=== PATIENT | female | born 2000 | race Caucasian/White ===

== ENCOUNTER → 2020-08-16 11:16 | Outpatient (CLI) | payer OTHER, SELFPAY ==
[2019-03-13 14:09] VITALS: BMI 23.6
[2020-08-17 13:42] LABS: SARS-COV-2 TOTAL ABS Reactive (Nonreactive)
== END ==
PROVIDERS: PCP Family Medicine; Referring Provider Family Medicine; Visit Provider Family Medicine
DX: U07.1 COVID-19 (principal)
CPT/HCPCS: 36415; 86769

== ENCOUNTER → 2021-04-06 | Outpatient (CLI) | payer BC, SELFPAY ==
[2021-04-11 17:05] LABS: HPV Reflexed? NOT INDICATED
== END | disposition home or self-care (01) ==
LOC: LABSPEC 16:13
PROVIDERS: PCP Family Medicine; Referring Provider Nurse Practitioner Women's Health; Visit Provider Nurse Practitioner Women's Health
DX: Z12.4 Encounter for screening for malignant neoplasm of cervix (principal)
CPT/HCPCS: 88175; G0145

== ENCOUNTER → 2021-04-11 06:01 | Outpatient (CLI) | payer BC, SELFPAY ==
[2021-04-11 09:29] LABS: Anion Gap 9 (5-15); BUN 18 mg/dL (7-18); BUN/Creat Ratio 20.5 RATIO (10-20); Calcium,Total 8.8 mg/dL (8.5-10.1); Chloride 103 mmol/L (98-107); Cholesterol 194 mg/dL (200); Creatinine, Serum 0.88 mg/dL (0.55-1.02); EST Glomerular Filtration Rate 85 mL/min (>60); Est Glom Filt Rate - Afr Amer 103 mL/min (>60); Glucose 82 mg/dL (74-106); High Density Lipoprotein 48 mg/dL; Potassium 3.4 mmol/L (3.5-5.1); Sodium Level 139 mmol/L (136-145); Triglycerides 111 mg/dL; Very Low Density Lipoprotein 22 mg/dL (5-40)
== END ==
PROVIDERS: PCP Family Medicine; Referring Provider Nurse Practitioner Women's Health; Visit Provider Nurse Practitioner Women's Health
DX: Z00.00 Encounter for general adult medical examination without abnormal findings (principal); Z13.220 Encounter for screening for lipoid disorders; Z13.29 Encounter for screening for other suspected endocrine disorder; Z13.1 Encounter for screening for diabetes mellitus
CPT/HCPCS: 36415; 80048; 80061; 84443

== ENCOUNTER → 2021-05-29 07:06 | Outpatient (CLI) | payer BC, SELFPAY ==
[2021-05-29 10:28] LABS: Thyroid Stim Hormone (TSH) 1.31 uIU/mL (0.358-3.74)
== END ==
PROVIDERS: PCP Family Medicine; Referring Provider Registered Nurse; Visit Provider Registered Nurse
DX: E03.9 Hypothyroidism, unspecified (principal)
CPT/HCPCS: 36415; 84443

== ENCOUNTER 2021-09-26 07:54 | Outpatient (CLI) | payer BC, SELFPAY ==
--- NOTE | 2021-09-26 07:56 | CT_ITS ---
STUDY: CT ABDOMEN AND PELVIS WITH CONTRAST REASON FOR EXAM: Female, 21 years old. Persistent, worsening abdominal pain, pain with eating, central abdomen RADIATION DOSAGE (If Supplied By Facility): CTDIvol = ( 8.93 ) mGy, DLP = ( 574.78 ) mGycm TECHNIQUE: Transaxial images were obtained from the dome of the diaphragm to the symphysis pubis with oral contrast. Oral and amp; IV Redi-CAT and amp; 100mL Isovue-300 was administered. Sagittal and coronal images were reconstructed. Individualized dose optimization techniques were used for this CT. COMPARISON: None. FINDINGS: The visualized lung bases are unremarkable. The visualized portions of the heart are within normal limits. Normal liver. Normal gallbladder and extrahepatic biliary system. Normal spleen. Normal pancreas. Normal bilateral adrenal glands. Normal right kidney. Normal left kidney. Normal visualized stomach. Normal small intestine. Normal colon. The appendix is visualized and appears normal. Normal abdominal aorta. Normal inferior vena cava. Normal retroperitoneum. Normal urinary bladder. There is a 2.7 cm x 2.3 cm cyst in the right ovary. Small follicles are seen in the left ovary. There is a small umbilical hernia containing fat. Normal osseous structures. CT/Abdomen/Pelvis WITH Contrast IMPRESSION: 2.7 cm x 2.3 cm cyst in the right ovary. Small follicles are seen in the left ovary. Electronically Signed: Pritesh John MD at 12:26 EDT ,
== END 2021-09-26 23:59 | disposition home or self-care (01) ==
LOC: CT 07:55
PROVIDERS: PCP Family Medicine; Referring Provider Registered Nurse; Visit Provider Registered Nurse
DX: R10.9 Unspecified abdominal pain (principal)
CPT/HCPCS: 74177; Q9967

== ENCOUNTER → 2021-11-15 | Outpatient (CLI) | payer BC, SELFPAY ==
[2021-11-15 12:26] LABS: Absolute Lymphocyte Count 1.75 X10^3/uL (0.83-4.51); Absolute Neutrophil Count 2.4 X10^3/uL (2.0-7.7); Basophil# 0.04 X10^3/uL; Basophil% 0.8 % (0-1); Eosinophil# 0.27 X10^3/uL; Eosinophils% 5.6 % (0-5); Hematocrit 42.1 % (37-47); Lymphocyte # 1.75 X10^3/ul (0.83-4.51); Lymphocyte % 36.1 % (19-41); Mean Corp Hgb Conc 33.3 g/dL (32-36); Mean Corpuscular Hgb 29.6 pg (27.0-32.0); Mean Platelet Vol. 10.1 fl (6.2-12.0); Monocyte# 0.34 X10^3/uL; NRBC Flagged by Analyzer 0 % (0-5); Neutrophil # 2.44 X10^3/uL (2.7-7.7); Neutrophil % 50.3 % (47-70); Platelet Count 315 K/mm3 (150-450); RBC Distribution Width CV 11.7 % (11.6-14.6); RBC Distribution Width SD 37.7 fl (35.1-43.9); Red Blood Count 4.73 M/mm3 (4.2-5.4); White Blood Count 4.9 K/mm3 (4.4-11.0)
[2021-11-15 13:01] LABS: ALB/GLOB Ratio 1.1 RATIO (0.9-2.4); AST(SGOT) 18 U/L (15-37); Alanine Aminotransfer ALT/SGPT 23 U/L (13-56); Alkaline Phosphatase 41 U/L (45-117); Anion Gap 5 (5-15); BUN 17 mg/dL (7-18); Calcium,Total 9.1 mg/dL (8.5-10.1); Chloride 106 mmol/L (98-107); EST Glomerular Filtration Rate 73 mL/min (>60); Est Glom Filt Rate - Afr Amer 88 mL/min (>60); Globulin 3.5 g/dL (2.2-4.2); Glucose 95 mg/dL (74-106); Potassium 3.9 mmol/L (3.5-5.1); Protein, Total 7.5 g/dL (6.4-8.2); Sodium Level 137 mmol/L (136-145)
[2021-11-15 13:06] LABS: Thyroid Stim Hormone (TSH) 0.83 uIU/mL (0.358-3.74)
== END | disposition home or self-care (01) ==
PROVIDERS: Nurse Practitioner Adult Health; PCP Family Medicine; Referring Provider Family Medicine; Visit Provider Registered Nurse
DX: E03.9 Hypothyroidism, unspecified (principal)
CPT/HCPCS: 36415; 80053; 84443; 85025

== ENCOUNTER → 2021-11-17 | Outpatient (CLI) | payer BC, SELFPAY ==
[2021-11-21 10:38] LABS: H. PYLORI STOOL AG Negative (Negative)
== END | disposition home or self-care (01) ==
PROVIDERS: PCP Family Medicine; Visit Provider Nurse Practitioner Adult Health
DX: R10.9 Unspecified abdominal pain (principal)

== ENCOUNTER → 2021-12-01 | Outpatient (CLI) | payer BC, SELFPAY ==
--- NOTE | 2021-12-01 09:03 | NM_ITS ---
STUDY: HEPATOBILARY SCINTGRAPHY REASON FOR EXAM: Female, 21 years old. Abdominal pain COMPARISON STUDIES : NM - None. CR - Not available for review at this time. CT - Not available for review at this time. MR - Not available for review at this time. Technique: After the administration of 5.3 mCi of technetium 99m Choletec intravenously, multiple scintigraphic images of the abdomen were obtained. After the administration of energy drink orally, a gallbladder ejection fraction was calculated. Findings: Homogeneous uptake of radiopharmaceutical throughout the hepatic parenchyma. Prompt excretion into the biliary tree first seen on the 10 minute image. Prompt visualization of the gallbladder first seen on the 10 minute image. Passage of radiopharmaceutical from the biliary tree into the small bowel ensuring patency of the common bile duct. After the administration of energy drink orally, gallbladder ejection fraction is calculated. The gallbladder ejection fraction is 37% which is slightly decreased and can be seen in gallbladder dyskinesia chronic cholecystitis.. NM/Hepatobilliary Img w/Pharm Int IMPRESSION: Possible chronic cholecystitis with a gallbladder ejection fraction of 37%. Electronically Signed: Manuel Gomez MD at 10:57 EDT ,
== END | disposition home or self-care (01) ==
LOC: NM 09:01
PROVIDERS: PCP Family Medicine; Referring Provider Nurse Practitioner Adult Health; Visit Provider Nurse Practitioner Adult Health
DX: R10.11 Right upper quadrant pain (principal)
CPT/HCPCS: 78227; A9537

== ENCOUNTER → 2021-12-19 | Outpatient (CLI) | payer BC, SELFPAY ==
--- NOTE | 2021-12-19 08:59 | US_ITS ---
STUDY: ABDOMINAL ULTRASOUND - RIGHT UPPER QUADRANT REASON FOR VISIT: Female, 21 years old . Right upper quadrant pain. TECHNIQUE: Ultrasound evaluation of the right upper quadrant was performed with real-time and static spears-scale imaging. TECHNICAL QUALITY: Adequate. COMPARISON: None. FINDINGS: Liver: The liver measures 11.7 cm. There is normal echogenicity of the liver. The bile ducts are within normal limits. There is hepatic color flow. The direction of portal flow is hepatopetal. There is no demonstrated mass lesion. Gallbladder: Normal distended gallbladder. The gallbladder wall measures 2.5 mm. There is a negative sonographic Enwell''s sign. There is no pericholecystic fluid. There are no gallstones. Common Bile Duct (C.B.D.): The common bile duct measures 1.8 mm. Pancreas: Normal size of the head, body and tail of the pancreas. There is normal echogenicity of the pancreas. There is no demonstrated pancreatic mass or cyst. Right Kidney: Normal size of the right kidney. The right kidney measures 10.3 cm x 5.1 cm x 5.8 cm. Normal renal cortex. The right cortex measures 1.9 cm. There is no demonstrated renal mass or cyst. There is no right hydronephrosis. US/Gallbladder IMPRESSION: Normal right upper quadrant ultrasound examination. Electronically Signed: Pritesh John MD at 9:37 EDT ,
== END | disposition home or self-care (01) ==
LOC: US 08:58
PROVIDERS: PCP Family Medicine; Referring Provider Surgery; Visit Provider Surgery
DX: R10.11 Right upper quadrant pain (principal); R94.8 Abnormal results of function studies of other organs and systems
CPT/HCPCS: 76705

== ENCOUNTER → 2022-03-13 | Outpatient (CLI) | payer BC, SELFPAY ==
[2022-03-13 18:42] LABS: T4 Free Direct 0.94 ng/dL (0.76-1.46); Thyroid Stim Hormone (TSH) 1.67 uIU/mL (0.358-3.74)
== END | disposition home or self-care (01) ==
LOC: MFPLAB 09:58
PROVIDERS: PCP Family Medicine; Referring Provider Nurse Practitioner Family; Visit Provider Nurse Practitioner Family
DX: E03.9 Hypothyroidism, unspecified (principal)
CPT/HCPCS: 36415; 84439; 84443

== ENCOUNTER 2022-05-09 08:41 | Day surgery (SDC) | payer BC, SELFPAY ==
[2022-05-09] VITALS (7 sets, daily range): BP systolic 100–125; BP diastolic 59–68; PULSE 71–79; RESP 16; TEMP 36.7–36.9; O2SAT 96–100; BMI 31.1
--- NOTE | 2022-05-09 | COLBX_PTH ---
PATIENT: LILY FOUNTAIN LOC: EN U#:[id number] AGE/SX: 21/F ROOM: RE05/09/[address]: Dr. Jonas Simpson DO : 2000 BED: DIS: 05/09/2022 SPEC #: [id number] RECD: 05/09/22 13:17 STATUS: DAYANARA REHolli #: [id number] MARIS: 05/09/22 00:[address]: Jonas Simpson DEPT: SURGICAL PATHOLOGY RECD BY: Jaiden Vega ENTERED: 05/09/22 13:17 SP TYPE: COLON BX OTHR DR: Dr. Ramiro Ren MD Tissues: A - Duodenum, NOS B - Gastric mucous membrane C - Esophageal mucous membrane Procedures: Special Stain Group II Surgery Specimen Level IV Alcian Blue/PAS (control) HEADER OPERATION: EGD ([facility]) PRE-OP DIAGNOSIS: Postprandial RUQ pain TISSUE SUBMITTED: A. Duodenum biopsy, B. Gastric antrum biopsy, C. Distal esophagus biopsy MICROSCOPIC DIAGNOSIS A. Duodenum biopsy: Fragments of duodenal mucosa, no pathologic diagnosis. B. Gastric antrum biopsy: Mild gastritis. See microscopic description and comment. C. Distal esophagus biopsy: Fragments of gastroesophageal mucosa with chronic inflammation. Intestinal metaplasia (goblet cell metaplasia) not identified. Focal changes consistent with eosinophilic esophagitis. See microscopic description and comment. /SANDRA 05/10/22 COMMENT B. The results of immunohistochemistry for Helicobacter pylori will be reported separately ([id number]). C. Alcian blue/PAS stain with matched control supports the above diagnosis. Increased number of eosinophils (>20/per high power field) are also noted, consistent with eosinophilic esophagitis. Correlation with clinical, endoscopic findings and appropriate follow up are necessary. MICROSCOPIC DESCRIPTION Slides are reviewed. The specimen shows fragments of gastric mucosa with chronic inflammatory cell infiltrates in the lamina propria consisting of lymphocytes and plasma cells, consistent with mild chronic gastritis. GROSS DESCRIPTION A. Received is one container labeled with the patient name and designated duodenum. The specimen consists of two irregular fragments of light hatch soft tissue that in aggregate measure 0.6 x 0.3 x 0.1 cm. The specimen is totally submitted in one cassette. B. Received is one container labeled with the patient name and designated gastric antrum. The specimen consists of multiple irregular fragments of light hatch soft tissue that in aggregate measure 0.8 x 0.4 x 0.1 cm. The specimen is totally submitted in one cassette. C. Received is one container labeled with the patient name and designated disat esophagus. The specimen consists of multiple irregular fragments of light hatch soft tissue that in aggregate measure 0.6 x 0.4 x 0.1 cm. The specimen is totally submitted in one cassette. /SJ:cc 05/09/2022 TC:3 CPT:94093 x3,32237
--- NOTE | 2022-05-09 | IMM_PTH ---
PATIENT: LILY FOUNTAIN LOC: EN U#:[id number] AGE/SX: 21/F ROOM: RE05/09/[address]: Dr. Jonas Simpson DO : 2000 BED: DIS: 05/09/2022 SPEC #: [id number] RECD: 05/09/22 15:11 STATUS: DAYANARA SOLEDAD #: [id number] MARIS: 05/09/22 00:[address]: Jonas Simpson DEPT: IMMUNOHISTOCHEMISTRY RECD BY: Lucia Ingram ENTERED: 05/09/22 15:11 SP TYPE: IMMUNO OTHR DR: Dr. Ramiro Ren MD Tissues: Gastric mucous membrane Procedures: H Pylori (initial) PHYSICIAN & [place] [id number] SPECIMEN INFORMATION: Tissue Source: B. Gastric antrum Clinical Info: Postprandial RUQ pain Specimen Number: [id number] CPT code: 32646 METHODOLOGY: Deparaffinized sections of prefer/formalin-fixed tissue or PAP/DQ stained slides are incubated with monoclonal/polyclonal antibodies/oligonucleotide probes. Localization is made via biotin free immunoperoxidase method. Appropriate controls are performed and reacted as expected. Results on target cell population are indicated in the following table: RESULTS: ANTIBODY / CLONE RESULT H Pylori (polyclonal) negative These tests were developed and their performance characteristics determined by [facility]. They may not have been cleared or approved by the U.S. Food and Drug Administration. The FDA has determined that such clearance or approval is not necessary. The above immunohistochemical/dualISH markers are ordered and reviewed by the Pathologist. INTERPRETATION: Gastric antrum: Negative for Helicobacter pylori organisms. /SANDRA:selena 05/10/2022
[2022-05-09 09:12] LABS: Internal QC Validated? YES +Cl - CLEAR BKGD; Pregnancy, Urine Negative Negative
[2022-05-09] MEDS: Lactated Ringers 1,000 ML 15 ML IV (09:15)
--- NOTE | 2022-05-09 09:27 | HP.PCM_ITS ---
History and Physical Date of Admission: 05/09/22 LILY FOUNTAIN, is a 21 F who presents to the office today for postprandial stomach aches. They are now less severe and less frequent on pantoprazole 20 mg daily. Used to occur daily, now a few times a week. Only occasional nausea, not problematic.? BM 2x per day, no issue with constipation. Occasional diarrhea but not frequent and that is unchanged.? No melena or hematochezia. General surgeon Dr Conroy has evaluated her; HIDA technically normal, US normal. 10/2021 Labs: CBC slightly elevated eosinophils Negative stool H. pylori 90% is after eating ache and cramp Nausea isn't often The abdominal pain is epigastric and superior to the umbilicus.? It began in high school.? Initially occurred just after eating certain foods especially avocado or [place] food.? In the past year the pain became much more frequent, occurring almost anytime she ate. Pain typically occurs 20-30 minutes after eating.? Occasional nausea with the pain but that is not frequent.? The only time she has vomited was from avocado. No heartburn, acid reflux, dysphagia. Normal appetite. No major weight change. CT scan of the abdomen and pelvis with oral and IV contrast done on 09/26/2021: Right ovarian cyst, otherwise negative. Sister has EOE PMH: temporary hearing loss in 2020, ?Meniere's vs covid, on HCTZ. Hypothyroidism.? Vocal cord dysfunction.? Minimal seasonal allergies.? No asthma or eczema. 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 She is .? No tobacco alcohol or drugs. ROS Const Constitutional: Positive for fatigue ENT ENT: No difficulty swallowing Gastro GI: Positive for abdominal pain, bloating and excessive flatus; No belching, change in bowel habits, change in stool character, coffee ground emesis, constipation, cramping, diarrhea, heartburn, difficulty swallowing, feeling full early, incontinent of stools, Vomiting blood/hematemesis, Blood in stool, loose stools, Black,tarry stools, nausea/dyspepsia, pain with swallowing, vomiting or other Musc Musculoskeletal: No joint pain Skin Skin: Positive for itchy eyes and rash; No yellowing of the eye Psych Psychiatric: No anxiety and No depression Endo Endocrine: Positive for fatigue Aller/Imm Allergy/Immunologic: Positive for itchy eyes Codey/Lymp Hematologic/Lymphatic: No easy bleeding or easy bruising Exam Const General: cooperative, healthy appearing and comfortable Quality Reporting Tobacco Screening ([facility] 138) Smoking Status: Never smoker Assessment and Plan Assessment and Plan (1) Postprandial RUQ pain: ?Status:?Acute ?Plan: Improved on PPI therapy, less frequent and less severe. Samples of Zenpep pancreatic enzymes, try 1 with snacks and 2 with meals; send me a portal message with update if this relieves pain or not. If so, could consider treating small bowel with azithromycin (to treat inflammation in duodenum that can cause blockage from pancreas). Recommend she keep appt for EGD to evaluate for hiatal hernia, gastritis, bile acid reflux. I have examined the patient and the H&P has been reviewed. There are no clinical changes since date of exam.
--- NOTE | 2022-05-09 10:11 | OP.CCLET_ITS ---
05/09/2022 Ramiro Ren [address] [place] [address] Re : Upper GI endoscopy procedure for Valery Hurst Dear Dr. Ren This procedure was performed on Monday, May 09, 2022. My impressions and recommendations are as follows: Impressions : - Z-line irregular, 38 cm from the incisors. Biopsied. - Bilious gastric fluid. - Erythematous mucosa in the antrum. Biopsied. - Erythematous duodenopathy. Biopsied. Recommendations : - Discharge patient to home. - Resume previous diet. - Continue present medications. - Await pathology results. My findings are described in the full procedure note, which is enclosed. If I can be of further assistance, please feel free to contact me at . Sincerely, Jonas Simpson, 05/09/2022 10:10:52 AM This report has been signed electronically.
--- NOTE | 2022-05-09 10:11 | OP.EGD_ITS ---
Patient Name: Valery Hurst Procedure Date: 05/09/2022 9:48 AM Date of : 2000 Age: 21 Procedure: Upper GI endoscopy Indications: Epigastric abdominal pain, Functional Dyspepsia Providers: Jonas Simpson DO Medicines: Monitored Anesthesia Care Patient Profile: This is a 21 year old female. Refer to note in patient chart for documentation of history and physical. Patient has symptoms of chronic right upper quadrant abdominal pain, acute epigastric abdominal pain and chronic dyspepsia. Complications: No immediate complications. Procedure: Pre-Anesthesia Assessment: - Prior to the procedure, a History and Physical was performed, and patient medications and allergies were reviewed. The risks and benefits of the procedure and the sedation options and risks were discussed with the patient. All questions were answered and informed consent was obtained. Patient identification and proposed procedure were verified by the physician in the pre-procedure area. Mental Status Examination: alert and oriented. Airway Examination: normal oropharyngeal airway and neck mobility. Respiratory Examination: clear to auscultation. CV Examination: normal. Prophylactic Antibiotics: The patient does not require prophylactic antibiotics. Prior Anticoagulants: The patient has taken no previous anticoagulant or antiplatelet agents. ASA Grade Assessment: II - A patient with mild systemic disease. After reviewing the risks and benefits, the patient was deemed in satisfactory condition to undergo the procedure. The anesthesia plan was to use moderate sedation / analgesia (conscious sedation). Immediately prior to administration of medications, the patient was re-assessed for adequacy to receive sedatives. The heart rate, respiratory rate, oxygen saturations, blood pressure, adequacy of pulmonary ventilation, and response to care were monitored throughout the procedure. The physical status of the patient was re-assessed after the procedure. After obtaining informed consent, the endoscope was passed under direct vision. Throughout the procedure, the patient's blood pressure, pulse, and oxygen saturations were monitored continuously. The Endoscope was introduced through the mouth, and advanced to the second part of duodenum. The upper GI endoscopy was accomplished without difficulty. The patient tolerated the procedure well. Scope In: 9:59:15 AM Scope Out: 10:05:57 AM Total Procedure Duration Time 0 hours 6 minutes 42 seconds Findings: The Z-line was irregular and was found 38 cm from the incisors. Biopsies were taken with a cold forceps for histology. Verification of patient identification for the specimen was done. Estimated blood loss was minimal. Bilious fluid was found in the gastric body. Patchy mildly erythematous mucosa without bleeding was found in the gastric antrum. Biopsies were taken with a cold forceps for histology. Verification of patient identification for the specimen was done. Estimated blood loss was minimal. Patchy mildly erythematous mucosa without active bleeding and with no stigmata of bleeding was found in the duodenal bulb. Biopsies were taken with a cold forceps for histology. Verification of patient identification for the specimen was done. Estimated blood loss was minimal. Impression: - Z-line irregular, 38 cm from the incisors. Biopsied. - Bilious gastric fluid. - Erythematous mucosa in the antrum. Biopsied. - Erythematous duodenopathy. Biopsied. Recommendation: - Discharge patient to home. - Resume previous diet. - Continue present medications. - Await pathology results. Procedure Code(s): --- Professional --- 47717, Esophagogastroduodenoscopy, flexible, transoral; with biopsy, single or multiple CPT copyright 2017 [employer]. All rights reserved. The codes documented in this report are preliminary and upon kraft mill operator review may be revised to meet current compliance requirements. Jonas Simpson DO 05/09/2022 10:10:52 AM This report has been signed electronically. Number of Addenda: 0 Note Initiated On: 05/09/2022 9:48 AM
== END 2022-05-09 11:09 | disposition home or self-care (01) ==
LOC: EN 08:42 → AC 08:42
PROVIDERS: Anesthesiology; PCP Family Medicine; Referring Provider Family Medicine; Visit Provider Internal Medicine Gastroenterology
PROC: 0DJ08ZZ Inspection of Upper Intestinal Tract, Via Natural or Artificial Opening Endoscopic (ICD-10-PCS; CPT 43235; principal; 2022-05-09 09:40)
DX: K31.89 Other diseases of stomach and duodenum (principal); K20.0 Eosinophilic esophagitis; K29.50 Unspecified chronic gastritis without bleeding; E03.9 Hypothyroidism, unspecified; Z79.899 Other long term (current) drug therapy
CPT/HCPCS: 43239; 81025; 88305; 88313; 88342; J7120; A4216; J2405

== ENCOUNTER → 2022-06-26 | Outpatient (CLI) | payer BC, SELFPAY ==
[2022-06-26 09:48] LABS: hCG Titer Quant., Serum < 1 mIU/mL (1-3)
== END | disposition home or self-care (01) ==
LOC: PAVLAB 08:54
PROVIDERS: PCP Family Medicine; Referring Provider Obstetrics & Gynecology; Visit Provider Obstetrics & Gynecology
DX: N91.2 Amenorrhea, unspecified (principal)
CPT/HCPCS: 36415; 84702

== ENCOUNTER → 2022-07-24 | Outpatient (CLI) | payer BC, SELFPAY | END | disposition home or self-care (01) | PROVIDERS: PCP Family Medicine | DX: E03.9 Hypothyroidism, unspecified (principal); R10.9 Unspecified abdominal pain ==

== ENCOUNTER → 2022-09-07 | Outpatient (CLI) | payer BC, SELFPAY ==
[2022-09-07 16:08] LABS: T4 Free Direct 0.95 ng/dL (0.76-1.46); Thyroid Stim Hormone (TSH) 3.34 uIU/mL (0.358-3.74)
== END | disposition home or self-care (01) ==
PROVIDERS: PCP Family Medicine; Referring Provider Nurse Practitioner Family; Visit Provider Nurse Practitioner Family
DX: E03.9 Hypothyroidism, unspecified (principal)
CPT/HCPCS: 36415; 84439; 84443

== ENCOUNTER → 2022-09-26 | Outpatient (CLI) | payer BC, SELFPAY ==
[2022-09-26 14:32] LABS: hCG Titer Quant., Serum 81 mIU/mL (1-3)
== END | disposition home or self-care (01) ==
LOC: PAVLAB 13:44
PROVIDERS: PCP Family Medicine; Referring Provider Nurse Practitioner Women's Health; Visit Provider Nurse Practitioner Women's Health
DX: N91.2 Amenorrhea, unspecified (principal)
CPT/HCPCS: 36415; 84702

== ENCOUNTER → 2022-09-28 | Outpatient (CLI) | payer BC, SELFPAY ==
[2022-09-28 12:48] LABS: hCG Titer Quant., Serum 268 mIU/mL (1-3)
== END | disposition home or self-care (01) ==
LOC: PAVLAB 11:36
PROVIDERS: PCP Family Medicine; Visit Provider Nurse Practitioner Women's Health
DX: N91.2 Amenorrhea, unspecified (principal)
CPT/HCPCS: 36415; 84702

== ENCOUNTER → 2022-11-05 | Outpatient (CLI) | payer BC, SELFPAY ==
[2022-11-05 14:37] LABS: Absolute Lymphocyte Count 2.24 X10^3/uL (0.83-4.51); Absolute Neutrophil Count 6.6 X10^3/uL (2.0-7.7); Basophil# 0.05 X10^3/uL; Basophil% 0.5 % (0-1); Eosinophil# 0.35 X10^3/uL; Eosinophils% 3.5 % (0-5); Hematocrit 39.6 % (37-47); Hemoglobin 13.5 g/dL (12.0-15.0); Lymphocyte # 2.24 X10^3/ul (0.83-4.51); Lymphocyte % 22.7 % (19-41); Mean Corp Hgb Conc 34.1 g/dL (32-36); Mean Corpuscular Hgb 30.1 pg (27.0-32.0); Mean Corpuscular Volume 88.4 fL (81-99); Monocyte# 0.58 X10^3/uL; Monocyte% 5.9 % (0-10); NRBC Flagged by Analyzer 0 % (0-5); Neutrophil # 6.63 X10^3/uL (2.7-7.7); Neutrophil % 67.2 % (47-70); Platelet Count 317 K/mm3 (150-450); RBC Distribution Width CV 12.1 % (11.6-14.6); RBC Distribution Width SD 39.1 fl (35.1-43.9); Red Blood Count 4.48 M/mm3 (4.2-5.4); White Blood Count 9.9 K/mm3 (4.4-11.0)
[2022-11-05 15:11] LABS: T4 Free Direct 1.11 ng/dL (0.76-1.46); Thyroid Stim Hormone (TSH) 5.03 uIU/mL (0.358-3.74)
[2022-11-05 15:45] LABS: HIV - WCH Non-Reactive (Nonreactive); Hepatitis B Surface Antigen Non-Reactive (Nonreactive); Hepatitis C Antibody Non-Reactive (Nonreactive); Rubella IgG Reactive (Nonreactive); Syphilis Antibodies Non-reactive
[2022-11-08 00:07] LABS: Chlamydia By Nucleic Acid AMP Negative (Negative); Gonococcus By Nucleic Acid AMP Negative (Negative)
[2022-11-12 18:07] LABS: CF, Screen Comment: (.)
== END | disposition home or self-care (01) ==
LOC: PAVLAB 14:12
PROVIDERS: Nurse Practitioner Family; PCP Family Medicine; Referring Provider Obstetrics & Gynecology; Visit Provider Obstetrics & Gynecology
DX: O99.280 Endocrine, nutritional and metabolic diseases complicating pregnancy, unspecified trimester (principal); E03.9 Hypothyroidism, unspecified; Z3A.00 Weeks of gestation of pregnancy not specified
CPT/HCPCS: 36415; 81220; 84439; 84443; 85025; 86703; 86762; 86780; 86803; 86850; 86900; 86901; 87086; 87340; 87491; 87591

== ENCOUNTER 2022-11-15 21:09 | Emergency (ER) | payer BC, SELFPAY ==
[2022-11-15 21:10] VITALS: BP 141/91; PULSE 92; RESP 16; TEMP 36.6; O2SAT 98; BMI 29.0
--- NOTE | 2022-11-15 21:37 | EDS_ITS ---
HPI History of Present Illness Chief Complaint: Abd Pain Narrative Narrative: Patient presents with epigastric pain and cramping that started today she has nausea with this no vomiting. She has some loose stools but no diarrhea. She is 11 weeks she has minimal suprapubic pain. She has no vaginal bleeding. She has no back pain or tearing sensation. No urinary symptoms PFSH PFS Medical History Abdominal pain Abnormal biliary HIDA scan Alcohol use Amenorrhea Bile in stomach Epigastric pain Hypothyroidism Meniere disease Non-smoker Postprandial RUQ pain Wears contact lenses Home Medications levothyroxine 100 mcg capsule 100 mcg PO QHS 10/09/21 [History Last Taken Unknown] docosahexaenoic acid 200 mg capsule ( DHA) mg PO 11/01/22 [History Last Taken Unknown] doxylamine succinate 25 mg tablet (Unisom (doxylamine)) 25 mg PO QHS PRN 11/01/22 [History Last Taken Unknown] magnesium 200 mg tablet 200 mg PO DAILY 11/01/22 [History Last Taken Unknown] pyridoxine (vitamin B6) 25 mg tablet (Vitamin B-6) 25 mg PO DAILY 11/01/22 [History Last Taken Unknown] dicyclomine 20 mg tablet 20 mg PO TID #14 tabs 11/15/22 [Rx Last Taken Unknown] ondansetron 4 mg disintegrating tablet 4 mg PO Q8H PRN PRN Nausea #5 tabs 11/15/22 [Rx Last Taken Unknown] Allergy/AdvReac Type Severity Reaction Status Date / Time No Known Allergies Allergy Verified 11/15/22 21:13 Family History Mother Hypothyroid Father Hypertension Surgical History Hx of wisdom tooth extraction S/P left knee surgery S/P right knee surgery S/P tonsillectomy Social History adopted: No household members: spouse current occupational status: employed current occupation: [employer] current occupational exposures/hazards: No pets and animals: No history of recent travel: Yes ([place] in Jun ) out of country: Yes sexually active: Yes Smoking Status: Never smoker alcohol intake: current details: social- not while substance use type: does not use caffeine: Yes what type of physical activity do you participate in: running and aerobics frequency: 1-2 times per week seatbelt use: always do you feel safe at home: Yes additional social history: Spouse - Wayne Hurst 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 ROS ROS ED ROS Narrative Past medical history: Reviewed Medications: Reviewed Social history: Noncontributory Review of systems: All systems negative except as indicated General: No fever Cardiovascular: No chest pain Respiratory: No shortness of breath or cough Gastrointestinal: As in HPI Genitourinary: No dysuria Musculoskeletal: Denies myalgias no difficulty with ambulation Skin: No rash EXAM Physical Exam Narrative Exam Narrative: Physical exam General: Patient appears relatively comfortable Head: Normocephalic, Atraumatic Eyes: Conjunctiva not pale ENT: Slightly dry mucous membranes Neck: Supple, Nontender, No lymphadenopathy Cardiovascular: Regular rate, Regular rhythm Respiratory: No distress, CTA bilaterally Abdomen: Soft, mostly epigastric tenderness to palpation. No significant right upper quadrant pain. Negative Newell's. No pain at McBurney's. When I press in the suprapubic region she only has slight pain. Most of her pain is epigastric. Back: Nontender, Normal Inspection. Negative for: CVA tenderness Extremities: Nontender, No edema Skin: Normal color, No rash Const Vital Signs: 11/15/22 21:10 Temperature 97.9 F Temperature Source Temporal Pulse Rate 92 Respiratory Rate 16 Blood Pressure 141/91 H Blood Pressure Mean 107 Pulse Ox 98 Oxygen Delivery Method Room Air MDM MDM MDM Narrative Medical decision making narrative: Patient presents with epigastric pain and cramping, she received antiemetics and antispasmodics I reevaluated her her pain is now much improved she feels much better. There is no evidence of a UTI, there is no evidence of biliary obstruction on blood work, no evidence of infection with normal white count. At this time I thought about CT or ultrasound however the patient does not have specific right upper quadrant pain and she has negative Newell's. Most her pain is epigastric and not pelvic therefore I am not worried about a etiology for her symptoms. I talked her and they are okay with discharge. Lab Data Labs: Laboratory Results - last 24 hr 11/15/22 11/15/22 11/15/22 21:45 21:50 21:50 WBC 9.4 RBC 4.26 Hgb 12.7 Hct 37.6 MCV 88.3 MCH 29.8 MCHC 33.8 RDW Std Deviation 39.7 RDW Coeff of Antonia 12.4 Plt Count 285 MPV 9.7 Immature Gran % (Auto) 0.200 Neut % (Auto) 67.5 Lymph % (Auto) 23.3 [place] % (Auto) 6.0 Eos % (Auto) 2.4 Baso % (Auto) 0.6 Absolute Neuts (auto) 6.3 Absolute Lymphs (auto) 2.19 Nucleated RBC % 0 Sodium 138 Potassium 3.3 L Chloride 107 Carbon Dioxide 24.0 Anion Gap 7 BUN 10 Creatinine 0.63 Estim Creat Clear Calc 133.90 Est GFR (MDRD) Af Amer 150 Est GFR (MDRD) Non-Af 124 BUN/Creatinine Ratio 16.0 Glucose 96 Calcium 9.0 Total Bilirubin 0.30 AST 17 ALT 20 Alkaline Phosphatase 39 L Total Protein 6.6 Albumin 3.2 Globulin 3.4 Albumin/Globulin Ratio 0.9 Lipase 31 Urine Color Yellow Urine Clarity Clear Urine pH 7.0 Ur Specific [place] 1.010 Urine Protein Negative Urine Glucose (UA) Normal Urine Ketones Negative Urine Occult Blood Negative Urine Nitrite Negative Urine Bilirubin Negative Urine Urobilinogen Normal Ur Leukocyte Esterase Negative Urine RBC 0 SEEN Urine WBC 0-5 SEEN Ur Squamous Epith Cells 0-5 SEEN Urine Bacteria 1+ Urine Mucus 0 SEEN Discharge Plan Triage Chief Complaint: Abd Pain ED Provider: Savage Bonds Dx/Rx/DC Orders Clinical Impression: , Abdominal cramping Instructions: Abdominal Pain Prescriptions: New dicyclomine 20 mg tablet 20 mg PO TID Qty: 14 0RF ondansetron 4 mg tablet,disintegrating 4 mg PO Q8H PRN PRN (Reason: Nausea) Qty: 5 0RF No Action levothyroxine 100 mcg capsule 100 mcg PO QHS pyridoxine (vitamin B6) [Vitamin B-6] 25 mg tablet 25 mg PO DAILY Unisom (doxylamine) 25 mg tablet 25 mg PO QHS PRN magnesium 200 mg tablet 200 mg PO DAILY DHA 200 mg capsule PO Primary Care Provider: Katarina Christy Referrals: Westley,Katarina M, DO [Primary Care Provider] - 3-5 Days Disposition Disposition: Home, Self Care
[2022-11-15 21:55] LABS: Mucous, Urine 0 SEEN /hpf (<or=2+); Red Blood Cells-Urine 0 SEEN /hpf (0-5)
[2022-11-15 21:57] LABS: Color, Urine Yellow (Yellow); Glucose, Dipstick Normal (Normal); Ketone-Dipstick Negative (Negative); Leukocyte Esterase-Dipstick Negative /ul (Negative); Nitrite-Dipstick Negative (Negative); Occult Blood-Urine Negative /ul (Negative); Protein-Dipstick Negative (Negative); Urine Bilirubin Dipstick Negative (Negative); Urine Clarity Clear (Clear); Urine Urobilinogen Normal (Normal)
[2022-11-15] MEDS: Ondansetron 4 MG/2 ML Vial IV (22:03)
[2022-11-15] MEDS: 0.9% Normal Saline 1,000 ML 1000 ML IV (22:03)
[2022-11-15] MEDS: Dicyclomine 20 MG/2 ML Vial IM (22:03)
[2022-11-15 22:07] LABS: Bacteria 1+ /hpf (None Seen); Squamous Epithelial Cells - UA 0-5 SEEN /hpf (5-10); White Blood Cells 0-5 SEEN /hpf (0-5)
[2022-11-15 22:11] LABS: Absolute Lymphocyte Count 2.19 X10^3/uL (0.83-4.51); Absolute Neutrophil Count 6.3 X10^3/uL (2.0-7.7); Basophil# 0.06 X10^3/uL; Basophil% 0.6 % (0-1); Eosinophil# 0.23 X10^3/uL; Eosinophils% 2.4 % (0-5); Hematocrit 37.6 % (37-47); Hemoglobin 12.7 g/dL (12.0-15.0); Lymphocyte # 2.19 X10^3/ul (0.83-4.51); Lymphocyte % 23.3 % (19-41); Mean Corp Hgb Conc 33.8 g/dL (32-36); Mean Corpuscular Hgb 29.8 pg (27.0-32.0); Mean Corpuscular Volume 88.3 fL (81-99); Mean Platelet Vol. 9.7 fl (6.2-12.0); Monocyte# 0.56 X10^3/uL; NRBC Flagged by Analyzer 0 % (0-5); Neutrophil # 6.34 X10^3/uL (2.7-7.7); Neutrophil % 67.5 % (47-70); Platelet Count 285 K/mm3 (150-450); RBC Distribution Width CV 12.4 % (11.6-14.6); RBC Distribution Width SD 39.7 fl (35.1-43.9); Red Blood Count 4.26 M/mm3 (4.2-5.4); White Blood Count 9.4 K/mm3 (4.4-11.0)
[2022-11-15 22:27] LABS: ALB/GLOB Ratio 0.9 RATIO (0.9-2.4); AST(SGOT) 17 U/L (15-37); Alanine Aminotransfer ALT/SGPT 20 U/L (13-56); Albumin, Serum 3.2 g/dL (3.2-5.0); Alkaline Phosphatase 39 U/L (45-117); Anion Gap 7 (5-15); BUN 10 mg/dL (7-18); Chloride 107 mmol/L (98-107); Creatinine, Serum 0.63 mg/dL (0.55-1.02); EST Glomerular Filtration Rate 124 mL/min (>60); Est Glom Filt Rate - Afr Amer 150 mL/min (>60); Globulin 3.4 g/dL (2.2-4.2); Glucose 96 mg/dL (74-106); Lipase 31 U/L (13-75); Potassium 3.3 mmol/L (3.5-5.1); Protein, Total 6.6 g/dL (6.4-8.2); Sodium Level 138 mmol/L (136-145)
[2022-11-15 23:19] VITALS: TEMP -7.7; TEMP 18
== END 2022-11-15 23:20 | disposition home or self-care (01) ==
PROVIDERS: Emergency Provider Emergency Medicine; PCP Family Medicine; Visit Provider Emergency Medicine
DX: O26.891 Other specified pregnancy related conditions, first trimester (principal); R10.9 Unspecified abdominal pain; Z3A.11 11 weeks gestation of pregnancy
CPT/HCPCS: 80053; 81001; 83690; 85025; 96361; 96372; 96374; 99284; J7030; J2405

== ENCOUNTER → 2022-12-14 | Outpatient (CLI) | payer BC, SELFPAY ==
[2022-12-14 11:23] LABS: Thyroid Stim Hormone (TSH) 3.97 uIU/mL (0.358-3.74)
== END | disposition home or self-care (01) ==
LOC: PAVLAB 10:38
PROVIDERS: PCP Family Medicine; Visit Provider Obstetrics & Gynecology
DX: O99.280 Endocrine, nutritional and metabolic diseases complicating pregnancy, unspecified trimester (principal); E03.9 Hypothyroidism, unspecified; Z3A.00 Weeks of gestation of pregnancy not specified
CPT/HCPCS: 36415; 84443

== ENCOUNTER → 2023-01-11 | Outpatient (CLI) | payer BC, SELFPAY ==
[2023-01-11 11:00] LABS: Thyroid Stim Hormone (TSH) 1.85 uIU/mL (0.358-3.74)
== END | disposition home or self-care (01) ==
LOC: PAVLAB 10:18
PROVIDERS: PCP Family Medicine; Referring Provider Obstetrics & Gynecology; Visit Provider Obstetrics & Gynecology
DX: O99.280 Endocrine, nutritional and metabolic diseases complicating pregnancy, unspecified trimester (principal); E03.9 Hypothyroidism, unspecified; Z3A.00 Weeks of gestation of pregnancy not specified
CPT/HCPCS: 36415; 84439; 84443

== ENCOUNTER → 2023-03-08 | Outpatient (CLI) | payer BC, SELFPAY ==
[2023-03-08 09:27] LABS: Absolute Lymphocyte Count 1.42 X10^3/uL (0.83-4.51); Absolute Neutrophil Count 6.2 X10^3/uL (2.0-7.7); Basophil# 0.03 X10^3/uL; Basophil% 0.4 % (0-1); Eosinophils% 1.2 % (0-5); Hematocrit 38.4 % (37-47); Hemoglobin 13.1 g/dL (12.0-15.0); Lymphocyte # 1.42 X10^3/ul (0.83-4.51); Lymphocyte % 17.1 % (19-41); Mean Corp Hgb Conc 34.1 g/dL (32-36); Mean Corpuscular Hgb 30.7 pg (27.0-32.0); Mean Corpuscular Volume 89.9 fL (81-99); Mean Platelet Vol. 9.6 fl (6.2-12.0); Monocyte# 0.47 X10^3/uL; Monocyte% 5.7 % (0-10); NRBC Flagged by Analyzer 0 % (0-5); Neutrophil # 6.22 X10^3/uL (2.7-7.7); Neutrophil % 75.1 % (47-70); Platelet Count 224 K/mm3 (150-450); RBC Distribution Width CV 12.9 % (11.6-14.6); RBC Distribution Width SD 42.3 fl (35.1-43.9); Red Blood Count 4.27 M/mm3 (4.2-5.4); White Blood Count 8.3 K/mm3 (4.4-11.0)
[2023-03-08 09:53] LABS: Glucose Challenge Gest 1H 50g 129 mg/dL (70-140)
[2023-03-08 10:26] LABS: HIV - WCH Non-Reactive (Nonreactive); Syphilis Antibodies Non-reactive
== END | disposition home or self-care (01) ==
PROVIDERS: Obstetrics & Gynecology; PCP Family Medicine; Referring Provider Obstetrics & Gynecology; Visit Provider Obstetrics & Gynecology
DX: Z34.90 Encounter for supervision of normal pregnancy, unspecified, unspecified trimester (principal)
CPT/HCPCS: 36415; 82950; 85025; 86703; 86780

== ENCOUNTER → 2023-04-24 | Outpatient (CLI) | payer BC, SELFPAY ==
[2023-04-24 11:23] LABS: T4 Free Direct 0.78 ng/dL (0.76-1.46); Thyroid Stim Hormone (TSH) 1.56 uIU/mL (0.358-3.74)
[2023-04-24 11:34] LABS: Free T3 2.3 pg/mL (2.18-3.98)
== END | disposition home or self-care (01) ==
LOC: MTLAB 07:31
PROVIDERS: Registered Nurse; PCP Family Medicine; Referring Provider Obstetrics & Gynecology; Visit Provider Obstetrics & Gynecology
DX: O99.280 Endocrine, nutritional and metabolic diseases complicating pregnancy, unspecified trimester (principal); E03.9 Hypothyroidism, unspecified; Z3A.00 Weeks of gestation of pregnancy not specified
CPT/HCPCS: 36415; 84439; 84443; 84481

== ENCOUNTER → 2023-04-26 | Outpatient (CLI) | payer BC, SELFPAY | END | disposition home or self-care (01) | PROVIDERS: PCP Family Medicine; Referring Provider Obstetrics & Gynecology; Visit Provider Obstetrics & Gynecology | DX: O99.891 Other specified diseases and conditions complicating pregnancy (principal); N89.8 Other specified noninflammatory disorders of vagina; R10.2 Pelvic and perineal pain; Z3A.00 Weeks of gestation of pregnancy not specified | CPT/HCPCS: 87070; 87086; 87205 ==

== ENCOUNTER → 2023-05-07 | Outpatient (CLI) | payer BC, SELFPAY ==
[2023-05-07 15:09] LABS: ROM Internal Control Test YES-OK TO RESULT pt. (Internal QC); ROM Patient Test Negative (Negative); Record Kit Lot#, ROM+ K1409
== END | disposition home or self-care (01) ==
LOC: LABSPEC 14:41
PROVIDERS: PCP Family Medicine; Referring Provider Obstetrics & Gynecology; Visit Provider Obstetrics & Gynecology
DX: O09.90 Supervision of high risk pregnancy, unspecified, unspecified trimester (principal); Z3A.00 Weeks of gestation of pregnancy not specified
CPT/HCPCS: 84112; 87081

== ENCOUNTER 2023-05-24 13:29 | Inpatient (IN) | payer BC, SELFPAY ==
[2023-05-24] VITALS (32 sets, daily range): BP systolic 132–165; BP diastolic 64–96; PULSE 72–99; TEMP 36.6–37.2; BMI 40.1
[2023-05-24 11:20] LABS: Protein:Creat Ratio 200 mg/g CRE (0-200)
[2023-05-24 11:20] LABS: Protein, Urine (Random) 20.2 mg/dL (<11.9); Protein:Creat Ratio 189 mg/g CRE (0-200)
[2023-05-24 11:28] LABS: AST(SGOT) 26 U/L (15-37); Alanine Aminotransfer ALT/SGPT 29 U/L (13-56); Creatinine, Serum 0.57 mg/dL (0.55-1.02); EST Glomerular Filtration Rate 137 mL/min (>60); Est Glom Filt Rate - Afr Amer 166 mL/min (>60); Uric Acid 5.4 mg/dL (2.6-6.0)
[2023-05-24 11:30] LABS: Hematocrit 37.1 % (37-47); Hemoglobin 12.2 g/dL (12.0-15.0); Mean Corp Hgb Conc 32.9 g/dL (32-36); Mean Corpuscular Hgb 28.4 pg (27.0-32.0); Mean Corpuscular Volume 86.3 fL (81-99); Mean Platelet Vol. 10.7 fl (6.2-12.0); Platelet Count 232 K/mm3 (150-450); RBC Distribution Width CV 13.5 % (11.6-14.6); RBC Distribution Width SD 41.6 fl (35.1-43.9); White Blood Count 7.9 K/mm3 (4.4-11.0)
[2023-05-24] MEDS: Lactated Ringers 1,000 ML 200 ML IV (14:30)
[2023-05-24] MEDS: miSOPROStol 25 MCG TABLET VAGINAL ×2 (14:40→18:56)
[2023-05-24 16:06] LABS: Syphilis Antibodies Non-reactive
--- NOTE | 2023-05-24 17:03 | HP.PCM.OB_ITS ---
HPI - General General Date of Admission: 05/24/23 Chief Complaint: hypertension HPI Narrative LILY FOUNTAIN, is a 22 F who presents at 38+4 who presents with 8 pound weight gain in the past week with increased BP and LE pitting edema in office. denies headaches, RUQ pain or visual changes. BP 140-150s/90s. had severe range x 3 with spontaneous resolution without medications Maternal Data Information ARTURO Calculator Estimated Delivery Date Method Current WG Current Estimate 06/03/23 Ultrasound #1 38w 4d Other Estimates 04/25/23 LMP (Uncertain) 44w 1d PFSH [facility] Medical History Abdominal pain Abnormal biliary HIDA scan Alcohol use Amenorrhea Bile in stomach Epigastric pain Hypothyroidism Meniere disease Non-smoker Postprandial RUQ pain Wears contact lenses Home Medications docosahexaenoic acid 200 mg capsule ( DHA) mg PO 11/01/22 [History Last Taken Unknown] levothyroxine 100 mcg capsule 112 mcg PO QHS 01/11/23 [History Last Taken Unknown] Allergy/AdvReac Type Severity Reaction Status Date / Time No Known Allergies Allergy Verified 05/24/23 09:49 Family History Mother Hypothyroid Father Hypertension Surgical History Hx of wisdom tooth extraction S/P left knee surgery S/P right knee surgery S/P tonsillectomy Social History adopted: No household members: spouse current occupational status: employed current occupation: [employer] current occupational exposures/hazards: No pets and animals: No history of recent travel: Yes ([place] in Jun ) out of country: Yes sexually active: Yes Smoking Status: Never smoker alcohol intake: current details: social- not while substance use type: does not use caffeine: Yes what type of physical activity do you participate in: running and aerobics frequency: 1-2 times per week seatbelt use: always do you feel safe at home: Yes additional social history: Spouse - Wayne Fountain 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 labor support person: [] labor intervention preferences: [] pain management options preferred: [] cut cord/dad catch: [] : [] PP control planned: [] discussed possible routes of delivery and associated risks: [] special requests: [] Plans Covid status: discussed Flu vaccine:discussed Tdap vaccine:discussed Rhogam: na LARC form signed: declined movement and labor precautions reviewed. Problem list reviewed and updated with the most current plan of care details and appropriate orders placed. Relevant counseling for the gestational age provided. Continue routine care and follow up unless otherwise noted in visit notes/problem list details OB Flowsheet Initial Weight: 187 lb Date -?-?-?-?-?-?-?-?-?-?-?-?- EGA Weight BP Urine Prot -?-?-?-?-?-?-?-?-?-?-?-?- Glucose FHR FuHt Pres Dilation -?-?-?-?-?-?-?-?-?-?-?-?- Effaced St Visit Note 11/05/22 -?-?-?-?-?-?-?-?-?-?-?-?- 10w 0d 187 lb (+0 oz) 120/72 -?-?-?-?-?-?-?-?-?-?-?-?- 160 -?-?-?-?-?-?-?-?-?-?-?-?- SM- CRL not cons istent with lmp, changed ARTURO 12/14/22 -?-?-?-?-?-?-?-?-?-?-?-?- 15w 4d 195 lb 8 oz (+8 lb 8 oz) 133/74 Negative -?-?-?-?-?-?-?-?-?-?-?-?- Negative 155 -?-?-?-?-?-?-?-?-?-?-?-?- JV- heart tones on doppler. anatomy scan ordered. lots of questions about safety in discussed. 01/11/23 -?-?-?-?-?-?-?-?-?-?-?-?- 19w 4d 202 lb (+15 lb) 122/74 Negative -?-?-?-?-?-?-?-?-?-?-?-?- Negative 150 -?-?-?-?-?-?-?-?-?-?-?-?- SM- no vb crampi ng 02/08/23 -?-?-?-?-?-?-?-?-?-?-?-?- 23w 4d 213 lb 4 oz (+26 lb 4 oz) 124/79 Negative -?-?-?-?-?-?-?-?-?-?-?-?- Negative 150 -?-?-?-?-?-?-?-?-?-?-?-?- JV- no complaint s today. GCT ordered. has normal sounding vaginal discharge without odor or itching, not watery, no cramping 03/08/23 -?-?-?-?-?-?-?-?-?-?-?-?- 27w 4d 222 lb 8 oz (+35 lb 8 oz) 128/78 Negative -?--?-?-?-?-?-?-?-?-?-?-?- Negative 145 28 -?-?-?-?-?-?-?-?-?-?-?-?- SM- no vb lof go od fm no regular ctx 03/22/23 -?-?-?-?-?-?-?-?-?-?-?-?- 29w 4d 229 lb 2 oz (+42 lb 2 oz) 128/83 Negative -?-?-?-?-?-?-?-?-?-?-?-?- Negative 135 30 -?-?-?-?-?-?-?-?-?-?-?-?- KW-no vb/lof/ctx . good fm. no concerns today 04/05/23 -?-?-?-?-?-?-?-?-?-?-?-?- 31w 4d 234 lb 2 oz (+47 lb 2 oz) 124/68 -?-?-?-?-?-?-?-?-?-?-?-?- 138 33 -?-?-?-?-?-?-?-?-?-?-?-?- kw-no vb/lof/ctx . good fm. no concerns today 04/19/23 -?-?-?-?-?-?-?-?-?-?-?-?- 33w 4d 237 lb (+50 lb) 132/82 Negative -?-?-?-?-?-?-?-?-?-?-?-?- Negative 152 34 -?-?-?-?-?-?-?-?-?-?-?-?- LC- no vb/ctx/lo f. good fm. larc completed. discussed tdap- deciding. 04/26/23 -?-?-?-?-?-?-?-?-?-?-?-?- 34w 4d 237 lb 4 oz (+50 lb 4 oz) 237 lb 4 oz (+50 lb 4 oz) 131/83 Negative -?-?-?-?-?-?-?-?-?-?-?-?- Negative 150 Cephalic 0 -?-?-?-?-?-?-?-?-?-?-?-?- JV- pt here for cramping and saw blood wiped. She walked the track today then did squats and rode the spin bike. on exam there could be some yeast present. cx closed, no blood present. ua neg. will try terzole cream and call with results of vaginitis smear. PTL precautions discussed. 05/03/23 -?-?-?-?-?-?-?-?-?-?-?-?- 35w 4d 240 lb 8 oz (+53 lb 8 oz) 139/84 Negative -?-?-?-?-?-?-?-?-?-?-?-?- Negative 145 36 -?-?-?-?-?-?-?-?-?-?-?-?- JV- prefer ences discussed. 05/07/23 -?-?-?-?-?-?-?-?-?-?-?-?- 36w 1d 244 lb 6 oz (+57 lb 6 oz) 132/82 -?-?-?-?-?-?-?-?-?-?-?-?- 140 37 Cephalic -?-?-?-?-?-?-?-?-?-?-?-?- SM- co increased discharge questionable LOF, gbs collected and rom sent stat. no vb admits good fm no regular ctx 05/15/23 -?-?-?-?-?-?-?-?-?-?-?-?- 37w 2d 248 lb 8 oz (+61 lb 8 oz) 128/78 -?-?-?-?-?-?-?-?-?-?-?-?- 140 38 Cephalic 1 -?-?-?-?-?-?-?-?-?-?-?-?- 50 -2 SM- no vb lof good fm n oregualr ctx 05/24/23 -?-?-?-?-?-?-?-?-?-?-?-?- 38w 4d 256 lb (+69 lb) 147/86 Trace -?-?-?-?-?-?-?-?-?-?-?-?- Negative 150 40 Cephalic 1 -?-?-?-?-?-?-?-?-?-?-?-?- 50 -2 JV- rpt bp 152/95. no headaches or visual changes. no RUQ pain. sending to L&D for PIH work up. ordering prot: cr ratio now. NST FHR Rate Baby A Baseline: 140 Variability:: Moderate Accelerations:: 15 x 15 Decelerations:: None NST Reactive:: Yes FHR Category:: Category I ROS Cardiovascular Cardiovascular: Denies abdominal pain, chest pain, diaphoresis or dyspnea Respiratory/Chest Respiratory/Chest: Denies change in mental status, chest congestion, chest tightness, cough, shortness of breath at rest, shortness of breath with exertion, breast mass, breast pain, breast skin changes, breast swelling, change in breast shape or nipple discharge Genitourinary Genitourinary: Reports change in urinary stream Musculoskeletal Musculoskeletal: Reports none Integumentary Integumentary: Reports none Neurologic Neurologic: Reports none Psychiatric Psychiatric: Reports none Endocrine Endocrinology: Reports none Hematologic/Lymphatic Hematologic/Lymphatic: Reports none Allergic/Immunologic Allergic/Immunologic: Reports none Vital Signs Vital Signs Vital Signs: 05/24/23 10:52 05/24/23 10:52 05/24/23 10:39 Temperature Temperature Source Tympanic Pulse Rate 94 Blood Pressure 142/88 H BP Systolic 142 BP Diastolic 88 05/24/23 11:07 05/24/23 11:07 05/24/23 10:39 Temperature 98.9 F Temperature Source Pulse Rate 99 Blood Pressure 152/96 H BP Systolic 152 BP Diastolic 96 05/24/23 11:39 05/24/23 11:39 05/24/23 11:52 Temperature Temperature Source Pulse Rate 75 Blood Pressure 142/92 H 149/93 H BP Systolic 142 149 BP Diastolic 92 93 05/24/23 11:52 05/24/23 12:07 05/24/23 12:07 Temperature Temperature Source Pulse Rate 88 96 Blood Pressure 149/96 H BP Systolic 149 BP Diastolic 96 05/24/23 12:22 05/24/23 12:22 05/24/23 12:53 Temperature Temperature Source Pulse Rate 88 Blood Pressure 152/93 H 142/94 H BP Systolic 152 142 BP Diastolic 93 94 05/24/23 12:53 05/24/23 13:08 05/24/23 13:08 Temperature Temperature Source Pulse Rate 96 82 Blood Pressure 161/88 H BP Systolic 161 BP Diastolic 88 05/24/23 13:22 05/24/23 13:22 05/24/23 13:38 Temperature Temperature Source Pulse Rate 83 Blood Pressure 164/83 H 149/90 H BP Systolic 164 149 BP Diastolic 83 90 05/24/23 13:38 05/24/23 13:52 05/24/23 13:52 Temperature Temperature Source Pulse Rate 89 93 Blood Pressure 165/84 H BP Systolic 165 BP Diastolic 84 05/24/23 14:16 05/24/23 14:16 05/24/23 14:31 Temperature Temperature Source Pulse Rate 90 Blood Pressure 141/81 H 144/84 H BP Systolic 141 144 BP Diastolic 81 84 05/24/23 14:31 05/24/23 14:31 05/24/23 14:31 Temperature 98.2 F Temperature Source Temporal Pulse Rate 98 Blood Pressure BP Systolic BP Diastolic 05/24/23 15:11 05/24/23 15:11 05/24/23 15:27 Temperature Temperature Source Pulse Rate 89 Blood Pressure 138/80 H 141/81 H BP Systolic 138 141 BP Diastolic 80 81 05/24/23 15:27 05/24/23 15:41 05/24/23 15:41 Temperature Temperature Source Pulse Rate 88 88 Blood Pressure 152/95 H BP Systolic 152 BP Diastolic 95 05/24/23 16:11 05/24/23 16:11 05/24/23 16:26 Temperature Temperature Source Pulse Rate 82 Blood Pressure 157/80 H 149/82 H BP Systolic 157 149 BP Diastolic 80 82 05/24/23 16:26 05/24/23 16:27 05/24/23 16:27 Temperature Temperature Source Pulse Rate 85 86 Blood Pressure 146/82 H BP Systolic 146 BP Diastolic 82 05/24/23 16:42 05/24/23 16:42 05/24/23 16:56 Temperature Temperature Source Pulse Rate 86 Blood Pressure 146/92 H 140/84 H BP Systolic 146 140 BP Diastolic 92 84 05/24/23 16:56 Temperature Temperature Source Pulse Rate 86 Blood Pressure BP Systolic BP Diastolic Weight Weight: 256 lb Body Mass Index (BMI) 40.1 Physical Exam Const alert, oriented x3 and no apparent distress General Appearance: cooperative, comfortable and well kempt Orientation / Consciousness: awake and oriented to person Exam Limitations: no limitations HEENT normocephalic Neck full ROM Chest inspection of chest normal Resp normal respiratory effort, normal air movement and no retractions Effort and Inspection: able to speak in complete sentences and symmetric chest movement Cardio regular rate Peripheral Pulses: pulses 2+ throughout GI normal to inspection, nondistended, normoactive bowel sounds Inspection: gravid no CVA tenderness and appearance of the vagina normal External Female Exam: normal appearance of the urethra; Negative for external lesion OB / External & Speculum: external exam normal Manual OB Exam: estimated gestational size appropriate and presentation cephalic Uterus Palpation: Negative for uterus tender Extremity normal to inspection Skin no rashes or lesions noted Neuro deep tendon reflexes 2+ bilaterally and gait normal Motor Exam: strength 5/5 throughout and clonus absent Psych Activity / Motor Behavior: appropriate eye contact Speech: normal speech Labs Labs Labs: Blood Type A POSITIVE Antibody Screen NEGATIVE Hct 37.1 % (37-47) Hgb 12.2 g/dL (12.0-15.0) Syphilis Total Ab Non-reactive Rubella IgG Antibody Reactive (Nonreactive) Hep Bs Antigen Non-Reactive (Nonreactive) Hepatitis C Antibody Non-Reactive (Nonreactive) Chlamydia DNA ([facility]AS[facility]) Negative (Negative) N.gonorrhoeae DNA ([facility]AS[facility]) Negative (Negative) HIV 1&2 Antibody Non-Reactive (Nonreactive) Glucose 1 Hr 50 gm 129 mg/dL (70-140) Miscellaneous Test Assessment & Plan (1) Gestational hypertension: COMMENT: normal PEC labs. IOL with cytotec at 38.4 PLAN: BP 140-150s/90s. monitor per protocol. no severe range pressures. (2) Hypertension affecting : COMMENT: gained 8 pounds in 1 week, pressure elevated, has 2+ edema, sending to L&D (3) Meniere disease: COMMENT: ON HCTZ-encouraged to D/C while (4) Hypothyroid in , antepartum: COMMENT: labs q trimester (5) Supervision of high risk , antepartum: COMMENT: PRR ARTURO 06/03/23 Wayne (6) : QUALIFIERS: Weeks of gestation: 35 weeks Qualified Code(s): Z3A.35 - 35 weeks gestation of COMMENT: GBS Negative, declined ntd NIPT and carrier- 's cousin with CF, nl antaomy PLAN: Plan admit to WP IOL with cytotec for cervical ripening. discussed plan for yoder/pit in AM if more favorable cat 1 tracing reassuring maternal and status admission,exam and poc discussed with Dr. Page agrees with above, co- management for gestational htn.
[2023-05-24] MEDS: Mag Hydrox/Al Hydrox/Simeth 30 ML UDC PO (17:19)
[2023-05-24] MEDS: 0.9% Saline Lock 10 ML Syringe IV (18:47)
[2023-05-24] MEDS: CHLORHEXIDINE GLUC 2% CLOTH 1 EACH TOWELETTE TOPICAL (22:32)
[2023-05-24] MEDS: LACTATED RINGERS 500 ML 999 ML IV (23:15)
[2023-05-25] VITALS (53 sets, daily range): BP systolic 118–178; BP diastolic 59–105; PULSE 64–127; TEMP 36.6–37.4; O2SAT 96–99
[2023-05-25] MEDS: miSOPROStol 25 MCG TABLET VAGINAL (05:40)
[2023-05-25] MEDS: Levothyroxine 112 MCG Tablet PO (06:27)
[2023-05-25] MEDS: 0.9% Normal Saline Single 100 ML IV.SOLN. INTRA-UTER (10:15)
--- NOTE | 2023-05-25 10:17 | PCM.PN.OB ---
Subjective Subjective feeling cramping overnight, less now. denies headaches, visual changes, ruq pain. voiding spontaneously. tolerating po. Objective Data Objective Data Vital Signs: Vital Signs Temp Pulse BP Pulse Ox 98.6 F 97 142/80 H 97 05/25/23 09:56 05/25/23 09:56 05/25/23 09:56 05/25/23 09:56 Weight: 256 lb Body Mass Index (BMI) 40.1 Intake & Output: Intake and Output for Last 24 Hours 05/23/23 05/24/23 05/25/23 23:59 23:59 23:59 Intake Total 525.83 / 525.83 500 / 500 Output Total 700 / 700 900 / 900 Balance -174.17 / -174.17 -400 / -400 Lab / Micro Data 05/24/23 10:50 05/24/23 10:50 Labs: Laboratory Results - last 24 hr 05/24/23 10:50: WBC Cancelled 05/24/23 10:50: WBC 7.9, Corrected WBC Cancelled, RBC Cancelled 05/24/23 10:50: RBC 4.30, Hgb Cancelled 05/24/23 10:50: Hgb 12.2, Hct Cancelled 05/24/23 10:50: Hct 37.1, MCV Cancelled 05/24/23 10:50: MCV 86.3, MCH Cancelled 05/24/23 10:50: MCH 28.4, MCHC Cancelled 05/24/23 10:50: MCHC 32.9, RDW Std Deviation Cancelled 05/24/23 10:50: RDW Std Deviation 41.6, RDW Coeff of Antonia Cancelled 05/24/23 10:50: RDW Coeff of Antonia 13.5, Plt Count Cancelled 05/24/23 10:50: Plt Count 232, MPV Cancelled 05/24/23 10:50: MPV 10.7, Diff Path Review Cancelled, Creatinine 0.57, Estim Creat Clear Calc 148.00, Est GFR (MDRD) Af Amer 166, Est GFR (MDRD) Non-Af 137, Uric Acid 5.4, AST 26, ALT 29, U Random Total Protein 16.0 H, Urine Creatinine 80.00, Protein/Creatinin Ratio 200 05/24/23 11:00: U Random Total Protein 20.2 H, Urine Creatinine 107.00, Protein/Creatinin Ratio 189 05/24/23 14:00: Syphilis Total Ab Non-reactive, Blood Type A POSITIVE, Antibody Screen NEGATIVE Physical Exam Const alert and no apparent distress GI normal to inspection, nondistended, normoactive bowel sounds Palpation: soft Manual OB Exam: presentation cephalic, dilated 1.5, effaced 50 and station -3 Amniotic Fluid: no amniotic fluid noted NST FHR Rate Baby A Baseline: 140 Variability:: Moderate Accelerations:: 15 x 15 Decelerations:: None NST Reactive:: Yes FHR Category:: Category I Uterine Activity:: q2-5 minutes Assessment & Plan (1) Gestational hypertension: COMMENT: normal PEC labs. IOL with cytotec at 38.4 (2) Hypertension affecting : COMMENT: gained 8 pounds in 1 week, pressure elevated, has 2+ edema, sending to L&D (3) Hypothyroid in , antepartum: COMMENT: labs q trimester PLAN: Plan -yoder bulb inserted, add pitocin per protocol -apply pressure to catheter qhour. -BP stable, no medications required at this time - and maternal status reassuring. cat 1 tracing overnight and currently. updated in exam and poc. agrees with plan.
[2023-05-25] MEDS: LACTATED RINGERS 500 ML 999 ML IV ×2 (10:45→20:59)
[2023-05-25] MEDS: Oxytocin 15 Units/NS 250ml 15 UNITS/250 ML IV.SOLN 2 UNITS IV (12:37)
[2023-05-25] MEDS: CHLORHEXIDINE GLUC 2% CLOTH 1 EACH TOWELETTE TOPICAL ×2 (12:38→22:00)
[2023-05-25] MEDS: Lactated Ringers 1,000 ML 50 ML IV (19:38)
[2023-05-25] MEDS: Ondansetron 4 MG/2 ML Vial IV (21:30)
--- NOTE | 2023-05-25 21:35 | PCM.PN.OB ---
Subjective Subjective pt more uncomfortable with pitocin, sitting on birthing ball upon entry to room. Objective Data Objective Data Vital Signs: Vital Signs Temp Pulse BP Pulse Ox 98.9 F 97 145/85 H 97 05/25/23 20:21 05/25/23 21:34 05/25/23 20:33 05/25/23 21:34 Weight: 256 lb Body Mass Index (BMI) 40.1 Intake & Output: Intake and Output for Last 24 Hours 05/23/23 05/24/23 05/25/23 23:59 23:59 23:59 Intake Total 525.83 / 525.83 1891.29 / 1891.29 Output Total 700 / 700 1950 / 1950 Balance -174.17 / -174.17 -58.71 / -58.71 Lab / Micro Data 05/24/23 10:50 05/24/23 10:50 Physical Exam Const alert and no apparent distress Manual OB Exam: dilated 5, effaced 60 and station -3 Assessment & Plan (1) Rupture of membranes with meconium present: COMMENT: light meconium with AROM around (2) Gestational hypertension: COMMENT: normal PEC labs. IOL with cytotec at 38.4 (3) Encounter for induction of labor: COMMENT: 38.4 IOL for GHTN cytotec followed by yoder bulb with pitocin PLAN: Plan -AROM 'd for light mec fluid -pedi/respiratory at delivery -epidural for pain management -continue pitocin per protocol -reassuring maternal/ status.
[2023-05-25] MEDS: fentaNYL-bupivacaine (epidural) 100 ML BAG EPIDURAL (21:58)
[2023-05-26] VITALS (37 sets, daily range): BP systolic 127–172; BP diastolic 59–97; PULSE 71–126; RESP 16–18; TEMP 37–37.7; O2SAT 94–98
[2023-05-26] MEDS: LACTATED RINGERS 500 ML 999 ML IV (00:14)
[2023-05-26] MEDS: Lactated Ringers 1,000 ML 200 ML IV ×2 (01:02→06:35)
[2023-05-26] MEDS: fentaNYL-bupivacaine (epidural) 100 ML BAG EPIDURAL ×2 (01:56→06:39)
[2023-05-26] MEDS: Ondansetron 4 MG/2 ML Vial IV ×2 (04:56→08:44)
[2023-05-26] MEDS: Oxytocin 15 Units/NS 250ml 15 UNITS/250 ML IV.SOLN 16 UNITS IV (06:14)
[2023-05-26] MEDS: Levothyroxine 112 MCG Tablet PO (06:15)
[2023-05-26] MEDS: Lidocaine 1% (20 ml mdv) 20 ML Vial INFILT (10:42)
--- NOTE | 2023-05-26 10:45 | OP.PCM_ITS ---
Assessment & Plan (1) (spontaneous vaginal delivery): COMMENT: LC IOL-GHTN Boy: Wilfredo. 3rd degree lac Maternal Data Information ARTURO Calculator Estimated Delivery Date Method Current WG Current Estimate 06/03/23 Ultrasound #1 38w 6d Other Estimates 04/25/23 LMP (Uncertain) 44w 3d Final ARTURO: 06/03/23 Final ARTURO Source: LMP Gestational age: 38.6 Vaginal Delivery Maternal Presentation Maternal Presentation: at 38.4 for IOL for gestational hypertension, PEC labs normal. cytotec, yoder bulb with pitocin induction. progressed to fully dilated with second stage little over 2 hours. Type of Induction: Pitocin, Yoder Bulb and Cytotec Medical Reason for Induction: Gestational Hypertension Operative Information Date of Procedure: 05/26/23 Pre-Operative Diagnosis: see problem list Post-Operative Diagnosis: Surgery / Procedure Performed: Spontaneous Vaginal Delivery Type of Anesthesia: Epidural and Local with 1% Lidocaine Time of Delivery: 10:24 Findings Description of Procedure: Patient began pushing and delivered the head in the SONDRA presentation. The head was delivered atraumatically and a tight body nuchal cord ?1 was identified and supported through. The anterior and posterior shoulders delivered without complication followed by the rest of the and the was placed on the maternal abdomen. Delayed cord clamping was employed for approximately 120 seconds. Cord was clamped and cut and gentle traction was applied to the cord and the placenta delivered spontaneously immediately following it was noted to be intact with three-vessel cord. The perineum and vagina were inspected and noted to have 3rd degree laceration identified. consulted for repair, see repair note for details. EBL was 400cc. Patient and infant tolerated delivery well, entered recovery phase bonding skin to skin. . Presentation: Vertex Amniotic Membrane Rupture Type: Artificial Time of Membrane Rupture: 2100 Amniotic Fluid Description: Lightly stained meconium Placenta Disposition: [facility] Cord Vessel Description: 3 Vessels Cord Entanglement: - (tight shoulder/body cord) Nuchal Cord Compression: Without compression Infant A Gender: Male (1 minute): 8 (5 minute): 9 Delayed Cord Clamping: Yes Post Vaginal Delivery Medications Given After Delivery: IV Pitocin and IM Pitocin Episiotomy Description: None Laceration: 3rd degree Procedures Urinary/Genital [id number]: [id number] Vaginal Delivery [facility]
--- NOTE | 2023-05-26 11:03 | OP.PCM_ITS ---
Assessment & Plan (1) (spontaneous vaginal delivery): COMMENT: LC IOL-GHTN Boy: Wilfredo. 3rd degree lac (2) Third degree laceration of perineum, type 3a: Maternal Data Information ARTURO Calculator Estimated Delivery Date Method Current WG Current Estimate 06/03/23 Ultrasound #1 38w 6d Other Estimates 04/25/23 LMP (Uncertain) 44w 3d Details Findings Description of Procedure: called in for third degree repair- only through part of the capsule. sphincter intact. 2-0 vicryl and 3-0 rapide used, ancef given, betadine prepped. no diffi culties, reviewed with patient, recommend vaginal delivery still in future. discussed stool softener use. Procedures Urinary/Genital [id number]: [id number] Episiotomy or vaginal repair(non-delivery) (alert billing)
[2023-05-26] MEDS: Oxytocin 15 Units/NS 250ml 15 UNITS/250 ML IV.SOLN 83 UNITS IV (11:29)
[2023-05-26] MEDS: Cefazolin 2 GM in 0.9% Normal Saline (100mL Bag) 100 ML IV (11:54)
[2023-05-26] MEDS: Senna/Docusate Sodium 1 Tablet PO ×2 (14:02→21:19)
[2023-05-26] MEDS: Naproxen 500 MG Tablet PO (18:38)
[2023-05-26] MEDS: Acetaminophen 500 MG Tablet 1000 MG PO (21:19)
[2023-05-27 00:59] VITALS: BP 114/66; PULSE 75; RESP 16; TEMP 36.7; O2SAT 96
[2023-05-27] MEDS: Naproxen 500 MG Tablet PO ×2 (03:10→13:19)
[2023-05-27] MEDS: Acetaminophen 500 MG Tablet 1000 MG PO ×2 (03:10→11:22)
[2023-05-27 03:57] VITALS: BP 112/60; PULSE 78; RESP 16; TEMP 36.8
[2023-05-27] MEDS: Levothyroxine 112 MCG Tablet PO (06:09)
[2023-05-27 08:30] VITALS: BP 113/63; PULSE 81; RESP 16; TEMP 37.1; O2SAT 98
--- NOTE | 2023-05-27 09:08 | PCM.PN.OB ---
Subjective Subjective Patient doing well without complaints. Tolerating PO. Ambulating and voiding without difficulty. Feeding well. Denies chest pain, shortness of breath, calf pain/swelling, fevers, chills, lightheadedness. Objective Data Objective Data Vital Signs: Vital Signs Temp Pulse Resp BP Pulse Ox O2 Del Method 98.8 F 81 16 113/63 98 Room Air 05/27/23 08:30 05/27/23 08:30 05/27/23 08:30 05/27/23 08:30 05/27/23 08:30 05/27/23 08:30 Oxygen Delivery Method Room Air Weight: 256 lb Body Mass Index (BMI) 40.1 Intake & Output: Intake and Output for Last 24 Hours 05/25/23 05/26/23 05/27/23 23:59 23:59 23:59 Intake Total 2391.29 / 2391.29 4313.73 / 4313.73 Output Total 2049 / 2049 1400 / 1400 Balance 341.29 / 341.29 2913.73 / 2913.73 Lab / Micro Data 05/24/23 10:50 05/24/23 10:50 Physical Exam Const alert and no apparent distress Chest inspection of chest normal Resp normal respiratory effort and normal air movement Cardio regular rate and regular rhythm GI normal to inspection, nondistended, normoactive bowel sounds Uterus Palpation: uterus fundus firm (1-u) Extremity normal to inspection and no calf tenderness Psych mental status grossly normal Assessment & Plan (1) Third degree laceration of perineum, type 3a: COMMENT: stool softeners. pelvic floor pt (2) (spontaneous vaginal delivery): COMMENT: LC IOL-GHTN Boy: Villalobos. 3rd degree lac (3) Hypertension affecting : COMMENT: gained 8 pounds in 1 week, pressure elevated, has 2+ edema, sending to L&D PLAN: BP stable overnight. 120-130/50/-70s. denies headaches, ruq pain or visual changes. PLAN: Plan s/p PPD # 1. routine post delivery care 2. breast feeding- support given 3. rh positive 4. rubella immune 5. d/c home today.
--- NOTE | 2023-05-27 09:11 | PCM.DC.SUM ---
Providers Date of Admission: 05/24/23 Primary Care Physician: Katarina Christy DO Reason For Visit: LABOR AND DELIVERY Diagnosis Discharge Diagnosis (1) Third degree laceration of perineum, type 3a: Status: Acute Code(s): O70.21 - Third degree perineal laceration during delivery, IIIa (2) (spontaneous vaginal delivery): Status: Acute Code(s): O80 - Encounter for full-term uncomplicated delivery (3) Hypertension affecting : Status: Acute Code(s): O16.9 - Unspecified maternal hypertension, unspecified trimester Plan: BP stable overnight. 120-130/50/-70s. denies headaches, ruq pain or visual changes. Plan s/p PPD # 1. routine post delivery care 2. breast feeding- support given 3. rh positive 4. rubella immune 5. d/c home today. Medications at Discharge Home Medications docosahexaenoic acid 200 mg capsule ( DHA) mg PO 11/01/22 levothyroxine 100 mcg capsule 112 mcg PO QHS 01/11/23 Hospital Course Operations None Procedures None Summary of Care Provided Hospital Course: pt admitted for induction of labor for GHTN, resulting in with 3rd degree laceration. otherwise uncomplicated course. BP stable. Physical Exam Const alert and no apparent distress Chest inspection of chest normal Resp normal respiratory effort and normal air movement Cardio regular rate and regular rhythm GI normal to inspection, nondistended, normoactive bowel sounds Uterus Palpation: uterus fundus firm (1-u) Extremity normal to inspection and no calf tenderness Psych mental status grossly normal Weight / BMI Weight Weight: 256 lb Body Mass Index (BMI) 40.1 ABG / Lab / Microbiology Data 05/24/23 10:50 05/24/23 10:50 D/C Instructions Discharge Diet: No restrictions Discharge Activity: May Not Drive and May Shower May resume sexual activity in: 6 weeks Weight Bearing Status: Full weight bearing Call your doctor if your incision/area has: Sudden Increased Bleeding, Increased Pain/ Swelling and Foul Smelling Discharge Call your doctor if you observe: Fever of 101 or Higher, Numbness or Tingling, Change in Color, Inability to urinate, Inability to have a bowel movement, Using more than 1 pad per hour, Shortness of breath, Dizziness, Fainting spells, Chest pain, Calf discomfort and Uncontrolled pain Additional Instructions: continue on stool softeners for 4-6 weeks . will refer to pelvic floor PT Please Follow Up With: Candace Bernal CNM When: 6 weeks , please call office to make an appointment. Congratulations on the of your baby! Meaningful Use Info Meaningful Use Diagnoses (Choose all that apply): None applicable Discharge Plan Admission Admit Date/Time: 05/24/23 13:29 Attending Provider: Candace Bernal Primary Care Provider: Katarina Christy Consulting Providers: Linh Jean-Baptiste Discharge Orders/Prescriptions Prescriptions: No Action levothyroxine 100 mcg capsule 112 mcg PO QHS DHA 200 mg capsule PO Referrals / Follow Up: Katarina Christy, DO [Primary Care Provider] - Disposition Disposition (needs filled in before D/C Order can be placed): Home, Self Care
[2023-05-27] MEDS: Senna/Docusate Sodium 1 Tablet PO (11:23)
[2023-05-27 13:21] VITALS: BP 131/77; PULSE 92; RESP 14; TEMP 37; O2SAT 97
== END 2023-05-27 14:40 | disposition home or self-care (01) | DRG 768 ==
LOC: WPOUT 13:31 → WP 13:31
PROVIDERS: Obstetrics & Gynecology; Admitting Provider Registered Nurse; PCP Family Medicine; Referring Provider Registered Nurse; Visit Provider Registered Nurse
DX: O13.4 Gestational [pregnancy-induced] hypertension without significant proteinuria, complicating childbirth (principal); Z37.0 Single live birth; O70.21 Third degree perineal laceration during delivery, IIIa; E03.9 Hypothyroidism, unspecified; O69.2XX0 Labor and delivery complicated by other cord entanglement, with compression, not applicable or unspecified; O99.284 Endocrine, nutritional and metabolic diseases complicating childbirth; O77.0 Labor and delivery complicated by meconium in amniotic fluid; Z3A.38 38 weeks gestation of pregnancy; Z79.890 Hormone replacement therapy
CPT/HCPCS: 59025; 59050; 82565; 82570; 84156; 84450; 84460; 84550; 85027; 86780; 86850; 86900; 86901; 99221; J7120; A4216; G0378; J2405

== ENCOUNTER → 2023-07-08 | Outpatient (CLI) | payer BC, SELFPAY ==
--- OUTSIDE RECORDS SUMMARY | 2023-07-08 12:56 | XMS RPT_ITS | CCD ---
Author Name Unknown Address [address] [place] [address] Organization [facility] Care Team Providers Care Night Clerk Name Role Phone Aundrea Mendez N Unavailable Aundrea Mendez N Unavailable Aundrea Mendez N Unavailable FREDIRCK MISHRA Attending Unavailable CARLOS MELVIN Referring Unavailab ELENA Tran Primary Care Unavailable Problems Active Problems Problem Classification Problem Date Documented Da te Episodic/Chronic Unclassified (3 sources) Aftercare ; Translations: [Encounter for other orthopedic aftercare] Onset: 05-02-2016 05-20-2016 Past or Other Problems Problem Classification Problem Date Documented Da te Episodic/Chronic Joint disorders and dislocations; trauma-related (7 sources) Other tear of medial meniscus, current injury, left knee, initial encounter; Translations: [Other tear of lateral meniscus, current injury, left knee, initial encounter] Onset: 03-19-2016 03-28-2016 Episodic Other aftercare (6 sources) Sprain of lateral collateral ligament of left knee, subsequent encounter; Translations: [Other tear of lateral meniscus, current injury, left knee, subsequent encounter] Onset: 03-23-2016 03-28-2016 Episodic Other non-traumatic joint disorders (5 sources) Knee joint effusion; Translations: [Knee pain] Onset: 03-19-2016 03-19-2016 Episodic Other non-traumatic joint disorders (1 source) Knee pain; Translations: [Pain in left knee] Onset: 03-19-2016 03-19-2016 Episodic Sprains and strains (5 sources) Sprain of anterior cruciate ligament of left knee, initial encounter; Translations: [Sprain of lateral collateral ligament of left knee, subsequent encounter] Onset: 03-19-2016 03-19-2016 Episodic Results Test Name Value Interpretation Reference Range Facil ity Vital Signs Date Time Vital Sign Value Performing Clinician Jovanny ballard 03-19-2016 08:06-0400 BMI (Body Mass Index) 23.49 kg/m2 Aundrea Mendez [facility] Work Phone: 03-19-2016 08:06-0400 Height 170.18 cm Aundrea [facility] Work Phone: 03-19-2016 08:06-0400 Weight 68.04 kg Aundrea [facility] Work Phone: Encounters Encounter Date Encounter Type Care Provider Facility Start: 01-03-2023 End: 01-03-2023 ambulatory FREDRICK MISHRA [facility] Plan of Treatment Date Care Activity Detail Author Start: 02-20-2017 End: 02-20-2017 Appointment Appointment [facility] Work Phone: Start: 05-02-2016 End: 05-02-2016 Physical Therapy General Physical Therapy General Re[facility], [address] [place] [address], [id number] [facility] Work Phone: Start: 03-28-2016 End: 03-28-2016 Physical Therapy General Physical Therapy General Re[facility], [address] [place] [address], [id number] [facility] Work Phone: Start: 03-19-2016 End: 03-19-2016 Mri jnt of lwr extre w/o dye MRI Joint Lower Extremity [facility] Work Phone: Start: 03-19-2016 End: 03-19-2016 X-ray exam, knee, 4 or more X-Ray, Knee [facility] Work Phone: Patient Education KNEE%20EXERCISES [facility] Work Phone: Payers Date Payer Category Payer Unknown [id number] 2.16. [id number] Unknown [id number] Summary Purpose Family History No Family History Records Found Advance Directives No Advanced Directives Records Found Additional Source Comments INFORMATION SOURCE (unrecogn ized section and content) FOR RECORDS PERTAINING TO PATIENTS WHO ARE OR HAVE BEEN ENROLLED IN A CHEMICAL DEPENDENCY/SUBSTANCEABUSE PROGRAM, SOME INFORMATION MAY BE OMITTED. This clinical summary was aggregated from multiple sources. Caution should be exercised in using it in the provision of clinical care. This summary normalizes information from multiple sources, and as a consequence, information in this document may materially change the coding, format and clinical context of patient data. In addition, data may be omitted in some cases. CLINICAL DECISIONS SHOULD BE BASED ON THE PRIMARY CLINICAL RECORDS. [facility]. provides no warranty or guarantee of the accuracy or completeness of information in this document.
[2023-07-08 13:54] LABS: Free T3 2.9 pg/mL (2.18-3.98); T4 Free Direct 1.16 ng/dL (0.76-1.46); Thyroid Stim Hormone (TSH) 0.08 uIU/mL (0.358-3.74)
== END | disposition home or self-care (01) ==
LOC: LAB 12:23
PROVIDERS: PCP Family Medicine; Referring Provider Registered Nurse; Visit Provider Registered Nurse
DX: E03.9 Hypothyroidism, unspecified (principal)
CPT/HCPCS: 36415; 84439; 84443; 84481

== ENCOUNTER → 2023-09-06 | Outpatient (CLI) | payer BC, SELFPAY ==
--- OUTSIDE RECORDS SUMMARY | 2023-08-28 12:20 | XMS RPT_ITS | CCD ---
Author Name Unknown Address [address] [place] [address] Organization [facility] Care Team Providers Care Manager Medical Affairs Name Role Phone Aundrea Mendez N Unavailable Mallory Mendezica N Unavailable Aundrea Mednez N Unavailable FREDRICK MISHRA Attending Unavailable CARLOS MELVIN Referring Unavailab [...] (Body Mass Index) 23.49 kg/m2 Aundrea Mendez [facility] Work Phone: 03-19-2016 08:06-0400 Height 170.18 cm Aundrea [facility] Work Phone: 03-19-2016 08:06-0400 Weight 68.04 kg Aundrea [facility] Work Phone: Encounters Encounter Date Encounter Type Care Provider Facility Start: 01-03-2023 End: 01-03-2023 ambulatory FREDRICK MISHRA [facility] Plan of Treatment Date Care Activity Detail Author Start: 02-20-2017 End: 02-20-2017 Appointment Appointment [facility] Work Phone: Start: 05-02-2016 End: 05-02-2016 Physical Therapy General Physical Therapy General Rehab Services, [address] [place] [address], [id number] [facility] Work Phone: Start: 03-28-2016 End: 03-28-2016 Physical Therapy General Physical Therapy General Re[facility], [address] [place] [address], [id number] [facility] Work Phone: Start: 03-19-2016 End: 03-19-2016 Mri jnt of lwr extre w/o dye MRI Joint Lower Extremity [facility] Work Phone: Start: 03-19-2016 End: 03-19-2016 X-ray exam, knee, 4 or more X-Ray, Knee [facility] Work Phone: Patient Education KNEE%20EXERCISES [facility] Work Phone: Payers Date Payer Category Payer Unknown [id number] [id number] Unknown [id number] Summary Purpose Family History No Family History [...] BE BASED ON THE PRIMARY CLINICAL RECORDS. [employer] [facility]. provides no warranty or guarantee of the accuracy or completeness of information in this document.
[2023-09-06 17:08] LABS: Thyroid Stim Hormone (TSH) 0.11 uIU/mL (0.358-3.74)
--- OUTSIDE RECORDS SUMMARY | 2023-09-06 17:39 | XMS RPT_ITS | CCD ---
Author Name Unknown Address [address] [place] [address] Organization [facility] Care Team Providers Care Water Resource Engineer Name Role Phone Aundrea Mendez N Unavailable Aundrea Mendez N Unavailable Aundrea Mendez N Unavailable FREDRICK MISHRA Attending Unavailable CARLOS [...] (Body Mass Index) 23.49 kg/m2 Aundrea Mendez [facility] Work Phone: 03-19-2016 08:06-0400 Height 170.[address] [facility] Work Phone: 03-19-2016 08:06-0400 Weight 68.04 kg Aundrea [facility] Work Phone: Encounters Encounter Date Encounter Type Care Provider Facility Start: 01-03-2023 End: 01-03-2023 ambulatory FREDRICK MISHRA [facility] Plan of Treatment Date Care Activity Detail Author Start: 02-20-2017 End: 02-20-2017 Appointment Appointment [facility] Work Phone: Start: 05-02-2016 End: 05-02-2016 Physical Therapy General Physical Therapy General Rehab Services, [address] [place] [address], [id number] [facility] Work Phone: Start: 03-28-2016 End: 03-28-2016 Physical Therapy General Physical Therapy General Rehab Services, [address] [place] [address], [id number] [facility] Work Phone: Start: 03-19-2016 End: 03-19-2016 Mri jnt of lwr extre w/o dye MRI Joint Lower Extremity [facility] Work Phone: Start: 03-19-2016 End: 03-19-2016 X-ray exam, knee, 4 or more X-Ray, Knee [facility] Work Phone: Patient Education KNEE%20EXERCISES [facility] Work Phone: Payers Date Payer Category Payer Unknown [id number] [id number] Unknown [id number] Summary Purpose Family History No Family History [...] BE BASED ON THE PRIMARY CLINICAL RECORDS. [employer] [facility]. provides no warranty or guarantee of the accuracy or completeness of information in this document.
== END | disposition home or self-care (01) ==
LOC: LAB 08-28 11:58 → MTLAB 12:42
PROVIDERS: PCP Family Medicine; Referring Provider Family Medicine; Visit Provider Family Medicine
DX: E03.9 Hypothyroidism, unspecified (principal)
CPT/HCPCS: 36415; 84443

== ENCOUNTER 2023-09-09 10:30 | Outpatient (RCR) | payer BC, SELFPAY ==
--- NOTE | 2023-08-05 10:22 | HP.PTEVAL_ITS ---
Patient's Visit Information Visit Information Visit Information: LILY FOUNTAIN is a 23 year old F referred to Physical Therapy by Candace Bernal CNM with a diagnosis of THIRD DEGREE LACERATION OF PERINEUM, TYPE 3A DURING DELIVERY. Date of Evaluation: 07/15/23 Physical Therapist: Susy Thompson PT, Cert MDT Visit Plan Frequency: 1x/Week Plan: MANUAL PF THERAPY FOR STM, TRIGGER POINT RELEASE AND STRETCHING. RELAXAT ION TRAINING. HEALTHY BLADDER HABIT EDUCATION. TRAINING IN COORDINATION OF PELVIC FLOOR MUSCULATURE WITH HIP AND CORE (TRANSVERSE ABDOMINUS) MUSCULATURE. CORE STRENGTHENING. MARIBEL LE STRETCHING. Subjective Subjective: Work/Leisure: [employer] about 8 hrs a wk. CURRENTLY STILL ON MATERNITY LEAVE WITH 7 WK OLD BOY 05/26/23 Present symptoms: FEELING OF PRESSURE IN URETHRAL AREA WHEN SITTING ON TOLIET AFTER URINATING. DX'D WITH THIRD DEGREE LACERATION OF PERINEUM, TYPE 3A DURING DELIVERY Present since: SINCE DELIVERY Pain Scale: WORST 1-2/10, LEAST 0/10 Currently: 0/10 Is it getting better, worse or staying the same: BETTER Commenced as a result of: DELIVERY Worse: SITTING ON TOLIET AFTER URINATING. Better: SAME MOTION TRYING TRYING TO STOP URINATION STREAM AND GETTING UP FROM TOLIET. GETTING UP MAKES IT COMPLETELY GO AWAY AND MOTION OF TRYING TO STOP THE STREAM HELPS. Disturbed sleep: USUALLY JUST FROM BABY NOT NEED TO URINATE Previous history/Previous treatment: UNREMARKABLE Treatment this episode: STITCHES AFTER DELIVERY Coughing/sneezing/straining: MINIMAL INSIGNIFICANT LEAKING OF UIRINE PER PATIENT REPORT. Gait: NORMAL How long can you delay the need to urinate: LONG NEEDED. Prolapse (Falling out feeling): NO Frequency of Urination: ABOUT EVERY 3 HOURS Ability to stop urine flow: I THINK SO. Ability to initiate urine stream: EVERY ONCE IN AWHILE HAS DIFFICULTY Dyspareunia: HAS NOT HAD INTERCOURSE SINCE DELIVERY. Bowel Incontinence: NO Accidents: NO Unexplained weight loss: NO Imaging: NONE RECENT. PMH/Recent major surgery: HISTORY OF LOW BACK PAIN AND HIP PROBLEMS - CHIROPRACTIC TREATMENTS. Objective Objective: Sitting/Standing Posture: FAIR. NORMAL LUMBAR LORDOSIS AND NO RELEVANT LATERAL SHIFT. R ILIAC CREST HIGHER THAN LEFT. Other Observations: INDEP GAIT AND TRANSFERS WITH NO GROSS DEVIATIONS NOTED. Sensory deficit: MARIBEL LE LIGHT TOUCH SENSATION GROSSLY INTACT AND SYMMETRICAL ROM deficit: L HIP ER AND IR TIGHTER THAN R. MOD MARIBEL CALF TIGHTNESS MARIBEL. MILD MARIBEL HS TIGHTNESS. Motor deficit: MARIBEL LE'S GROSSLY 5/5 WITH MM'TING Dural Signs: NEGATIVE MARIBEL LE'S. Lumbar mvmt loss: flex - MIN ext - MIN R SG - MIN L SG - NIL PATIENT DENIES LOW BACK PAIN WITH LUMBAR ROM TESTING ALL PLANES Core strength: FAIR Palpation: INTERNAL MANUAL VAGINAL TESTING REVEALS 4/5 PF STRENGTH WITH 8 SEC ENDURANCE X 3 REPS. SHE HAS HIGH TONE PELVIC FLOOR WITH MULTIPLE TRIGGER POINTS L > RIGHT BUT DENIES TENDERNESS. DECREASED SCAR MOBILIZATION AT INCISION. UPON OBSERVATIOIN SHE HAS A WELL HEALED PERINEAL INCISION. FUNCTIONAL SCREEN: Incontinence Impact Questionnaire Score: 0 Urogenital Distress Inventory Score: 7 Goals Goal 1:: ABOLISH PAIN IN GENITAL ARE AFTER VOIDING. Goal Time Frame: 6-8 Weeks Goal 2:: INCREASE FLEXIBILITY OF MARIBEL LE TIGHT MUSCLE GROUPS Goal Time Frame: 6-8 Weeks Goal 3:: PATIENT WILL DEMONSTRATE/COMMUNICATE 10 CONSISTENT AND CONSECUTIVE 10 SECOND PELVIC FLOOR MUSCLE CONTRACTIONS TO DEMONSTRATE IMPROVED PELVIC FLOOR ENDURANCE. Goal Time Frame: 8-12 Weeks Goal 4:: PATIENT WILL BE INDEP WITH A HEP/HOME INSTRUCTIONS FOR CONTINUED IMPROVEMENT ONCE FORMAL PHYSICAL THERAPY CONCLUDES. Goal Time Frame: 8-12 Weeks Rehabilitation Potential Physical Therapy Diagnosis: HIGH TONE PELVIC FLOOR WITH DECREASED SCAR MOBILITY. SHE ALSO HAS SOME PELVIC FLOOR AND CORE WEAKNESS WITH DECREASED ENDURANCE ALONG WITH DECREASED KNOWLEDGE OF PROPER RELAXATION, STRETCHING AND STRENGTHEING EX'S MAKING HER A GOOD CANDIDATE FOR PHYSICAL THERPAY. Rehabilitation Potential: Good Anticipated Interventions Patient/Client Instruction: Educate patient on: Condition, Plan of Care and Risk Factors For the Purpose of:: To improve self management Therapeutic Exercise to Include: Strength training, Flexibilty training and Neuromotor development For the Purpose of:: To decrease pain, To improve muscle performance and motor function, To increase tolerance to activity/condition/position, To decrease soft tissue restriction and To increase flexibility/ROM Manual Therapy Techniques to Include: Trigger point massage, Scar massage and Soft tissue mobilization For the Purpose of:: To decrease pain, To decrease soft tissue restriction and To increase flexibility/ROM Text: Thank you for the opportunity to evaluate your patient. For Medicare and Medicare HMO plans, please review the plan of care and approve it. It will need to be FAXED BACK to us at [phone] for Medicare purposes. For Medicare only, by signing this I certify the plan of care. Please let me know if there are questions or concerns regarding this plan of care. Physician Signature: Date:
--- NOTE | 2023-09-09 13:01 | HP.PTDCSUM ---
Discharge Summary D/C summary: It has been my pleasure to treat LILY FOUNTAIN referred by Candace Bernal CNM, with the diagnosis of THIRD DEGREE LACERATION OF PERINEUM, TYPE 3A DURING DELIVERY for a total of 7 visit(s). Discharge Date: 09/09/23 Please see the following information for a summary of their discharge status. Subjective Subjective: PATIENT REPORTS SHE IS DOING GOOD. SHE REPORTS HER SX'S ARE VERY SPORADIC NOW. SHE REPORTS SHE IS THANKFUL TO KNOW WHAT TO DO TO HELP HERSELF NOW AND HAS FOUND THIS HELPFUL. SHE REPORTS STARTING THE PELVIC FLOOR STRENGTHENING EX'S LAST VISIT WITH GOOD TOLERANCE. HAS A PELVIC WAND NOW AND FEEL COMFORTABLE USING IT. Overall Improvement % Improvement: 95 Objective Objective/Function: THIS PATIENT HAS DONE REALLY WELL WITH PT. SHE IS INDEP WITH A HEP AND APPROPRIATE FOR AND AGREEABLE TO DISCARGE. FUNCTIONAL SCREEN: Incontinence Impact Questionnaire Score: 0 Urogenital Distress Inventory Score: 1 Goals Goal 1:: ABOLISH PAIN IN GENITAL ARE AFTER VOIDING. Goal Progress: Progressing Goal 2:: INCREASE FLEXIBILITY OF MARIBEL LE TIGHT MUSCLE GROUPS Goal Progress: Goal Met Goal 3:: PATIENT WILL DEMONSTRATE/COMMUNICATE 10 CONSISTENT AND CONSECUTIVE 10 SECOND PELVIC FLOOR MUSCLE CONTRACTIONS TO DEMONSTRATE IMPROVED PELVIC FLOOR ENDURANCE. Goal Progress: Progressing Goal 4:: PATIENT WILL BE INDEP WITH A HEP/HOME INSTRUCTIONS FOR CONTINUED IMPROVEMENT ONCE FORMAL PHYSICAL THERAPY CONCLUDES. Goal Progress: Goal Met Plan Plan: D/C D/C Information d/c sentence: If there are questions or concerns regarding this patient's physical therapy, please feel free to call me at [phone]. Thank you for the referral of this patient. Sincerely, Susy Thompson, PT, Cert MDT Balance/Gait/Functional tests Improvement % Improvement: 95
== END 2023-09-09 13:34 | disposition home or self-care (01) ==
LOC: PT 10:30
PROVIDERS: PCP Family Medicine; Referring Provider Registered Nurse; Visit Provider Registered Nurse
DX: O70.21 Third degree perineal laceration during delivery, IIIa (principal); Z3A.00 Weeks of gestation of pregnancy not specified
CPT/HCPCS: 97140; 97162; 97530

== ENCOUNTER → 2023-10-23 | Outpatient (CLI) | payer BC, SELFPAY ==
[2023-10-23 15:16] LABS: Absolute Neutrophil Count 3.2 X10^3/uL (2.0-7.7); Basophil# 0.11 X10^3/uL; Basophil% 1.3 % (0-1); Eosinophil# 1.51 X10^3/uL; Eosinophils% 18.2 % (0-5); Hematocrit 44.8 % (37-47); Hemoglobin 14.7 g/dL (12.0-15.0); Lymphocyte % 37.3 % (19-41); Mean Corp Hgb Conc 32.8 g/dL (32-36); Mean Corpuscular Hgb 28.1 pg (27.0-32.0); Mean Corpuscular Volume 85.7 fL (81-99); Mean Platelet Vol. 9.7 fl (6.2-12.0); Monocyte# 0.37 X10^3/uL; Monocyte% 4.5 % (0-10); NRBC Flagged by Analyzer 0 % (0-5); Neutrophil # 3.19 X10^3/uL (2.7-7.7); Neutrophil % 38.5 % (47-70); Platelet Count 349 K/mm3 (150-450); RBC Distribution Width CV 12.6 % (11.6-14.6); RBC Distribution Width SD 39.5 fl (35.1-43.9); Red Blood Count 5.23 M/mm3 (4.2-5.4); White Blood Count 8.3 K/mm3 (4.4-11.0)
[2023-10-23 15:39] LABS: AST(SGOT) 21 U/L (15-37); Alanine Aminotransfer ALT/SGPT 23 U/L (13-56); Albumin, Serum 3.7 g/dL (3.2-5.0); Alkaline Phosphatase 100 U/L (45-117); Anion Gap 3 (5-15); BUN 20 mg/dL (7-18); BUN/Creat Ratio 22.3 RATIO (10-20); Calcium,Total 9.1 mg/dL (8.5-10.1); Chloride 107 mmol/L (98-107); EST Glomerular Filtration Rate 81 mL/min (>60); Est Glom Filt Rate - Afr Amer 98 mL/min (>60); Globulin 3.7 g/dL (2.2-4.2); Glucose 100 mg/dL (74-106); Potassium 3.9 mmol/L (3.5-5.1); Protein, Total 7.4 g/dL (6.4-8.2); Sodium Level 138 mmol/L (136-145)
== END | disposition home or self-care (01) ==
LOC: BIMLAB 13:44
PROVIDERS: PCP Internal Medicine; Visit Provider Internal Medicine
DX: K20.0 Eosinophilic esophagitis (principal); E03.9 Hypothyroidism, unspecified
CPT/HCPCS: 36415; 80053; 84443; 85025

== ENCOUNTER → 2023-12-23 | Outpatient (CLI) | payer BC, SELFPAY ==
[2023-12-23 16:22] LABS: Thyroid Stim Hormone (TSH) 4.87 uIU/mL (0.358-3.74)
[2023-12-23 17:02] LABS: Vitamin D,25 Hydroxy 30.5 ng/mL
== END | disposition home or self-care (01) ==
LOC: BIMLAB 13:28
PROVIDERS: PCP Internal Medicine; Referring Provider Internal Medicine; Visit Provider Internal Medicine
DX: E03.9 Hypothyroidism, unspecified (principal)
CPT/HCPCS: 36415; 82306; 84443

== ENCOUNTER → 2024-05-06 | Outpatient (CLI) | payer BC, SELFPAY ==
[2024-05-08 15:09] LABS: Thyroglobulin Antibody < 1.0 IU/mL (0.0-0.9); Thyroid Peroxidase AB 306 IU/mL (0-34)
== END | disposition home or self-care (01) ==
LOC: BIMLAB 14:26
PROVIDERS: PCP Internal Medicine; Referring Provider Internal Medicine; Visit Provider Internal Medicine
DX: E03.9 Hypothyroidism, unspecified (principal)
CPT/HCPCS: 36415; 84443; 86376; 86800

== ENCOUNTER → 2024-07-02 | Outpatient (CLI) | payer BC, SELFPAY ==
[2024-07-03 21:23] LABS: T4 Free Direct 0.93 ng/dL (0.76-1.46)
== END | disposition home or self-care (01) ==
LOC: PAVLAB 12:35
PROVIDERS: PCP Internal Medicine; Referring Provider Internal Medicine; Visit Provider Internal Medicine
DX: E03.9 Hypothyroidism, unspecified (principal)
CPT/HCPCS: 36415; 84439; 84443

== ENCOUNTER → 2024-07-06 | Outpatient (CLI) | payer BC, SELFPAY ==
[2024-07-06 16:18] LABS: T3 Total - Triiodothyronine 0.85 ng/mL (0.6-1.81)
== END | disposition home or self-care (01) ==
LOC: LAB.FUTURE 14:04 → BIMLAB 14:10
PROVIDERS: PCP Internal Medicine; Referring Provider Internal Medicine; Visit Provider Internal Medicine
DX: E03.9 Hypothyroidism, unspecified (principal)
CPT/HCPCS: 36415; 84480

== ENCOUNTER → 2024-08-24 | Outpatient (CLI) | payer BC, SELFPAY | END | disposition home or self-care (01) | LOC: BIMLAB 15:15 | PROVIDERS: PCP Internal Medicine; Visit Provider Physician Assistant | DX: E03.9 Hypothyroidism, unspecified (principal) | CPT/HCPCS: 36415; 84439; 84443 ==

== ENCOUNTER → 2024-09-04 | Outpatient (CLI) | payer BC, SELFPAY ==
[2024-09-04 10:36] LABS: D-Dimer Quantitative (DVT/PE) < 0.27 FEU/ug/m (0.27-0.49)
[2024-09-04 12:46] LABS: Absolute Lymphocyte Count 1.96 X10^3/uL (0.83-4.51); Absolute Neutrophil Count 3.6 X10^3/uL (2.0-7.7); Basophil# 0.05 X10^3/uL; Basophil% 0.8 % (0-1); Eosinophil# 0.33 X10^3/uL; Eosinophils% 5.2 % (0-5); Hematocrit 43.5 % (37-47); Hemoglobin 14.4 g/dL (12.0-15.0); Lymphocyte # 1.96 X10^3/ul (0.83-4.51); Lymphocyte % 30.9 % (19-41); Mean Corp Hgb Conc 33.1 g/dL (32-36); Mean Corpuscular Hgb 29.3 pg (27.0-32.0); Mean Corpuscular Volume 88.4 fL (81-99); Mean Platelet Vol. 9.6 fl (6.2-12.0); Monocyte# 0.43 X10^3/uL; Monocyte% 6.8 % (0-10); NRBC Flagged by Analyzer 0 % (0-5); Neutrophil # 3.56 X10^3/uL (2.7-7.7); Neutrophil % 56.1 % (47-70); Platelet Count 277 K/mm3 (150-450); RBC Distribution Width CV 12.2 % (11.6-14.6); RBC Distribution Width SD 39.2 fl (35.1-43.9); Red Blood Count 4.92 M/mm3 (4.2-5.4); White Blood Count 6.3 K/mm3 (4.4-11.0)
[2024-09-04 14:04] LABS: ALB/GLOB Ratio 1.6 RATIO (0.9-2.4); AST(SGOT) 23 U/L (<=31); Alanine Aminotransfer ALT/SGPT 16 U/L (<=34); Albumin, Serum 4.4 g/dL (3.5-5.0); Alkaline Phosphatase 60 U/L (35-104); Anion Gap 11 (5-15); BUN 15 mg/dL (4-19); BUN/Creat Ratio 20.5 RATIO (10-20); Calcium,Total 9.7 mg/dL (7.6-11.0); Carbon Dioxide 23.1 mmol/L (21.0-32.0); Chloride 105 mmol/L (98-108); Creatinine, Serum 0.71 mg/dL (0.70-1.20); EST Glomerular Filtration Rate 121 (>60); Globulin 2.7 g/dL (2.2-4.2); Glucose 87 mg/dL (70-99); Magnesium 2.1 mg/dL (1.5-2.2); Potassium 3.9 mmol/L (3.3-5.1); Sodium Level 140 mmol/L (133-145)
[2024-09-04 14:18] LABS: Vitamin D,25 Hydroxy 34.1 ng/mL (30-100)
== END | disposition home or self-care (01) ==
LOC: BIMLAB 08:16
PROVIDERS: PCP Internal Medicine; Referring Provider Physician Assistant; Visit Provider Physician Assistant
DX: R00.2 Palpitations (principal)
CPT/HCPCS: 36415; 80053; 82306; 83735; 85025; 85379

== ENCOUNTER → 2024-09-15 | Outpatient (CLI) | payer BC, SELFPAY | END | disposition home or self-care (01) | PROVIDERS: PCP Internal Medicine; Referring Provider Physician Assistant; Visit Provider Physician Assistant | DX: R06.00 Dyspnea, unspecified (principal) | CPT/HCPCS: 93225; 93226 ==

== ENCOUNTER → 2024-11-20 | Outpatient (CLI) | payer BC, SELFPAY ==
[2024-11-20 16:29] LABS: Absolute Lymphocyte Count 2.38 X10^3/uL (0.83-4.51); Absolute Neutrophil Count 5.4 X10^3/uL (2.0-7.7); Basophil# 0.05 X10^3/uL; Basophil% 0.6 % (0-1); Eosinophil# 0.21 X10^3/uL; Eosinophils% 2.5 % (0-5); Hematocrit 40.5 % (37-47); Lymphocyte # 2.38 X10^3/ul (0.83-4.51); Lymphocyte % 28.1 % (19-41); Mean Corp Hgb Conc 34.6 g/dL (32-36); Mean Corpuscular Hgb 30.1 pg (27.0-32.0); Mean Corpuscular Volume 87.1 fL (81-99); Monocyte# 0.43 X10^3/uL; Monocyte% 5.1 % (0-10); NRBC Flagged by Analyzer 0 % (0-5); Neutrophil # 5.38 X10^3/uL (2.7-7.7); Neutrophil % 63.5 % (47-70); Platelet Count 296 K/mm3 (150-450); RBC Distribution Width CV 12.6 % (11.6-14.6); RBC Distribution Width SD 39.7 fl (35.1-43.9); Red Blood Count 4.65 M/mm3 (4.2-5.4); White Blood Count 8.5 K/mm3 (4.4-11.0)
[2024-11-20 16:50] LABS: Protein, Urine (Random) < 6.0 mg/dL (0.0-12.0); Protein:Creat Ratio 78 mg/g CRE (0-200)
[2024-11-20 17:18] LABS: ALB/GLOB Ratio 1.7 RATIO (0.9-2.4); AST(SGOT) 22 U/L (<=31); Alanine Aminotransfer ALT/SGPT 16 U/L (<=34); Albumin, Serum 4.1 g/dL (3.5-5.0); Alkaline Phosphatase 43 U/L (35-104); Anion Gap 18 (5-15); BUN 12 mg/dL (4-19); BUN/Creat Ratio 16.2 RATIO (10-20); Carbon Dioxide 14.1 mmol/L (21.0-32.0); Chloride 103 mmol/L (98-108); Creatinine, Serum 0.74 mg/dL (0.70-1.20); EST Glomerular Filtration Rate 114 (>60); Globulin 2.5 g/dL (2.2-4.2); Glucose 93 mg/dL (70-99); HIV Nonreactive (Nonreactive); Hepatitis B Surface Antigen Nonreactive (Nonreactive); Hepatitis C Antibody Nonreactive (Nonreactive); Potassium 3.7 mmol/L (3.3-5.1); Protein, Total 6.6 g/dL (5.9-8.4); Rubella IgG REAC (Nonreactive); Sodium Level 135 mmol/L (133-145); Syphilis Antibodies Nonreactive (Nonreactive); Total Bilirubin 0.23 mg/dL (0.00-1.30); Vitamin D,25 Hydroxy 46.6 ng/mL (30-100)
[2024-11-20 17:24] LABS: Hemoglobin A1c 5.1 % (<=5.6)
[2024-11-23 23:07] LABS: Chlamydia By Nucleic Acid AMP Negative (Negative); Gonococcus By Nucleic Acid AMP Negative (Negative)
== END | disposition home or self-care (01) ==
PROVIDERS: PCP Internal Medicine; Referring Provider Registered Nurse; Visit Provider Registered Nurse
DX: O09.90 Supervision of high risk pregnancy, unspecified, unspecified trimester (principal); O99.210 Obesity complicating pregnancy, unspecified trimester; Z3A.00 Weeks of gestation of pregnancy not specified; Z12.4 Encounter for screening for malignant neoplasm of cervix
CPT/HCPCS: 36415; 80053; 82306; 82570; 83036; 84156; 84439; 84443; 85025; 86703; 86762; 86780; 86803; 86850; 86900; 86901; 87086; 87088; 87340; 87491; 87591; 88175; G0145

== ENCOUNTER → 2024-12-23 | Outpatient (CLI) | payer BC, SELFPAY | END | disposition home or self-care (01) | LOC: BWCLAB 10:56 | PROVIDERS: PCP Internal Medicine; Visit Provider Obstetrics & Gynecology | DX: O99.280 Endocrine, nutritional and metabolic diseases complicating pregnancy, unspecified trimester (principal); E03.9 Hypothyroidism, unspecified; Z3A.00 Weeks of gestation of pregnancy not specified | CPT/HCPCS: 36415; 84439; 84443 ==

== ENCOUNTER → 2025-03-16 | Outpatient (CLI) | payer BC, SELFPAY ==
--- NOTE | 2025-03-16 10:51 | EKG12_ITS ---
Test Reason : PALPITATIONS Blood Pressure : */* mmHG Vent. Rate : 87 BPM Atrial Rate : 87 BPM P-R Int : 150 ms QRS Dur : 82 ms QT Int : 372 ms P-R-T Axes : 58 58 39 degrees QTcB Int : 447 ms Normal sinus rhythm Normal ECG No previous ECGs available Confirmed by KI BASSETT, MAIRA ([id number]), make up editor SHIKHA LOVE ([id number]) on 03/17/2025 8:13:44 AM Referred By: Katie Page Confirmed By: MAIRA EMERSON MD
--- NOTE | 2025-03-16 10:51 | EKG12_ITS ---
Test Reason : PALPITATIONS Blood Pressure : */* mmHG Vent. Rate : 87 BPM Atrial Rate : 87 BPM P-R Int : 150 ms QRS Dur : 82 ms QT Int : 372 ms P-R-T Axes : 58 58 39 degrees QTcB Int : 447 ms Normal sinus rhythm Normal ECG No previous ECGs available Confirmed by KI BASSETT, MAIRA ([id number]), editor city SHIKHA LOVE ([id number]) on 03/17/2025 8:13:44 AM Referred By: Katie Page Confirmed By: MAIRA EMERSON MD
--- OUTSIDE RECORDS SUMMARY | 2025-03-16 12:17 | XMS RPT_ITS | CCD ---
Author Organization [facility]iniSyn[facility] Care Team Providers Care Paper Reel Operator Name Role Phone Aundrea Mendez N Unavailable Aundrea Mendez N Unavailable Aundrea Mendez N Unavailable Dr. Ramiro Ren Primary Care Provider [phone] Dr. Ramiro Ren Referring Provider Chance OQUENDO NP-Zainab Teixeira Attending Provider [phone] Dr. Ramiro Ren Primary Care Provider Dr. Ramiro Ren Referring Provider Dr. Altagracia Conroy Attending Provider Chance OQUENDO NP-Zainab Teixeira Attending Provider [phone] Dr. Ramiro Ren Primary Care Provider [phone] Dr. Ramiro Ren Referring Provider Dr. Altagracia Conroy Attending Provider Dr. Ramiro Ren Primary Care Provider Dr. Ramiro Ren Referring Provider Dr. Altagracia Conroy Attending Provider Chance OQUENDO NP-Zainab Teixeira Attending Provider [phone] Dr. Linh Jean-Baptiste Attending Provider [phone] FriendDr. Mcdaniel Attending Provider [phone] FriendDr. Mcdaniel Other Provider [phone] Dr. Ramiro Ren Primary Care Provider Dr. Ramiro Ren Referring Provider Chance CONVEYOR OPERATOR, CONVEYOR OPERATOR-C Maryjo Teixeira Attending Provider [phone] Dr. Ramiro Ren Primary Care Provider Dr. Ramiro Ren Referring Provider Chance CONVEYOR OPERATOR, CONVEYOR OPERATOR-C Maryjo Teixeira Attending Provider [phone] Dr. Ramiro Ren Primary Care Provider Dr. Ramiro Ren Referring Provider Dr. Katie Page Attending Provider [phone] Dr. Linh Jean-Baptiste Attending Provider [phone] Westley, DO Katarina M Primary Care Provider Dr. Ramiro Ren Referring Provider Westley, DO Katarina M Referring Provider Dr. Katie Page Attending Provider [phone] Westley, DO Katarina M Primary Care Provider Westley, DO Katarina M Referring Provider Dr. Katie Page Attending Provider [phone] Dr. Linh Jean-Baptiste Attending Provider [phone] ELADIA Montano Attending Provider [phone] ELADIA Bernal Attending Provider [phone] Westley, DO Katarina M Primary Care Provider Westley, DO Katarina M Referring Provider Dr. Linh Jean-Baptiste Attending Provider [phone] Dr. Katie Page Attending Provider [phone] ELADIA Bernal Admit Provider [phone] ELAIDA Bernal Referring Provider [phone] ELADIA Bernal Other Provider [phone] Dr. Linh Jean-Baptiste Other Provider Erlin CONVEYOR OPERATOR, CONVEYOR OPERATOR-Zainab Arriaga Attending Provider Dr. Katie Page Attending Provider Westley, DO Katarina M Primary Care Provider Westley, DO Katarina M Referring Provider Dr. Linh Jean-Baptiste Attending Provider Bernal, BENITOM Candace Admit Provider Bernal, CNM Candace Attending Provider Bernal, CNM Candace Referring Provider Bernal, CNM Candace Other Provider Dr. Linh Jean-Baptiste Other Provider [place] CONVEYOR OPERATOR, JERE-Zainab Arriaga Attending Provider [phone] Westley, DO Katarina M Primary Care Provider DO Westley Katarina M Referring Provider Bernal, ELADIA Olmsteadsay Attending Provider Dr. Angela Allen Attending Provider [phone] Dr. Angela Allen MD Primary Care Provider [phone] Dr. Angela Allen MD Attending Provider Dr. Angela Allen MD Referring Provider Bhavesh Gomez Attending Provider Bhavesh Gomez Referring Provider [phone] Angela Allen MD Primary Care Provider [phone] Bhavesh Gomez Attending Provider [phone] Angela Allen MD Referring Provider Сергей BASSETT, Dr. Benavides Attending Provider Bernal Candace MONTILLA Attending Provider Bernal BENITOM, Candace Referring Provider [phone] Tiffany BASSETT, Dr. Miller Primary Care Provider [phone] Bhavesh Gomez Attending Provider [phone] Juve Willis DO, Dr. Melton Attending Provider Tiffany BASSETT, Dr. Miller Primary Care Provider [phone] Tiffany BASSETT, Dr. Miller Referring Provider Dusty MONTILLA, Bea Attending Provider [phone] LEANN SHIN Attending Unavailable LINH MELVIN Referring Unavailab balbina Rahman NP-C, Ana Attending Provider [phone] Katie Page Referring Unavailable Katie Page Attending Unavailable Denton, Angela Primary Care Unavailable Denton, Angela Primary Care Unavailable Bhavesh Gomez Attending Unavailable Bhavesh Gomez Referring Unavailable Denton, Angela Primary Care Unavailable Kennedy Rushing Attending Unavailable Bhavesh Gomez Referring Unavailable Denton, Angela Referring Unavailable Linh Jean-Baptiste Attending Unavailabl e Denton, Angela Primary Care Unavailable Denton, Angela Referring Unavailable Bea Montano Attending Unavailable Denton, Angela Primary Care Unavailable Tiffany, Angela Referring Unavailable Ana Rahman NP Attending Unavailable Tiffany, Angela Primary Care Unavailable Tiffany, Angela Primary Care Unavailable Tiffany, Angela Referring Unavailable Bhavesh Gomez Attending Unavailable Tiffany, Angela Primary Care Unavailable Denton, Angela Referring Unavailable Bhavesh Gomez Attending Unavailable Tiffany, Angela Primary Care Unavailable Denton, Angela Referring Unavailable Candace Bernal Attending Unavailable Denton, Angela Referring Unavailable Denton, Angela Primary Care Unavailable Linh Jean-Baptiste Attending Unavailabl e Tiffany, Angela Attending Unavailable Denton, Angela Primary Care Unavailable Denton, Angela Referring Unavailable Denton, Angela Primary Care Unavailable Bhavesh Gomez Attending Unavailable Bhavesh Gomez Referring Unavailable Tiffany, Angela Primary Care Unavailable Candace Bernal Referring Unavailable Candace Bernal Attending Unavailable Linh Jean-Baptiste Attending Unavailabl e Tiffany, Angela Primary Care Unavailable Denton Angela Attending Unavailable Tiffany, Angela Primary Care Unavailable Tiffany, Angela Referring Unavailable Tiffany, Angela Attending Unavailable Tiffany, Angela Primary Care Unavailable Tiffany, Angela Referring Unavailable Denton, Angela Primary Care Unavailable Bhavesh Gomez Attending Unavailable Medications Current Medications Medication Drug Class(es) Dates Sig (Normalized) Sig (Original) Albuterol-Budesonide (Airsupra) 90-80 mcg/actuation HFA aerosol inhaler (9 sources) Start: 09-04-2024 Albuterol-Budesonid e (Airsupra) 90-80 mcg/actuation HFA aerosol inhaler Active 2 NMA INHALATION ONCE 10.7 0 September 04, 2024 12:00am as a single dose; may repeat up to 6 doses per day (12 inhalations) Start: 09-04-2024 Albuterol-[place] sonide (Airsupra) 90-80 mcg/actuation HFA aerosol inhaler Active 2 NMA INHALATION ONCE 10.7 September 04, 2024 12:00am as a single dose; may repeat up to 6 doses per day (12 inhalations) Levonorgestrel-Ethinyl Estrad (20 sources) Progestin, Estrogen, Progestin-containing Intrauterine Device Start: 10-09-2021 take 1 tablet by mouth once daily Levonorgestrel-Ethinyl Estrad (Lessina) 0.1-20 mg-mcg tablet Active 1 TABLET PO DAILY October 09, 2021 2:33pm Start: 10-09-2021 End: 04-13-2022 take 1 tablet by mouth once daily Levonorgestrel-Ethinyl Estrad (Lessina) 0.1-20 mg-mcg tablet Discontinued 1 {tbl} PO DAILY October 09, 2021 12:00am April 13, 2022 11:07am Start: 10-09-2021 End: 04-13-2022 take 1 tablet by mouth once daily Levonorgestrel-Ethinyl Estrad (Lessina) 0.1-20 mg-mcg tablet Discontinued 1 TABLET PO DAILY October 09, 2021 12:00am April 13, 2022 11:07am Start: 10-09-2021 End: 04-13-2022 take 1 tablet by mouth once daily Levonorgestrel-Ethinyl Estrad (Lessina) 0.1-20 mg-mcg tablet Discontinued 1 TABLET PO DAILY October 08, 2021 11:00pm April 13, 2022 10:07am Start: 10-09-2021 take 1 tablet by antoni th once daily Levonorgestrel-Ethinyl Estrad (Lessina) 0.1-20 mg-mcg tablet Active 1 TABLET PO DAILY October 09, 2021 12:00am Start: 06-12-2021 End: 11-15-2021 take 1 tablet by mouth once daily Levonorgestrel-Ethinyl Estrad (Aviane) 0.1-20 mg-mcg tablet Discontinued 1 {tbl} PO daily June 12, 2021 3:09pm November 15, 2021 9:11am Start: 06-12-2021 End: 11-15-2021 take 1 tablet by mouth once daily Levonorgestrel-Ethinyl Estrad (Aviane) 0.1-20 mg-mcg tablet Discontinued 1 {tbl} PO daily June 12, 2021 3:09pm November 15, 2021 9:11am Start: 06-12-2021 End: 11-15-2021 take 1 tablet by mouth once daily Levonorgestrel-Ethinyl Estrad (Aviane) 0.1-20 mg-mcg tablet Discontinued 1 TABLET PO daily June 12, 2021 2:09pm November 15, 2021 8:11am Start: 06-12-2021 End: 11-15-2021 take 1 tablet by mouth once daily Levonorgestrel-Ethinyl Estrad (Aviane) 0.1-20 mg-mcg tablet Discontinued 1 TABLET PO daily June 12, 2021 3:09pm November 15, 2021 9:11am Start: 06-12-2021 take 1 tablet by antoni th once daily Levonorgestrel-Ethinyl Estrad (Aviane) 0.1-20 mg-mcg tablet Active 1 TABLET PO daily June 12, 2021 3:09pm Start: 04-06-2021 End: 06-12-2021 take 1 tablet by mouth once daily Levonorgestrel-Ethinyl Estrad (Aviane) 0.1-20 mg-mcg tablet Discontinued 1 {tbl} PO daily 84 April 06, 2021 3:10pm June 12, 2021 3:10pm Start: 04-06-2021 End: 06-12-2021 take 1 tablet by mouth once daily Levonorgestrel-Ethinyl Estrad (Aviane) 0.1-20 mg-mcg tablet Discontinued 1 {tbl} PO daily April 06, 2021 3:10pm June 12, 2021 3:10pm Start: 04-06-2021 End: 06-12-2021 take 1 tablet by mouth once daily Levonorgestrel-Ethinyl Estrad (Aviane) 0.1-20 mg-mcg tablet Discontinued 1 TABLET PO daily April 06, 2021 2:10pm June 12, 2021 2:10pm Start: 04-06-2021 End: 06-12-2021 take 1 tablet by mouth once daily Levonorgestrel-Ethinyl Estrad (Aviane) 0.1-20 mg-mcg tablet Discontinued 1 TABLET PO daily April 06, 2021 3:10pm June 12, 2021 3:10pm Start: 01-03-2021 End: 04-06-2021 take 1 tablet by mouth once daily Levonorgestrel-Ethinyl Estrad (Aviane) 0.1-20 mg-mcg tablet Discontinued 1 TABLET PO daily January 03, 2021 3:00pm April 06, 2021 3:10pm Start: 01-03-2021 End: 04-06-2021 take 1 tablet by mouth once daily Levonorgestrel-Ethinyl Estrad (Aviane) 0.1-20 mg-mcg tablet Discontinued 1 {tbl} PO daily 19 10January 03, 2021 12:00am April 06, 2021 3:10pm Start: 01-03-2021 End: 04-06-2021 take 1 tablet by mouth once daily Levonorgestrel-Ethinyl Estrad (Aviane) 0.1-20 mg-mcg tablet Discontinued 1 {tbl} PO daily January 03, 2021 12:00am April 06, 2021 3:10pm Start: 01-03-2021 End: 04-06-2021 take 1 tablet by mouth once daily Levonorgestrel-Ethinyl Estrad (Aviane) 0.1-20 mg-mcg tablet Discontinued 1 TABLET PO daily January 02, 2021 11:00pm April 06, 2021 2:10pm Start: 01-03-2021 End: 04-06-2021 take 1 tablet by mouth once daily Levonorgestrel-Ethinyl Estrad (Aviane) 0.1-20 mg-mcg tablet Discontinued 1 TABLET PO daily January 03, 2021 12:00am April 06, 2021 3:10pm magnesium glycinate 100 mg o ral tablet (15 sources) Start: 11-06-2024 Magnesium Glyc inate (Mag Glycinate) 100 mg tablet Active 200 mg PO daily November 06, 2024 9:24am Start: 07-15-2024 End: 11-06-2024 take 1 tablet by mouth once daily Magnesium Glycinate (Mag Glycinate) 100 mg tablet Discontinued 100 mg PO daily July 15, 2024 1:00am November 06, 2024 9:27am Mv-Mins 78-Udfl-Kuszm No.1-D egan ([employer]) 28-1-300 mg capsule (6 sources) Start: 11-06-2024 Mv-Mins 71-Iro n-Folic No.1-Dha ([employer]) 28-1-300 mg capsule Active NMA PO November 06, 2024 12:00am Vitamin D2-Vitamin K1 20-120 mcg/4 drops drops (9 sources) Start: 07-15-2024 Vitamin D2-Vit mast K1 20-120 mcg/4 drops drops Active 5 NMA PO daily July 15, 2024 1:00am Completed/Discontinued Medications Medication Drug Class(es) Dates Sig (Normalized) Sig (Original) acetaminophen 325 mg / oxyCODONE hydrochloride 5 mg oral tablet (20 sources) Opioid Agonist Start: 04-10-2016 End: 02-10-2019 Oxycodone-Acetamino phen 1 TABLET tablet Discontinued 1 - 2 {tbl} PO EVERY 4 HOURS NEEDED as needed for Pain 60 April 10, 2016 12:00am February 10, 2019 2:13pm Start: 04-10-2016 End: 02-10-2019 take 1 tablet by mouth every four hours as needed Oxycodone-Acetaminophen Discontinued 1 - 2 TABLET PO EVERY 4 HOURS NEEDED 60 April 10, 2016 12:00am February 10, 2019 2:13pm cephalexin 500 mg oral capsule (20 sources) Cephalosporin Antibacterial Start: 04-10-2016 End: 02-10-2019 take 1 capsule by mouth every twelve hours Cephalexin 500 MG capsule Discontinued 500 mg PO EVERY 12 HOURS 10 April 10, 2016 12:00am February 10, 2019 2:12pm clobetasol propionate 0.5 mg/ml topical cream (20 sources) Corticosteroid Start: 02-10-2019 End: 04-06-2021 Clobetasol 0.05 % cream Discontinued 1 NMA TOPICAL .COMPLEX 15 2 February 10, 2019 12:00am April 06, 2021 2:55pm 1 applic TOPICAL apply thin layer as directed bid X 2 weeks then daily X 2 weeks; apply thin layer; massage in to cover area dicyclomine hydrochloride 20 mg oral tablet (17 sources) Anticholinergic Start: 11-15-2022 End: 12-14-2022 take 1 tablet by mouth three times daily Dicyclomine 20 mg tablet Discontinued 20 mg PO THREE TIMES A DAY 14 November 15, 2022 12:00am December 14, 2022 10:00am docosahexaenoic acid 200 mg oral capsule (17 sources) Start: 11-01-2022 End: 10-23-2023 Docosahexaenoic Acid ( Dha) 200 mg capsule Discontinued mg PO November 01, 2022 12:00am October 23, 2023 12:50pm docusate sodium 100 mg oral capsule (20 sources) Start: 04-10-2016 End: 02-10-2019 take 1 capsule by mouth twice daily as needed for constipation Docusate Sodium 100 MG capsule Discontinued 100 mg PO TWICE DAILY NEEDED as needed for Constipation 10 April 10, 2016 12:00am February 10, 2019 2:12pm doxylamine succinate 25 mg oral tablet (17 sources) Start: 11-01-2022 End: 12-14-2022 take 1 tablet by mouth at bedtime as needed Doxylamine Succinate (Unisom (Doxylamine)) 25 mg tablet Discontinued 25 mg PO AT BEDTIME as needed November 01, 2022 12:00am December 14, 2022 10:00am hydroCHLOROthiazide 12.5 mg oral capsule (20 sources) Thiazide Diuretic Start: 01-03-2021 End: 11-05-2022 take 1 capsule by mouth once daily Hydrochlorothiazide 12.5 mg capsule Discontinued 12.5 mg PO DAILY January 03, 2021 12:00am November 05, 2022 1:53pm levothyroxine sodium 0.112 mg oral capsule (20 sources) l-Thyroxine Start: 07-15-2024 End: 11-12-2024 take 1 capsule by mouth once daily Levothyroxine 112 mcg capsule Discontinued 112 ug PO daily 30 September 15, 2024 12:33pm November 12, 2024 11:56am Start: 05-07-2024 End: 09-04-2024 take 1 tablet by mouth once daily Levothyroxine 125 mcg tablet Discontinued 125 ug PO daily 90 July 08, 2024 10:17am September 04, 2024 7:37am Start: 10-23-2023 End: 05-07-2024 take 1 tablet by mouth once daily Levothyroxine 100 mcg tablet Discontinued 100 ug PO daily 90 April 16, 2024 10:04am May 07, 2024 2:15pm Start: 10-23-2023 End: 10-23-2023 take 1 tablet by mouth once daily Levothyroxine 88 mcg tablet Discontinued 88 ug PO daily October 23, 2023 12:00am October 23, 2023 3:41pm Start: 01-11-2023 End: 10-23-2023 Levothyroxine 100 mcg capsul e Discontinued 112 ug PO AT BEDTIME January 11, 2023 9:51am October 23, 2023 12:50pm Start: 01-11-2023 End: 10-23-2023 take 112 ug by mouth at bedtime Levothyroxine Disconti nued 112 MCG PO AT BEDTIME January 11, 2023 9:51am October 23, 2023 12:50pm Start: 10-09-2021 End: 01-11-2023 take 1 capsule by mouth at bedtime Levothyroxine 100 mcg capsule Discontinued 100 ug PO AT BEDTIME October 09, 2021 12:00am January 11, 2023 9:52am Magnesium (17 sources) Start: 11-01-2022 End: 12-14-2022 take 1 tablet by mouth once daily Magnesium 200 mg tablet Discontinued 200 mg PO DAILY November 01, 2022 12:00am December 14, 2022 10:00am Start: 11-01-2022 End: 12-14-2022 take 200 mg by mouth once daily Magnesium Discontinued 200 MG PO DAILY October 31, 2022 11:00pm December 14, 2022 9:00am Start: 11-01-2022 End: 12-14-2022 take 200 mg by mouth once daily Magnesium Discontinued 200 MG PO DAILY November 01, 2022 12:00am December 14, 2022 10:00am Multivitamin preparation (20 sources) Start: 02-10-2019 End: 01-03-2021 take 1 tablet by mouth once daily Multivitamin Discontinued 1 TABLET PO DAILY February 10, 2019 2:13pm January 03, 2021 2:51pm Start: 02-10-2019 End: 01-03-2021 take 1 tablet by mouth once daily Multivitamin Discontinued 1 TABLET PO DAILY February 09, 2019 11:00pm January 03, 2021 1:51pm Start: 02-10-2019 End: 01-03-2021 take 1 tablet by mouth once daily Multivitamin Discontinued 1 TABLET PO DAILY February 10, 2019 12:00am January 03, 2021 2:51pm Multivitamin tablet (9 sources) Start: 02-10-2019 End: 01-03-2021 Multivitamin tablet Discontinued 1 {tbl} PO DAILY February 10, 2019 12:00am January 03, 2021 2:51pm omeprazole 20 mg delayed release oral tablet (20 sources) Proton Pump Inhibitor Start: 10-09-2021 End: 11-15-2021 take 1 tablet by mouth once daily Omeprazole Magnesium (Prilosec Otc) 20 mg tablet,delayed release (DR/EC) Discontinued 20 mg PO DAILY October 09, 2021 12:00am November 15, 2021 9:12am ondansetron 4 mg disintegrating oral tablet (17 sources) Serotonin-3 Receptor Antagonist Start: 11-15-2022 End: 12-14-2022 take 1 tablet by mouth every eight hours as needed for nausea Ondansetron 4 mg tablet,disintegrat ing Discontinued 4 mg PO EVERY 8 HOURS NEEDED as needed for Nausea 5 0 November 15, 2022 12:00am December 14, 2022 10:00am pantoprazole 20 mg delayed release oral tablet (20 sources) Proton Pump Inhibitor Start: 05-08-2022 End: 11-05-2022 take 1 tablet by mouth at bedtime Pantoprazole 20 mg tablet,delayed release (DR/EC) Discontinued 20 mg PO AT BEDTIME May 08, 2022 10:11am November 05, 2022 1:53pm Start: 03-12-2022 End: 05-08-2022 take 2 tablets by mouth twice daily Pantoprazole 20 mg tablet,delayed release (DR/EC) Discontinued 40 mg PO TWICE A DAY 120 1 March 12, 2022 1:35pm May 08, 2022 10:11am Start: 03-12-2022 End: 05-08-2022 take 40 mg by mouth twice daily Pantoprazole Discontinued 40 MG PO TWICE A DAY 120 March 12, 2022 1:35pm May 08, 2022 10:11am Start: 02-20-2022 End: 03-12-2022 take 2 tablets by mouth once daily Pantoprazole 20 mg tablet,delayed release (DR/EC) Discontinued 40 mg PO DAILY 60 2 February 20, 2022 2:00pm March 12, 2022 1:35pm Start: 02-20-2022 End: 03-12-2022 take 40 mg by mouth once daily Pantoprazole Discontinu ed 40 MG PO DAILY 60 February 20, 2022 2:00pm March 12, 2022 1:35pm Start: 01-12-2022 End: 02-20-2022 take 1 tablet by mouth once daily Pantoprazole 20 mg tablet,delayed release (DR/EC) Discontinued 20 mg PO DAILY 30 2 January 26, 2022 12:17pm February 20, 2022 2:00pm promethazine hydrochloride 25 mg oral tablet (20 sources) Phenothiazine Start: 04-10-2016 End: 02-10-2019 take 1 tablet by mouth every four hours as needed for nausea Promethazine 25 MG tablet Discontinued 25 mg PO EVERY 4 HOURS NEEDED as needed for Nausea 10 0 April 10, 2016 12:00am February 10, 2019 2:13pm pyridoxine hydrochloride 25 mg oral tablet (17 sources) Start: 11-01-2022 End: 12-14-2022 take 1 tablet by mouth once daily Pyridoxine (Vitamin B6) (Vitamin B-6) 25 mg tablet Discontinued 25 mg PO DAILY November 01, 2022 12:00am December 14, 2022 10:00am sucralfate 100 mg/ml oral suspension (20 sources) Aluminum Complex Start: 10-23-2023 End: 07-15-2024 take 1 mL by mouth at bedtime as needed Sucralfate (Carafate) 100 mg/mL suspension Discontinued 10 mL PO before meals and at bedtime as needed for abdominal discomfort 1000 0 October 23, 2023 12:00am July 15, 2024 3:07pm Start: 10-23-2023 take 1 mL by mouth at bedtime Sucralfate (Carafate) 100 mg/mL suspension Active 10 ML PO before meals and at bedtime 1000 October 23, 2023 12:00am Start: 03-12-2022 End: 04-13-2022 take 1 tablet by mouth at bedtime Sucralfate 1 gram tablet Discontinued 1 g PO before meals and at bedtime 120 0 March 12, 2022 12:00am April 13, 2022 11:07am terconazole 8 mg/ml vaginal cream (15 sources) Azole Antifungal Start: 04-26-2023 End: 04-29-2023 Terconazole 0.8 % cream Discontinued 1 NMA VAGINAL AT BEDTIME 20 3 0 April 26, 2023 12:00am April 28, 2023 12:00am April 29, 2023 1:04am Start: 04-26-2023 End: 04-29-2023 Terconazole Discontinued 1 A PPFUL VAGINAL AT BEDTIME 20 3 April 26, 2023 12:00am April 29, 2023 1:04am Problems Active Problems Problem Classification Problem Date Documented Date Episodic/Chronic Abdominal pain (20 sources) Right upper quadrant pain; Translations: [Right upper quadrant pain] Episodic Administrative/social admission (1 source) Persons encountering health services in other specified circumstances; Translations: [Other reasons for seeking consultation] 10-23-2023 Episodic Anxiety disorders (20 sources) Anxiety; Translations: [Anxiety disorder, unspecified] Onset: 01-22-2025 11-06-2024 Chronic Cardiac dysrhythmias (20 sources) Palpitations; Translations: [Palpitations] Onset: 01-22-2025 07-16-2024 Episodic Comment on above: EKG Conditions associated with dizziness or vertigo (20 sources) Meniere's disease; Translations: [Meniere's disease, unspecified ear] 11-01-2022 Chronic Comment on above: ON HCTZ-encouraged t o D/C while Esophageal disorders (20 sources) Eosinophilic esophagitis; Translations: [Eosinophilic esophagitis] Onset: 01-22-2025 05-23-2022 Chronic Hypertension complicating ; childbirth and the puerperium (19 sources) Hypertension complicating ; Translations: [Unspecified maternal hypertension, unspecified trimester] 2023 Chronic Comment on above: gained 8 pounds in 1 week, pressure elevated, has 2+ edema, sending to L&D Hypertension complicating ; childbirth and the puerperium (19 sources) -induced hypertension; Translations: [Gestational [-induced] hypertension without significant proteinuria, unspecified trimester] 2023 Episodic Comment on above: normal PEC labs. IOL with cytotec at 38.4 Inflammatory diseases of female pelvic organs (4 sources) Vaginitis; Translations: [Acute vaginitis] 04-26-2023 Episodic Menstrual disorders (20 sources) Amenorrhea; Translations: [Amenorrhea, unspecified] 06-26-2022 Chronic Comment on above: HCG X2 OB-related trauma to perineum and vulva (20 sources) Type 3a third degree laceration of perineum; Translations: [Third degree perineal laceration during delivery, IIIa] Onset: 01-22-2025 07-08-2023 Episodic Comment on above: pelvic floor pt post , referral made. PA approval of 7 visits 08/05-10/03/23 Other complications of ; puerperium affecting management of mother (13 sources) Amniotic membrane finding; Translations: [Labor and delivery complicated by meconium in amniotic fluid] 2023 Episodic Comment on above: light meconium with AROM around 2100 Other complications of ; puerperium affecting management of mother (3 sources) Labor and delivery complicated by meconium in amniotic fluid; Translations: [Premature rupture of membranes, unspecified as to episode of care or not applicable] 05-27-2023 Episodic Other complications of (19 sources) Maternal obesity complicating , childbirth and the puerperium, antepartum; Translations: [Obesity complicating , unspecified trimester] 11-06-2024 Chronic Comment on above: HgbA1c Other complications of (1 source) Obesity complicating , unspecified trimester; Translations: [Obesity complicating , unspecified trimester] Onset: 01-22-2025 Chronic Other complications of (20 sources) High risk ; Translations: [Supervision of high risk , unspecified, unspecified trimester] 11-05-2022 Episodic Comment on above: PRR ARTURO 3 Wayne , ARTURO 06/22/25, PC Wilfredo, Wayne [id number], ARTURO 5, PC Wilfredo, Wayne Other complications of (20 sources) Hypothyroidism in ; Translations: [Endocrine, nutritional and metabolic diseases complicating , unspecified trimester] 11-01-2022 Episodic Comment on above: labs q trimester levothyroxine levothyroxine; follo ws with Dr Persaud. Check labs Q trim Other complications of (20 sources) Endocrine, nutritional and metabolic diseases complicating , unspecified trimester; Translations: [Thyroid dysfunction of mother, antepartum condition or complication] Onset: 01-22-2025 11-05-2022 Episodic Other complications of (20 sources) Supervision of high risk , unspecified, unspecified trimester; Translations: [Supervision of unspecified high-risk ] Onset: 02-18-2025 11-05-2022 Episodic Other complications of (17 sources) History of third degree perineal laceration; Translations: [Supervision of with other poor reproductive or obstetric history, unspecified trimester] 11-20-2024 Episodic Comment on above: PFPT. may consider 3 9 week iol Other complications of (1 source) Supervision of high risk , unspecified, second trimester; Translations: [Supervision of high risk , unspecified, second trimester] Onset: 03-10-2025 Episodic Other complications of (1 source) Supervision of with other poor reproductive or obstetric history, unspecified trimester; Translations: [Supervision of with other poor reproductive or obstetric history, unspecified trimester] Onset: 01-22-2025 Episodic Other nutritional; endocrine; and metabolic disorders (19 sources) H/O: thyroid disorder; Translations: [Personal history of other endocrine, nutritional and metabolic disease] 11-06-2024 Episodic Comment on above: levothyroxine Other nutritional; endocrine; and metabolic disorders (1 source) Personal history of other endocrine, nutritional and metabolic disease; Translations: [Personal history of other endocrine, nutritional and metabolic disease] Onset: 01-22-2025 Episodic Other and delivery including normal (20 sources) ; Translations: [Encounter for supervision of normal , unspecified, unspecified trimester] 12-14-2022 Episodic Comment on above: 38.4 IOL for GH TNcytotec followed by yoder bulb with pitocin LC IOL-GHTN Boy: Wilfredo. 3rd degree lac GBS Negative, declin ed ntd NIPT and carrier- 's cousin with CF, nl antaomy declined NIPT & Jacobo ier testing declined NIPT & Jacobo ier testing, nl anatomy Residual codes; unclassified (13 sources) Tetanus diphtheria and acellular pertussis vaccination declined; Translations: [Immunization not carried out because of patient refusal] 05-07-2023 Episodic Residual codes; unclassified (19 sources) History of gestational hypertension; Translations: [Personal history of other complications of , childbirth and the puerperium] 11-06-2024 Episodic Comment on above: @ 38 wks first pregn estrellita Residual codes; unclassified (1 source) Personal history of other complications of , childbirth and the puerperium; Translations: [Personal history of other complications of , childbirth and the puerperium] Onset: 01-22-2025 Episodic Residual codes; unclassified (1 source) 17 weeks gestation of ; Translations: [17 weeks gestation of ] Onset: 01-22-2025 Episodic Residual codes; unclassified (1 source) 14 weeks gestation of ; Translations: [14 weeks gestation of ] Onset: 12-23-2024 Episodic Thyroid disorders (20 sources) Hypothyroidism; Translations: [Hypothyroidism, unspecified] Onset: 01-22-2025 07-08-2023 Chronic Unclassified (3 sources) Aftercare ; Translations: [Encounter for other orthopedic aftercare] Onset: 05-02-2016 05-20-2016 Past or Other Problems Problem Classification Problem Date Documented Date Episodic/Chronic Joint disorders and dislocations; trauma-related (7 [...] subsequent encounter] Onset: 03-23-2016 03-28-2016 Episodic Other lower respiratory disease (1 source) Dyspnea, unspecified; Translations: [Dyspnea, unspecified] Onset: 09-23-2024 Episodic Other non-traumatic joint disorders (5 sources) Knee joint effusion; Translations: [Knee pain] Onset: 03-19-2016 03-19-2016 Episodic Other non-traumatic joint disorders (1 source) Knee pain; Translations: [Pain in left knee] Onset: 03-19-2016 03-19-2016 Episodic Other screening for suspected conditions (not mental disorders or infectious disease) (1 source) Encounter for screening for malignant neoplasm of cervix; Translations: [Encounter for screening for malignant neoplasm of cervix] Onset: 11-20-2024 Episodic Sprains and strains (5 sources) Sprain of anterior cruciate ligament of left knee, initial encounter; Translations: [Sprain of lateral collateral ligament of left knee, subsequent encounter] Onset: 03-19-2016 03-19-2016 Episodic Unclassified (15 sources) Duodenogastric reflux; Translations: [Bile in stomach] 05-23-2022 Results Test Name Value Interpretation Reference Range Facility Fermentation Engineer Office Visit Reporton 02-18-2025 Fermentation Engineer Office Visit Report [facility]'s [address], [address] [place] [address] OFFICE VISIT Date of Service: 02/18/25 MR#: [id number] Acct: [id number] Name: LILY FOUNTAIN Rep #: [id number] : 2000 Provider: RUSTY engle Age/Sex: 24/F Location: [facility] Status: Signed Intake Vital Signs 12/23/24 10:39 01/22/25 11:20 02/18/25 11:09 02/18/25 11:09 Height 5 ft 7 in 5 ft 7 in 5 ft 7 in 5 ft 7 in Weight: 223 lb 8 oz 223 lb 8 oz BMI 34.9 34.9 BP 132/76 H Intake Visit Reasons: 21 WK OB 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 Required: No Is patient in pain?: No Allergies No Known Allergies Allergy (Verified 02/18/25 11:09) Medications ???Medication ???Instructions ???Recorded ???Confirmed ???Type vitamin D2 20 mcg-vitamin K1 120 5 drp PO QDAY 07/15/24 02/18/25 Hi story mcg/4 drops oral albuterol 90 mcg-budesonide 80 2 inh inhalation ONCE #10.7 grams 09/04/24 02/18/25 Rx mcg/actuation HFA aerosol inhaler (Airsupra) magnesium glycinate 100 mg (as 200 mg PO QDAY 11/06/24 02/18/25 H istory glycinate) tablet (Mag Glycinate) multivit-min no.71-iron fum 28 cap PO 11/06/24 02/18/25 History mg-folate no.1 1 mg-dha 300 mg capsule (PNV-[employer]) levothyroxine 112 mcg capsule 112 mcg PO QDAY #90 caps 11/12/24 02/18/25 Rx Last Menstrual Period: 09/15/24 Zika: Zika virus screening: Negative : No PFSH PFSH Medical History Third degree laceration of perineum, type 3a Vocal cord dysfunction Heart murmur (spontaneous vaginal delivery) Gestational hypertension Amenorrhea Bile in stomach Wears contact lenses Alcohol use Non-smoker Abnormal biliary HIDA scan Postprandial RUQ pain Abdominal pain Hypothyroidism Meniere disease Epigastric pain Surgical History Hx of wisdom tooth extraction S/P left knee surgery S/P right knee surgery S/P tonsillectomy Family History Mother Hypothyroid Father Hypertension Diabetes Social History adopted: No household members: spouse and children housing: house number of children: 1 current occupational status: unemployed current occupation: [employer] current occupational exposures/hazards: No pets and animals: No history of recent travel: No ( ) sexually active: Yes Smoking Status: Never smoker Electronic Cigarette Use: not used alcohol intake: current alcohol intake frequency: a few times a week details: But not while substance use type: does not use well-balanced diet: daily or most days caffeine: Yes Type: coffee Number of servings: 1 eating out: rarely or never during the past year weight has: remained stable what type of physical activity do you participate in: weight training frequency: 3-4 times per week duration: 30-45 minutes/day joseph/yarsanism: Sikhism seatbelt use: always do you feel safe at home: Yes additional social history: Spouse - Wayne Fountain History 2 Elective abortions Hx Para 1 Spontaneous abortions Hx # Term Pregnancies 1 Ectopic pregnancies Hx # Pregnancies Multiple births # of living children 1 Past Pregnancies Del. Date Name GA/Weeks Outcome Route Bth Weight Infant Gen Labor Lgth Anesthesia Del Locatn Provider FOB 05/26/23 Villalobos 38 live - full term 7#14oz Male epidural [facility] Candace Gabe IOL GHTN 3rd degree laceration Wayne Delivery Date: 05/26/23 Last Updated by: Pao Garcia IOL GHTN @ 38wks 3rd degree laceration HPI 21 WK OB Details: LILY FOUNTAIN is a 24 year old who presents for routine OB visit. OB Visit ARTURO Calculator Estimated Delivery Date Method Current WG Current Estimate 06/22/25 LMP (Certain) 22w 2d Expected Delivery Route/Plan Labor Preferences- CB/BF classes: [] labor support person: [] labor intervention preferences: [] pain management options preferred: [] cut cord/dad catch: [] : [] PP control planned: [] discussed possible routes of delivery and associated risks: [] special requests: [] Specific Issue/Plans Covid status: [] Flu vaccine: [] Tdap vaccine: [] Rhogam: [] LARC form signed: [] Problem list reviewed and updated with the most current plan of care details and appropriate orders placed. Relevant counseling for the gestational age provided. Continue routine care and follow up unless otherwise noted in visit notes/problem list details Initial Weight: 210 lb Date -???-???-???-???-???-?? ?-???-???-???-???-???-? ??- EGA Weight BP Urine Prot -???-???-???-???-???-?? ?-???-???-???-???-???-? ?? (more content not included)... Normal [facility] - Chemistry and C hemistry - challengeOrdered By: Bea Montano on 01-22-2025 Glucose Ql (U) Negative [facility] - UrinalysisOrder ed By: Bea Montano on 01-22-2025 Protein Ql (U) Negative [facility] Fermentation Engineer Office Visit Reporton 01-22-2025 Fermentation Engineer Office Visit Report [facility] [address], [address] [place] [address] OFFICE VISIT Date of Service: 01/22/25 MR#: [id number] Acct: [id number] Name: LILY FOUNTAIN Rep #: [id number] : 2000 Provider: ELADIA Knowles ams Age/Sex: 24/F Location: 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 Required: No Is patient in pain?: No Allergies No Known Allergies Allergy (Verified 01/22/25 11:18) Medications ???Medication ???Instructions ???Recorded ???Confirmed ???Type vitamin D2 20 mcg-vitamin K1 120 5 drp PO QDAY 07/15/24 01/22/25 Hi story mcg/4 drops oral albuterol 90 mcg-budesonide 80 2 inh inhalation ONCE #10.7 grams 09/04/24 01/22/25 Rx mcg/actuation HFA aerosol inhaler (Airsupra) magnesium glycinate 100 mg (as 200 mg PO QDAY 11/06/24 01/22/25 H istory glycinate) tablet (Mag Glycinate) multivit-min no.71-iron fum 28 cap PO 11/06/24 01/22/25 History mg-folate no.1 1 mg-dha 300 mg capsule (PNV[employer]) levothyroxine 112 mcg capsule 112 mcg PO QDAY #90 caps 11/12/24 01/22/25 Rx Last Menstrual Period: 09/15/24 : No PFSH PFSH Medical History Third degree laceration of perineum, type 3a Vocal cord dysfunction Heart murmur (spontaneous vaginal delivery) Gestational hypertension Amenorrhea Bile in stomach Wears contact lenses Alcohol use Non-smoker Abnormal biliary HIDA scan Postprandial RUQ pain Abdominal pain Hypothyroidism Meniere disease Epigastric pain Surgical History Hx of wisdom tooth extraction S/P left knee surgery S/P right knee surgery S/P tonsillectomy Family History Mother Hypothyroid Father Hypertension Diabetes Social History adopted: No household members: spouse and children housing: house number of children: 1 current occupational status: unemployed current occupation: [employer] current occupational exposures/hazards: No pets and animals: No history of recent travel: No ( ) sexually active: Yes Smoking Status: Never smoker Electronic Cigarette Use: not used alcohol intake: current alcohol intake frequency: a few times a week details: But not while substance use type: does not use well-balanced diet: daily or most days caffeine: Yes Type: coffee Number of servings: 1 eating out: rarely or never during the past year weight has: remained stable what type of physical activity do you participate in: weight training frequency: 3-4 times per week duration: 30-45 minutes/day joseph/yarsanism: Sikhism seatbelt use: always do you feel safe at home: Yes additional social history: Spouse - Wayne Fountain History 2 Elective abortions Hx Para 1 Spontaneous abortions Hx # Term Pregnancies 1 Ectopic pregnancies Hx # Pregnancies Multiple births # of living children 1 Past Pregnancies Del. Date Name GA/Weeks Outcome Route Bth Weight Gen Labor Lgth Anesthesia Del Mgatn Provider FOB 05/26/23 Villalobos 38 live - full term 7#14oz Male epidural [facility] Candace Bernal IOL GHTN 3rd degree laceration Wayne Delivery Date: 05/26/23 Last Updated by: Pao Puneet Garcia IOL GHTN @ 38wks 3rd degree laceration HPI 17 wk ob Details: LILY FOUNTAIN is a 24 year old who presents for routine OB visit. OB Visit ARTURO Calculator Estimated Delivery Date Method Current WG Current Estimate 06/22/25 LMP (Certain) 18w 3d Expected Delivery Route/Plan Labor Preferences- CB/BF classes: [] labor support person: [] labor intervention preferences: [] pain management options preferred: [] cut cord/dad catch: [] : [] PP control planned: [] discussed possible routes of delivery and associated risks: [] special requests: [] Specific Issue/Plans Covid status: [] Flu vaccine: [] Tdap vaccine: [] Rhogam: [] LARC form signed: [] Problem list reviewed and updated with the most current plan of care details and appropriate orders placed. Relevant counseling for the gestational age provided. Continue routine care and follow up unless otherwise noted in visit notes/problem list details Initial Weight: 210 lb Date -???-???-???-???-???-?? ?-???-???-???-???-???-? ??- EGA Weight BP Urine Prot -???-???-???-???-???-?? ?-???-???-???-???-???-? ??- Glucose FHR FuHt Pres Dilation -???-???-???-???-???-?? ?-???-??? (more content not included)... Normal [facility] - Chemistry and C hemistry - challengeOrdered By: Linh Willis on 12-23-2024 Glucose Ql (U) Negative [facility] - UrinalysisOrder ed By: Linh Willis on 12-23-2024 Protein Ql (U) Negative [facility] Fermentation Engineer Office Visit Reporton 12-23-2024 Fermentation Engineer Office Visit Report [facility]'s [address], [address] [place] [address] OFFICE VISIT Date of Service: 12/23/24 MR#: [id number] Acct: [id number] Name: LILY FOUNTAIN Rep #: [id number] : 2000 Provider: Dr. Linh Martinez DO Age/Sex: 24/F Location: 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 Is patient in pain?: No Allergies No Known Allergies Allergy (Verified 12/23/24 10:38) Medications ???Medication ???Instructions ???Recorded ???Confirmed ???Type vitamin D2 20 mcg-vitamin K1 120 5 drp PO QDAY 07/15/24 12/23/24 Hi story mcg/4 drops oral albuterol 90 mcg-budesonide 80 2 inh inhalation ONCE #10.7 grams 09/04/24 12/23/24 Rx mcg/actuation HFA aerosol inhaler (Airsupra) magnesium glycinate 100 mg (as 200 mg PO QDAY 11/06/24 12/23/24 H istory glycinate) tablet (Mag Glycinate) multivit-min no.71-iron fum 28 cap PO 11/06/24 12/23/24 History mg-folate no.1 1 mg-dha 300 mg capsule (PN[employer]) levothyroxine 112 mcg capsule 112 mcg PO QDAY #90 caps 11/12/24 12/23/24 Rx Last Menstrual Period: 09/15/24 Zika: Zika virus screening: Negative : No PFSH PFSH Medical History Third degree laceration of perineum, type 3a Vocal cord dysfunction Heart murmur (spontaneous vaginal delivery) Gestational hypertension Amenorrhea Bile in stomach Wears contact lenses Alcohol use Non-smoker Abnormal biliary HIDA scan Postprandial RUQ pain Abdominal pain Hypothyroidism Meniere disease Epigastric pain Surgical History Hx of wisdom tooth extraction S/P left knee surgery S/P right knee surgery S/P tonsillectomy Family History Mother Hypothyroid Father Hypertension Diabetes Social History adopted: No household members: spouse and children housing: house number of children: 1 current occupational status: unemployed current occupation: [employer] current occupational exposures/hazards: No pets and animals: No history of recent travel: No ( ) sexually active: Yes Smoking Status: Never smoker Electronic Cigarette Use: not used alcohol intake: current alcohol intake frequency: a few times a week details: But not while substance use type: does not use well-balanced diet: daily or most days caffeine: Yes Type: coffee Number of servings: 1 eating out: rarely or never during the past year weight has: remained stable what type of physical activity do you participate in: weight training frequency: 3-4 times per week duration: 30-45 minutes/day joseph/yarsanism: Sikhism seatbelt use: always do you feel safe at home: Yes additional social history: Spouse - Wayne Fountain History 2 Elective abortions Hx Para 1 Spontaneous abortions Hx # Term Pregnancies 1 Ectopic pregnancies Hx # Pregnancies Multiple births # of living children 1 Past Pregnancies Del. Date Name GA/Weeks Outcome Route Bth Weight Infant Gen Labor Lgth Anesthesia Del Locatn Provider FOB 05/26/23 Villalobos 38 live - full term 7#14oz Male epidural [facility] Candace Bernal IOL GHTN 3rd degree laceration Wayne Delivery Date: 05/26/23 Last Updated by: Pao Garcia IOL GHTN @ 38wks 3rd degree laceration HPI 13wk OB Details: LILY FOUNTAIN is a 24 year old who presents for routine OB visit. OB Visit ARTURO Calculator Estimated Delivery Date Method Current WG Current Estimate 06/22/25 LMP (Certain) 14w 1d Expected Delivery Route/Plan Labor Preferences- CB/BF classes: [] labor support person: [] labor intervention preferences: [] pain management options preferred: [] cut cord/dad catch: [] : [] PP control planned: [] discussed possible routes of delivery and associated risks: [] special requests: [] Specific Issue/Plans Covid status: [] Flu vaccine: [] Tdap vaccine: [] Rhogam: [] LARC form signed: [] Problem list reviewed and updated with the most current plan of care details and appropriate orders placed. Relevant counseling for the gestational age provided. Continue routine care and follow up unless otherwise noted in visit notes/problem list details Initial Weight: 210 lb Date -???-???-???-???-???-?? ?-???-???-???-???-???-? ??- EGA Weight BP Urine Prot -???-???-???-???-???-?? ?-???-???-???-???-???-? ??- (more content not included)... Normal [facility] T4 Free Directon 12-23-2024 T4 FREE DIRECT 1.20 ng/dL Normal 0.76-1.46 [facility] Comment on above: Performed By: #### L 506.0400, L501.9520 #### [facility] [address] [place], [place], [id number] T4 freeOrdered By: Linh Willis on 12-23-2024 Free T4 [Mass/Vol] 1.20 ng/dL 0.76-1.46 [facility] TSH DL <= 0.005 mIU/L QnOrde red By: Linh Willis on 12-23-2024 TSH Qn 3.350 uIU/mL 0.300-4.200 [facility] Thyroid Stim Hormone (TSH)on 12-23-2024 TSH 3.350 uIU/mL Normal 0.300-4.200 [facility] Comment on above: Performed By: #### L 506.0400, L501.9520 #### [facility] [address] [place], [place], [address] L3410.9992on 12-03-2024 [facility] COM[place] Normal . [facility] Comment on above: Order Comment: [id number] 8TSH R AB Result Comment: Test Ordered: [id number] TSH Receptor Antibody (TBII) TSH Receptor Antibody (TBII) <0.3 U/L Reference Range: . Reference Range: Antibody Titer: <1.0 U/L = Negative 1.1 - 1.5 U/L = Equivocal >1.5 U/L = Positive Performed at: [facility] [address] [place] [id number] District Agent: Francois Hastings MD, Phone: [phone] Performed at: [facility] [address] [id number] District Agent: Nicanor Barillas PhD, Phone: [phone] Performed By: #### L 501.9520 #### [facility] [address] [place], [address] PAP I-G w/rfx hrHPV-Aptimaon 11-24-2024 ADEQ Comment Normal . [facility] Comment on above: Order Comment: Speci men Comment: [id number] Comment: Source.............CervixSpecimen Comment: LMP / Prev Treat...[id number] Comment: No. of containers..01 ThinPrep Vial Result Comment: Sati sfactory for evaluation. Endocervical and/or squamous metaplastic cells (endocervical component) are present. Performed By: #### L 3300.7027, L3300.6900 #### [facility] [address] [place], [place], [address] COMM . Normal . [facility] Comment on above: Order Comment: Speci men Comment: [id number] Comment: Source.............CervixSpecimen Comment: LMP / Prev Treat...[id number] Comment: No. of containers..01 ThinPrep Vial Performed By: #### L [id number], L3300.6900 #### [facility] [address] [place], [place], [id number] COMMENT Comment Normal . [facility] Comment on above: Order Comment: Speci men Comment: [id number] Comment: Source.............CervixSpecimen Comment: LMP / Prev Treat...[id number] Comment: No. of containers..01 ThinPrep Vial Result Comment: This liquid based ThinPrep(R) pap test was screened with the use of an image guided system. Performed By: #### L 3300.7027, L3300.6900 #### [facility] [address] [place], [place], [id number] DIAG Comment Normal . [facility] Comment on above: Order Comment: Speci men Comment: [id number] Comment: Source.............CervixSpecimen Comment: LMP / Prev Treat...[id number] Comment: No. of containers..01 ThinPrep Vial Result Comment: NEGA TIVE FOR INTRAEPITHELIAL LESION OR MALIGNANCY. Performed By: #### L [id number], L3300.6900 #### [facility] [address] [place], [place], [address] HPV RFLX Comment Normal . [facility] Comment on above: Order Comment: Speci men Comment: [id number] Comment: Source.............CervixSpecimen Comment: LMP / Prev Treat...[id number] Comment: No. of containers..01 ThinPrep Vial Result Comment: The HPV DNA reflex criteria were not met with this specimen result therefore, no HPV testing was performed. Performed at: [address] [place] [id number] District Agent: Abigail De La Torre MD, Phone: [phone] Performed By: #### L [id number], L3300.6900 #### [facility] [address] [place], [address] PAPSMR Comment Normal . [facility] Comment on above: Order Comment: Speci men Comment: [id number] Comment: Source.............CervixSpecimen Comment: LMP / Prev Treat...[id number] Comment: No. of containers..01 ThinPrep Vial Result Comment: The Pap smear is a screening test designed to aid in the detection of premalignant and malignant conditions of the uterine cervix. It is not a diagnostic procedure and should not be used as the sole means of detecting cervical cancer. Both false-positive and false-negative reports do occur. Performed By: #### L 3300.70, L3300.6900 #### [facility] [address] [place], [address] PERFORM Comment Normal . [facility] Comment on above: Order Comment: Speci men Comment: [id number] Comment: Source.............CervixSpecimen Comment: LMP / Prev Treat...[id number] Comment: No. of containers..01 ThinPrep Vial Result Comment: Reed Wang, Digital Sales Assistant (ASCP) Performed By: #### L [id number], L3300.6900 #### [facility] [address] [place], [place], [address] Chlamydia/GC KASIA aptimaon CHLAMY,NUC ACID Negative Normal Negative [facility] Comment on above: Performed By: #### L [id number], L3300.6900 #### [facility] [address] [place], [place], [address] GC BY NUC ACID Negative Normal Negative [facility] Comment on above: Result Comment: Perf ormed at: =G - [facility] [address] [place] [id number] District Agent: Abigail De La Torre MD, Phone: [phone] Performed By: #### L [id number], L3300.6900 #### [facility] [address] [place], [place], [address] Urine Cultureon 11-23-2024 [facility] Pending Mixed Gram Positive Organisms [place] Count 50,000-80,000 MIXC Mixed contaminants. Submit a new specimen if indicated. Normal [facility] Comment on above: Performed By: #### L 3300.7068, L3300.6900 #### [facility] [address] [place], [place], [address] Absolute lymphocyte countOrd ered By: Candace Bernal on 11-20-2024 Lymphocytes Auto (Unsp spec) [#/Vol] 2.38 10*3/uL 0.83-4.51 [facility] Absolute neutrophil countOrd ered By: Candace Bernal on 11-20-2024 Neutrophils (Bld) [#/Vol] 5.4 10*3/uL 2.0-7.7 [facility] Anion gap in Serum or Plasma Ordered By: Candace Bernal on 11-20-2024 Anion gap [Moles/Vol] 18 mmol/L High 5-15 [facility] Automated lymphocyte count a s percentage of total leukocytesOrdered By: Candace Bernal on 11-20-2024 Lymphocytes/100 WBC Auto (Unsp spec) 28.1 % -41 [facility] BUN/creatinine ratioOrdered By: Candace Bernal on 11-20-2024 Urea nitrogen/Creatinine [Mass ratio] 16.2 mg/mg 10-20 [facility] Basophil percentageOrdered B y: Candace Bernal on 11-20-2024 Basophils/100 WBC (Bld) 0.6 % 0-1 [facility] Bilirubin, totalOrdered By: Candace Bernal on 11-20-2024 Bilirubin [Mass/Vol] 0.23 mg/dL 0.00-1.30 [facility] CBC W/Diff, Automatedon 10-24 Absolute Lymph 2.38 X10 3/uL Normal 0.83-4.51 [facility] Comment on above: Performed By: #### L 506.1001, L501.9985, L500.4050, L501.9520, L509.8002, L3410.9992, L3890.6301, L3890.6006, L100.0100, L3890.6102, BTS, L509.4006, L506.0400 #### [facility] [address] [place], [address] Absolute Neut 5.4 X10 3/uL Normal 2.0-7.7 [facility] Comment on above: Performed By: #### L 506.1001, L501.9985, L500.4050, L501.9520, L509.8002, L3410.9992, L3890.6301, L3890.6006, L100.0100, L3890.6102, BTS, L509.4006, L506.0400 #### [facility] [address] [place], [address] Basophils/100 WBC (Bld) 0.6 % Normal 0-1 [facility] Comment on above: Performed By: #### L 506.1001, L501.9985, L500.4050, L501.9520, L509.8002, L3410.9992, L3890.6301, L3890.6006, L100.0100, L3890.6102, BTS, L509.4006, L506.0400 #### [facility] [address] [place], [address] Eosinophils/100 WBC (Bld) 2.5 % Normal 0-5 [facility] Comment on above: Performed By: #### L 506.1001, L501.9985, L500.4050, L501.9520, L509.8002, L3410.9992, L3890.6301, L3890.6006, L100.0100, L3890.6102, BTS, L509.4006, L506.0400 #### [facility] [address] [place], [address] Erythrocyte distribution width (RBC) [Ratio] 12.6 % Normal 11.6-14.6 [facility] Comment on above: Performed By: #### L 506.1001, L501.9985, L500.4050, L501.9520, L509.8002, L3410.9992, L3890.6301, L3890.6006, L100.0100, L3890.6102, BTS, L509.4006, L506.0400 #### [facility] [address] [place], [address] Hematocrit (Bld) [Volume fraction] 40.5 % Normal 37-47 [facility] Comment on above: Performed By: #### L 506.1001, L501.9985, L500.4050, L501.9520, L509.8002, L3410.9992, L3890.6301, L3890.6006, L100.0100, L3890.6102, BTS, L509.4006, L506.0400 #### [facility] [address] [place], [address] Hemoglobin (Bld) [Mass/Vol] 14.0 g/dL Normal 12.0-15.0 [facility] Comment on above: Performed By: #### L 506.1001, L501.9985, L500.4050, L501.9520, L509.8002, L3410.9992, L3890.6301, L3890.6006, L100.0100, L3890.6102, BTS, L509.4006, L506.0400 #### [facility] [address] [place], [address] IG% 0.200 Normal 0.0-0.9 [facility] Comment on above: Result Comment: IG% - Immature Granulocytes (promyelocytes, myelocytes and metamyelocytes) > 1% indicates that a LEFT SHIFT is Present. Performed By: #### L 506.1001, L501.9985, L500.4050, L501.9520, L509.8002, L3410.9992, L3890.6301, L3890.6006, L100.0100, L3890.6102, BTS, L509.4006, L506.0400 #### [facility] [address] [place], [address] Lymphocytes/100 WBC (Bld) 28.1 % Normal 19-41 [facility] Comment on above: Performed By: #### L 506.1001, L501.9985, L500.4050, L501.9520, L509.8002, L3410.9992, L3890.6301, L3890.6006, L100.0100, L3890.6102, BTS, L509.4006, L506.0400 #### [facility] [address] [place], [address] MCH (RBC) [Entitic mass] 30.1 pg Normal 27.0-32.0 [facility] Comment on above: Performed By: #### L 506.1001, L501.9985, L500.4050, L501.9520, L509.8002, L3410.9992, L3890.6301, L3890.6006, L100.0100, L3890.6102, BTS, L509.4006, L506.0400 #### [facility] [address] [place], [address] MCHC (RBC) [Mass/Vol] 34.6 g/dL Normal 32-36 [facility] Comment on above: Performed By: #### L 506.1001, L501.9985, L500.4050, L501.9520, L509.8002, L3410.9992, L3890.6301, L3890.6006, L100.0100, L3890.6102, BTS, L509.4006, L506.0400 #### [facility] [address] [place], [address] MCV (RBC) [Entitic vol] 87.1 fL Normal 81-99 [facility] Comment on above: Performed By: #### L 506.1001, L501.9985, L500.4050, L501.9520, L509.8002, L3410.9992, L3890.6301, L3890.6006, L100.0100, L3890.6102, BTS, L509.4006, L506.0400 #### [facility] [address] [place], [address] Monocytes/100 WBC (Bld) 5.1 % Normal 0-10 [facility] Comment on above: Performed By: #### L 506.1001, L501.9985, L500.4050, L501.9520, L509.8002, L3410.9992, L3890.6301, L3890.6006, L100.0100, L3890.6102, BTS, L509.4006, L506.0400 #### [facility] [address] [place], [address] Neutrophils/100 WBC (Bld) 63.5 % Normal 47-70 [facility] Comment on above: Performed By: #### L 506.1001, L501.9985, L500.4050, L501.9520, L509.8002, L3410.9992, L3890.6301, L3890.6006, L100.0100, L3890.6102, BTS, L509.4006, L506.0400 #### [facility] [address] [place], [address] Nucleated RBC (Bld) [#/Vol] 0 10*3/uL Normal 0-5 [facility] Comment on above: Performed By: #### L 506.1001, L501.9985, L500.4050, L501.9520, L509.8002, L3410.9992, L3890.6301, L3890.6006, L100.0100, L3890.6102, BTS, L509.4006, L506.0400 #### [facility] [address] [place], [place], [phone] (983) Platelet mean volume (Bld) [Entitic vol] 10.0 fL Normal 6.2-12.0 [facility] Comment on above: Performed By: #### L 506.1001, L501.9985, L500.4050, L501.9520, L509.8002, L3410.9992, L3890.6301, L3890.6006, L100.0100, L3890.6102, BTS, L509.4006, L506.0400 #### [facility] [address] [place], [place], [phone] (094) Platelets (Bld) [#/Vol] 296 10*3/uL Normal 150-450 [facility] Comment on above: Performed By: #### L 506.1001, L501.9985, L500.4050, L501.9520, L509.8002, L3410.9992, L3890.6301, L3890.6006, L100.0100, L3890.6102, BTS, L509.4006, L506.0400 #### [facility] [address] [place], [address] RBC (Bld) [#/Vol] 4.65 10*6/uL Normal 4.2-5.4 [facility] Comment on above: Performed By: #### L 506.1001, L501.9985, L500.4050, L501.9520, L509.8002, L3410.9992, L3890.6301, L3890.6006, L100.0100, L3890.6102, BTS, L509.4006, L506.0400 #### [facility] [address] [place], [address] RDW SD 39.7 fl Normal 35.1-43.9 [facility] Comment on above: Performed By: #### L 506.1001, L501.9985, L500.4050, L501.9520, L509.8002, L3410.9992, L3890.6301, L3890.6006, L100.0100, L3890.6102, BTS, L509.4006, L506.0400 #### [facility] [address] [place], [place], [phone] (069) WBC (Bld) [#/Vol] 8.5 10*3/uL Normal 4.4-11.0 [facility] Comment on above: Performed By: #### L 506.1001, L501.9985, L500.4050, L501.9520, L509.8002, L3410.9992, L3890.6301, L3890.6006, L100.0100, L3890.6102, BTS, L509.4006, L506.0400 #### [facility] [address] [place], [address] Carbon dioxide, total [Moles /volume] in Central venous bloodOrdered By: Candace Bernal on 11-20-2024 CO2 [Moles/Vol] 14.1 mmol/L Low 21.0-32.0 [facility] Cervical or vagninal specime n microscopic examination by cytology stain (reported asOrdered By: Candace Bernal on 11-20-2024 Cytology report Cyto stain Doc (Cvx/Vag) Comment . [facility] Comment on above: The Pap smear is a s creening test designed to aid in thedetection of premalignant and malignant conditions of theuterine cervix. It is not a diagnostic procedure andshould not be used as the sole means of detecting cervicalcancer. Both false-positive and false-negative reports dooccur. Chlamydia trachomatis rRNA d etection by probe and target amplification methodOrdered By: Candace Bernal on 11-20-2024 C. trachomatis rRNA KASIA+probe Ql (Unsp spec) Negative Negative [facility] Chloride assayOrdered By: Molly Bernal on 11-20-2024 Chloride [Moles/Vol] 103 mmol/L 98-108 [facility] Comprehensive Metabolic Prof ilon 11-20-2024 Albumin [Mass/Vol] 4.1 g/dL Normal 3.5-5.0 [facility] Comment on above: Performed By: #### L 506.1001, L501.9985, L500.4050, L501.9520, L509.8002, L3410.9992, L3890.6301, L3890.6006, L100.0100, L3890.6102, BTS, L509.4006, L506.0400 #### [facility] [address] [place], [place], [address] Albumin/Globulin [Mass ratio] 1.7 {ratio} Normal 0.9-2.4 [facility] Comment on above: Performed By: #### L 506.1001, L501.9985, L500.4050, L501.9520, L509.8002, L3410.9992, L3890.6301, L3890.6006, L100.0100, L3890.6102, BTS, L509.4006, L506.0400 #### [facility] [address] [place], [address] ALK PHOS 43 U/L Normal 35-104 [facility] Comment on above: Performed By: #### L 506.1001, L501.9985, L500.4050, L501.9520, L509.8002, L3410.9992, L3890.6301, L3890.6006, L100.0100, L3890.6102, BTS, L509.4006, L506.0400 #### [facility] [address] [place], [place], [id number] ALT [Catalytic activity/Vol] 16 U/L Normal <=34 [facility] Comment on above: Performed By: #### L 506.1001, L501.9985, L500.4050, L501.9520, L509.8002, L3410.9992, L3890.6301, L3890.6006, L100.0100, L3890.6102, BTS, L509.4006, L506.0400 #### [facility] [address] [place], [address] AST [Catalytic activity/Vol] 22 U/L Normal <=31 [facility] Comment on above: Performed By: #### L 506.1001, L501.9985, L500.4050, L501.9520, L509.8002, L3410.9992, L3890.6301, L3890.6006, L100.0100, L3890.6102, BTS, L509.4006, L506.0400 #### [facility] [address] [place], [address] Bilirubin [Mass/Vol] 0.23 mg/dL Normal 0.00-1.30 [facility] Comment on above: Performed By: #### L 506.1001, L501.9985, L500.4050, L501.9520, L509.8002, L3410.9992, L3890.6301, L3890.6006, L100.0100, L3890.6102, BTS, L509.4006, L506.0400 #### [facility] [address] [place], [address] BUN/CRE 16.2 RATIO Normal 10-20 [facility] Comment on above: Performed By: #### L 506.1001, L501.9985, L500.4050, L501.9520, L509.8002, L3410.9992, L3890.6301, L3890.6006, L100.0100, L3890.6102, BTS, L509.4006, L506.0400 #### [facility] [address] [place], [address] Calcium [Mass/Vol] 9.0 mg/dL Normal 7.6-11.0 [facility] Comment on above: Performed By: #### L 506.1001, L501.9985, L500.4050, L501.9520, L509.8002, L3410.9992, L3890.6301, L3890.6006, L100.0100, L3890.6102, BTS, L509.4006, L506.0400 #### [facility] [address] [place], [address] Chloride [Moles/Vol] 103 mmol/L Normal 98-108 [facility] Comment on above: Performed By: #### L 506.1001, L501.9985, L500.4050, L501.9520, L509.8002, L3410.9992, L3890.6301, L3890.6006, L100.0100, L3890.6102, BTS, L509.4006, L506.0400 #### [facility] [address] [place], [address] CO2 [Moles/Vol] 14.1 mmol/L Low 21.0-32.0 [facility] Comment on above: Performed By: #### L 506.1001, L501.9985, L500.4050, L501.9520, L509.8002, L3410.9992, L3890.6301, L3890.6006, L100.0100, L3890.6102, BTS, L509.4006, L506.0400 #### [facility] [address] [place], [place], [id number] (208) Creatinine [Mass/Vol] 0.74 mg/dL Normal 0.70-1.20 [facility] Comment on above: Performed By: #### L 506.1001, L501.9985, L500.4050, L501.9520, L509.8002, L3410.9992, L3890.6301, L3890.6006, L100.0100, L3890.6102, BTS, L509.4006, L506.0400 #### [facility] [address] [place], [place], [address] GAP 18 High 5-15 [facility] Comment on above: Performed By: #### L 506.1001, L501.9985, L500.4050, L501.9520, L509.8002, L3410.9992, L3890.6301, L3890.6006, L100.0100, L3890.6102, BTS, L509.4006, L506.0400 #### [facility] [address] [place], [place], [address] GFR/1.73 sq M.predicted among non-blacks MDRD (S/P/Bld) [Vol rate/Area] 114 mL/min/{1.73_m2} Normal >60 [facility] Comment on above: Result Comment: mL/m in/1.73m2 CKD-EPI Creatinine Equation (2020) Performed By: #### L 506.1001, L501.9985, L500.4050, L501.9520, L509.8002, L3410.9992, L3890.6301, L3890.6006, L100.0100, L3890.6102, BTS, L509.4006, L506.0400 #### [facility] [address] [place], [address] Globulin (S) [Mass/Vol] 2.5 g/dL Normal 2.2-4.2 [facility] Comment on above: Performed By: #### L 506.1001, L501.9985, L500.4050, L501.9520, L509.8002, L3410.9992, L3890.6301, L3890.6006, L100.0100, L3890.6102, BTS, L509.4006, L506.0400 #### [facility] [address] [place], [address] Glucose [Mass/Vol] 93 mg/dL Normal 70-99 [facility] Comment on above: Performed By: #### L 506.1001, L501.9985, L500.4050, L501.9520, L509.8002, L3410.9992, L3890.6301, L3890.6006, L100.0100, L3890.6102, BTS, L509.4006, L506.0400 #### [facility] [address] [place], [address] Potassium [Moles/Vol] 3.7 mmol/L Normal 3.3-5.1 [facility] Comment on above: Performed By: #### L 506.1001, L501.9985, L500.4050, L501.9520, L509.8002, L3410.9992, L3890.6301, L3890.6006, L100.0100, L3890.6102, BTS, L509.4006, L506.0400 #### [facility] [address] [place], [address] Sodium [Moles/Vol] 135 mmol/L Normal 133-145 [facility] Comment on above: Performed By: #### L 506.1001, L501.9985, L500.4050, L501.9520, L509.8002, L3410.9992, L3890.6301, L3890.6006, L100.0100, L3890.6102, BTS, L509.4006, L506.0400 #### [facility] [address] [place], [address] T PROT 6.6 g/dL Normal 5.9-8.4 [facility] Comment on above: Performed By: #### L 506.1001, L501.9985, L500.4050, L501.9520, L509.8002, L3410.9992, L3890.6301, L3890.6006, L100.0100, L3890.6102, BTS, L509.4006, L506.0400 #### [facility] [address] [place], [address] Urea nitrogen [Mass/Vol] 12 mg/dL Normal 4-19 [facility] Comment on above: Performed By: #### L 506.1001, L501.9985, L500.4050, L501.9520, L509.8002, L3410.9992, L3890.6301, L3890.6006, L100.0100, L3890.6102, BTS, L509.4006, L506.0400 #### [facility] [address] [place], [place], [address] Eosinophil percentageOrdered By: Candace Bernal on 11-20-2024 Eosinophils/100 WBC (Bld) 2.5 % 0-5 [facility] Erythrocyte distribution wid th ratioOrdered By: Candace Bernal on 11-20-2024 Erythrocyte distribution width (RBC) [Ratio] 12.6 % 11.6-14.6 [facility] Erythrocyte distribution wid th standard deviationOrdered By: Candace Bernal on 11-20-2024 Erythrocyte distribution width (RBC) [Ratio] 39.7 fl 35.1-43.9 [facility] Glomerular filtration rate ( GFR) estimation/1.73 sq m using serum, plasma, or whole bOrdered By: Candace Bernal on 11-20-2024 GFR/1.73 sq M.predicted among non-blacks MDRD (S/P/Bld) [Vol rate/Area] 114 mL/min/{1.73_m2} >60 [facility] Comment on above: mL/min/1.73m2 CKD-EP I Creatinine Equation (2020) HIVon 11-20-2024 HIV Non-Reactive Normal Nonreactive [facility] Comment on above: Result Comment: Non- Reactive Reactive Repeatedly reactive samples must be confirmed according to CDC recommended confirmatory algorithms. The subresults for either HIVAG or AHIV can be used as an aid in the selection of the confirmation algorithm for reactive samples. Send out specimens with Reactive results to [facility] for confirmation. Order the HIV antibody detection and differentiation: #[id number] Performed By: #### L 506.0400, L552.7790 #### [facility] [address] [facility] [place], [place], [address] Hematocrit Auto (Bld) [Volum e fraction]Ordered By: Candace Bernal on 11-20-2024 Hematocrit (Bld) [Volume fraction] 40.5 % 37-47 [facility] Hemoglobin A1con 11-20-2024 HbA1c (Bld) [Mass fraction] 5.1 % Normal <=5.6 [facility] Comment on above: Result Comment: Norm al < 5.7 % Prediabetic 5.7 - 6.4 % Diabetic >or= 6.5 % Please note range changes. Performed By: #### L 506.0400, L530.1620 #### [facility] [address] [facility] [place], [place], [address] Hemoglobin A1c percentageOrd ered By: Candace Bernal on 11-20-2024 HbA1c (Bld) [Mass fraction] 5.1 % <5.7 [facility] Comment on above: Normal < 5.7 % Predi abetic 5.7 - 6.4 % Diabetic >or= 6.5 % Please note range changes. Hemoglobin measurementOrdere d By: Candace Bernal on 11-20-2024 Hemoglobin (Bld) [Mass/Vol] 14.0 g/dL 12.0-15.0 [facility] Hepatitis C Antibodyon 11-20 Hepatitis C Ab Non-Reactive Normal Nonreactive [facility] Comment on above: Result Comment: Reac tive: Presumptive evidence of antibodies to HCV. Follow CDC recommendations for supplemental testing. Non-Reactive: Antibodies to HCV were not detected; does not exclude the possibility of exposure to HCV Reactive Results are presumptive evidence of antibodies to HCV. Follow CDC recommendations for supplemental testing. Order confirmation testing: HCV Quant by PCR testing - HCVPCR #[id number] Non Reactive: < 0.8 Equivocal: >/= 0.8 to < 1.0 Reactive: >/= 1.[address] [facility] requires that a reactive/equivocal HCV antibody result be sent out for confirmation. HCV Quant by PCR testing. Performed By: #### L 506.0400, L501.9520 #### [facility] [address] [facility] [place], [address] Immature granulocytes/100 WB C Auto (Bld)Ordered By: Candace Bernal on 11-20-2024 Immature granulocytes/100 WBC (Bld) 0.200 % 0.0-0.9 [facility] Comment on above: IG% - Immature Granu locytes (promyelocytes, myelocytes and metamyelocytes) > 1% indicates that a LEFT SHIFT is Present. L3890.6102on 11-20-2024 HEP B Surf Ag Non-Reactive Normal Nonreactive [facility] Comment on above: Result Comment: Reac tive: Presumptive evidence of HBV. Repeatedly reactive samples must be confirmed using a neutralization test ([employer] HBsAg Confirmatory Test) Non-Reactive: HBsAg not detected; does not exclude the possibility of exposure to HBV Performed By: #### L 506.0400, L501.9520 #### [facility] [address] [place], [address] L509.4006on 11-20-2024 Rubella IgG REAC Normal Nonreactive [facility] Comment on above: Result Comment: Anti body Result: Interpretation Non-Reactive: Non-Immune Reactive: Immune The following results were obtained with the [employer] Rubella IgG assay. Results from assays of other manufacturers cannot be used interchangeably. Performed By: #### L 506.0400, L501.9520 #### [facility] [address] [place], [address] Laboratory - Chemistry and C hemistry - challengeOrdered By: Candace Bernal on 11-20-2024 AST [Catalytic activity/Vol] 22 U/L <32 [facility] Laboratory - CytologyOrdered By: Candace Bernal on 11-20-2024 Digital Sales Assistant Cyto stain Nom (Cvx/Vag) [ID] Comment . [facility] Comment on above: [facility] ([facility]) Laboratory - Microbiology an d Antimicrobial susceptibilityOrdered By: Candace Bernal on 11-20-2024 HBV surface Ag Ql (S) Non-Reactive Nonreactive [facility] Comment on above: Reactive: Presumptiv e evidence of HBV. Repeatedly reactive samples must be confirmed using a neutralization test ([employer] HBsAg Confirmatory Test)Non-Reactive: HBsAg not detected; does not exclude the possibility of exposure to HBV Laboratory - Miscellaneous t estsOrdered By: Candace Bernal on 11-20-2024 Service comment (Unsp spec) [Interp] . . [facility] MCV (mean corpuscular volume ) determinationOrdered By: Candace Bernal on 11-20-2024 MCV (RBC) [Entitic vol] 87.1 fL 81-99 [facility] Mean corpuscular hemoglobin (MCH) determinationOrdered By: Candace Bernal on 11-20-2024 MCH (RBC) [Entitic mass] 30.1 pg 27.0-32.0 [facility] Mean corpuscular hemoglobin concentration (MCHC) determinationOrdered By: Candace Bernal on 11-20-2024 MCHC (RBC) [Mass/Vol] 34.6 g/dL 32-36 [facility] Mean platelet volume determi nationOrdered By: Candace Bernal on 11-20-2024 Platelet mean volume (Bld) [Entitic vol] 10.0 fL 6.2-12.0 [facility] Monocyte percentageOrdered B y: Candace Bernal on 11-20-2024 Monocytes/100 WBC (Bld) 5.1 % 0-10 [facility] Neisseria gonorrhoeae nuclei c acid detection by amplified probe techniqueOrdered By: Candace Bernal on 11-20-2024 N. gonorrhoeae DNA KASIA+probe Ql (Unsp spec) Negative Negative [facility] Comment on above: Performed at: =[address] [id number] Director: Abigail De La Torre MD, Phone: [phone] Neutrophil percentageOrdered By: Candace Bernal on 11-20-2024 Neutrophils/100 WBC (Bld) 63.5 % 47-70 [facility] No Panel InformationOrdered By: Candace Bernal on 11-20-2024 Pap Smear Specimen Adequacy Comment . [facility] Comment on above: Satisfactory for suzy luation. Endocervical and/or squamous metaplasticcells (endocervical component) are present. HIV (1&2) Antibody Non-Reactive Nonreactive [facility] Comment on above: Non-ReactiveReactive Repeatedly reactive samples must be confirmed according to CDC recommended confirmatory algorithms. The subresults for either HIVAG or AHIV can be used as an aid in the selection of the confirmation algorithm for reactive samples.Send out specimens with Reactive results to [facility] for confirmation.Order the HIV antibody detection and differentiation: #[id number] Nucleated red blood cell per centageOrdered By: Candace Bernal on 11-20-2024 Nucleated RBC/100 WBC (Bld) [Ratio] 0 % 0-5 [facility] Fermentation Engineer Office Visit Reporton 11-20-2024 Fermentation Engineer Office Visit Report [facility] [address], [address] [place] [address] OFFICE VISIT Date of Service: 11/20/24 MR#: [id number] Acct: [id number] Name: LILY FOUNTAIN Rep #: [id number] : 2000 Provider: ELADIA rodriguez Age/Sex: 24/F Location: [facility] Status: Signed Intake Vital Signs 09/04/24 07:33 11/20/24 14:34 11/20/24 15:10 Height 5 ft 7 in 5 ft 7 in Weight: 210 lb 4 oz BMI 32.9 BP 150/81 H 127/82 H Intake Visit Reasons: New OB, LMP 09/15, ARTURO 06/22 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 Required: No Is patient in pain?: No Allergies No Known Allergies Allergy (Verified 11/20/24 14:38) Medications ???Medication ???Instructions ???Recorded ???Confirmed ???Type vitamin D2 20 mcg-vitamin K1 120 5 drp PO QDAY 07/15/24 11/06/24 Hi story mcg/4 drops oral albuterol 90 mcg-budesonide 80 2 inh inhalation ONCE #10.7 grams 09/04/24 11/06/24 Rx mcg/actuation HFA aerosol inhaler (Airsupra) magnesium glycinate 100 mg (as 200 mg PO QDAY 11/06/24 11/06/24 H istory glycinate) tablet (Mag Glycinate) multivit-min no.71-iron fum 28 cap PO 11/06/24 11/06/24 History mg-folate no.1 1 mg-dha 300 mg capsule (PNV[employer]) levothyroxine 112 mcg capsule 112 mcg PO QDAY #90 caps 11/12/24 11/20/24 Rx Last Menstrual Period: 09/15/24 Zika: Zika virus screening: Negative : No Have you fallen in the past year?: No PFSH PFSH Medical History (Updated 11/20/24 @ 15:31 by Candace Bernal CNM) Third degree laceration of perineum, type 3a Vocal cord dysfunction Heart murmur (spontaneous vaginal delivery) Gestational hypertension Amenorrhea Bile in stomach Wears contact lenses Alcohol use Non-smoker Abnormal biliary HIDA scan Postprandial RUQ pain Abdominal pain Hypothyroidism Meniere disease Epigastric pain Surgical History Hx of wisdom tooth extraction S/P left knee surgery S/P right knee surgery S/P tonsillectomy Family History Mother Hypothyroid Father Hypertension Diabetes Social History adopted: No household members: spouse and children housing: house number of children: 1 current occupational status: unemployed current occupation: [employer] current occupational exposures/hazards: No pets and animals: No history of recent travel: No ( ) sexually active: Yes Smoking Status: Never smoker Electronic Cigarette Use: not used alcohol intake: current alcohol intake frequency: a few times a week details: But not while substance use type: does not use well-balanced diet: daily or most days caffeine: Yes Type: coffee Number of servings: 1 eating out: rarely or never during the past year weight has: remained stable what type of physical activity do you participate in: weight training frequency: 3-4 times per week duration: 30-45 minutes/day joseph/yarsanism: Sikhism seatbelt use: always do you feel safe at home: Yes additional social history: Spouse - Wayne Fountain History 2 Elective abortions Hx Para 1 Spontaneous abortions Hx # Term Pregnancies 1 Ectopic pregnancies Hx # Pregnancies Multiple births # of living children 1 Past Pregnancies Del. Date Name GA/Weeks Outcome Route Bth Weight Gen Labor Lgth Anesthesia Del Locatn Provider FOB 05/26/23 [facility] 38 live - full term 7#14oz Male epidural [facility] Candace Bernal IOL GHTN 3rd degree laceration Wayne Delivery Date: 05/26/23 Last Updated by: Pao Garcia IOL GHTN @ 38wks 3rd degree laceration HPI New OB, LMP 09/15, ARTURO 06/22 Details: LILY FOUNTAIN is a 24 year old who presents for New OB visit. OB Visit ARTURO Calculator Estimated Delivery Date Method Current WG Current Estimate 06/22/25 LMP (Certain) 9w 3d Comments: HIV: Urine Culture: Sequential Screen: NIPT Screen: Estimated Due Date: 06/22/25 Expected Delivery Route/Plan Labor Preferences- CB/BF classes: [] labor support person: [] labor intervention preferences: [] pain management options preferred: [] cut cord/dad catch: [] : [] PP control planned: [] discussed possible routes of delivery and associated risks: [] special requests: [] Specific Issue/Plans Covid status: [] Flu vaccine: [] Tdap vaccine: [] Rhogam: [] LARC form signed: [] Problem list reviewed and updated with the most current plan of care details and appropriate orders placed. Relevant counseling for the gestational age provided. Continue routine care and follow up unless otherwise noted in visit notes/problem list details Initial Weight: 210 lb Da (more content not included)... Normal [facility] Platelet countOrdered By: Molly Bernal on 11-20-2024 Platelets (Bld) [#/Vol] 296 10*3/uL 150-450 [facility] Potassium measurement (mass/ volume)Ordered By: Candace Bernal on 11-20-2024 Potassium (Unsp spec) [Mass/Vol] 3.7 mmol/L 3.3-5.1 [facility] Protein+Creatinine Ratio,Uri neon 11-20-2024 PROT:CRE RATIO 78 mg/g CRE Normal 0-200 [facility] Comment on above: Performed By: #### L 3300.7027, L3300.6900 #### [facility] [address] [place], [address] PROTEIN,UR.RAN. < 6.0 Normal 0.0-12.0 [facility] Comment on above: Performed By: #### L 3300.7027, L3300.6900 #### [facility] [address] [place], [address] UR CREAT 57.10 mg/dL Normal 28.00-217.00 [facility] Comment on above: Performed By: #### L 3300.7027, L3300.6900 #### [facility] [address] [place], [address] RBC Auto (Bld) [#/Vol]Ordere d By: Candace Bernal on 11-20-2024 RBC (Bld) [#/Vol] 4.65 10*6/uL 4.2-5.4 [facility] Random urine creatinine cande urement (mass/volume)Ordered By: Candace Bernal on 11-20-2024 Creatinine Unsp time (U) [Mass/Vol] 57.10 mg/dL 28.00-217.00 [facility] Serum creatinine measurement (mass/volume)Ordered By: Candace Bernal on 11-20-2024 Creatinine [Mass/Vol] 0.74 mg/dL 0.70-1.20 [facility] Serum globulin measurementOr dered By: Candace Bernal on 11-20-2024 Globulin (S) [Mass/Vol] 2.5 g/dL 2.2-4.2 [facility] Serum glucose measurement (m ass/volume)Ordered By: Candace Bernal on 11-20-2024 Glucose [Mass/Vol] 93 mg/dL 70-99 [facility] Serum or plasma alanine mast otransferase (ALT) measurementOrdered By: Candace Bernal on 11-20-2024 ALT [Catalytic activity/Vol] 16 U/L <35 [facility] Serum or plasma albumin cande urement (mass/volume)Ordered By: Candace Bernal on 11-20-2024 Albumin [Mass/Vol] 4.1 g/dL 3.5-5.0 [facility] Serum or plasma albumin/glob ulin mass ratioOrdered By: Candace Bernal on 11-20-2024 Albumin/Globulin [Mass ratio] 1.7 {ratio} 0.9-2.4 [facility] Serum or plasma alkaline parvin sphatase measurementOrdered By: Candace Bernal on 11-20-2024 ALP [Catalytic activity/Vol] 43 U/L 35-104 [facility] Serum or plasma calcium cande urement (mass/volume)Ordered By: Candace Bernal on 11-20-2024 Calcium [Mass/Vol] 9.0 mg/dL 7.6-11.0 [facility] Serum or plasma urea nitroge n measurement (mass/volume)Ordered By: Candace Bernal on 11-20-2024 Urea nitrogen [Mass/Vol] 12 mg/dL 4-19 [facility] Sodium levelOrdered By: Ishan Bernal on 11-20-2024 Sodium [Moles/Vol] 135 mmol/L 133-145 [facility] Syphilis Antibodieson 05-30- 2025 Syphilis Abs Non-Reactive Normal Nonreactive [facility] Comment on above: Performed By: #### L 506.0400, [id number] #### [facility] [address] [place], [address] T4 Free Directon 11-20-2024 T4 FREE DIRECT 0.90 ng/dL Normal 0.76-1.46 [facility] Comment on above: Performed By: #### L 506.0400, [id number] #### [facility] [address] [place], [address] T4 freeOrdered By: Candace dumont on 11-20-2024 Free T4 [Mass/Vol] 0.90 ng/dL 0.76-1.46 [facility] TSH DL <= 0.005 mIU/L QnOrde red By: Candace Bernal on 11-20-2024 TSH Qn 5.820 uIU/mL High 0.300-4.200 [facility] Thyroid Stim Hormone (TSH)on 11-20-2024 TSH 5.820 uIU/mL High 0.300-4.200 [facility] Comment on above: Performed By: #### L 506.0400, [id number] #### [facility] [address] [facility] [place], [address] Total proteinOrdered By: Jessa Bernal on 11-20-2024 Protein [Mass/Vol] 6.6 g/dL 5.9-8.4 [facility] Type AND Screenon 11-20-2024 Ab SCREEN GEL Negative Normal [facility] Comment on above: Order Comment: PN Performed By: #### L 506.0400, [id number] #### [facility] [address] [facility] [place], [address] Urine cultureOrdered By: Jessa Bernal on 11-20-2024 Bacteria identified Cx Nom (U) Positive Abnormal [facility] Urine protein measurement (m ass/volume)Ordered By: Candace Bernal on 11-20-2024 Protein (U) [Mass/Vol] mg/dL 0.0-12.0 [facility] Urine protein/creatinine mas s ratioOrdered By: Candace Bernal on 11-20-2024 Protein/Creatinine (U) [Mass ratio] 78 mg/g CRE 0-200 [facility] Vitamin D,25 Hydroxyon 11-20 Vitamin D 25-OH 46.6 ng/mL Normal 30-100 [facility] Comment on above: Result Comment: Idalia min D Status Deficiency: <20 ng/mL (50nmol/L) Insufficiency: 20-30 ng/mL (50-75 nmol/L) Sufficiency: 30-100 ng/mL (75-250 nmol/L) Toxicity: >100 ng/mL (>250 nmol/L) Performed By: #### L 506.0400, [id number] #### [facility] [address] [place], [place] [address], [address] White blood cell (WBC) count Ordered By: Candace Bernal on 11-20-2024 WBC (Bld) [#/Vol] 8.5 10*3/uL 4.4-11.0 [facility] Absolute lymphocyte countOrd ered By: Bhavesh Saxena on 09-04-2024 Lymphocytes Auto (Unsp spec) [#/Vol] 1.96 10*3/uL 0.83-4.51 [facility] Absolute neutrophil countOrd ered By: Bhavesh Saxena on 09-04-2024 Neutrophils (Bld) [#/Vol] 3.6 10*3/uL 2.0-7.7 [facility] Anion gap in Serum or Plasma Ordered By: Bhavesh Saxena on 09-04-2024 Anion gap [Moles/Vol] 11 mmol/L 5-15 [facility] Automated lymphocyte count a s percentage of total leukocytesOrdered By: Bhavesh Saxena on 09-04-2024 Lymphocytes/100 WBC Auto (Unsp spec) 30.9 % 19-41 [facility] BUN/creatinine ratioOrdered By: Bhavesh Saxena on 09-04-2024 Urea nitrogen/Creatinine [Mass ratio] 20.5 mg/mg High 10-20 [facility] Basophil percentageOrdered B y: Bhavesh Saxena on 09-04-2024 Basophils/100 WBC (Bld) 0.8 % 0-1 [facility] Bilirubin, totalOrdered By: Bhavesh Saxena on 09-04-2024 Bilirubin [Mass/Vol] 0.30 mg/dL 0.00-1.30 [facility] CBC W/Diff, Automatedon 08-22 Absolute Lymph 1.96 X10 3/uL Normal 0.83-4.51 [facility] Comment on above: Performed By: #### L 3300.7027, L3300.6900 #### [facility] [address] [place], [address] Absolute Neut 3.6 X10 3/uL Normal 2.0-7.7 [facility] Comment on above: Performed By: #### L 3300.7027, [id number] #### [facility] [address] [place], [address] Basophils/100 WBC (Bld) 0.8 % Normal 0-1 [facility] Comment on above: Performed By: #### L 3300.7027, [id number] #### [facility] [address] [place], [address] Eosinophils/100 WBC (Bld) 5.2 % High 0-5 [facility] Comment on above: Performed By: #### L 3300.7027, [id number] #### [facility] [address] [place], [address] Erythrocyte distribution width (RBC) [Ratio] 12.2 % Normal 11.6-14.6 [facility] Comment on above: Performed By: #### L 3300.7027, [id number] #### [facility] [address] [place], [address] Hematocrit (Bld) [Volume fraction] 43.5 % Normal 37-47 [facility] Comment on above: Performed By: #### L 3300.7027, [id number] #### [facility] [address] [place], [address] Hemoglobin (Bld) [Mass/Vol] 14.4 g/dL Normal 12.0-15.0 [facility] Comment on above: Performed By: #### L 3300.7027, [id number] #### [facility] [address] [place], [address] IG% 0.200 Normal 0.0-0.9 [facility] Comment on above: Result Comment: IG% - Immature Granulocytes (promyelocytes, myelocytes and metamyelocytes) > 1% indicates that a LEFT SHIFT is Present. Performed By: #### L 3300.7027, [id number] #### [facility] [address] [place], [address] Lymphocytes/100 WBC (Bld) 30.9 % Normal 19-41 [facility] Comment on above: Performed By: #### L 3300.7027, [id number] #### [facility] [address] [place], [address] MCH (RBC) [Entitic mass] 29.3 pg Normal 27.0-32.0 [facility] Comment on above: Performed By: #### L 3300.7027, [id number] #### [facility] [address] [place], [address] MCHC (RBC) [Mass/Vol] 33.1 g/dL Normal 32-36 [facility] Comment on above: Performed By: #### L 3300.7027, [id number] #### [facility] [address] [place], [address] MCV (RBC) [Entitic vol] 88.4 fL Normal 81-99 [facility] Comment on above: Performed By: #### L 3300.7027, [id number] #### [facility] [address] [place], [address] Monocytes/100 WBC (Bld) 6.8 % Normal 0-10 [facility] Comment on above: Performed By: #### L 3300.7027, [id number] #### [facility] [address] [place], [address] Neutrophils/100 WBC (Bld) 56.1 % Normal 47-70 [facility] Comment on above: Performed By: #### L 3300.7027, [id number] #### [facility] [address] [place], [address] Nucleated RBC (Bld) [#/Vol] 0 10*3/uL Normal 0-5 [facility] Comment on above: Performed By: #### L 3300.70, L3300.6900 #### [facility] [address] [place], [address] Platelet mean volume (Bld) [Entitic vol] 9.6 fL Normal 6.2-12.0 [facility] Comment on above: Performed By: #### L 3300.7027, [id number] #### [facility] [address] [place], [address] Platelets (Bld) [#/Vol] 277 10*3/uL Normal 150-450 [facility] Comment on above: Performed By: #### L 3300.7027, [id number] #### [facility] [address] [place], [address] RBC (Bld) [#/Vol] 4.92 10*6/uL Normal 4.2-5.4 [facility] Comment on above: Performed By: #### L 3300.7027, [id number] #### [facility] [address] [place], [address] RDW SD 39.2 fl Normal 35.1-43.9 [facility] Comment on above: Performed By: #### L 3300.7013, L3300.6900 #### [facility] [address] [place], [address] WBC (Bld) [#/Vol] 6.3 10*3/uL Normal 4.4-11.0 [facility] Comment on above: Performed By: #### L 3300.7027, [id number] #### [facility] [address] [place], [address] Carbon dioxide, total [Moles /volume] in Central venous bloodOrdered By: Bhavesh Saxena on 09-04-2024 CO2 [Moles/Vol] 23.1 mmol/L 21.0-32.0 [facility] Chloride assayOrdered By: Camelia Saxena on 09-04-2024 Chloride [Moles/Vol] 105 mmol/L 98-108 [facility] Comprehensive Metabolic Prof ilon 09-04-2024 Albumin [Mass/Vol] 4.4 g/dL Normal 3.5-5.0 [facility] Comment on above: Performed By: #### L 3300.7089, L3300.6900 #### [facility] [address] [place], [address] Albumin/Globulin [Mass ratio] 1.6 {ratio} Normal 0.9-2.4 [facility] Comment on above: Performed By: #### L 3300.7068, L3300.6900 #### [facility] [address] [place], [address] ALK PHOS 60 U/L Normal 35-104 [facility] Comment on above: Performed By: #### L 3300.7027, [id number] #### [facility] [address] [place], [address] ALT [Catalytic activity/Vol] 16 U/L Normal <=34 [facility] Comment on above: Performed By: #### L 3300.7027, [id number] #### [facility] [address] [place], [address] AST [Catalytic activity/Vol] 23 U/L Normal <=31 [facility] Comment on above: Performed By: #### L 3300.7027, [id number] #### [facility] [address] [place], [address] Bilirubin [Mass/Vol] 0.30 mg/dL Normal 0.00-1.30 [facility] Comment on above: Performed By: #### L 3300.7027, [id number] #### [facility] [address] [place], [address] BUN/CRE 20.5 RATIO High 10-20 [facility] Comment on above: Performed By: #### L 3300.7027, [id number] #### [facility] [address] [place], [address] Calcium [Mass/Vol] 9.7 mg/dL Normal 7.6-11.0 [facility] Comment on above: Performed By: #### L 3300.7027, [id number] #### [facility] [address] [place], [address] Chloride [Moles/Vol] 105 mmol/L Normal 98-108 [facility] Comment on above: Performed By: #### L 3300.7027, [id number] #### [facility] [address] [place], [address] CO2 [Moles/Vol] 23.1 mmol/L Normal 21.0-32.0 [facility] Comment on above: Performed By: #### L 3300.7027, [id number] #### [facility] [address] [place], [address] Creatinine [Mass/Vol] 0.71 mg/dL Normal 0.70-1.20 [facility] Comment on above: Performed By: #### L 3300.7027, [id number] #### [facility] [address] [place], [address] GAP 11 Normal 5-15 [facility] Comment on above: Performed By: #### L 3300.7027, [id number] #### [facility] [address] [place], [address] GFR/1.73 sq M.predicted among non-blacks MDRD (S/P/Bld) [Vol rate/Area] 121 mL/min/{1.73_m2} Normal >60 [facility] Comment on above: Result Comment: mL/m in/1.73m2 CKD-EPI Creatinine Equation (2020) Performed By: #### L 3300.7027, [id number] #### [facility] [address] [place], [address] Globulin (S) [Mass/Vol] 2.7 g/dL Normal 2.2-4.2 [facility] Comment on above: Performed By: #### L 3300.7027, [id number] #### [facility] [address] [place], [address] Glucose [Mass/Vol] 87 mg/dL Normal 70-99 [facility] Comment on above: Performed By: #### L 3300.7027, [id number] #### [facility] [address] [place], [address] Potassium [Moles/Vol] 3.9 mmol/L Normal 3.3-5.1 [facility] Comment on above: Performed By: #### L 3300.7027, [id number] #### [facility] [address] [place], [address] Sodium [Moles/Vol] 140 mmol/L Normal 133-145 [facility] Comment on above: Performed By: #### L 3300.7027, [id number] #### [facility] [address] [place], [address] T PROT 7.0 g/dL Normal 5.9-8.4 [facility] Comment on above: Performed By: #### L 3300.7027, [id number] #### [facility] [address] [place], [address] Urea nitrogen [Mass/Vol] 15 mg/dL Normal 4-19 [facility] Comment on above: Performed By: #### L 3300.7027, [id number] #### [facility] [address] [place], [address] D-Dimer Quantitative (DVT/PE )on 09-04-2024 D-DIMER QUANT < 0.27 Low 0.27-0.49 [facility] Comment on above: Result Comment: NORM AL D-Dimer level (<0.50) indicates no DVT or PE. Performed By: #### L 3300.7027, [id number] #### [facility] [address] [place], [address] D-dimer measurement for deep venous thrombosisOrdered By: Bhavesh Saxena on 09-04-2024 D-Dimer Quantitative (PE/DVT) < 0.27 FEU/ug/m Low 0.27-0.49 [facility] Comment on above: NORMAL D-Dimer level (<0.50) indicates no DVT or PE. Eosinophil percentageOrdered By: Bhavesh Saxena on 09-04-2024 Eosinophils/100 WBC (Bld) 5.2 % High 0-5 [facility] Erythrocyte distribution wid th ratioOrdered By: Bhavesh Saxena on 09-04-2024 Erythrocyte distribution width (RBC) [Ratio] 12.2 % 11.6-14.6 [facility] Erythrocyte distribution wid th standard deviationOrdered By: Bhavesh Saxena on 09-04-2024 Erythrocyte distribution width (RBC) [Entitic vol] 39.2 fL 35.1-43.9 [facility] Erythrocyte distribution width (RBC) [Ratio] 39.2 fl 35.1-43.9 [facility] GFR/1.73 sq M.predicted yola g non-blacks MDRD (S/P/Bld) [Vol rate/Area]Ordered By: Bhavesh Saxena on 09-04-2024 Estimated GFR (MDRD) Non-Af Amer 121 >60 [facility] Comment on above: mL/min/1.73m2 CKD-EP I Creatinine Equation (2020) Glomerular filtration rate ( GFR) estimation/1.73 sq m using serum, plasma, or whole bOrdered By: Bhavesh Saxena on 09-04-2024 GFR/1.73 sq M.predicted among non-blacks MDRD (S/P/Bld) [Vol rate/Area] 121 mL/min/{1.73_m2} >60 [facility] Comment on above: mL/min/1.73m2 CKD-EP I Creatinine Equation (2020) Hematocrit Auto (Bld) [Volum e fraction]Ordered By: Bhavesh Saxena on 09-04-2024 Hematocrit (Bld) [Volume fraction] 43.5 % 37-47 [facility] Hemoglobin measurementOrdere d By: Bhavesh Saxena on 09-04-2024 Hemoglobin (Bld) [Mass/Vol] 14.4 g/dL 12.0-15.0 [facility] Immature granulocytes/100 WB C Auto (Bld)Ordered By: Bhavesh Saxena on 09-04-2024 Immature granulocytes/100 WBC (Bld) 0.200 % 0.0-0.9 [facility] Comment on above: IG% - Immature Granu locytes (promyelocytes, myelocytes and metamyelocytes) > 1% indicates that a LEFT SHIFT is Present. Internal Medicine Office Vis denys 09-04-2024 Internal Medicine Office Visit [facility] [place], [place] [address] OFFICE VISIT Date of Service: 09/04/24 MR#: [id number] Acct: [id number] Name: LILY FOUNTAIN Rep #: [id number] : 2000 Provider: MAGDA Granger Age/Sex: 24/F Location: [facility] Status: Signed Intake Vital Signs 07/15/24 14:13 09/04/24 07:33 Height 5 ft 7 in 5 ft 7 in Weight: 212 lb 211 lb 6 oz BMI 33.2 33.0 BP 124/64 H 122/78 H Blood Pressure Location Lt brachial Lt brachial Position Sitting Sitting Respiration 14 20 H Pulse 88 83 Pulse Source Monitor Monitor Temp 97.8 F 98.2 F Temp Source Temporal Temporal Pulse Oximetry (%) 98 96 Oxygen Delivery Method room air room air Intake Visit Reasons: acute - high heart rate persists Chief Complaint: 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 Accompanied by: Self Is patient in pain?: No Allergies No Known Allergies Allergy (Verified 09/04/24 07:30) Medications ???Medication ???Instructions ???Recorded ???Confirmed ???Type levothyroxine 112 mcg capsule 112 mcg PO QDAY #30 caps 07/15/24 09/04/24 Rx magnesium glycinate 100 mg (as 100 mg PO QDAY 07/15/24 09/04/24 H istory glycinate) tablet (Mag Glycinate) vitamin D2 20 mcg-vitamin K1 120 5 drp PO QDAY 07/15/24 09/04/24 Hi story mcg/4 drops oral albuterol 90 mcg-budesonide 80 2 inh inhalation ONCE #10.7 grams 09/04/24 09/04/24 Rx mcg/actuation HFA aerosol inhaler (Airsupra) Have you fallen in the past year?: No PFSH Medical History Heart murmur Third degree laceration of perineum, type 3a (spontaneous vaginal delivery) Gestational hypertension Amenorrhea Bile in stomach Wears contact lenses Alcohol use Non-smoker Abnormal biliary HIDA scan Postprandial RUQ pain Abdominal pain Hypothyroidism Meniere disease Epigastric pain Surgical History Hx of wisdom tooth extraction S/P left knee surgery S/P right knee surgery S/P tonsillectomy Family History Mother Hypothyroid Prediabetes Father Hypertension Prediabetes Social History adopted: No household members: spouse number of children: 1 current occupational status: unemployed current occupational exposures/hazards: No pets and animals: No history of recent travel: Yes ([place] in Jun ) out of country: Yes sexually active: Yes Smoking Status: Never smoker Electronic Cigarette Use: not used alcohol intake: current alcohol intake frequency: a few times a week substance use type: does not use caffeine: Yes (1) Type: coffee what type of physical activity do you participate in: running and aerobics frequency: 5-6 times per week seatbelt use: always do you feel safe at home: Yes additional social history: Spouse - Wayne Fountain HPI HPI Chief Complaint: heart rate Details: LILY FOUNTAIN, is a 24 F who presents to the office today for recheck of her palpitations. She states that she feels like it went away for 6 weeks and then she noticed this again last week. She states that she really paid attention to what she was feeling and she states that it actually more felt like she just couldn't get her breath normally like she had just finished working out. She states that she wouldn't say it is a completely new feeling but that it just seemed to linger. She states she thinks of it like when you get done working out hard and your chests feels like you had just been breathing heavily for a bit. She states her chest feels like she had just finished such an activity. She states that its not shortness of breath but again like she had been working out recently. So she states that she isn't sure it was that her heart was racing this time. She states that it isn't really chest pains. She does not have any sweating, dizziness, nausea, fatigue, or other symptoms ROS Const Constitutional: No body ache, excessive sweating, fatigue, fever(s), frequent falls, headache(s), snoring, weakness, weight change, sleep problems or change in appetite Eyes Eyes: No blurry vision, change in vision, eye pain or Light sensitivity ENT ENT: No abnormal hearing, ear or mastoid pain, tinnitus, nasal congestion, headache(s), neck pain or sore throat Resp Respiratory: No cough, shortness of breath, snoring or wheezing Cardio Cardiology: No chest pain at rest, chest pain with exertion, excessive sweating, shortness of breath, dyspnea on exertion, lightheadedness, orthopnea or palpitations Gastro GI: No abdominal pain, change in bowel habits, constipation, cramping, diarrhea, nausea/dyspepsia or vomiting Genitourinary-Female: No burning urination, pa (more content not included)... Normal [facility] L506.1001on 09-04-2024 Vitamin D 25-OH 34.1 ng/mL Normal 30-100 [facility] Comment on above: Result Comment: Idalia min D Status Deficiency: <20 ng/mL (50nmol/L) Insufficiency: 20-30 ng/mL (50-75 nmol/L) Sufficiency: 30-100 ng/mL (75-250 nmol/L) Toxicity: >100 ng/mL (>250 nmol/L) Performed By: #### L 3300.7027, L3300.6900 #### [facility] [address] [place], [place], [address] Laboratory - Chemistry and C hemistry - challengeOrdered By: Bhavesh Saxena on 09-04-2024 AST [Catalytic activity/Vol] 23 U/L <32 [facility] Lymphocytes Auto (Unsp spec) [#/Vol]Ordered By: Bhavesh Saxena on 09-04-2024 Lymphocytes (Bld) [#/Vol] 1.96 10*3/uL 0.83-4.51 [facility] Lymphocytes/100 WBC Auto (Un sp spec)Ordered By: Bhavesh Saxena on 09-04-2024 Lymphocytes/100 WBC (Bld) 30.9 % 19-41 [facility] MCV (mean corpuscular volume ) determinationOrdered By: Bhavesh Saxena on 09-04-2024 MCV (RBC) [Entitic vol] 88.4 fL 81-99 [facility] Magnesiumon 09-04-2024 Magnesium [Mass/Vol] 2.1 mg/dL Normal 1.5-2.2 [facility] Comment on above: Performed By: #### L 3300.7027, L3300.6900 #### [facility] [place], [address] Magnesium (Unsp spec) [Mass/ Vol]Ordered By: Bhavesh Saxena on 09-04-2024 Magnesium [Mass/Vol] 2.1 mg/dL 1.5-2.2 [facility] Magnesium measurement (mass/ volume)Ordered By: Bhavesh Saxena on 09-04-2024 Magnesium (Unsp spec) [Mass/Vol] 2.1 mg/dL 1.5-2.2 [facility] Mean corpuscular hemoglobin (MCH) determinationOrdered By: Bhavesh Saxena on 09-04-2024 MCH (RBC) [Entitic mass] 29.3 pg 27.0-32.0 [facility] Mean corpuscular hemoglobin concentration (MCHC) determinationOrdered By: Bhavesh Saxena on 09-04-2024 MCHC (RBC) [Mass/Vol] 33.1 g/dL 32-36 [facility] Mean platelet volume determi nationOrdered By: Bhavesh Saexna on 09-04-2024 Platelet mean volume (Bld) [Entitic vol] 9.6 fL 6.2-12.0 [facility] Monocyte percentageOrdered B y: Bhavesh Saxena on 09-04-2024 Monocytes/100 WBC (Bld) 6.8 % 0-10 [facility] Neutrophil percentageOrdered By: Bhavesh Saxena on 09-04-2024 Neutrophils/100 WBC (Bld) 56.1 % 47-70 [facility] Nucleated red blood cell per centageOrdered By: Bhavesh Saxena on 09-04-2024 Nucleated RBC/100 WBC (Bld) [Ratio] 0 % 0-5 [facility] Platelet countOrdered By: Camelia Saxena on 09-04-2024 Platelets (Bld) [#/Vol] 277 10*3/uL 150-450 [facility] Potassium (Unsp spec) [Mass/ Vol]Ordered By: Bhavesh Saxena on 09-04-2024 Potassium [Moles/Vol] 3.9 mmol/L 3.3-5.1 [facility] Potassium measurement (mass/ volume)Ordered By: Bhavesh Saxena on 09-04-2024 Potassium (Unsp spec) [Mass/Vol] 3.9 mmol/L 3.3-5.1 [facility] RBC Auto (Bld) [#/Vol]Ordere d By: Bhavesh Saxena on 09-04-2024 RBC (Bld) [#/Vol] 4.92 10*6/uL 4.2-5.4 [facility] Serum creatinine measurement (mass/volume)Ordered By: Bhavesh Saxena on 09-04-2024 Creatinine [Mass/Vol] 0.71 mg/dL 0.70-1.20 [facility] Serum globulin measurementOr dered By: Bhavesh Saxena on 09-04-2024 Globulin (S) [Mass/Vol] 2.7 g/dL 2.2-4.2 [facility] Serum glucose measurement (m ass/volume)Ordered By: Bhavesh Saxena on 09-04-2024 Glucose [Mass/Vol] 87 mg/dL 70-99 [facility] Serum or plasma alanine mast otransferase (ALT) measurementOrdered By: Bhavesh Saxena on 09-04-2024 ALT [Catalytic activity/Vol] 16 U/L <35 [facility] Serum or plasma albumin cande urement (mass/volume)Ordered By: Bhavesh Saxena on 09-04-2024 Albumin [Mass/Vol] 4.4 g/dL 3.5-5.0 [facility] Serum or plasma albumin/glob ulin mass ratioOrdered By: Bhavesh Saxena on 09-04-2024 Albumin/Globulin [Mass ratio] 1.6 {ratio} 0.9-2.4 [facility] Serum or plasma alkaline parvin sphatase measurementOrdered By: Bhavesh Saxena on 09-04-2024 ALP [Catalytic activity/Vol] 60 U/L 35-104 [facility] Serum or plasma calcium cande urement (mass/volume)Ordered By: Bhavesh Saxena on 09-04-2024 Calcium [Mass/Vol] 9.7 mg/dL 7.6-11.0 [facility] Serum or plasma urea nitroge n measurement (mass/volume)Ordered By: Bhavesh Saxena on 09-04-2024 Urea nitrogen [Mass/Vol] 15 mg/dL 4-19 [facility] Sodium levelOrdered By: Jeffrey Saxena on 09-04-2024 Sodium [Moles/Vol] 140 mmol/L 133-145 [facility] Total proteinOrdered By: René Saxena on 09-04-2024 Protein [Mass/Vol] 7.0 g/dL 5.9-8.4 [facility] Vitamin D, 25-hydroxyOrdered By: Bhavesh Saxena on 09-04-2024 Vitamin D 25-Hydroxy 34.1 ng/mL 30-100 [facility] Comment on above: Vitamin D StatusDefi ciency: <20 ng/mL (50nmol/L)Insufficiency: 20-30 ng/mL (50-75 nmol/L)Sufficiency: 30-100 ng/mL (75-250 nmol/L)Toxicity: >100 ng/mL (>250 nmol/L) White blood cell (WBC) count Ordered By: Bhavehs Saxena on 09-04-2024 WBC (Bld) [#/Vol] 6.3 10*3/uL 4.4-11.0 [facility] T4 Free Directon 08-24-2024 T4 FREE DIRECT 1.40 ng/dL Normal 0.76-1.46 [facility] Comment on above: Performed By: #### L 501.9520 #### [facility] [place], [address] T4 freeOrdered By: Bhavesh viveros on 08-24-2024 Free T4 [Mass/Vol] 1.40 ng/dL 0.76-1.46 [facility] TSH DL <= 0.005 mIU/L QnOrde red By: Bhavesh Saxena on 08-24-2024 Thyroid Stimulating Hormone (TSH) 1.670 uIU/mL 0.300-4.200 [facility] TSH Qn 1.670 uIU/mL 0.300-4.200 [facility] Thyroid Stim Hormone (TSH)on 08-24-2024 TSH 1.670 uIU/mL Normal 0.300-4.200 [facility] Comment on above: Performed By: #### L 501.9520 #### [facility] [address] [place], [address] 12 Lead EKG performed by [facility] on 07-15-2024 12 Lead EKG performed by [facility] [address] [place] [address] 12 Lead EKG performed by [facility] 07/15/24 1417 MR#: [id number] Acct: [id number] Name: LILY FOUNTAIN Rep #: [id number] : 2000 24 From: Bhavesh MAN Attending Dr: MAGDA Granger Status: DEP AMB Ordering Dr: Bhavesh Saxena Date: 07/15/24 Location: [facility] Sex: F C Admitted: BMS/12 Lead EKG performed by [facility] ECG Report Interpretation ---Sinus Rhythm WITHIN NORMAL LIMITSElectronically signed on 07/21/2024 at 09:59 by Kennedy Rushing Software Version [id number] 07/21/24 1000 Date Bhavesh MAN CC: Dr. Angela Allen MD Date Dictated: 07/15/241416 Date Transcribed: 07/15/241416 Water Systems Designer: AUGUSTO Signed Normal [facility] Internal Medicine Office Vis iton 07-15-2024 Internal Medicine Office Visit [facility] [address] [place] [address] OFFICE VISIT Date of Service: 07/15/24 MR#: [id number] Acct: [id number] Name: LILY FOUNTAIN Rep #: [id number] : 2000 Provider: MAGDA Granger Age/Sex: 24/F Location: [facility] Status: Signed Intake Vital Signs 10/23/23 12:54 07/15/24 14:13 Height 5 ft 7 in 5 ft 7 in Weight: 212 lb BMI 33.2 BP 124/64 H Blood Pressure Location Lt brachial Position Sitting Respiration 14 Pulse 88 Pulse Source Monitor Temp 97.8 F Temp Source Temporal Pulse Oximetry (%) 98 Oxygen Delivery Method room air Intake Visit Reasons: acute - raised heartrate 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 Required: No Accompanied by: Self Is patient in pain?: No Allergies No Known Allergies Allergy (Verified 07/15/24 14:07) Medications ???Medication ???Instructions ???Recorded ???Confirmed ???Type levothyroxine 125 mcg tablet 125 mcg PO QDAY #90 tabs 07/08/24 07/15/24 Rx levothyroxine 112 mcg capsule 112 mcg PO QDAY #30 caps 07/15/24 07/15/24 Rx magnesium glycinate 100 mg (as 100 mg PO QDAY 07/15/24 07/15/24 History glycinate) tablet (Mag Glycinate) vitamin D2 20 mcg-vitamin K1 120 5 drp PO QDAY 07/15/24 07/15/24 History mcg/4 drops oral PFSH Medical History Heart murmur Third degree laceration of perineum, type 3a (spontaneous vaginal delivery) Gestational hypertension Amenorrhea Bile in stomach Wears contact lenses Alcohol use Non-smoker Abnormal biliary HIDA scan Postprandial RUQ pain Abdominal pain Hypothyroidism Meniere disease Epigastric pain Surgical History Hx of wisdom tooth extraction S/P left knee surgery S/P right knee surgery S/P tonsillectomy Family History Mother Hypothyroid Prediabetes Father Hypertension Prediabetes Social History adopted: No household members: spouse number of children: 1 current occupational status: unemployed current occupational exposures/hazards: No pets and animals: No history of recent travel: Yes ([place] in Jun ) out of country: Yes sexually active: Yes Smoking Status: Never smoker Electronic Cigarette Use: not used alcohol intake: current alcohol intake frequency: a few times a week substance use type: does not use caffeine: Yes (1) Type: coffee what type of physical activity do you participate in: running and aerobics frequency: 5-6 times per week seatbelt use: always do you feel safe at home: Yes additional social history: Spouse - Wayne Fountain HPI HPI Details: LILY FOUNTAIN, is a 24 F who presents to the office today for some palpitations. Patient states that in May (at her sons birthday actually), she noticed that she just felt like her heart was beating faster than normal. She states that she sort of noticed it several times and then she looked at her watch and noticed that her Patient does take Synthroid for hypothyroidism. She was diagnosed back in 2018 and has been on medication since then. She states that in the end of April her Thyroid medication was increased (approximately 2 weeks prior to feeling the palpitation). She Patient does consumer coffee (only one cup a morning) No nicotine use at all She does drink at least 80 ounces of water a day (if not more she states). Very rarely uses ETOH No history of anxiety and no recent change in stressors She states that she did just start weening down breast feeding Back in April she was taking vitamin D and magnesium and then stopped it for some reason. She just recently started back on these. She does try and get regular exercise 3-5 days per week (goes to gym) She states that she sleeps great waking up refreshed. ROS Const Constitutional: No body ache, chills, excessive sweating, fatigue, fever(s), frequent falls, headache(s) (resolved), snoring, weakness, weight change, sleep problems or change in appetite Eyes Eyes: No blurry vision, change in vision, eye pain or Light sensitivity ENT ENT: No abnormal hearing, ear or mastoid pain, tinnitus, dizziness/vertigo, balance problems, nasal congestion, headache(s) (resolved), neck pain or sore throat Resp Respiratory: No cough, shortness of breath, snoring or wheezing Cardio Cardiology: Positive for palpitations (Occ. Rapid.); No chest pain at rest, chest pain with exertion, excessive sweating, shortness of breath, dyspnea on exertion, lightheadedness, orthopnea or other (no leg swelling) Gastro GI: No abdominal pain, change in bowel habits, constipation, cramping, diarrhea, Blood in stool, Black,tarry stools, nausea/dyspepsia or vomiting Ge (more content not included)... Normal [facility] T3 IA [Mass/Vol]Ordered By: Angela Allen on 07-06-2024 Total Triiodothyronine 0.85 ng/mL 0.6-1.81 [facility] T3 Total - Triiodothyronineo n 07-06-2024 T3 Total 0.85 ng/mL Normal 0.6-1.81 [facility] Comment on above: Performed By: #### L 501.9186 #### [facility] [address] [place], [place], [address] T4 Free Directon 07-03-2024 T4 FREE DIRECT 0.93 ng/dL Normal 0.76-1.46 [facility] Comment on above: Order Comment: ADD O N COLLECTED 07/02 Performed By: #### L 506.0400 #### [facility] [address] [place], [place], [address] Direct serum free thyroxine (FT4) measurementOrdered By: Angela Allen on 07-02-2024 Free T4 [Mass/Vol] 0.93 ng/dL 0.76-1.46 [facility] TSH QnOrdered By: Angela win on 07-02-2024 Thyroid Stimulating Hormone (TSH) 1.340 uIU/mL 0.358-3.740 [facility] Thyroid Stim Hormone (TSH)on 07-02-2024 TSH 1.340 uIU/mL Normal 0.358-3.740 [facility] Comment on above: Performed By: #### L 501.9520 #### [facility] [address] [place], [place], [address] Thyroglobulin Antibodyon TG AB < 1.0 Normal 0.0-0.9 [facility] Comment on above: Result Comment: Thyr oglobulin Antibody measured by Luly Hamilton Methodology It should be noted that the presence of thyroglobulin antibodies may not be pathogenic nor diagnostic, especially at very low levels. The assay pet stylist has found that four percent of individuals without evidence of thyroid disease or autoimmunity will have positive TgAb levels up to 4 IU/mL. Performed By: #### L 3300.7027, L3300.6900 #### [facility] [address] [place], [place], [id number] Thyroid Peroxidase ABon 04-24 THYR PEROX AB 306 IU/mL High 0-34 [facility] Comment on above: Result Comment: Perf ormed at: [facility] [id number] District Agent: Nicanor Barillas PhD, Phone: [phone] Performed By: #### L 3300.7027, L3300.3246 #### [facility] [address] [place], [place], [id number] Thyroid Stim Hormone (TSH)on 05-06-2024 TSH 6.430 uIU/mL High 0.358-3.740 [facility] Comment on above: Performed By: #### L 501.9520 #### [facility] [address] [place], [place], [address] Absolute lymphocyte countOrd ered By: Angela Allen on 10-23-2023 Lymphocytes Auto (Unsp spec) [#/Vol] 3.10 10*3/uL 0.83-4.51 [facility] Automated lymphocyte count a s percentage of total leukocytesOrdered By: Angela Allen on 10-23-2023 Lymphocytes/100 WBC Auto (Unsp spec) 37.3 % 19-41 [facility] Basophil percentageOrdered B y: Angela Allen on 10-23-2023 Basophils/100 WBC (Bld) 1.3 % 0-1 [facility] Bilirubin [Mass/Vol] 0.30 mg/dL 0.20-1.00 [facility] Comment on above: For patients on eltr ombopag therapy, use of Dimension [place] TBIL is not recommended. Chloride [Moles/Vol] 107 mmol/L 98-107 [facility] Eosinophils/100 WBC (Bld) 18.2 % 0-5 [facility] Glucose [Mass/Vol] 100 mg/dL 74-106 [facility] Comment on above: Fasting Glucose resu lt from 100 to 125 mg/dL suggests IMPAIRED HOMEOSTASIS per A.D.A. criteria. Hemoglobin (Bld) [Mass/Vol] 14.7 g/dL 12.0-15.0 [facility] Monocytes/100 WBC (Bld) 4.5 % 0-10 [facility] Neutrophils (Bld) [#/Vol] 3.2 10*3/uL 2.0-7.7 [facility] Neutrophils/100 WBC (Bld) 38.5 % 47-70 [facility] Potassium [Moles/Vol] 3.9 mmol/L 3.5-5.1 [facility] Protein [Mass/Vol] 7.4 g/dL 6.4-8.2 [facility] Sodium [Moles/Vol] 138 mmol/L 136-145 [facility] WBC (Bld) [#/Vol] 8.3 10*3/uL 4.4-11.0 [facility] Determination of erythrocyte mean corpuscular volume (MCV)Ordered By: Angela Allen on 10-23-2023 MCV (RBC) [Entitic vol] 85.7 fL 81-99 [facility] Erythrocyte distribution wid th ratioOrdered By: Angela Allen on 10-23-2023 Erythrocyte distribution width (RBC) [Ratio] 12.6 % 11.6-14.6 [facility] Erythrocyte distribution wid th standard deviationOrdered By: Angela Allen on 10-23-2023 Erythrocyte distribution width (RBC) [Entitic vol] 39.5 fL 35.1-43.9 [facility] Hematocrit Auto (Bld) [Volum e fraction]Ordered By: Angela Allen on 10-23-2023 Hematocrit (Bld) [Volume fraction] 44.8 % 37-47 [facility] Immature granulocytes/100 WB C Auto (Bld)Ordered By: Angela Allen on 10-23-2023 Immature granulocytes/100 WBC (Bld) 0.200 % 0.0-0.9 [facility] Comment on above: IG% - Immature Granu locytes (promyelocytes, myelocytes and metamyelocytes) > 1% indicates that a LEFT SHIFT is Present. Laboratory - Chemistry and C hemistry - challengeOrdered By: Angela Allen on 10-23-2023 Albumin/Globulin [Mass ratio] 1.0 {ratio} 0.9-2.4 [facility] ALP [Catalytic activity/Vol] 100 U/L 45-117 [facility] ALT [Catalytic activity/Vol] 23 U/L 13-56 [facility] CO2 [Moles/Vol] 28.0 mmol/L 21.0-32.0 [facility] Globulin (S) [Mass/Vol] 3.7 g/dL 2.2-4.2 [facility] Urea nitrogen/Creatinine [Mass ratio] 22.3 mg/mg 10-20 [facility] Laboratory - Hematology and Cell countsOrdered By: Angela Allen on 10-23-2023 MCH (RBC) [Entitic mass] 28.1 pg 27.0-32.0 [facility] MCHC (RBC) [Mass/Vol] 32.8 g/dL 32-36 [facility] Nucleated RBC/100 WBC (Bld) [Ratio] 0 % 0-5 [facility] Platelet mean volume (Bld) [Entitic vol] 9.7 fL 6.2-12.0 [facility] Platelets (Bld) [#/Vol] 349 10*3/uL 150-450 [facility] No Panel InformationOrdered By: Angela Allen on 10-23-2023 Estimated GFR (MDRD) Amer 98 mL/min >60 [facility] Comment on above: GFR Calc Estimated GFR (MDRD) Non-Af Amer 81 mL/min >60 [facility] Comment on above: Non- GFR Calc RBC Auto (Bld) [#/Vol]Ordere d By: Angela Allen on 10-23-2023 RBC (Bld) [#/Vol] 5.23 10*6/uL 4.2-5.4 [facility] Serum or plasma calcium cande urement (mass/volume)Ordered By: Angela Allen on 10-23-2023 Calcium [Mass/Vol] 9.1 mg/dL 8.5-10.1 [facility] Serum or plasma creatinine m easurement (mass/volume)Ordered By: Angela Allen on 10-23-2023 Creatinine [Mass/Vol] 0.90 mg/dL 0.55-1.02 [facility] Comment on above: The validity of the calculated GFR & GFRAA in patients over 70 years has not been determined. Clinical correlation is essential. Serum or plasma thyroid stim ulating hormone (TSH) measurement (units/volume)Ordered By: Angela Allen on 10-23-2023 TSH Qn 10.70 uIU/mL 0.358-3.74 [facility] Serum or plasma urea nitroge n measurement (mass/volume)Ordered By: Angela Allen on 10-23-2023 Urea nitrogen [Mass/Vol] 20 mg/dL 7-18 [facility] Thin prep Papanicolaou smear with manual screeningOrdered By: Angela Allen on 10-23-2023 Thin prep Papanicolaou smear with manual screening 3.7 g/dL 3.2-5.0 [facility] Thin prep Papanicolaou smear with manual screening 21 U/L 15-37 [facility] Thin prep Papanicolaou smear with manual screening 3 5-15 [facility] Serum or plasma thyroid stim ulating hormone (TSH) measurement (units/volume)Ordered By: Katarina Christy on 09-06-2023 TSH Qn 0.11 uIU/mL 0.358-3.74 [facility] Laboratory - Chemistry and C hemistry - challengeOrdered By: Candace Bernal on 07-08-2023 Free T4 [Mass/Vol] 1.16 ng/dL 0.76-1.46 [facility] No Panel InformationOrdered By: Candace Bernal on 07-08-2023 Free Triiodothyronine (T3) pg/dL 2.9 pg/mL 2.18-3.98 [facility] Thyroid Stimulating Hormone (TSH) 0.08 uIU/mL 0.358-3.74 [facility] Basophil percentageOrdered B y: Candace Bernal on 05-24-2023 WBC (Bld) [#/Vol] 7.9 10*3/uL 4.4-11.0 [facility] Blood erythrocytes count (nu mber/volume)Ordered By: Candace Bernal on 05-24-2023 RBC (Bld) [#/Vol] 4.30 10*6/uL 4.2-5.4 [facility] Blood hemoglobin measurement (mass/volume)Ordered By: Candace Bernal on 05-24-2023 Hemoglobin (Bld) [Mass/Vol] 12.2 g/dL 12.0-15.0 [facility] Blood platelet mean volumeOr dered By: Candace Bernal on 05-24-2023 Platelet mean volume (Bld) [Entitic vol] 10.7 fL 6.2-12.0 [facility] Determination of erythrocyte mean corpuscular volume (MCV)Ordered By: Candace Bernal on 05-24-2023 MCV (RBC) [Entitic vol] 86.3 fL 81-99 [facility] Hematocrit Auto (Bld) [Volum e fraction]Ordered By: Candace Bernal on 05-24-2023 Hematocrit (Bld) [Volume fraction] 37.1 % 37-47 [facility] Laboratory - Chemistry and C hemistry - challengeOrdered By: Candace Bernal on 05-24-2023 ALT [Catalytic activity/Vol] 29 U/L 13-56 [facility] - Chemistry and C hemistry - challengeon 05-24-2023 Glucose Ql (U) Negative [facility] - Hematology and Cell countsOrdered By: Candace Bernal on 05-24-2023 Erythrocyte distribution width (RBC) [Entitic vol] 41.6 fL 35.1-43.9 [facility] Erythrocyte distribution width (RBC) [Ratio] 13.5 % 11.6-14.6 [facility] MCH (RBC) [Entitic mass] 28.4 pg 27.0-32.0 [facility] Laboratory - Urinalysison Protein Ql (U) Trace [facility] MCHC Auto (RBC) [Mass/Vol]Or dered By: Candace Bernal on 05-24-2023 MCHC (RBC) [Mass/Vol] 32.9 g/dL 32-36 [facility] No Panel InformationOrdered By: Candace Bernal on 05-24-2023 Estimated Creatinine Clearance Calc 148.00 ml/min [facility] Estimated GFR (MDRD) Amer 166 mL/min >60 [facility] Comment on above: GFR Calc Estimated GFR (MDRD) Non-Af Amer 137 mL/min >60 [facility] Comment on above: Non- GFR Calc Platelets bldOrdered By: Jessa Bernal on 05-24-2023 Platelets (Bld) [#/Vol] 232 10*3/uL 150-450 [facility] Serum Treponema species anti body detectionOrdered By: Candace Bernal on 05-24-2023 Treponema sp Ab Ql (S) Non-Reactive [facility] Serum or plasma creatinine m easurement (mass/volume)Ordered By: Candace Bernal on 05-24-2023 Creatinine [Mass/Vol] 0.57 mg/dL 0.55-1.02 [facility] Comment on above: The validity of the calculated GFR & GFRAA in patients over 70 years has not been determined. Clinical correlation is essential. Serum or plasma uric acid me asurement (mass/volume)Ordered By: Candace Bernal on 05-24-2023 Urate [Mass/Vol] 5.4 mg/dL 2.6-6.0 [facility] Comment on above: The drugs N-Acetylcy steine and Metamizole may falsely depress this assay. Thin prep Papanicolaou smear with manual screeningOrdered By: Candace Bernal on 05-24-2023 Thin prep Papanicolaou smear with manual screening 26 U/L 15-37 [facility] Urine creatinine measurement (mass/volume)Ordered By: Linh Willis on 05-24-2023 Creatinine (U) [Mass/Vol] 107.00 mg/dL NO RANGE EST. [facility] Urine protein measurement (m ass/volume)Ordered By: Linh Willis on 05-24-2023 Protein (U) [Mass/Vol] 20.2 mg/dL 0.0-11.8 [facility] Urine protein/creatinine mas s ratioOrdered By: Linh Willis on 05-24-2023 Protein/Creatinine (U) [Mass ratio] 189 mg/g CRE 0-200 [facility] No Panel InformationOrdered By: Katie Page on 05-07-2023 Group B Streptococcus Culture Group B Beta Streptococcus is not isolated. [facility] Vaginal Amniotic Fluid Detection Negative Negative [facility] Comment on above: Amniotic fluid not p resent indicates No Rupture of FetalMembranes at time of specimen collection. Laboratory - Chemistry and C hemistry - challengeon 05-03-2023 Glucose Ql (U) Negative [facility] Laboratory - Urinalysison Protein Ql (U) Negative [facility] Culture, urineOrdered By: Royal Willis on 04-26-2023 Bacteria identified Cx Nom (U) Culture exhibits no growth. [facility] Gram stain for investigation of transfusion reactionOrdered By: Linh Willis on 04-26-2023 Microscopic observation Gram stain Nom (Unsp spec) [facility] Laboratory - Chemistry and C hemistry - challengeon 04-26-2023 Bilirubin Ql (U) Negative [facility] Glucose Ql (U) Negative [facility] Ketones Ql (U) Negative [facility] pH (U) 7.5 [pH] [facility] Specific gravity (U) [Rel density] 1.005 [facility] Urobilinogen (U) [Mass/Vol] Negative [facility] Laboratory - Hematology and Cell countson 04-26-2023 Hemoglobin Ql (U) Negative [facility] Laboratory - Specimen inform ationon 04-26-2023 Clarity (U) Clear [facility] Color (U) YELLOW [facility] Laboratory - Urinalysison Nitrite Ql (U) Negative [facility] Protein Ql (U) Negative [facility] No Panel Informationon 04-26 Urine Leukocytes Negatve [facility] Urine Non-Hemolyzed Blood Negative [facility] Thin prep Papanicolaou smear with manual screeningOrdered By: Linh Willis on 04-26-2023 Thin prep Papanicolaou smear with manual screening Neisseria or beta-hemolytic Streptococcus isolated. [facility] Laboratory - Chemistry and C hemistry - challengeOrdered By: Katie Page on 04-24-2023 Free T4 [Mass/Vol] 0.78 ng/dL 0.76-1.46 [facility] No Panel InformationOrdered By: Candace Bernal on 04-24-2023 Free Triiodothyronine (T3) pg/dL 2.3 pg/mL 2.18-3.98 [facility] No Panel InformationOrdered By: Katiebrent Page on 04-24-2023 Thyroid Stimulating Hormone (TSH) 1.56 uIU/mL 0.358-3.74 [facility] Laboratory - Chemistry and C hemistry - challengeon 04-19-2023 Glucose Ql (U) Negative [facility] Laboratory - Urinalysison Protein Ql (U) Negative [facility] Laboratory - Chemistry and C hemistry - challengeon 03-22-2023 Glucose Ql (U) Negative [facility] Laboratory - Urinalysison Protein Ql (U) Negative [facility] Absolute lymphocyte countOrd ered By: Linh Willis on 03-08-2023 Lymphocytes Auto (Unsp spec) [#/Vol] 1.42 10*3/uL 0.83-4.51 [facility] Basophil percentageOrdered B y: Linh Willis on 03-08-2023 Basophils/100 WBC (Bld) 0.4 % 0-1 [facility] Eosinophils/100 WBC (Bld) 1.2 % 0-5 [facility] Neutrophils (Bld) [#/Vol] 6.2 10*3/uL 2.0-7.7 [facility] Neutrophils/100 WBC (Bld) 75.1 % 47-70 [facility] WBC (Bld) [#/Vol] 8.3 10*3/uL 4.4-11.0 [facility] Blood erythrocytes count (nu mber/volume)Ordered By: Linh Willis on 03-08-2023 RBC (Bld) [#/Vol] 4.27 10*6/uL 4.2-5.4 [facility] Blood hemoglobin measurement (mass/volume)Ordered By: Linh Willis on 03-08-2023 Hemoglobin (Bld) [Mass/Vol] 13.1 g/dL 12.0-15.0 [facility] Blood lymphocytes/100 leukoc ytesOrdered By: Linh Willis on 03-08-2023 Lymphocytes/100 WBC (Bld) 17.1 % 19-41 [facility] Blood monocytes/100 leukocyt esOrdered By: Linh Willis on 03-08-2023 Monocytes/100 WBC (Bld) 5.7 % 0-10 [facility] Blood platelet mean volumeOr dered By: iLnh Willis on 03-08-2023 Platelet mean volume (Bld) [Entitic vol] 9.6 fL 6.2-12.0 [facility] Determination of erythrocyte mean corpuscular volume (MCV)Ordered By: Linh Willis on 03-08-2023 MCV (RBC) [Entitic vol] 89.9 fL 81-99 [facility] Gestational diabetes screen 1-hour screen with 50g oral glucose loadOrdered By: Linh Willis on 03-08-2023 Glucose 1 Hr post 50 g glucose PO [Mass/Vol] 129 mg/dL 70-140 [facility] HIV 1 and HIV-2 antibody ass ay with HIV-1 p24 antigen detectionOrdered By: Linh Willis on 03-08-2023 HIV 1+2 Ab+HIV1 p24 Ag IA Ql Non-Reactive Nonreactive [facility] Hematocrit Auto (Bld) [Volum e fraction]Ordered By: Linh Willis on 03-08-2023 Hematocrit (Bld) [Volume fraction] 38.4 % 37-47 [facility] Laboratory - Chemistry and C hemistry - challengeon 03-08-2023 Glucose Ql (U) Negative [facility] Laboratory - Hematology and Cell countsOrdered By: Linh Willis on 03-08-2023 Erythrocyte distribution width (RBC) [Entitic vol] 42.3 fL 35.1-43.9 [facility] Erythrocyte distribution width (RBC) [Ratio] 12.9 % 11.6-14.6 [facility] Immature granulocytes/100 WBC (Bld) 0.500 % 0.0-0.9 [facility] Comment on above: IG% - Immature Granu locytes (promyelocytes, myelocytes and metamyelocytes) > 1% indicates that a LEFT SHIFT is Present. MCH (RBC) [Entitic mass] 30.7 pg 27.0-32.0 [facility] Nucleated RBC/100 WBC (Bld) [Ratio] 0 % 0-5 [facility] Laboratory - Urinalysison Protein Ql (U) Negative [facility] MCHC Auto (RBC) [Mass/Vol]Or dered By: Linh Willis on 03-08-2023 MCHC (RBC) [Mass/Vol] 34.1 g/dL 32-36 [facility] Platelets bldOrdered By: Any Willis on 03-08-2023 Platelets (Bld) [#/Vol] 224 10*3/uL 150-450 [facility] Serum Treponema species anti body detectionOrdered By: Linh Willis on 03-08-2023 Treponema sp Ab Ql (S) Non-Reactive [facility] Laboratory - Chemistry and C hemistry - challengeon 02-08-2023 Glucose Ql (U) Negative [facility] Laboratory - Urinalysison Protein Ql (U) Negative [facility] Laboratory - Chemistry and C hemistry - challengeOrdered By: Katie Page on 01-11-2023 Free T4 [Mass/Vol] 0.90 ng/dL 0.76-1.46 [facility] Laboratory - Chemistry and C hemistry - challengeon 01-11-2023 Glucose Ql (U) Negative [facility] Laboratory - Urinalysison Protein Ql (U) Negative [facility] No Panel InformationOrdered By: Katie Page on 01-11-2023 Thyroid Stimulating Hormone (TSH) 1.85 uIU/mL 0.358-3.74 [facility] Laboratory - Chemistry and C hemistry - challengeon 12-14-2022 Glucose Ql (U) Negative [facility] Laboratory - Urinalysison Protein Ql (U) Negative [facility] No Panel InformationOrdered By: Linh Willis on 12-14-2022 Thyroid Stimulating Hormone (TSH) 3.97 uIU/mL 0.358-3.74 [facility] Absolute lymphocyte countOrd ered By: Savage Bonds on 11-15-2022 Lymphocytes Auto (Unsp spec) [#/Vol] 2.19 10*3/uL 0.83-4.51 [facility] Basophil percentageOrdered B y: Savage Bonds on 11-15-2022 Basophils/100 WBC (Bld) 0.6 % 0-1 [facility] Bilirubin [Mass/Vol] 0.30 mg/dL 0.20-1.00 [facility] Comment on above: For patients on eltr ombopag therapy, use of Dimension [place] TBIL is not recommended. Chloride [Moles/Vol] 107 mmol/L 98-107 [facility] Eosinophils/100 WBC (Bld) 2.4 % 0-5 [facility] Glucose [Mass/Vol] 96 mg/dL 74-106 [facility] Neutrophils (Bld) [#/Vol] 6.3 10*3/uL 2.0-7.7 [facility] Neutrophils/100 WBC (Bld) 67.5 % 47-70 [facility] Potassium [Moles/Vol] 3.3 mmol/L 3.5-5.1 [facility] Protein [Mass/Vol] 6.6 g/dL 6.4-8.2 [facility] Sodium [Moles/Vol] 138 mmol/L 136-145 [facility] WBC (Bld) [#/Vol] 9.4 10*3/uL 4.4-11.0 [facility] Basophil percentage 0-5 SEEN /hpf 0-5 [facility] Bilirubin Test strip Ql (U)O rdered By: Savage Bonds on 11-15-2022 Bilirubin Ql (U) Negative Negative [facility] Blood erythrocytes count (nu mber/volume)Ordered By: Savage Bonds on 11-15-2022 RBC (Bld) [#/Vol] 4.26 10*6/uL 4.2-5.4 [facility] Blood hemoglobin measurement (mass/volume)Ordered By: Savage Bonds on 11-15-2022 Hemoglobin (Bld) [Mass/Vol] 12.7 g/dL 12.0-15.0 [facility] Blood lymphocytes/100 leukoc ytesOrdered By: Savage Bonds on 11-15-2022 Lymphocytes/100 WBC (Bld) 23.3 % 19-41 [facility] Blood monocytes/100 leukocyt esOrdered By: Savage Bonds on 11-15-2022 Monocytes/100 WBC (Bld) 6.0 % 0-10 [facility] Blood platelet mean volumeOr dered By: Savage Bonds on 11-15-2022 Platelet mean volume (Bld) [Entitic vol] 9.7 fL 6.2-12.0 [facility] Determination of erythrocyte mean corpuscular volume (MCV)Ordered By: Savage Bonds on 11-15-2022 MCV (RBC) [Entitic vol] 88.3 fL 81-99 [facility] Hematocrit Auto (Bld) [Volum e fraction]Ordered By: Savage Bonds on 11-15-2022 Hematocrit (Bld) [Volume fraction] 37.6 % 37-47 [facility] Ketones Test strip Ql (U)Ord ered By: Savage Bonds on 11-15-2022 Ketones Ql (U) Negative Negative [facility] Laboratory - Chemistry and C hemistry - challengeOrdered By: Savage Bonds on 11-15-2022 ALP [Catalytic activity/Vol] 39 U/L 45-117 [facility] ALT [Catalytic activity/Vol] 20 U/L 13-56 [facility] CO2 [Moles/Vol] 24.0 mmol/L 21.0-32.0 [facility] Globulin (S) [Mass/Vol] 3.4 g/dL 2.2-4.2 [facility] Lipase [Catalytic activity/Vol] 31 U/L - [facility] Comment on above: Please note:LIPASE r evised reference range effective 22. New Lipase methodology. Expected to produce lower values than the previous assay method. NEW Reference Range: 13 - 75 U/L Urea nitrogen/Creatinine [Mass ratio] 16.0 mg/mg 10-20 [facility] Laboratory - Hematology and Cell countsOrdered By: Savage Bonds on 11-15-2022 Erythrocyte distribution width (RBC) [Entitic vol] 39.7 fL 35.1-43.9 [facility] Erythrocyte distribution width (RBC) [Ratio] 12.4 % 11.6-14.6 [facility] Immature granulocytes/100 WBC (Bld) 0.200 % 0.0-0.9 [facility] Comment on above: IG% - Immature Granu locytes (promyelocytes, myelocytes and metamyelocytes) > 1% indicates that a LEFT SHIFT is Present. MCH (RBC) [Entitic mass] 29.8 pg 27.0-32.0 [facility] Nucleated RBC/100 WBC (Bld) [Ratio] 0 % 0-5 [facility] MCHC Auto (RBC) [Mass/Vol]Or dered By: Savage Bonds on 11-15-2022 MCHC (RBC) [Mass/Vol] 33.8 g/dL 32-36 [facility] Mucus LM Ql (Urine sed)Order ed By: Savage Bonds on 11-15-2022 Mucus Ql (Urine sed) 0 SEEN /hpf [facility] Nitrite Test strip Ql (U)Ord ered By: Savage Bonds on 11-15-2022 Nitrite Ql (U) Negative Negative [facility] No Panel InformationOrdered By: Savage Bonds on 11-15-2022 Estimated Creatinine Clearance Calc 133.90 ml/min [facility] Estimated GFR (MDRD) Amer 150 mL/min >60 [facility] Comment on above: GFR Calc Estimated GFR (MDRD) Non-Af Amer 124 mL/min >60 [facility] Comment on above: Non- GFR Calc Platelets bldOrdered By: Lilliam Bonds on 11-15-2022 Platelets (Bld) [#/Vol] 285 10*3/uL 150-450 [facility] Protein Test strip Ql (U)Ord ered By: Savage Bonds on 11-15-2022 Protein Ql (U) Negative Negative [facility] Serum or plasma albumin cande urement (mass/volume)Ordered By: Savage Bonds on 11-15-2022 Albumin [Mass/Vol] 3.2 g/dL 3.2-5.0 [facility] Serum or plasma albumin/glob ulin mass ratioOrdered By: Savage Bodns on 11-15-2022 Albumin/Globulin [Mass ratio] 0.9 {ratio} 0.9-2.4 [facility] Serum or plasma calcium cande urement (mass/volume)Ordered By: Savage Bonds on 11-15-2022 Calcium [Mass/Vol] 9.0 mg/dL 8.5-10.1 [facility] Serum or plasma creatinine m easurement (mass/volume)Ordered By: Savage Bonds on 11-15-2022 Creatinine [Mass/Vol] 0.63 mg/dL 0.55-1.02 [facility] Comment on above: The validity of the calculated GFR & GFRAA in patients over 70 years has not been determined. Clinical correlation is essential. Serum or plasma urea nitroge n measurement (mass/volume)Ordered By: Savage Bonds on 11-15-2022 Urea nitrogen [Mass/Vol] 10 mg/dL 7-18 [facility] Squamous epithelial cells de tection in urine sediment by light microscopyOrdered By: Savage Bonds on 11-15-2022 Epithelial cells.squamous LM Ql (Urine sed) 0-5 SEEN /hpf 5-10 [facility] Thin prep Papanicolaou smear with manual screeningOrdered By: Savage Bonds on 11-15-2022 Thin prep Papanicolaou smear with manual screening 17 U/L 15-37 [facility] Thin prep Papanicolaou smear with manual screening 7 5-15 [facility] Urine blood detectionOrdered By: Savage Bonds on 11-15-2022 RBC Ql (U) Negative Negative [facility] RBC Ql (U) 0 SEEN /hpf 0-5 [facility] Urine clarityOrdered By: Lilliam Bonds on 11-15-2022 Clarity (U) Clear Clear [facility] Urine color determinationOrd ered By: Savage Bonds on 11-15-2022 Color (U) Yellow Yellow [facility] Urine glucose detectionOrder ed By: Savage Bonds on 11-15-2022 Glucose Ql (U) Normal mg/dl Normal [facility] Urine leukocyte esterase det ection by dipstickOrdered By: Savage Bonds on 11-15-2022 Leukocyte esterase Test strip Ql (U) Negative Negative [facility] Urine pHOrdered By: Savage acharya on 11-15-2022 pH (U) 7.0 [pH] 5.0 - 8.0 [facility] Urine sediment bacteria coun t by microscopy (number/high power field)Ordered By: Savage Bonds on 11-15-2022 Bacteria LM.HPF (Urine sed) [#/Area] 1 /[HPF] None Seen [facility] Urine specific gravity measu rementOrdered By: Savage Bonds on 11-15-2022 Specific gravity (U) [Rel density] 1.010 1.002-1.030 [facility] Urobilinogen Auto test strip Ql (U)Ordered By: Savage Bonds on 11-15-2022 Urobilinogen Ql (U) Normal mg/dl Normal [facility] Absolute lymphocyte countOrd ered By: Katie Page on 11-05-2022 Lymphocytes Auto (Unsp spec) [#/Vol] 2.24 10*3/uL 0.83-4.51 [facility] Basophil percentageOrdered B y: Katie Page on 11-05-2022 Basophils/100 WBC (Bld) 0.5 % 0-1 [facility] Eosinophils/100 WBC (Bld) 3.5 % 0-5 [facility] Neutrophils (Bld) [#/Vol] 6.6 10*3/uL 2.0-7.7 [facility] Neutrophils/100 WBC (Bld) 67.2 % 47-70 [facility] WBC (Bld) [#/Vol] 9.9 10*3/uL 4.4-11.0 [facility] Blood erythrocytes count (nu mber/volume)Ordered By: Katie Page on 11-05-2022 RBC (Bld) [#/Vol] 4.48 10*6/uL 4.2-5.4 [facility] Blood hemoglobin measurement (mass/volume)Ordered By: Katie Page on 11-05-2022 Hemoglobin (Bld) [Mass/Vol] 13.5 g/dL 12.0-15.0 [facility] Blood lymphocytes/100 leukoc ytesOrdered By: Katie Page on 11-05-2022 Lymphocytes/100 WBC (Bld) 22.7 % 19-41 [facility] Blood monocytes/100 leukocyt esOrdered By: Katie Page on 11-05-2022 Monocytes/100 WBC (Bld) 5.9 % 0-10 [facility] Blood platelet mean volumeOr dered By: Katie Page on 11-05-2022 Platelet mean volume (Bld) [Entitic vol] 10.0 fL 6.2-12.0 [facility] Chlamydia trachomatis rRNA d etection by probe and target amplification methodOrdered By: Katie Page on 11-05-2022 C. trachomatis rRNA KASIA+probe Ql (Unsp spec) Negative Negative [facility] Culture, urineOrdered By: Janna kirsten Page on 11-05-2022 Bacteria identified Cx Nom (U) Culture exhibits no growth. [facility] Cystic fibrosis screenOrdere d By: Katie Page on 11-05-2022 Cystic fibrosis NBS panel Comment: . [facility] Comment on above: RESULTS: Negative fo r 32 mutations analyzedINTERPRETATION:This individual is negative for the mutations analyzed.This negative result may need further interpretationdepending on the clinical indication. This result reducesbut does not eliminate the risk to be a CF carrier.COMMENTS:The detection rate varies with ethnicity and is listedbelow. The presence of an undetected mutation in theCF gene cannot be ruled out. In the absence offamily history, the remaining risk that a person witha negative result could have at least one CF mutationis listed in the table. If there is a family historyof CF, these risk figures do not apply. As detailedinformation regarding this individual's familyhistory would permit a more accurate assessment ofthis individual's risk to be a carrier of cysticfibrosis, please contact [employer] [phone] for a revised report.Mutation Detection Detection rates are based on mutationRates among Ethnic frequencies in patients affected withGroups cystic fibrosis. Among individuals with an atypical or mild presentation (e.g. congenital absence of the vas deferens, pancreatitis) detection rates may vary from those provided here: Carrier risk reduction when no family history DetectionEthnicity RateAshkenazi 07/19 to 97%JewishCaucasian 07/18 to 90%(non-)-Russian 65 to 69% 46 to 73% to 55%This interpretation is based on the clinical and familyrelationship information provided and the currentunderstanding of the molecular genetics of this condition.MUTATIONS ANALYZED:G85E V520F K3309X 2183AA to EZ168A G542X F0901H [id number] S549N 394delTT 2789+5G to EL197W S549R 621+1G to T 3120+1G to VS770E G551D 711+1G to T 6431oxmYW132J R553X 1078delT 3849+10kbC to KBnhamL374 R560T 1717-1G to A 0877plwHQphalR707 P2550N 1898+1G to A 3905insTMETHODS/LIMITATIONS:DNA is isolated from the sample and tested for the 32 CFmutations on the [employer] ([employer]).Regions of the CFTR gene are amplified enzymatically andsubjected to a solution-phase multiplex allele-specificprimer extension with subsequent hybridization to a beadarray and fluorescence detection. Polymorphisms F508C,I506V and I507V are included in this panel to rule outfalse positive [id number] homozygotes. Reflex testing of5T is included in the panel for R117H interpretation.False positive or negative results may occur for reasonsthat include genetic variants, blood transfusions, bonemarrow transplantation, erroneous representation offamily relationships or contamination of a samplewith maternal cells.REFERENCES:1. Updates on Carrier Screening for Cystic Fibrosis. (2011) Am J Ob Gynecol 117(4):1028-02073. Dandre et al. (2004) Alyssa Med 6:387-913. Kehinde, et al. (2002) Alyssa Med 4:379-3914. Preconception and carrier screening for cystic fibrosis: (2001)ACOG.ACMG publicationResults Released By: Slava Madden, Ph.D., Director [address] [place] [id number] Released By: Slava Madden, Ph.D., Director Determination of erythrocyte mean corpuscular volume (MCV)Ordered By: Katie Page on 11-05-2022 MCV (RBC) [Entitic vol] 88.4 fL 81-99 [facility] HIV 1 and HIV-2 antibody ass ay with HIV-1 p24 antigen detectionOrdered By: Katie Page on 11-05-2022 HIV 1+2 Ab+HIV1 p24 Ag IA Ql Non-Reactive Nonreactive [facility] Hematocrit Auto (Bld) [Volum e fraction]Ordered By: Katie Page on 11-05-2022 Hematocrit (Bld) [Volume fraction] 39.6 % 37-47 [facility] Laboratory - Chemistry and C hemistry - challengeOrdered By: Sujata Campuzano on 11-05-2022 Free T4 [Mass/Vol] 1.11 ng/dL 0.76-1.46 [facility] Laboratory - Hematology and Cell countsOrdered By: Katie Page on 11-05-2022 Erythrocyte distribution width (RBC) [Entitic vol] 39.1 fL 35.1-43.9 [facility] Erythrocyte distribution width (RBC) [Ratio] 12.1 % 11.6-14.6 [facility] Immature granulocytes/100 WBC (Bld) 0.200 % 0.0-0.9 [facility] Comment on above: IG% - Immature Granu locytes (promyelocytes, myelocytes and metamyelocytes) > 1% indicates that a LEFT SHIFT is Present. MCH (RBC) [Entitic mass] 30.1 pg 27.0-32.0 [facility] Nucleated RBC/100 WBC (Bld) [Ratio] 0 % 0-5 [facility] Laboratory - Microbiology an d Antimicrobial susceptibilityOrdered By: Katie Page on 11-05-2022 N. gonorrhoeae DNA KASIA+probe Ql (Unsp spec) Negative Negative [facility] Comment on above: Performed at: [facility] [address] [id number] Director: Abigail De La Torre MD, Phone: [phone] Laboratory - Miscellaneous t estsOrdered By: Katie Page on 11-05-2022 Service comment (Unsp spec) [Interp] Comment . [facility] Comment on above: The assay provides i nformation intended to be used for carrierscreening in adults of reproductive age, as an aid in newbornscreening, and as a confirmatory test for another medicallyestablished diagnosis in newborns and children. The test is notindicated for use in diagnostic testing, pre-implantationscreening, or for any stand-alone diagnostic purposes withoutconfirmation by another medically established diagnostic productor procedure.Performed at: - [facility] [id number] [place], [place] [id number] Director: Mary Atkinson [facility], Phone: [phone] MCHC Auto (RBC) [Mass/Vol]Or dered By: Katie Page on 11-05-2022 MCHC (RBC) [Mass/Vol] 34.1 g/dL 32-36 [facility] No Panel InformationOrdered By: Katie Page on 11-05-2022 Hepatitis B Surface Antigen Non-Reactive Nonreactive [facility] Hepatitis C Antibody Non-Reactive Nonreactive [facility] Comment on above: Non Reactive: < 0.8 Equivocal: >/= 0.8 to < 1.0 Reactive: >/= 1.0The CDC recommends that a reactive/equivocal HCV antibody result be followed up by the HCV Nucleic Acid Amplificationtest (486809) Rubella IgG Antibody Reactive Nonreactive [facility] Comment on above: Antibody Results Int erpretation of Immune Status Non Reactive Presumed Non-Immune Equivocal Equivocal Reactive Presumed Immune No Panel InformationOrdered By: Sujata Campuzano on 11-05-2022 Thyroid Stimulating Hormone (TSH) 5.03 uIU/mL 0.358-3.74 [facility] Platelets bldOrdered By: Jac Page on 11-05-2022 Platelets (Bld) [#/Vol] 317 10*3/uL 150-450 [facility] Serum Treponema species anti body detectionOrdered By: Katie Page on 11-05-2022 Treponema sp Ab Ql (S) Non-Reactive [facility] Serum or plasma choriogonado tropin detectionOrdered By: Ana Rahman on 09-28-2022 HCG ( test) Ql 268 mIU/mL <4 [facility] Comment on above: hCG levels with Gest ational AgeGestational Age hCG mIU/mL (IU/L)0.2 - 1 week 5 - 501-2 weeks 50 - 5002-3 weeks 100 - 48818-1 weeks 500 - 198855-7 weeks 1000 - 014702-0 weeks 68162 - 100,0006-8 weeks 21322 - 200,0002-3 months 92600 - 100,000 Serum or plasma choriogonado tropin detectionOrdered By: Ana Rahman on 09-26-2022 HCG ( test) Ql 81 mIU/mL <4 [facility] Comment on above: hCG levels with Gest ational AgeGestational Age hCG mIU/mL (IU/L)0.2 - 1 week 5 - 501-2 weeks 50 - 5002-3 weeks 100 - 49943-0 weeks 500 - 996927-2 weeks 1000 - 777277-0 weeks 33658 - 100,0006-8 weeks 37044 - 200,0002-3 months 08097 - 100,000 Laboratory - Chemistry and C hemistry - challengeOrdered By: Sujata Campuzano on 09-07-2022 Free T4 [Mass/Vol] 0.95 ng/dL 0.76-1.46 [facility] No Panel InformationOrdered By: Sujata Campuzano on 09-07-2022 Thyroid Stimulating Hormone (TSH) 3.34 uIU/mL 0.358-3.74 [facility] No Panel Informationon 07-24 Miscellaneous Test See comment [facility] Comment on above: TEST RESULT LIMITSCB C With Differential/Platelet WBC 4.9 x10E3/uL 3.4-10.8 RBC 4.72 x10E6/uL 3.77-5.28 Hemoglobin 14.2 g/dL 11.1-15.9 Hematocrit 40.9 % 34.0-46.6 MCV 87 fL 79-97 MCH 30.1 pg 26.6-33.0 MCHC 34.7 g/dL 31.5-35.7 RDW 12.2 % 11.7-15.4 Platelets 332 x10E3/uL 150-450 Neutrophils 45 % Not Estab. Lymphs 44 % Not Estab. Monocytes 6 % Not Estab. Eos 4 % Not Estab. Basos 1 % Not Estab. Neutrophils (Absolute) 2.2 x10E3/uL 1.4-7.0 Lymphs (Absolute) 2.1 x10E3/uL 0.7-3.1 Monocytes(Absolute) 0.3 x10E3/uL 0.1-0.9 Eos (Absolute) 0.2 x10E3/uL 0.0-0.4 Baso (Absolute) 0.1 x10E3/uL 0.0-0.2 Immature Granulocytes 0 % Not Estab. Immature Grans (Abs) 0.0 x10E3/uL 0.0-0.1 Comp. Metabolic Panel (14) Glucose 84 mg/dL 70-99 BUN 14 mg/dL 6-20 Creatinine 0.82 mg/dL 0.57-1.00 eGFR 102 mL/min/1.73 >59 BUN/Creatinine Ratio 17 9-23 Sodium 141 mmol/L 134-144 Potassium 4.2 mmol/L 3.5-5.2 Chloride 102 mmol/L 96-106 Carbon Dioxide, Total 24 mmol/L 20-29 Calcium 9.8 mg/dL 8.7-10.2 Protein, Total 7.4 g/dL 6.0-8.5 Albumin 4.9 g/dL 3.9-5.0 Globulin, Total 2.5 g/dL 1.5-4.5 A/G Ratio 2.0 1.2-2.2 Bilirubin, Total 0.5 mg/dL 0.0-1.2 Alkaline Phosphatase 51 IU/L 44-121 AST (SGOT) 22 IU/L 0-40 ALT (SGPT) 18 IU/L 0-32 Reverse T3, Serum Reverse T3, Serum, 16.1 ng/dL 9.2-24.1Thyroxine (T4) Free, Direct T4,Free(Direct) 1.33 ng/dL 0.82-1.77TSH TSH 1.570 uIU/mL 0.450-4.500Thyroid Antibodies Thyroid Peroxidase (TPO) Ab 385 High IU/mL 0-34 Thyroglobulin Antibody <1.0 IU/mL 0.0-0.9 Thyroglobulin Antibody measured by Luly Evelyn MethodologyInsulin Insulin 7.7 uIU/mL 2.6-24.9Triiodothyronine (T3), Free Triiodothyronine (T3), Free 2.8 pg/mL 2.0-4.4 _ TESTING PERFORMED AT [facility]. ORIGINAL REPORT ON FILE IN LAB CONTAINS ADDITIONAL TEST SITE INFORMATION. Serum or plasma choriogonado tropin detectionOrdered By: Dr. Page on 06-26-2022 HCG ( test) Ql < 1 mIU/mL <4 [facility] Comment on above: hCG levels with Gest ational AgeGestational Age hCG mIU/mL (IU/L)0.2 - 1 week 5 - 501-2 weeks 50 - 5002-3 weeks 100 - 02783-7 weeks 500 - 280367-6 weeks 1000 - 416625-6 weeks 07938 - 100,0006-8 weeks 11129 - 200,0002-3 months 01275 - 100,000 Laboratory - Chemistry and C hemistry - challengeOrdered By: Dr. Milligan on 05-09-2022 HCG ( test) Ql (U) Negative [facility] Comment on above: Very dilute urine sp ecimens, as indicated by a low specificgravity, may not contain factory representative levels of hCG. If is still suspected, a first morning urinespecimen should be collected 48 hours later and tested. Laboratory - Chemistry and C hemistry - challengeon 03-13-2022 Free T4 [Mass/Vol] 0.94 ng/dL 0.76-1.46 [facility] Work Phone: No Panel Informationon 03-13 Thyroid Stimulating Hormone (TSH) 1.67 uIU/mL 0.358-3.74 [facility] Work Phone: Stool Helicobacter pylori an tigen detection by immunoassayon 11-16-2021 H. pylori Ag IA Ql (Stl) Negative Negative [facility] Work Phone: Comment on above: Performed at: [address] [id number] Director: Christi Horton MD, Phone: [phone] Absolute lymphocyte counton 11-15-2021 Lymphocytes Auto (Unsp spec) [#/Vol] 1.75 10*3/uL 0.83-4.51 [facility] Work Phone: Basophil percentageon 2021 Basophils/100 WBC (Bld) 0.8 % 0-1 [facility] Work Phone: Bilirubin [Mass/Vol] 0.30 mg/dL 0.20-1.00 [facility] Work Phone: Comment on above: For patients on eltr ombopag therapy, use of Dimension [place] TBIL is not recommended. Chloride [Moles/Vol] 106 mmol/L 98-107 [facility] Work Phone: Eosinophils/100 WBC (Bld) 5.6 % 0-5 [facility] Work Phone: Glucose [Mass/Vol] 95 mg/dL 74-106 [facility] Work Phone: Neutrophils (Bld) [#/Vol] 2.4 10*3/uL 2.0-7.7 [facility] Work Phone: Neutrophils/100 WBC (Bld) 50.3 % 47-70 [facility] Work Phone: Potassium [Moles/Vol] 3.9 mmol/L 3.5-5.1 [facility] Work Phone: Protein [Mass/Vol] 7.5 g/dL 6.4-8.2 [facility] Work Phone: Sodium [Moles/Vol] 137 mmol/L 136-145 [facility] Work Phone: WBC (Bld) [#/Vol] 4.9 10*3/uL 4.4-11.0 [facility] Work Phone: [phone] Blood erythrocytes count (nu mber/volume)on 11-15-2021 RBC (Bld) [#/Vol] 4.73 10*6/uL 4.2-5.4 [facility] Work Phone: Blood hemoglobin measurement (mass/volume)on 11-15-2021 Hemoglobin (Bld) [Mass/Vol] 14.0 g/dL 12.0-15.0 [facility] Work Phone: Blood lymphocytes/100 leukoc yteson 11-15-2021 Lymphocytes/100 WBC (Bld) 36.1 % 19-41 [facility] Work Phone: Blood monocytes/100 leukocyt eson 11-15-2021 Monocytes/100 WBC (Bld) 7.0 % 0-10 [facility] Work Phone: Blood platelet mean volumeon 11-15-2021 Platelet mean volume (Bld) [Entitic vol] 10.1 fL 6.2-12.0 [facility] Work Phone: Determination of erythrocyte mean corpuscular volume (MCV)on 11-15-2021 MCV (RBC) [Entitic vol] 89.0 fL 81-99 [facility] Work Phone: Hematocrit Auto (Bld) [Volum e fraction]on 11-15-2021 Hematocrit (Bld) [Volume fraction] 42.1 % 37-47 [facility] Work Phone: Laboratory - Chemistry and C hemistry - challengeon 11-15-2021 ALP [Catalytic activity/Vol] 41 U/L 45-117 [facility] Work Phone: ALT [Catalytic activity/Vol] 23 U/L 13-56 [facility] Work Phone: CO2 [Moles/Vol] 26.0 mmol/L 21.0-32.0 [facility] Work Phone: Globulin (S) [Mass/Vol] 3.5 g/dL 2.2-4.2 [facility] Work Phone: Urea nitrogen/Creatinine [Mass ratio] 17.0 mg/mg 10-20 [facility] Work Phone: Laboratory - Hematology and Cell countson 11-15-2021 Erythrocyte distribution width (RBC) [Entitic vol] 37.7 fL 35.1-43.9 [facility] Work Phone: Erythrocyte distribution width (RBC) [Ratio] 11.7 % 11.6-14.6 [facility] Work Phone: Immature granulocytes/100 WBC (Bld) 0.200 % 0.0-0.9 [facility] Work Phone: Comment on above: IG% - Immature Granu locytes (promyelocytes, myelocytes and metamyelocytes) > 1% indicates that a LEFT SHIFT is Present. MCH (RBC) [Entitic mass] 29.6 pg 27.0-32.0 [facility] Work Phone: Nucleated RBC/100 WBC (Bld) [Ratio] 0 % 0-5 [facility] Work Phone: MCHC Auto (RBC) [Mass/Vol]on 11-15-2021 MCHC (RBC) [Mass/Vol] 33.3 g/dL 32-36 [facility] Work Phone: No Panel Informationon 11-15 Thyroid Stimulating Hormone (TSH) 0.83 uIU/mL 0.358-3.74 [facility] Work Phone: Estimated GFR (MDRD) Amer 88 mL/min >60 [facility] Work Phone: Comment on above: GFR Calc Estimated GFR (MDRD) Non-Af Amer 73 mL/min >60 [facility] Work Phone: Comment on above: Non- GFR Calc Platelets bldon 11-15-2021 Platelets (Bld) [#/Vol] 315 10*3/uL 150-450 [facility] Work Phone: Serum or plasma albumin cande urement (mass/volume)on 11-15-2021 Albumin [Mass/Vol] 4.0 g/dL 3.2-5.0 [facility] Work Phone: Serum or plasma albumin/glob ulin mass ratioon 11-15-2021 Albumin/Globulin [Mass ratio] 1.1 {ratio} 0.9-2.4 [facility] Work Phone: Serum or plasma calcium cande urement (mass/volume)on 11-15-2021 Calcium [Mass/Vol] 9.1 mg/dL 8.5-10.1 [facility] Work Phone: Serum or plasma creatinine m easurement (mass/volume)on 11-15-2021 Creatinine [Mass/Vol] 1.00 mg/dL 0.55-1.02 [facility] Work Phone: Comment on above: The validity of the calculated GFR & GFRAA in patients over 70 years has not been determined. Clinical correlation is essential. Serum or plasma urea nitroge n measurement (mass/volume)on 11-15-2021 Urea nitrogen [Mass/Vol] 17 mg/dL 7-18 [facility] Work Phone: Thin prep Papanicolaou smear with manual screeningon 11-15-2021 Thin prep Papanicolaou smear with manual screening 18 U/L 15-37 [facility] Work Phone: Thin prep Papanicolaou smear with manual screening 5 5-15 [facility] Work Phone: Office Visiton 02-20-2017 Documentation of current medications (procedure) Done Invalid Interpretation Code [facility] Work Phone: [phone] Documentation of current medications (procedure) T Invalid Interpretation Code [facility] Work Phone: [phone] Protein mass conc Done [facility] Work Phone: [phone] Protein mass conc T [facility] Work Phone: [phone] Tobacco smoking status NHIS Never [facility] Work Phone: [phone] Tobacco smoking status NHIS Never smoker [facility] Work Phone: [phone] Tobacco use [facility] Never smoker Invalid Interpretation Code [facility] Work Phone: [phone] Office Visiton 07-04-2016 Documentation of current medications (procedure) Done Invalid Interpretation Code [facility] Work Phone: [phone] Documentation of current medications (procedure) T Invalid Interpretation Code [facility] Work Phone: [phone] Tobacco smoking status NHIS Never Invalid Interpretation Code [facility] Work Phone: [phone] Tobacco use [facility] Never smoker Invalid Interpretation Code [facility] Work Phone: [phone] Vital Signs Date Time Vital Sign Value Performing Clinician Facility 02-18-2025 11:09-0400 Body height 170.[address] Angela Allen MD Work Phone: [facility] 02-18-2025 11:09-0400 Body mass index (BMI) [Ratio] 34.9 kg/m2 Dr. Angela Allen MD Work Phone: [facility] 02-18-2025 11:09-0400 Body weight 101.[address] Angela Allen MD Work Phone: [facility] 02-18-2025 11:09-0400 Diastolic blood pressure 76 mm[Hg] Dr. Angela Allen MD Work Phone: [facility] 02-18-2025 11:09-0400 Systolic blood pressure 132 mm[Hg] Dr. Angela Allen MD Work Phone: [facility] 01-22-2025 11:20-0400 Body height 170.[address] Angela Allen MD Work Phone: [facility] 01-22-2025 11:20-0400 Body mass index (BMI) [Ratio] 33.8 kg/m2 Dr. Angela Allen MD Work Phone: [facility] 01-22-2025 11:20-0400 Body weight 98.[address] Angela Allen MD Work Phone: [facility] 01-22-2025 11:20-0400 Diastolic blood pressure 80 mm[Hg] Dr. Angela Allen MD Work Phone: [facility] 01-22-2025 11:20-0400 Systolic blood pressure 137 mm[Hg] Dr. Angela Allen MD Work Phone: [facility] 12-23-2024 10:39-0400 Body height 170.[address] Angela Allen MD Work Phone: [facility] 12-23-2024 10:38-0400 Body mass index (BMI) [Ratio] 33.1 kg/m2 Dr. Angela Allen MD Work Phone: [facility] 12-23-2024 10:38-0400 Body weight 95.[address] Angela Allen MD Work Phone: [facility] 12-23-2024 10:38-0400 Diastolic blood pressure 75 mm[Hg] Dr. Angela Allen MD Work Phone: [facility] 12-23-2024 10:38-0400 Systolic blood pressure 118 mm[Hg] Dr. Angela Allen MD Work Phone: [facility] 11-20-2024 15:10-0400 Diastolic blood pressure 82 mm[Hg] Dr. Angela Allen MD Work Phone: [facility] 11-20-2024 15:10-0400 Systolic blood pressure 127 mm[Hg] Dr. Angela Allen MD Work Phone: [facility] 11-20-2024 14:34-0400 Body height 170.[address] Angela Allen MD Work Phone: [facility] 11-20-2024 14:34-0400 Body mass index (BMI) [Ratio] 32.9 kg/m2 Dr. Angela Allen MD Work Phone: [facility] 11-20-2024 14:34-0400 Body weight 95.[address] Angela Allen MD Work Phone: [facility] 09-04-2024 07:33-0400 Body height 170.[address] Angela Allen MD Work Phone: [facility] 09-04-2024 07:33-0400 Body mass index (BMI) [Ratio] 33 kg/m2 Dr. Angela Allen MD Work Phone: [facility] 09-04-2024 07:33-0400 Body temperature 98.2 [degF] Dr. Angela Allen MD Work Phone: [facility] 09-04-2024 07:33-0400 Body weight 95.[address] Angela Allen MD Work Phone: [facility] 09-04-2024 07:33-0400 Diastolic blood pressure 78 mm[Hg] Dr. Angela Allen MD Work Phone: [facility] 09-04-2024 07:33-0400 Heart rate 83 /min Dr. Angela Allen MD Work Phone: [facility] 09-04-2024 07:33-0400 Respiratory rate 20 /min Dr. Angela Allen MD Work Phone: [facility] 09-04-2024 07:33-0400 SaO2% (BldA) [Mass fraction] 96 % Dr. Angela Allen MD Work Phone: [facility] 09-04-2024 07:33-0400 Systolic blood pressure 122 mm[Hg] Dr. Angela Allen MD Work Phone: [facility] 07-15-2024 14:13-0500 Body mass index (BMI) [Ratio] 33.2 kg/m2 Dr. Angela Allen MD Work Phone: [facility] 07-15-2024 14:13-0500 Body temperature 97.8 [degF] Dr. Angela Allen MD Work Phone: [facility] 07-15-2024 14:13-0500 Body weight 96.[address] Angela Allen MD Work Phone: [facility] 07-15-2024 14:13-0500 Diastolic blood pressure 64 mm[Hg] Dr. Angela Allen MD Work Phone: [facility] 07-15-2024 14:13-0500 Heart rate 88 /min Dr. Angela Allen MD Work Phone: [facility] 07-15-2024 14:13-0500 Respiratory rate 14 /min Dr. Angela Allen MD Work Phone: [facility] 07-15-2024 14:13-0500 SaO2% (BldA) [Mass fraction] 98 % Dr. Angela Allen MD Work Phone: [facility] 07-15-2024 14:13-0500 Systolic blood pressure 124 mm[Hg] Dr. Angela Allen MD Work Phone: [facility] 10-23-2023 12:54-0400 Body height 170.18 cm DO Katarina Westley Work Phone: [facility] 10-23-2023 12:54-0400 Body mass index (BMI) [Ratio] 32.7 kg/m2 DO Katarina Westley Work Phone: [facility] 10-23-2023 12:54-0400 Body temperature 97.2 [degF] DO Katarina Westley Work Phone: [facility] 10-23-2023 12:54-0400 Body weight 94.8 kg DO Katarina Westley Work Phone: [facility] 10-23-2023 12:54-0400 Diastolic blood pressure 76 mm[Hg] DO Katarina Westley Work Phone: [facility] 10-23-2023 12:54-0400 Heart rate 84 /min DO Katarina Westley Work Phone: [facility] 10-23-2023 12:54-0400 Respiratory rate 16 /min DO Katarina Westley Work Phone: [facility] 10-23-2023 12:54-0400 SaO2% (BldA) [Mass fraction] 98 % DO Katarina Westley Work Phone: [facility] 10-23-2023 12:54-0400 Systolic blood pressure 110 mm[Hg] DO Katarina Westley Work Phone: [facility] 07-08-2023 11:12-0500 Body height 170.18 cm DO Katarina Westley Work Phone: [facility] 07-08-2023 11:08-0500 Body mass index (BMI) [Ratio] 33 kg/m2 DO Katarina Westley Work Phone: [facility] 07-08-2023 11:08-0500 Body weight 95.7 kg DO Katarina Westley Work Phone: [facility] 07-08-2023 11:08-0500 Diastolic blood pressure 78 mm[Hg] DO Katarina Westley Work Phone: [facility] 07-08-2023 11:08-0500 Systolic blood pressure 119 mm[Hg] DO Katarina Westley Work Phone: [facility] 05-31-2023 09:45-0500 Body mass index (BMI) [Ratio] 36.3 kg/m2 DO Katarina Westley Work Phone: [facility] 05-31-2023 09:45-0500 Body weight 105.4 kg DO Katarina Westley Work Phone: [facility] 05-31-2023 09:45-0500 Diastolic blood pressure 84 mm[Hg] DO Katarina Westley Work Phone: [facility] 05-31-2023 09:45-0500 Systolic blood pressure 138 mm[Hg] DO Katarina Westley Work Phone: [facility] 05-27-2023 13:21-0500 Body temperature 98.6 [degF] DO Katarina Westley Work Phone: [facility] 05-27-2023 13:21-0500 Diastolic blood pressure 77 mm[Hg] DO Katarina Westley Work Phone: [facility] 05-27-2023 13:21-0500 Heart rate 92 /min DO Katarina Westley Work Phone: [facility] 05-27-2023 13:21-0500 Respiratory rate 14 /min DO Katarina Westley Work Phone: [facility] 05-27-2023 13:21-0500 SaO2% (BldA) [Mass fraction] 97 % DO Katarina Westley Work Phone: [facility] 05-27-2023 13:21-0500 Systolic blood pressure 131 mm[Hg] DO Katarina Westley Work Phone: [facility] 05-24-2023 11:11-0500 Body mass index (BMI) [Ratio] 40.1 kg/m2 DO Katarina Westley Work Phone: [facility] 05-24-2023 11:11-0500 Body weight 116.11 kg DO Katarina Westley Work Phone: [facility] 05-24-2023 09:30-0500 Body mass index (BMI) [Ratio] 40.1 kg/m2 DO Katarina Westley Work Phone: [facility] 05-24-2023 09:30-0500 Body weight 116.11 kg DO Katarina Westley Work Phone: [facility] 05-24-2023 09:30-0500 Diastolic blood pressure 86 mm[Hg] DO Katarina Westley Work Phone: [facility] 05-24-2023 09:30-0500 Systolic blood pressure 147 mm[Hg] DO Katarina Westley Work Phone: [facility] 05-15-2023 09:35-0500 Body mass index (BMI) [Ratio] 38.9 kg/m2 DO Katarina Westley Work Phone: [facility] 05-15-2023 09:35-0500 Body weight 112.71 kg DO Katarina Westley Work Phone: [facility] 05-15-2023 09:35-0500 Diastolic blood pressure 78 mm[Hg] DO Katarina Westley Work Phone: [facility] 05-15-2023 09:35-0500 Systolic blood pressure 128 mm[Hg] DO Katarina Westley Work Phone: [facility] 05-07-2023 14:25-0500 Diastolic blood pressure 82 mm[Hg] DO Katarina Westley Work Phone: [facility] 05-07-2023 14:25-0500 Systolic blood pressure 132 mm[Hg] DO Katarina Westley Work Phone: [facility] 05-07-2023 14:04-0500 Body mass index (BMI) [Ratio] 38.2 kg/m2 DO Katarina Westley Work Phone: [facility] 05-07-2023 14:04-0500 Body weight 110.84 kg DO Katarina Westley Work Phone: [facility] 05-03-2023 09:23-0500 Body mass index (BMI) [Ratio] 37.6 kg/m2 DO Katarina Westley Work Phone: [facility] 05-03-2023 09:23-0500 Body weight 109.08 kg DO Katarina Westley Work Phone: [facility] 05-03-2023 09:23-0500 Diastolic blood pressure 84 mm[Hg] DO Katarina Westley Work Phone: [facility] 05-03-2023 09:23-0500 Systolic blood pressure 139 mm[Hg] DO Katarina Westley Work Phone: [facility] 04-26-2023 13:07-0400 Body height 170.18 cm DO Katarina Westley Work Phone: [facility] 04-26-2023 13:07-0400 Body mass index (BMI) [Ratio] 37.1 kg/m2 DO Katarina Westley Work Phone: [facility] 04-26-2023 13:07-0400 Body weight 107.61 kg DO Katarina Westley Work Phone: [facility] 04-26-2023 13:07-0400 Diastolic blood pressure 83 mm[Hg] DO Katarina Westley Work Phone: [facility] 04-26-2023 13:07-0400 Systolic blood pressure 131 mm[Hg] DO Katarina Westley Work Phone: [facility] 04-19-2023 09:03-0400 Body mass index (BMI) [Ratio] 37 kg/m2 DO Katarina Westley Work Phone: [facility] 04-19-2023 09:03-0400 Body weight 107.5 kg DO Katarina Westley Work Phone: [facility] 04-19-2023 09:03-0400 Diastolic blood pressure 82 mm[Hg] DO Katarina Westley Work Phone: [facility] 04-19-2023 09:03-0400 Systolic blood pressure 132 mm[Hg] DO Katarina Westley Work Phone: [facility] 04-05-2023 14:35-0400 Body mass index (BMI) [Ratio] 36.6 kg/m2 DO Katarina Westley Work Phone: [facility] 04-05-2023 14:35-0400 Body weight 106.19 kg DO Katarina Westley Work Phone: [facility] 04-05-2023 14:35-0400 Diastolic blood pressure 68 mm[Hg] DO Katarina Westley Work Phone: [facility] 04-05-2023 14:35-0400 Systolic blood pressure 124 mm[Hg] DO Katarina Westley Work Phone: [facility] 03-22-2023 09:04-0400 Body mass index (BMI) [Ratio] 35.9 kg/m2 DO Katarina Christy Work Phone: [facility] 03-22-2023 09:04-0400 Body weight 103.92 kg DO Katarina Christy Work Phone: [facility] 03-22-2023 09:04-0400 Diastolic blood pressure 83 mm[Hg] DO Katarina Horneer Work Phone: [facility] 03-22-2023 09:04-0400 Systolic blood pressure 128 mm[Hg] DO Katarina Christy Work Phone: [facility] 03-08-2023 09:32-0400 Body height 170.[address] Ramiro Ren Work Phone: [facility] 03-08-2023 09:30-0400 Body mass index (BMI) [Ratio] 34.8 kg/m2 Dr. Ramiro Ren Work Phone: [facility] 03-08-2023 09:30-0400 Body weight 100.[address] Ramiro Ren Work Phone: [facility] 03-08-2023 09:30-0400 Diastolic blood pressure 78 mm[Hg] Dr. Ramiro Ren Work Phone: [facility] 03-08-2023 09:30-0400 Systolic blood pressure 128 mm[Hg] Dr. Ramiro Ren Work Phone: [facility] 02-08-2023 09:19-0400 Body mass index (BMI) [Ratio] 33.4 kg/m2 Dr. Ramiro Ren Work Phone: [facility] 02-08-2023 09:19-0400 Body weight 96.[address] Ramiro Ren Work Phone: [facility] 02-08-2023 09:19-0400 Diastolic blood pressure 79 mm[Hg] Dr. Ramiro Ren Work Phone: [facility] 02-08-2023 09:19-0400 Systolic blood pressure 124 mm[Hg] Dr. Ramiro Ren Work Phone: [facility] 01-11-2023 09:51-0400 Body mass index (BMI) [Ratio] 31.6 kg/m2 Dr. Ramiro Ren Work Phone: [facility] 01-11-2023 09:51-0400 Body weight 91.[address] Ramiro Ren Work Phone: [facility] 01-11-2023 09:51-0400 Diastolic blood pressure 74 mm[Hg] Dr. Ramiro Ren Work Phone: [facility] 01-11-2023 09:51-0400 Systolic blood pressure 122 mm[Hg] Dr. Ramiro Ren Work Phone: [facility] 12-14-2022 09:53-0400 Body height 170.[address] Ramiro Ren Work Phone: [facility] 12-14-2022 09:53-0400 Body mass index (BMI) [Ratio] 30.6 kg/m2 Dr. Ramiro Ren Work Phone: [facility] 12-14-2022 09:53-0400 Body weight 88.[address] Ramiro Ren Work Phone: [facility] 12-14-2022 09:53-0400 Diastolic blood pressure 74 mm[Hg] Dr. Ramiro Ren Work Phone: [facility] 12-14-2022 09:53-0400 Systolic blood pressure 133 mm[Hg] Dr. Ramiro Ren Work Phone: [facility] 11-15-2022 23:19-0400 Body temperature 18 [degF] Dr. Ramiro Ren Work Phone: [facility] 11-15-2022 21:10-0400 Body mass index (BMI) [Ratio] 29 kg/m2 Dr. Ramiro Ren Work Phone: [facility] 11-15-2022 21:10-0400 Body weight 84.[address] Ramiro Ren Work Phone: [facility] 11-15-2022 21:10-0400 Diastolic blood pressure 91 mm[Hg] Dr. Ramiro Ren Work Phone: [facility] 11-15-2022 21:10-0400 Heart rate 92 /min Dr. Ramiro Ren Work Phone: [facility] 11-15-2022 21:10-0400 Respiratory rate 16 /min Dr. Ramiro Ren Work Phone: [facility] 11-15-2022 21:10-0400 SaO2% (BldA) [Mass fraction] 98 % Dr. Ramiro Ren Work Phone: [facility] 11-15-2022 21:10-0400 Systolic blood pressure 141 mm[Hg] Dr. Ramiro Ren Work Phone: [facility] 11-10-2022 11:16-0400 Diastolic blood pressure 72 mm[Hg] Dr. Ramiro Ren Work Phone: [facility] 11-10-2022 11:16-0400 Systolic blood pressure 120 mm[Hg] Dr. Ramiro Ren Work Phone: [facility] 11-05-2022 13:37-0400 Body mass index (BMI) [Ratio] 29.2 kg/m2 Dr. Ramiro Ren Work Phone: [facility] 11-05-2022 13:37-0400 Body weight 84.[address] Ramiro Ren Work Phone: [facility] 05-23-2022 10:27-0500 Body height 170.[address] Ramiro Ren Work Phone: [facility] 05-23-2022 10:27-0500 Body mass index (BMI) [Ratio] 31.1 kg/m2 Dr. Ramiro Ren Work Phone: [facility] 05-23-2022 10:27-0500 Body weight 90.[address] Ramiro Ren Work Phone: [facility] 05-23-2022 10:27-0500 Diastolic blood pressure 73 mm[Hg] Dr. Ramiro Ren Work Phone: [facility] 05-23-2022 10:27-0500 Heart rate 87 /min Dr. Ramiro Ren Work Phone: [facility] 05-23-2022 10:27-0500 SaO2% (BldA) [Mass fraction] 96 % Dr. Ramiro Ren Work Phone: [facility] 05-23-2022 10:27-0500 Systolic blood pressure 112 mm[Hg] Dr. Ramiro Ren Work Phone: [phone] [place] [address] 05-09-2022 10:30-0500 Body temperature 98.1 [degF] Dr. Ramiro Ren Work Phone: [facility] 05-09-2022 10:30-0500 Diastolic blood pressure 59 mm[Hg] Dr. Ramiro Ren Work Phone: [facility] 05-09-2022 10:30-0500 Heart rate 71 /min Dr. Ramiro Ren Work Phone: [facility] 05-09-2022 10:30-0500 Respiratory rate 16 /min Dr. Ramiro Ren Work Phone: [facility] 05-09-2022 10:30-0500 SaO2% (BldA) [Mass fraction] 99 % Dr. Ramiro Ren Work Phone: [facility] 05-09-2022 10:30-0500 Systolic blood pressure 100 mm[Hg] Dr. Ramiro Ren Work Phone: [facility] 05-09-2022 09:08-0500 Body height 170.[address] Ramiro Ren Work Phone: [facility] Work Phone: 05-09-2022 09:08-0500 Body mass index (BMI) [Ratio] 31.1 kg/m2 Dr. Ramiro Ren Work Phone[facility] [facility] 05-09-2022 09:08-0500 Body weight [address] Ramiro Ren Work Phone: [facility] 04-13-2022 11:00-0400 Body mass index (BMI) [Ratio] 31.1 kg/m2 Dr. Ramiro Ren Work Phone: [facility] 04-13-2022 11:00-0400 Body weight 90.[address] Ramiro Ren Work Phone: [facility] 04-13-2022 11:00-0400 Diastolic blood pressure 71 mm[Hg] Dr. Ramiro Ren Work Phone: [facility] 04-13-2022 11:00-0400 Systolic blood pressure 129 mm[Hg] Dr. Ramiro Ren Work Phone: [facility] 01-19-2022 09:04-0400 Body height 170.[address] Ramiro Ren Work Phone: [facility] Work Phone: 01-19-2022 09:04-0400 Body mass index (BMI) [Ratio] 30.8 kg/m2 Dr. Ramiro Ren Work Phone: [facility] Work Phone: 01-19-2022 09:04-0400 Body weight 89.[address] Ramiro Ren Work Phone: [facility] Work Phone: 01-19-2022 09:04-0400 Diastolic blood pressure 74 mm[Hg] Dr. Ramiro Ren Work Phone: [facility] Work Phone: 01-19-2022 09:04-0400 Heart rate 72 /min Dr. Ramiro Ren Work Phone: [facility] Work Phone: 01-19-2022 09:04-0400 SaO2% (BldA) [Mass fraction] 98 % Dr. Ramiro Ren Work Phone: [facility] Work Phone: 01-19-2022 09:04-0400 Systolic blood pressure 132 mm[Hg] Dr. Ramiro Ren Work Phone: [facility] Work Phone: 12-08-2021 09:01-0400 Body mass index (BMI) [Ratio] 30.5 kg/m2 Dr. Ramiro Ren Work Phone: [facility] Work Phone: 12-08-2021 09:01-0400 Body temperature 97.7 [degF] Dr. Ramiro Ren Work Phone: [facility] Work Phone: 12-08-2021 09:01-0400 Body weight 88.[address] Ramiro Ren Work Phone: [facility] Work Phone: 12-08-2021 09:01-0400 Diastolic blood pressure 83 mm[Hg] Dr. Ramiro Ren Work Phone: [facility] Work Phone: 12-08-2021 09:01-0400 Heart rate 92 /min Dr. Ramiro Ren Work Phone: [facility] Work Phone: 12-08-2021 09:01-0400 Respiratory rate 18 /min Dr. Ramiro Ren Work Phone: [facility] Work Phone: 12-08-2021 09:01-0400 SaO2% (BldA) [Mass fraction] 99 % Dr. Ramiro Ren Work Phone: [facility] Work Phone: 12-08-2021 09:01-0400 Systolic blood pressure 126 mm[Hg] Dr. Ramiro Ren Work Phone: [facility] Work Phone: 11-15-2021 08:54-0400 Body height 170.[address] Ramiro Ren Work Phone: [facility] Work Phone: 11-15-2021 08:54-0400 Body mass index (BMI) [Ratio] 30.4 kg/m2 Dr. Ramiro Ren Work Phone: [facility] Work Phone: 11-15-2021 08:54-0400 Body weight 87.[address] Ramiro Ren Work Phone: [facility] Work Phone: 11-15-2021 08:54-0400 Diastolic blood pressure 75 mm[Hg] Dr. Ramiro Ren Work Phone: [facility] Work Phone: 11-15-2021 08:54-0400 Heart rate 71 /min Dr. Ramiro Ren Work Phone: [facility] Work Phone: 11-15-2021 08:54-0400 SaO2% (BldA) [Mass fraction] 98 % Dr. Ramiro Ren Work Phone: [facility] Work Phone: 11-15-2021 08:54-0400 Systolic blood pressure 120 mm[Hg] Dr. Ramiro Ren Work Phone: [facility] Work Phone: 03-19-2016 08:06-0400 BMI (Body Mass Index) 23.49 kg/m2 [facility] Work Phone: 03-19-2016 08:06-0400 Height 170.18 cm [facility] Work Phone: 03-19-2016 08:06-0400 Weight 68.04 kg Aundrea Mendez [facility] Work Phone: Encounters Encounter Date Encounter Type Care Provider Facility Start: 03-18-2025 ambulatory Angela Allen Facility :[facility] Start: 03-16-2025 ambulatory Katie Page Jovanny lity:[facility] Start: 02-18-2025 End: 02-18-2025 Patient encounter procedure Ana Rahman CONVEYOR OPERATOR-C [facility] Work Phone: Start: 02-18-2025 End: 02-18-[address] Angela Allen MD Work Phone: [facility] Start: 01-26-2025 End: 01-26-2025 ambulatory LEANN SHIN [facility] Start: 01-22-2025 End: 01-22-2025 Patient encounter procedure Bea Montano [facility] Work Phone: Start: 01-22-2025 End: 01-22-[address] Angela Allen MD Work Phone: [facility] Start: 12-23-2024 End: 12-23-[address] Linh Jean-Baptiste DO -[facility] Work Phone: Start: 12-23-2024 End: 12-23-[address] Angela Allen MD Work Phone: [facility] Start: 12-23-2024 End: 12-23-2024 ambulatory Linh Jean-Baptiste Facility:[facility] Start: 11-20-2024 End: 11-20-2024 Patient encounter procedure Candace Bernal [facility] Work Phone: Start: 11-20-2024 End: 11-20-[address] Angela Allen MD Work Phone: [facility] [place] [facility] Work Phone: Start: 11-20-2024 End: 11-20-2024 ambulatory Angela Allen Facility:[facility] Start: 09-15-2024 Non-patient / Non-visit Dr. Kennedy Rushing MD -[facility] Work Phone: Start: 09-15-2024 End: 09-15-[address] Angela Allen MD Work Phone: [facility] Work Phone: Start: 09-15-2024 End: 09-15-2024 Patient encounter procedure Bhavesh MAN -Pulmonary Services/Neurology Work Phone: Start: 09-15-2024 End: 09-15-2024 ambulatory Angela Allen Facility:[facility] Start: 09-04-2024 End: 09-04-2024 Patient encounter procedure Bhavesh MAN -[facility] Work Phone: Start: 09-04-2024 End: 09-04-[address] Angela Allen MD Work Phone: [facility] Work Phone: Start: 09-04-2024 End: 09-04-2024 ambulatory Angela Allen Facility:[facility] Start: 08-24-2024 End: 08-24-[address] Angela Allen MD Work Phone: [facility] Work Phone: Start: 08-24-2024 End: 08-24-2024 Patient encounter procedure Bhavesh MAN -[facility] [place] Start: 08-24-2024 End: 08-24-2024 ambulatory Angela Allen Facility:[facility] Start: 07-15-2024 End: 07-15-2024 Patient encounter procedure Bhavesh MAN -[facility] Work Phone: Start: 07-15-2024 End: 07-15-2024 ambulatory Angela Tiffany Facility:[facility] Start: 07-06-2024 End: 07-06-[address] Angela Allen MD -Laboratory, [facility] Start: 07-06-2024 End: 07-06-2024 ambulatory Angela Denton Facility:[facility] Start: 07-02-2024 End: 07-02-[address] Angela Allen MD -Laboratory, [facility] Start: 07-02-2024 End: 07-02-2024 ambulatory Angela Denton Facility:[facility] Start: 05-06-2024 End: 05-06-2024 ambulatory Angela Denton Facility:[facility] Start: 10-23-2023 End: 10-23-2023 ambulatory DO Katarina M Westley Work Phone: [facility] Work Phone: Start: 10-23-2023 End: 10-23-2023 Patient encounter procedure DO Katarina Espinalnger Work Phone: [facility] Start: 10-23-2023 End: 10-23-2023 Patient encounter procedure DO Katarinachevy Espinalnger Work Phone: [facility] Work Phone: Start: 09-09-2023 End: 09-09-2023 ambulatory DO Katarina M Westley Work Phone: [facility] Work Phone: Start: 09-09-2023 End: 09-09-2023 Discharged Recurring DO Katarina Westley Work Phone: [facility]-Physical Therapy Work Phone: Start: 09-06-2023 End: 09-06-2023 ambulatory DO Katarina M Westley Work Phone: [facility] Work Phone: Start: 09-06-2023 End: 09-06-2023 Patient encounter procedure DO Katarina Christy Work Phone: [facility], [place] Work Phone: Start: 07-08-2023 End: 07-08-2023 ambulatory DO Katarina Christy Work Phone: [facility] Work Phone: Start: 07-08-2023 End: 07-08-2023 Patient encounter procedure DO [facility] Start: 07-08-2023 End: 07-08-2023 Patient encounter procedure DO Katarina Christy Work Phone: [facility] Work Phone: Start: 05-31-2023 End: 05-31-2023 Patient encounter procedure DO Katarina Christy Work Phone: [facility] [place] Work Phone: Start: 05-30-2023 End: 05-30-2023 Patient encounter procedure DO Katarina Christy Work Phone: [facility] Work Phone: Start: 05-28-2023 End: 05-28-2023 Patient encounter procedure DO Katarina Christy Work Phone: [facility] Work Phone: Start: 05-27-2023 Non-patient / Non-visit DO Katarina Christy Work Phone: [facility] Start: 05-26-2023 Non-patient / Non-visit DO Katarina Christy Work Phone: [facility] Start: 05-25-2023 Non-patient / Non-visit DO Katarina Christy Work Phone: [facility] Start: 05-24-2023 Non-patient / Non-visit DO Katarina Christy Work Phone: [facility] Start: 05-24-2023 End: 05-27-2023 Evaluation and management of inpatient DO Katarina Christy [facility] Work Phone: Start: 05-24-2023 End: 05-24-2023 Patient encounter procedure DO Katarina Christy Work Phone: [facility] Work Phone: Start: 05-15-2023 End: 05-15-2023 Patient encounter procedure DO Katarina Christy Work Phone: [facility] Work Phone: Start: 05-07-2023 End: 05-07-2023 Patient encounter procedure DO Katarina Christy Work Phone: [facility] Work Phone: Start: 05-03-2023 End: 05-03-2023 Patient encounter procedure DO Katarina Christy Work Phone: [facility] Work Phone: Start: 04-26-2023 End: 04-26-2023 ambulatory DO Katarina Christy Work Phone: [facility] Work Phone: Start: 04-26-2023 End: 04-26-2023 Patient encounter procedure DO Katarina Christy Work Phone: [facility]-Laboratory, Specimen Work Phone: Start: 04-26-2023 End: 04-26-2023 Patient encounter procedure DO Katarina Horneer Work Phone: [facility] Work Phone: Start: 04-24-2023 End: 04-24-2023 ambulatory DO Katarina Christy Work Phone: [facility] Work Phone: Start: 04-24-2023 End: 04-24-2023 Patient encounter procedure DO Katarina Christy Work Phone: [facility] Work Phone: Start: 04-19-2023 End: 04-19-2023 Patient encounter procedure DO Katarina Christy Work Phone: [facility] Work Phone: Start: 04-05-2023 End: 04-05-2023 Patient encounter procedure DO Katarina Christy Work Phone: [facility] Work Phone: Start: 03-22-2023 End: 03-22-2023 Patient encounter procedure DO Katarina Christy Work Phone: [facility] Work Phone: Start: 03-08-2023 End: 03-08-[address] Ramiro Ren Work Phone: [facility] Work Phone: Start: 03-08-2023 End: 03-08-[address] Ramiro Ren Work Phone: [facility] Work Phone: Start: 02-08-2023 End: 02-08-[address] Ramiro Ren Work Phone: [facility] Work Phone: Start: 01-11-2023 End: 01-11-[address] Ramiro Ren Work Phone: [facility] Work Phone: Start: 12-14-2022 End: 12-14-[address] Ramiro Ren Work Phone: [facility] Work Phone: Start: 12-14-2022 End: 12-14-[address] Ramiro Ren Work Phone: [facility] Work Phone: Start: 11-15-2022 End: 11-15-2022 Emergency department patient visit Dr. Ramiro Ren [facility] Work Phone: Start: 11-05-2022 End: 11-05-[address] Ramiro Ren Work Phone: [facility] Work Phone: Start: 09-28-2022 End: 09-28-2022 ambulatory [facility] Work Phone: Start: 09-28-2022 End: 09-28-2022 [facility] Start: 09-26-2022 End: 09-26-2022 ambulatory [facility] Work Phone: Start: 09-26-2022 End: 09-26-2022 [facility] Start: 09-07-2022 End: 09-07-[address] Ramiro Ren Work Phone: [facility] Work Phone: Start: 09-07-2022 End: 09-07-[address] Ramiro Ren Work Phone: [facility] Start: 07-24-2022 End: 07-24-2022 ambulatory [facility] Work Phone: Start: 07-24-2022 End: 07-24-[address] Ramiro Ren Work Phone: [facility] Start: 06-26-2022 End: 06-26-[address] Ramiro Ren Work Phone: [facility] Work Phone: Start: 06-26-2022 End: 06-26-[address] Ramiro Ren Work Phone: [facility] Start: 05-23-2022 End: 05-23-[address] Ramiro Ren Work Phone: [facility] Start: 05-09-2022 Non-patient / Non-visit Dr. Ramiro Ren Work Phone: [facility] Start: 05-09-2022 End: 05-09-2022 Admission to same day surgery center Dr. Ramiro Ren Work Phone: [facility]-Endoscopy Start: 05-09-2022 End: 05-09-[address] Ramiro Ren Work Phone: [facility] Work Phone: Start: 04-13-2022 End: 04-13-[address] Ramiro Ren Work Phone: [facility] Start: 03-13-2022 End: 03-13-[address] Ramiro Ren Work Phone: [facility] Work Phone: Start: 03-13-2022 End: 03-13-[address] Ramiro Ren Work Phone: [facility] Start: 02-09-2022 End: 02-09-[address] Ramiro Ren Work Phone: [facility] Start: 01-19-2022 End: 01-19-[address] Ramiro Ren Work Phone: [facility] Start: 01-12-2022 End: 01-12-[address] Ramiro Ren Work Phone: [facility] Start: 12-19-2021 End: 12-19-[address] Ramiro Ren Work Phone: [facility]-Ultrasound, [facility] Start: 12-08-2021 End: 12-08-[address] Ramiro Ren Work Phone: [facility] Start: 12-01-2021 End: 12-01-[address] Ramiro Ren Work Phone: [facility]-Nuclear Medicine, [facility] Start: 11-17-2021 End: 11-17-[address] Ramiro Ren Work Phone: [facility]-Laboratory, Specimen Start: 11-15-2021 End: 11-15-[address] Ramiro Ren Work Phone: [facility]-Laboratory, [facility] Start: 11-15-2021 End: 11-15-[address] Ramiro Ren Work Phone: [facility] Start: 09-26-2021 End: 09-26-2021 Patient encounter procedure [facility]-Cat Scan, [facility] Procedures Date Procedure Procedure Detail Performing Clinician Start: 11-20-2024 Liquid based cervical cytology screening Dr. Angela Allen MD Work Phone: Comment on above: NEGATIVE FOR INTRAEPITHELIAL LESION OR M ALIGNANCY. This liquid based Th inPrep(R) pap test was screened withthe use of an image guided system. The HPV DNA reflex c jordy were not met with this specimenresult therefore, no HPV testing was performed.Performed at: [facility] [id number] Director: Abigail De La Torre MD, Phone: [phone] Start: 11-20-2024 Hepatitis C antibody measurement Dr. Asher Allen MD Work Phone: Comment on above: Reactive: Presumptive evidence of antibo dies to HCV. Follow CDC recommendations for supplemental testing.Non-Reactive: Antibodies to HCV were not detected; does not exclude the possibility of exposure to HCVReactive Results are presumptive evidence of antibodies to HCV. Follow CDC recommendations for supplemental testing.Order confirmation testing: HCV Quant by PCR testing - HCVPCR #[id number] Non Reactive: < 0.8 Equivocal: >/= 0.8 to < 1.0 Reactive: >/= 1.0The [facility] requires that a reactive/equivocal HCV antibody result be sent out for confirmation. HCV Quant by PCR testing. Start: 11-20-[address] Angela Allen MD Work Phone: Comment on above: Test Ordered: [id number] TSH Receptor Antibo dy (TBII)TSH Receptor Antibody (TBII) <0.3 U/L Reference Range: .Reference Range:Antibody Titer:<1.0 U/L = Negative1.1 - 1.5 U/L = Equivocal>1.5 U/L = PositivePerformed at: [facility] [address] [id number] Director: Francois Hastings MD, Phone: [phone] at: [facility] [id number] [place], [place] [id number] Director: Nicanor Barillas PhD, Phone: [phone] Start: 11-20-[address] Angela berry MD Work Phone: Comment on above: Antibody Result: InterpretationNon-React robin: Non-ImmuneReactive: ImmuneThe following results were obtained with the [employer] Rubella IgG assay. Results from assays of other manufacturers cannot be used interchangeably. Start: 11-20-2024 Serologic test for syphilis Dr. Angela olsen MD Work Phone: Start: 11-20-2024 Vitamin D, 25-hydroxy measurement Dr. Maxine BASSETT Work Phone: Comment on above: Vitamin D StatusDeficiency: <20 ng/mL (5 0nmol/L)Insufficiency: 20-30 ng/mL (50-75 nmol/L)Sufficiency: 30-100 ng/mL (75-250 nmol/L)Toxicity: >100 ng/mL (>250 nmol/L) Start: 11-20-[address] Angela Allen MD Work Phone: Start: 09-04-2024 D-dimer assay, quantitative Dr. Angela olsen MD Work Phone: Comment on above: NORMAL D-Dimer level (<0.50) indicates n o DVT or PE. Start: 09-04-2024 Vitamin D, 25-hydroxy measurement Dr. Maxine BASSETT Work Phone: Comment on above: Vitamin D StatusDeficiency: <20 ng/mL (5 0nmol/L)Insufficiency: 20-30 ng/mL (50-75 nmol/L)Sufficiency: 30-100 ng/mL (75-250 nmol/L)Toxicity: >100 ng/mL (>250 nmol/L) Start: 07-15-2024 Evaluation of diagnostic study results Dr. Angela Allen MD Work Phone: Start: 05-07-2023 Group B Streptococcus Culture DO Katarina Christy Work Phone: Start: 04-26-2023 Cytopathology procedure, preparation of smear, genital source DO Katarina Christy Work Phone: Start: 04-26-2023 Investigation of transfusion reaction DO Katarina Christy Work Phone: Start: 04-26-2023 Urine culture DO Katarina Christy Work Phone: Start: 11-05-[address] Ramiro Ren Work Phone: Start: 05-09-[address] Ramiro welch Work Phone: Start: 12-19-2021 US scan of gallbladder Dr. Ramior Ren Work Phone: Start: 12-01-2021 Radionuclide imaging of liver and/or biliary tract using radioactive isotope Dr. Ramiro Ren Work Phone: Start: 09-26-2021 Computed tomography of abdomen and pelvis with contrast Plan of Treatment Date Care Activity Detail Author Start: 12-23-2024 T4 free measurement [facility] Start: 12-23-2024 Thyroid stimulating hormone measurement [facility] Start: 11-20-2024 CBC W Auto Differential panel - Blood [facility] Start: 11-20-2024 Comprehensive metabolic 2000 panel - Serum or Plasma [facility] Start: 11-20-2024 Hemoglobin A1c/Hemoglobin.total in Blood [facility] Start: 11-20-2024 Hepatitis C antibody measurement [facility] Start: 11-20-2024 Procedure [facility] Start: 11-20-2024 Rubella IgG measurement [facility] Start: 11-20-2024 Serologic test for syphilis [facility] Start: 11-20-2024 T4 free measurement [facility] Start: 11-20-2024 Thyroid stimulating hormone measurement [facility] Start: 11-20-2024 Vitamin D, 25-hydroxy measurement [facility] Start: 11-20-2024 [facility] Start: 11-20-2024 Liquid based cervical cytology screening [facility] Start: 09-04-2024 CBC W Auto Differential panel - Blood [facility] Start: 09-04-2024 Comprehensive metabolic 2000 panel - Serum or Plasma [facility] Start: 09-04-2024 D-dimer assay, quantitative [facility] Start: 09-04-2024 Magnesium measurement [facility] Start: 09-04-2024 Vitamin D, 25-hydroxy measurement [facility] Start: 10-23-2023 Patient referral [facility] Work Phone: Start: 07-08-2023 Patient referral [facility] Work Phone: Start: 05-27-2023 Patient discharge [facility] Start: 05-26-2023 Administration of medication [facility] Start: 05-26-2023 Application of ice collar, cap or bag [facility] Start: 05-26-2023 Catheterization of vein [facility] Start: 05-26-2023 Introduction of urinary catheter [facility] Start: 05-26-2023 Measuring intake and output [facility] Start: 05-26-2023 Notification of physician [facility] Start: 05-26-2023 Procedure discontinued [facility] Start: 05-26-2023 Provision of activity privileges [facility] Start: 05-26-2023 Vital signs measurements [facility] Start: 05-26-2023 [facility] Start: 05-24-2023 Admission procedure [facility] Start: 05-09-2022 Egd transoral biopsy single/multiple EGD BIOPSY SINGLE/MULTIPLE [facility] Start: 05-09-2022 Patient discharge [facility] Start: 02-20-2017 End: 02-20-2017 Appointment Appointment [facility] Work Phone: Start: 05-02-2016 End: 05-02-2016 Physical Therapy General Physical Therapy [facility] Re[facility] Services, [address] [place] [address], [id number] [facility] Work Phone: Start: 03-28-2016 End: 03-28-2016 Physical Therapy General Physical Therapy [facility], [address] [place] [address], [id number] [facility] Work Phone: Start: 03-19-2016 End: 03-19-2016 Mri jnt of lwr extre w/o dye MRI Joint Lower Extremity [facility] Work Phone: Start: 03-19-2016 End: 03-19-2016 X-ray exam, knee, 4 or more X-Ray, Knee [facility] Work Phone: Alanine aminotransfe rase [Enzymatic activity/volume] in Serum or Plasma [facility] Alanine aminotransfe rase [Enzymatic activity/volume] in Serum or Plasma [facility] Albumin [Mass/volume ] in Serum or Plasma [facility] Albumin [Mass/volume ] in Serum or Plasma [facility] Alkaline phosphatase [Enzymatic activity/volume] in Serum or Plasma [facility] Alkaline phosphatase [Enzymatic activity/volume] in Serum or Plasma [facility] Ambulatory ECG [facility] Anion gap in Serum o r Plasma [facility] Anion gap in Serum o r Plasma [facility] Bilirubin, total measurement [facility] Bilirubin, total measurement [facility] BUN/Creatinine ratio [facility] BUN/Creatinine ratio [facility] Calcium [Mass/volume ] in Serum or Plasma [facility] Calcium [Mass/volume ] in Serum or Plasma [facility] Carbon dioxide, tota l [Moles/volume] in Central venous blood [facility] Carbon dioxide, tota l [Moles/volume] in Central venous blood [facility] CBC W Auto Different ial panel - Blood [facility] Chlamydia deoxyribon ucleic acid detection [facility] Creatinine [Mass/vol ume] in Serum or Plasma [facility] Creatinine [Mass/vol ume] in Serum or Plasma [facility] Erythrocyte mean corpuscular volume determination [facility] Erythrocyte mean corpuscular volume determination [facility] Glucose [Mass/volume ] in Serum or Plasma [facility] Glucose [Mass/volume ] in Serum or Plasma [facility] Hematocrit [Volume Fraction] of Blood [facility] Hematocrit [Volume Fraction] of Blood [facility] Hemoglobin [Mass/vol ume] in Blood [facility] Hemoglobin [Mass/vol ume] in Blood [facility] Hepatitis B virus rojas rface Ag [Presence] in Serum [facility] Leukocytes [#/volume ] in Blood [facility] Leukocytes [#/volume ] in Blood [facility] Liquid based cervica l cytology screening [facility] Mean corpuscular hemoglobin concentration determination [facility] Mean corpuscular hemoglobin concentration determination [facility] Mean corpuscular hemoglobin determination [facility] Mean corpuscular hemoglobin determination [facility] Measurement of gluco se 2 hours after glucose challenge for glucose tolerance test [facility] Measurement of renal function [facility] Measurement of renal function [facility] Neutrophil count [facility] Neutrophil count [facility] Neutrophil percent differential count [facility] Neutrophil percent differential count [facility] Path report.final Dx Spec [facility] Patient Education [facility] Work Phone: Patient referral [facility] Work Phone: Platelets [#/volume] in Blood [facility] Platelets [#/volume] in Blood [facility] Potassium measurement [facility] Potassium measurement [facility] Protein/Creatinine [ Ratio] in Urine [facility] Red blood cell count [facility] Red blood cell count [facility] Red cell distributio n width determination [facility] Red cell distributio n width determination [facility] Serologic test for syphilis [facility] Serum chloride measurement [facility] Serum chloride measurement [facility] Sodium measurement [facility] Sodium measurement [facility] T4 free measurement [facility] Thyroid stimulating hormone measurement [facility] Total protein measurement [facility] Total protein measurement [facility] Urea nitrogen [Mass/volume] in Serum or Plasma [facility] Urea nitrogen [Mass/volume] in Serum or Plasma [facility] [place] Immun[place] Date Immunization Notes Care Provider Akash munoz 05-10-2022 influenza, injectabl e, quadrivalent, preservative free Dr. Ramiro Ren Work Phone: [facility] 05-10-2022 influenza, seasonal, injectable Dr. Ramiro Ren Work Phone: [facility] 05-04-2021 influenza, injectabl e, quadrivalent, preservative free Dr. Ramiro Ren Work Phone: [facility] 05-04-2021 influenza, seasonal, injectable [facility] 05-04-2021 Seasonal, quadrivale nt, recombinant, injectable influenza vaccine, preservative free DO Katarina Christy Work Phone: [facility] 03-23-2020 influenza, injectabl e, quadrivalent, preservative free Dr. Ramiro Ren Work Phone: [facility] 03-23-2020 influenza, seasonal, injectable [facility] 05-06-2019 influenza, injectabl e, quadrivalent, preservative free Dr. Ramiro Ren Work Phone: [facility] 05-06-2019 influenza, seasonal, injectable [facility] 08-20-2018 hepatitis B vaccine, adult dosage [facility] 03-21-2018 influenza, injectabl e, quadrivalent, preservative free Dr. Ramiro Ren Work Phone: [facility] 03-21-2018 influenza, seasonal, injectable [facility] 02-10-2018 hepatitis B vaccine, adult dosage [facility] 12-14-2015 meningococcal polysaccharide (groups A, C, Y and W-135) diphtheria toxoid conjugate vaccine (MCV4P) DO Katarinachevy Christy Work Phone: [facility] 10-16-2010 meningococcal polysaccharide (groups A, C, Y and W-135) diphtheria toxoid conjugate vaccine (MCV4P) DO Katarinachevy Christy Work Phone: [facility] 10-16-2010 tetanus toxoid, redu reji diphtheria toxoid, and acellular pertussis vaccine, adsorbed DO Katarina Espinalnger Work Phone: [facility] 10-16-2010 varicella virus vaccine DO K paulie Westley Work Phone: [facility] 06-30-2003 diphtheria, tetanus toxoids and acellular pertussis vaccine DO Katarina Westley Work Phone: [facility] 06-30-2003 measles, mumps and rubella virus vaccine DO Katarina Westley Work Phone: [facility] 06-30-2003 poliovirus vaccine, inactivated DO Katarina Westley Work Phone: [facility] 11-27-1999 diphtheria, tetanus toxoids and acellular pertussis vaccine DO Katarina Westley Work Phone: [facility] 11-27-1999 haemophilus influenz ae type b vaccine, PRP-T conjugate DO Katarina Horneer Work Phone: [facility] 11-27-1999 poliovirus vaccine, inactivated DO Katarina Horneer Work Phone: [facility] 11-27-1999 varicella virus vaccine DO Vasile Christy Work Phone: [facility] 08-24-1999 measles, mumps and rubella virus vaccine DO Katarina Espinalnger Work Phone: [facility] 02-23-1999 diphtheria, tetanus toxoids and acellular pertussis vaccine DO Katarina Espinalnger Work Phone: [facility] 02-23-1999 haemophilus influenz ae type b vaccine, PRP-T conjugate DO Katarina Horneer Work Phone: [facility] 02-23-1999 hepatitis B vaccine, pediatric or pediatric/adolescent dosage DO Katarina Espinalnger Work Phone: [facility] 1998 diphtheria, tetanus toxoids and acellular pertussis vaccine DO Katarina Espinalnger Work Phone: [facility] 1998 haemophilus influenz ae type b vaccine, PRP-T conjugate DO Katarina Horneer Work Phone: [facility] 1998 poliovirus vaccine, inactivated DO Katarina Horneer Work Phone: [facility] 1998 diphtheria, tetanus toxoids and acellular pertussis vaccine DO Katarina Espinalnger Work Phone: [facility] 1998 haemophilus influenz ae type b vaccine, PRP-T conjugate DO Katarina Espinalnger Work Phone: [facility] 1998 hepatitis B vaccine, pediatric or pediatric/adolescent dosage DO Katarina Westley Work Phone: [facility] 1998 poliovirus vaccine, inactivated DO Katarina Horneer Work Phone: [facility] 1998 hepatitis B vaccine, pediatric or pediatric/adolescent dosage DO Katarina Westley Work Phone: [facility] Payers Date Payer Category Payer Self-pay [id number] 2024 Unknown [id number] 2015 Unknown [facility] [id number] 1998 Unknown [id number] 2.16. [id number] Unknown [id number] Unknown [id number] 2.16.8 [id number] Unknown [id number] 2.16.8 [id number] Unknown [id number] 2.16.8 [id number] Unknown [id number] 2.16.8 [id number] Unknown [id number] 2.16.8 [id number] Unknown [id number] 2.16.8 [id number] Unknown [id number] 2.16.8 [id number] Unknown [id number] 2.16.8 40.1.967056.3.579.2.462 Unknown [id number] 2.16.8 40.1.073838.3.579.2.462 Unknown [id number] 2.16.8 [id number] Unknown [id number] 2.16.8 40.1.806627.3.579.2.462 Unknown [id number] 2.16.8 [id number] Unknown [id number] 2.16.8 [id number] Unknown [id number] 2.16.8 40.1.183210.3.579.2.462 Unknown [id number] 2.16.8 [id number] Unknown [id number] 2.16.8 [id number] Unknown [id number] 2.16.8 [id number] Social History Date Type Detail Facility Start: 04-06-2021 End: 10-23-2023 Tobacco smoking status PRIS Unknown if ever smoked [facility] Start: 2000 Sex Assigned At Female [facility] Start: 10-23-2023 End: 11-06-2024 Tobacco smoking status NHIS Never smoked tobacco (finding) [facility] Start: 09-04-2024 End: 09-21-2024 Sex Female (finding) [facility] NEGATED: Highlighted row [facility] Goals Date Patient Goal Desired Activity /State Mental Status Date Assessment Result Facility 05-09-2022 Cognitive function Voice/Name [facility] Work Phone: Clinical Notes 09-09-2023 to 01-22-2025 Note Date & Type Note Facility 01-22-2025 Progress note [facility] 12-23-2024 Progress note [facility] 11-20-2024 Evaluation note Diagnosis Onset Date Resolution Anxiety acute November 20, 2024 2:27pm Eosinophilic esophagitis acute November 20, 2024 2:27pm H/O Leighton thyroiditis acute November 20, 2024 2:27pm History of gestational hypertension acute November 20, 2024 2:27pm Hx of maternal laceration, 3rd degree, currently acute November 20 2:27pm Hypothyroidism acute November 20, 2024 2:27pm Hypothyroidism affecting acute November 20, 2024 2:27pm Obesity affecting acute November 20, 2024 2:27pm Palpitations acute November 20 2:27pm acute November 20, 2024 2:27pm Supervision of high-risk acute November 20, 2024 2:27pm Anxiety acute December 23, 2024 10:37am Eosinophilic esophagitis acute December 23, 2024 10:37am H/O Leighton thyroiditis acute December 23, 2024 10:37am History of gestational hypertension acute December 23, 2024 10:37am Hx of maternal laceration, 3rd degree, currently acute December 23 10:37am Hypothyroidism acute December 23, 2024 10:37am Hypothyroidism affecting acute December 23, 2024 10:37am Obesity affecting acute December 23, 2024 10:37am Palpitations acute December 23 10:37am acute December 23, 2024 10:37am Supervision of high-risk acute December 23, 2024 10:37am Third degree laceration of perineum, type 3a acute December 23 10:37am Anxiety acute January 22 11:17am Eosinophilic esophagitis acute January 22, 2025 11:17am H/O Leighton thyroiditis acute January 22, 2025 11:17am History of gestational hypertension acute January 22, 2025 11:17am Hx of maternal laceration, 3rd degree, currently acute January 22 11:17am Hypothyroidism acute January 11:17am Hypothyroidism affecting acute January 22, 2025 11:17am Obesity affecting acute January 22, 2025 11:17am Palpitations acute January 22, 2025 11:17am acute January 22 11:17am Supervision of high-risk acute January 22, 2025 11:17am Third degree laceration of perineum, type 3a acute January 22, 2025 11:17am [facility] [place] [place] [facility] Work Phone: 1(329) 179-321405-30-2025 Evaluation note* Diagnosis Onset Date Resolution Status Admit Date Anxiety acute November 20, 2024 2:27pm Eosinophilic esophagitis acute November 20, 2024 2:27pm H/O Leighton thyroiditis acute November 20, 2024 2:27pm History of gestational hypertension acute November 20, 2024 2 :27pm Hx of maternal laceration, 3 rd degree, currently acute October 242024 2:27pm Hypothyroidism acute November 20, 2024 2:27pm Hypothyroidism affecting acute November 20, 2024 2 :27pm Obesity affecting acute November 20, 2024 2:27pm Palpitations acute November 20 2:27pm acute November 20, 2024 2:27pm Supervision of high-risk acute November 20, 2024 2 :27pm Anxiety acute December 23, 2024 10:37am Eosinophilic esophagitis acute December 23, 2024 10:37am H/O Leighton thyroiditis acute December 23, 2024 10:37am History of gestational hypertension acute December 23, 2024 1 0:37am Hx of maternal laceration, 3 rd degree, currently acute December 23, 2024 10:37am Hypothyroidism acute December 23, 2024 10:37am Hypothyroidism affecting acute December 23, 2024 1 0:37am Obesity affecting acute December 23, 2024 10:37am Palpitations acute December 23 10:37am acute December 23, 2024 10:37am Supervision of high-risk acute December 23, 2024 1 0:37am Third degree laceration of perineum, type 3a acute December 23, 2024 10:37am Anxiety acute January 22 11:17am Eosinophilic esophagitis acute January 22, 2025 11:17am H/O Leighton thyroiditis acute January 22, 2025 11:17am History of gestational hypertension acute January 22, 2025 11:17am Hx of maternal laceration, 3 rd degree, currently acute 2024 11:17am Hypothyroidism acute January 11:17am Hypothyroidism affecting acute January 22, 2025 11:17am Obesity affecting acute January 22, 2025 11:17am Palpitations acute January 22, 2025 11:17am acute January 22 11:17am Supervision of high-risk acute January 22, 2025 11:17am Third degree laceration of perineum, type 3a acute January 22 11:17am Anxiety acute February 18, 025 11:22am Eosinophilic esophagitis acute February 18, 2025 11:22am H/O Leighton thyroiditis acute February 18, 2025 11:22am History of gestational hypertension acute February 18 11:22am Hx of maternal laceration, 3 rd degree, currently acute 2024 11:22am Hypothyroidism acute January 11:22am Hypothyroidism affecting acute February 18 11:22am Obesity affecting acute February 18, 2025 11:22am Palpitations acute February 18, 2025 11:22am acute February 18, 2 025 11:22am Supervision of high-risk acute February 18 11:22am Third degree laceration of perineum, type 3a acute February 18, 2 025 11:22am [facility] Work Phone: 1(729) 423-235603-14-2025 Evaluation note* Diagnosis Onset Date Resolution Status Admit Date Palpitations acute September 04, 2024 7:29am Anxiety acute November 20, 2024 2:27pm Eosinophilic esophagitis acute November 20, 2024 2:27pm H/O Leighton thyroiditis acute November 20, 2024 2:27pm History of gestational hypertension acute November 20, 2024 2 :27pm Hypothyroidism acute November 20, 2024 2:27pm Hypothyroidism affecting acute November 20, 2024 2 :27pm Obesity affecting acute November 20, 2024 2:27pm Palpitations acute November 20 2:27pm acute November 20, 2024 2:27pm Supervision of high-risk acute November 20, 2024 2 :27pm [facility] Work Phone: 1(612) 161-210803-14-2025 Evaluation note* Diagnosis Onset Date Resolution Status Admit Date Palpitations acute September 04, 2024 7:29am Anxiety acute November 20, 2024 2:27pm Eosinophilic esophagitis acute November 20, 2024 2:27pm H/O Leighton thyroiditis acute November 20, 2024 2:27pm History of gestational hypertension acute November 20, 2024 2 :27pm Hx of maternal laceration, 3 rd degree, currently acute October 242024 2:27pm Hypothyroidism acute November 20, 2024 2:27pm Hypothyroidism affecting acute November 20, 2024 2 :27pm Obesity affecting acute November 20, 2024 2:27pm Palpitations acute November 20 2:27pm acute November 20, 2024 2:27pm Supervision of high-risk acute November 20, 2024 2 :27pm [facility] Work Phone: 1(798) 704-197103-14-2025 Evaluation note* Diagnosis Onset Date Resolution Status Admit Date Palpitations acute September 04, 2024 7:29am Anxiety acute November 20, 2024 2:27pm Eosinophilic esophagitis acute November 20, 2024 2:27pm H/O Leighton thyroiditis acute November 20, 2024 2:27pm History of gestational hypertension acute November 20, 2024 2 :27pm Hx of maternal laceration, 3 rd degree, currently acute October 242024 2:27pm Hypothyroidism acute November 20, 2024 2:27pm Hypothyroidism affecting acute November 20, 2024 2 :27pm Obesity affecting acute November 20, 2024 2:27pm Palpitations acute November 20 2:27pm acute November 20, 2024 2:27pm Supervision of high-risk acute November 20, 2024 2 :27pm Anxiety acute December 23, 2024 10:37am Eosinophilic esophagitis acute December 23, 2024 10:37am H/O Leighton thyroiditis acute December 23, 2024 10:37am History of gestational hypertension acute December 23, 2024 1 0:37am Hx of maternal laceration, 3 rd degree, currently acute December 23, 2024 10:37am Hypothyroidism acute December 23, 2024 10:37am Hypothyroidism affecting acute December 23, 2024 1 0:37am Obesity affecting acute December 23, 2024 10:37am Palpitations acute December 23 10:37am acute December 23, 2024 10:37am Supervision of high-risk acute December 23, 2024 1 0:37am Third degree laceration of perineum, type 3a acute December 23, 2024 10:37am [facility] Work Phone: 1(679) 163-737701-22-2025 Evaluation note* Diagnosis Onset Date Resolution Status Admit Date Hypothyroidism acute July 152024 2:03pm Palpitations acute June 2:03pm Palpitations acute September 04, 2024 7:29am [facility] Work Phone: 1(359) 951-114503-18-2024 Discharge summary Author Susy Thompson [facility] September 09, 2023 1:01pm Note Date/Time September 09, 2023 1:0 1pm [facility] Physical Therapy [facility] [address] [place] [address] / REHABILITATION SERVICES DISCHARGE SUMMARY MR#: [id number] Acct: [id number] Name: LILY FOUNTAIN Rep #: [id number] : 2000 23 From: Susy Thompson PT, Cert. MDT Referring Dr.: ELADIA Bernal Status: REG RCR Insurance: [employer]URANCE Discharge Summary D/C summary: It has been my pleasure to treat LILY FOUNTAIN referred by Candace Bernal CNM, with the diagnosis of THIRD DEGREE LACERATION OF PERINEUM, TYPE 3ADURING DELIVERY for a total of 7 visit(s). Discharge Date: 09/09/23 Please see the following information for a summary of their discharge status. Subjective Subjective: PATIENT REPORTS SHE IS DOING GOOD. SHE REPORTS HER SX'S ARE VERY SPORADIC NOW. SHE REPORTS SHE IS THANKFUL TO KNOW WHAT TO DO TO HELP HERSELF NOW AND HAS FOUND THIS HELPFUL. SHE REPORTS STARTING THE PELVIC FLOOR STRENGTHENING EX'S LAST VISIT WITH [employer]. HAS A PELVIC WAND NOW AND FEEL COMFORTABLE USING IT. Overall Improvement % Improvement: 95 Objective Objective/Function: THIS PATIENT HAS DONE REALLY WELL WITH PT. SHE IS INDEP WITH A HEP AND APPROPRIATE FOR AND AGREEABLE TO DISCARGE. FUNCTIONAL SCREEN: Incontinence Impact Questionnaire Score: 0 Urogenital Distress Inventory Score: 1 Goals Goal 1:: ABOLISH PAIN IN GENITAL ARE AFTER VOIDING. Goal Progress: Progressing Goal 2:: INCREASE FLEXIBILITY OF MARIBEL LE TIGHT MUSCLE GROUPS Goal Progress: Goal Met Goal 3:: PATIENT WILL DEMONSTRATE/COMMUNICATE 10 CONSISTENT AND CONSECUTIVE 10 SECOND PELVIC FLOOR MUSCLE CONTRACTIONS TO DEMONSTRATE IMPROVED PELVIC FLOOR ENDURANCE. Goal Progress: Progressing Goal 4:: PATIENT WILL BE INDEP WITH A HEP/HOME INSTRUCTIONS FOR CONTINUED IMPROVEMENT ONCE FORMAL PHYSICAL THERAPY CONCLUDES. Goal Progress: Goal Met Plan Plan: D/C D/C Information d/c sentence: If there are questions or concerns regarding this patient's physical therapy, please feel free to call me at [phone]. Thank you for the referral of thispatient. Sincerely, Susy Thompson, PT, Cert MDT Balance/Gait/Functional tests Improvement % Improvement: 95 <Electronically signed by Travis Dailey PT. MDT> 09/09/23 1301 CC: ELADIA Bernal; Katarina Christy, DO ~ FLAVIA Signed [facility] Work Phone: evaluation noteNo assessment information available [facility] Work Phone: Evaluation note* Diagnosis Onset Date Resolution Status Postprandial RUQ pain acute [facility] Work Phone: Evaluation note* Diagnosis Onset Date Resolution Status Postprandial RUQ pain acute Postprandial RUQ pain acute Postprandial RUQ pain acute Epigastric abdominal pain [facility] Work Phone: Evaluation note* Diagnosis Onset Date Resolution Status Postprandial RUQ pain acute Postprandial RUQ pain acute Epigastric abdominal pain [facility] Work Phone: Evaluation note* Diagnosis Onset Date Resolution Status Postprandial RUQ pain acute Postprandial RUQ pain acute Epigastric abdominal pain [facility] Encounter for routine gynecological examination noneactive [facility] Work Phone: evaluation note* Diagnosis Onset Date Resolution Status Encounter for routine gynecological examination noneactive Bile in stomach acute Eosinophilic esophagitis [facility] Work Phone: evaluation note* Diagnosis Onset Date Resolution Status Bile in stomach acute Eosinophilic esophagitis [facility] Work Phone: Evaluation note* Diagnosis Onset Date Resolution Status Hypothyroid in , antepartum acute Meniere disease acute acute Supervision of high risk , antepartum acute Hypothyroid in , antepartum acute Meniere disease acute acute Supervision of high risk , antepartum acute [facility] Work Phone: evaluation note* Diagnosis Onset Date Resolution Status Hypothyroid in , antepartum acute Meniere disease acute acute Supervision of high risk , antepartum acute Hypothyroid in , antepartum acute Meniere disease acute acute Supervision of high risk , antepartum acute Hypothyroid in , antepartum acute Meniere disease acute acute Supervision of high risk , antepartum acute Hypothyroid in , antepartum acute Meniere disease acute acute Supervision of high risk , antepartum acute [facility] Work Phone: Evaluation note* Diagnosis Onset Date Resolution Status Hypothyroid in , antepartum acute Meniere disease acute acute Supervision of high risk , antepartum acute Hypothyroid in , antepartum acute Meniere disease acute acute Supervision of high risk , antepartum acute Hypothyroid in , antepartum acute Meniere disease acute acute Supervision of high risk , antepartum acute Hypothyroid in , antepartum acute Meniere disease acute acute Supervision of high risk , antepartum acute Hypothyroid in , antepartum acute Meniere disease acute acute Supervision of high risk , antepartum acute Hypothyroid in , antepartum acute Meniere disease acute acute Supervision of high risk , antepartum acute Hypothyroid in , antepartum acute Meniere disease acute acute Supervision of high risk , antepartum acute Vaginitis acute [facility] Work Phone: Evaluation note* Diagnosis Onset Date Resolution Status Hypothyroid in , antepartum resolved Meniere disease resolved resolved Supervision of high risk , antepartum resolved Hypothyroid in , antepartum resolved Meniere disease resolved resolved Supervision of high risk , antepartum resolved Hypothyroid in , antepartum resolved Meniere disease resolved resolved Supervision of high risk , antepartum resolved Hypothyroid in , antepartum resolved Meniere disease resolved resolved Supervision of high risk , antepartum resolved Hypothyroid in , antepartum resolved Meniere disease resolved resolved Supervision of high risk , antepartum resolved Hypothyroid in , antepartum resolved Meniere disease resolved resolved Supervision of high risk , antepartum resolved Hypothyroid in , antepartum resolved Meniere disease resolved resolved Supervision of high risk , antepartum resolved Hypertension affecting resolved Hypothyroid in , antepartum resolved Meniere disease resolved resolved Supervision of high risk , antepartum resolved Gestational hypertension acu te (spontaneous vaginal delivery) acute Third degree laceration of perineum, type 3a acute Encounter for induction of labor resolved Hypertension affecting resolved Hypothyroid in , antepartum resolved Meniere disease resolved resolved Rupture of membranes with meconium present resolved Supervision of high risk , antepartum resolved Care and examination of lactating mother noneactive Care and examination of lactating mother noneactive Gestational hypertension acu te Hypothyroidism acute Third degree laceration of perineum, type 3a acute Routine Follow-Up noneactive [facility] Work Phone: Evaluation note* Diagnosis Onset Date Resolution Status Hypothyroid in , antepartum resolved Meniere disease resolved resolved Supervision of high risk , antepartum resolved Hypertension affecting resolved Hypothyroid in , antepartum resolved Meniere disease resolved resolved Supervision of high risk , antepartum resolved Gestational hypertension acu te (spontaneous vaginal delivery) acute Third degree laceration of perineum, type 3a acute Encounter for induction of labor resolved Hypertension affecting resolved Hypothyroid in , antepartum resolved Meniere disease resolved resolved Rupture of membranes with meconium present resolved Supervision of high risk , antepartum resolved Care and examination of lactating mother noneactive Care and examination of lactating mother noneactive Gestational hypertension acu te Hypothyroidism acute Third degree laceration of perineum, type 3a acute Routine Follow-Up noneactive [facility] Work Phone: Evaluation note* Diagnosis Onset Date Resolution Status Hypothyroidism acute Routine Follow-Up noneactive Eosinophilic esophagitis acu te Acquired hypothyroidism none active Establishing care with new doctor, encounter for noneactive Epigastric abdominal pain no neactive [facility] Work Phone: Progress note Author Linh Willis [facility] Note Date/Time December 23, 2024 11:03 am [facility] [address] [place] [address], [address] [place] [address] OFFICE VISIT Date of Service: 12/23/24 MR#: [id number] Acct: [id number] Name: LILY FOUNTAIN Rep #: [id number] : 2000 Provider: Dr. Leah Jean-Baptiste DO Age/Sex: 24/F Location: 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 Is patient in pain?: No Allergies No Known Allergies Allergy (Verified 12/23/24 10:38) Medications ?Medication ?Instructions ?Recorded ?Confirmed ?Type vitamin D2 20 mcg-vitamin K1 120 5 drp PO QDAY 5 12/23/24 History mcg/4 drops oral albuterol 90 mcg-budesonide 80 2 inh inhalation ONCE # 10.7 grams 09/04/24 12/23/24 Rx mcg/actuation HFA aerosol inhaler (Airsupra) magnesium glycinate 100 mg (as 200 mg PO QDAY 11/06/24 12/23/24 History glycinate) tablet (Mag Glycinate) multivit-min no.71-iron fum 28 cap PO 11/06/24 5 History mg-folate no.1 1 mg-dha 300 mg capsule (PNV[employer]) levothyroxine 112 mcg capsule 112 mcg PO QDAY #90 caps 11/12/24 12/23/24 Rx Last Menstrual Period: 09/15/24 Zika: Zika virus screening: Negative : No PFSH PFSH Medical History Third degree laceration of perineum, type 3a Vocal cord dysfunction Heart murmur (spontaneous vaginal delivery) Gestational hypertension Amenorrhea Bile in stomach Wears contact lenses Alcohol use Non-smoker Abnormal biliary HIDA scan Postprandial RUQ pain Abdominal pain Hypothyroidism Meniere disease Epigastric pain Surgical History Hx of wisdom tooth extraction S/P left knee surgery S/P right knee surgery S/P tonsillectomy Family History Mother Hypothyroid Father Hypertension Diabetes Social History adopted: No household members: spouse and children housing: house number of children: 1 current occupational status: unemployed current occupation: [employer] current occupational exposures/hazards: No pets and animals: No history of recent travel: No ( ) sexually active: Yes Smoking Status: Never smoker Electronic Cigarette Use: not used alcohol intake: current alcohol intake frequency: a few times a week details: But not while substance use type: does not use well-balanced diet: daily or most days caffeine: Yes Type: coffee Number of servings: 1 eating out: rarely or never during the past year weight has: remained stable what type of physical activity do you participate in: weight training frequency: 3-4 times per week duration: 30-45 minutes/day joseph/yarsanism: Sikhism seatbelt use: always do you feel safe at home: Yes additional social history: Spouse - Wayne Fountain History 2 Elective abortions Hx Para 1 Spontaneous abortions Hx # Term Pregnancies 1 Ectopic pregnancies Hx # Pregnancies Multiple births # of living children 1 Past Pregnancies Del. Date Name GA/Weeks Outcome Route Bth Weight Infant Gen Labor Lgth Anesthesia Del Locatn Provider FOB 05/26/23 Pauline 38 live - full term 7#14oz Male epid ural [facility] Candace Bernal IOL GHTN 3rd degree laceration Wayne Delivery Date: 05/26/23 Last Updated by: Pao Garcia IOL GHTN @ 38wks 3rd degree laceration HPI 13wk OB Details: LILY FOUNTAIN is a 24 year old who presents for routine OB visit. OB Visit ARTURO Calculator Estimated Delivery Date Method Current WG Current Estimate 06/22/25 LMP (Certain) 14w 1d Expected Delivery Route/Plan Labor Preferences- CB/BF classes: [] labor support person: [] labor intervention preferences: [] pain management options preferred: [] cut cord/dad catch: [] : [] PP control planned: [] discussed possible routes of delivery and associated risks: [] special requests: [] Specific Issue/Plans Covid status: [] Flu vaccine: [] Tdap vaccine: [] Rhogam: [] LARC form signed: [] Problem list reviewed and updated with the most current plan of care details and appropriate orders placed. Relevant counseling for the gestational age provided. Continue routine care and follow up unless otherwise noted in visit notes/problem list details Initial Weight: 210 lb Date -?-?-?-?-?-?-?-?-?-?-?-?- EGA Weight BP Urine Prot -?-?-?-?-?-?-?-?-?-?-?-?- Glucose FHR FuHt Pres Dilation -?-?-?-?-?-?-?-?-?-?-?-?- Effaced St Visit Note 11/20/24 -?-?-?-?-?-?-?-?-?-?-?-?- 9w 3d 210 lb 4 oz (+4 oz) 150/81 127/82 -?-?-?-?-?-?-?-?-?-?-?-?- 174 -?-?-?-?-?-?-?-?-?-?-?-?- LC- LC- 2.1cm LMP con with crl. declines nipt. hbga1c, thyroid labs added to nob. 12/23/24 -?-?-?-?-?-?-?-?-?-?-?-?- 14w 1d 211 lb 8 oz (+1 lb 8 oz) 118/75 -?-?-?-?-?-?-?-?-?-?-?-?- 154 -?-?-?-?-?-?-?-?-?-?-?-?- JV- states has s ome rapid heart rate. holter monitor prior to was normal. Also has concerns about leaking urine. not sure if wants to do pelvic floor PT yet. rpt tsh today. ACOG First Trimester First Trimester: Desire for , Alcohol, Tobacco Cessation, Illicit/Recreational Drug/Substance Use, Intimate Partner Violence, Barriers to care, Unstable Housing, Communication Barriers, Environmental/Work Hazards, Anticipated Course of Care, Toxoplasmosis Precations, Use of Any medications, Sexual activity, Exercise, Dental Care, Sauna/Hot tub use, Seat Belt use, Childbirth classes/Hospital facilities, Travel, Indications for Ultrasound and Screening for Aneuploidy; Discussed Second Trimester Second Trimester: Signs and Symptoms of Labor, Selecting a care provider, Reproductive Life Planning & Contreception, Care Planning, Depression/Anxiety and Intimate Partner Violence; Discussed Tobacco Cessation Third Trimester Third Trimester: Pain Management Plans, Labor support person(s), Immediate Larc, Movement Monitoring, Signs and Symptoms of Preeclampsia and Education Coding Level of Care Code OB Routine Diagnoses Hx of maternal laceration, 3rd degree, currently O09.299 Third degree laceration of perineum, type 3a O70.21 Supervision of high-risk O09.90 14 weeks gestation of Z3A.14 Weeks of gestation: 14 weeks Obesity affecting O99.210 Hypothyroidism affecting O99.280; E03.9 Anxiety F41.9 H/O Leighton thyroiditis Z86.39 History of gestational hypertension Z87.59 Palpitations R00.2 Eosinophilic esophagitis K20.0 Hypothyroidism, unspecified type E03.9 Hypothyroidism type: unspecified Assessment and Plan Assessment and Plan (1) Hx of maternal laceration, 3rd degree, currently : Status: Acute Comment: PFPT. may consider 39 week iol (2) Third degree laceration of perineum, type 3a: Status: Acute Comment: pelvic floor pt , referral made. PA approval of 7 visits 08/05-10/03/23 (3) Supervision of high-risk : Status: Acute Comment: , ARTURO 06/22/25, MODESTO Villalobos, Wayne (4) : Status: Acute Qualifiers: Weeks of gestation: 14 weeks Qualified Code(s): Z3A.14 - 14 weeks gestation of Comment: declined NIPT & Carrier testing (5) Obesity affecting : Status: Acute Comment: HgbA1c (6) Hypothyroidism affecting : Status: Acute Comment: levothyroxine (7) Anxiety: Status: Acute (8) H/O Leighton thyroiditis: Status: Acute Comment: levothyroxine (9) History of gestational hypertension: Status: Acute Comment: @ 38 wks first (10) Palpitations: Status: Acute (11) Eosinophilic esophagitis: Status: Acute (12) Hypothyroidism: Status: Acute Qualifiers: Hypothyroidism type: unspecified Qualified Code(s): E03.9 - Hypothyroidism, unspecified Orders: Orders POC Urinalysis 2 Dip (Clinic) Today T4 Free Direct Today E03.9 - Hypothyroidism, unspecified, O99.280 - Endocrine, nutritional and metabolic diseases complicating , unspecified trimester Thyroid Stim Hormone (TSH) Today E03.9 - Hypothyroidism, unspecified, O99.280 - Endocrine, nutritional and metabolic diseases complicating , unspecified trimester 12/23/24 1103 <Electronically signed by Linh Herrera DO> Date _ Linh Jean-Baptiste DO Cosigner Signature: Date (if applicable) CC: ~ [facility] [place] [place] [facility] Work Phone: Progress note Author Bea Montano [facility] [place] [place] [facility] Note Date/Time January 22, 2025 11: 53am [facility] [address], [address] [place] [address] OFFICE VISIT Date of Service: 01/22/25 MR#: [id number] Acct: [id number] Name: LILY FOUNTAIN Rep #: [id number] : 2000 Provider: ELADIA Montano Age/Sex: 24/F Location: [facility] [place] Status: Signed Intake Vital Signs 11/20/24 14:34 12/23/24 10:39 01/22/25 11:20 Height 5 ft 7 in 5 ft 7 in 5 ft 7 in Weight: 216 lb 5 oz BMI 33.8 BP 137/80 H Intake Visit Reasons: 17 wk ob Chief Complaint: 17wk OB 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 Required: No Is patient in pain?: No Allergies No Known Allergies Allergy (Verified 01/22/25 11:18) Medications ?Medication ?Instructions ?Recorded ?Confirmed ?Type vitamin D2 20 mcg-vitamin K1 120 5 drp PO QDAY 5 01/22/25 History mcg/4 drops oral albuterol 90 mcg-budesonide 80 2 inh inhalation ONCE # 10.7 grams 09/04/24 01/22/25 Rx mcg/actuation HFA aerosol inhaler (Airsupra) magnesium glycinate 100 mg (as 200 mg PO QDAY 11/06/24 01/22/25 History glycinate) tablet (Mag Glycinate) multivit-min no.71-iron fum 28 cap PO 11/06/24 5 History mg-folate no.1 1 mg-dha 300 mg capsule ([employer]) levothyroxine 112 mcg capsule 112 mcg PO QDAY #90 caps 11/12/24 01/22/25 Rx Last Menstrual Period: 09/15/24 : No PFSH PFSH Medical History Third degree laceration of perineum, type 3a Vocal cord dysfunction Heart murmur (spontaneous vaginal delivery) Gestational hypertension Amenorrhea Bile in stomach Wears contact lenses Alcohol use Non-smoker Abnormal biliary HIDA scan Postprandial RUQ pain Abdominal pain Hypothyroidism Meniere disease Epigastric pain Surgical History Hx of wisdom tooth extraction S/P left knee surgery S/P right knee surgery S/P tonsillectomy Family History Mother Hypothyroid Father Hypertension Diabetes Social History adopted: No household members: spouse and children housing: house number of children: 1 current occupational status: unemployed current occupation: [employer] current occupational exposures/hazards: No pets and animals: No history of recent travel: No ( ) sexually active: Yes Smoking Status: Never smoker Electronic Cigarette Use: not used alcohol intake: current alcohol intake frequency: a few times a week details: But not while substance use type: does not use well-balanced diet: daily or most days caffeine: Yes Type: coffee Number of servings: 1 eating out: rarely or never during the past year weight has: remained stable what type of physical activity do you participate in: weight training frequency: 3-4 times per week duration: 30-45 minutes/day joseph/yarsanism: Sikhism seatbelt use: always do you feel safe at home: Yes additional social history: Spouse - Wayne Fountain History 2 Elective abortions Hx Para 1 Spontaneous abortions Hx # Term Pregnancies 1 Ectopic pregnancies Hx # Pregnancies Multiple births # of living children 1 Past Pregnancies Del. Date Name GA/Weeks Outcome Route Bth Weight Gen Labor Lgth Anesthesia Del Locatn Provider FOB 05/26/23 Villalobos 38 live - full term 7#14oz Male epid ural [facility] Candace Benral IOL GHTN 3rd degree laceration Wayne Delivery Date: 05/26/23 Last Updated by: Pao Puneet Garcia IOL GHTN @ 38wks 3rd degree laceration HPI 17 wk ob Details: LILY FOUNTAIN is a 24 year old who presents for routine OB visit. OB Visit ARTURO Calculator Estimated Delivery Date Method Current WG Current Estimate 06/22/25 LMP (Certain) 18w 3d Expected Delivery Route/Plan Labor Preferences- CB/BF classes: [] labor support person: [] labor intervention preferences: [] pain management options preferred: [] cut cord/dad catch: [] : [] PP control planned: [] discussed possible routes of delivery and associated risks: [] special requests: [] Specific Issue/Plans Covid status: [] Flu vaccine: [] Tdap vaccine: [] Rhogam: [] LARC form signed: [] Problem list reviewed and updated with the most current plan of care details and appropriate orders placed. Relevant counseling for the gestational age provided. Continue routine care and follow up unless otherwise noted in visit notes/problem list details Initial Weight: 210 lb Date -?-?-?-?-?-?-?-?--?-?-?-?- EGA Weight BP Urine Prot -?-?-?-?-?-?-?-?-?-?-?-?- Glucose FHR FuHt Pres Dilation -?-?-?-?-?-?-?-?-?-?-?-?- Effaced St Visit Note 11/20/24 -?-?-?-?-?-?-?-?-?-?-?-?- 9w 3d 210 lb 4 oz (+4 oz) 150/81 127/82 -?-?-?-?-?-?-?-?-?-?-?-?- 174 -?-?-?-?-?-?-?-?-?-?-?-?- LC- LC- 2.1cm LMP con with crl. declines nipt. hbga1c, thyroid labs added to nob. 12/23/24 -?-?-?-?-?-?-?-?-?-?-?-?- 14w 1d 211 lb 8 oz (+1 lb 8 oz) 118/75 Negative -?-?-?-?-?-?-?-?-?-?-?-?- Negative 154 -?-?-?-?-?-?-?-?-?-?-?-?- JV- states has s ome rapid heart rate. holter monitor prior to was normal. Also has concerns about leaking urine. not sure if wants to do pelvic floor PT yet. rpt tsh today. 01/22/25 -?-?-?-?-?-?-?-?-?-?-?-?- 18w 3d 216 lb 5 oz (+6 lb 5 oz) 137/80 Negative -?-?-?-?-?-?-?-?-?-?-?-?- Negative 150 -?-?-?-?-?-?-?-?-?-?-?-?- KW- no vb/crampi ng. possible flutters. Declines AFP. US next tu. ACOG First Trimester First Trimester: Desire for , Alcohol, Tobacco Cessation, Illicit/Recreational Drug/Substance Use, Intimate Partner Violence, Barriers to care, Unstable Housing, Communication Barriers, Environmental/Work Hazards, Anticipated Course of Care, Toxoplasmosis Precations, Use of Any medications, Sexual activity, Exercise, Dental Care, Sauna/Hot tub use, Seat Belt use, Childbirth classes/Hospital facilities, Travel, Indications for Ultrasound and Screening for Aneuploidy; Discussed Second Trimester Second Trimester: Signs and Symptoms of Labor, Selecting a care provider, Reproductive Life Planning & Contreception, Care Planning, Depression/Anxiety and Intimate Partner Violence; Discussed Tobacco Cessation Third Trimester Third Trimester: Pain Management Plans, Labor support person(s), Immediate Larc, Movement Monitoring, Signs and Symptoms of Preeclampsia and [place] Education ROS Const Reports system reviewed and no additional complaints, except as documented Eyes Reports system reviewed and no additional complaints, except as documented ENT Reports system reviewed and no additional complaints, except as documented Card Reports system reviewed and no additional complaints, except as documented Resp Reports system reviewed and no additional complaints, except as documented GI Reports system reviewed and no additional complaints, except as documented, Denies nausea and Denies vomiting Reports system reviewed and no additional complaints, except as documented Musc Reports system reviewed and no additional complaints, except as documented Skin/Breast Reports system reviewed and no additional complaints, except as documented Neuro Yes system reviewed and no additional complaints, except as documented Psych Reports system reviewed and no additional complaints, except as documented Endo Reports system reviewed and no additional complaints, except as documented Codey/Lymph Reports system reviewed and no additional complaints, except as documented Aller/Immun Reports system reviewed and no additional complaints, except as documented Exam Const General: cooperative, healthy appearing and no acute distress Orientation: alert, awake and oriented x3 Neck Neck: normal visual inspection and full ROM Resp Effort & Inspection: normal respiratory effort, able to speak in complete sentences and symmetric chest movement GI Inspection: normal to inspection Palpation: soft and other Other: gravid Skin General: no rashes or lesions noted Neuro General: patient alert, patient awake and patient oriented x3 Cognition: normal cognition Speech: speech normal Gait: normal gait Motor: muscle tone normal throughout Extrem General: normal to inspection and full ROM Psych Appearance: grossly normal Mental Status: mental status grossly normal Mood: congruent mood Affect: normal affect Speech and Movement: speech and movement normal Attitude: cooperative Thought Process: normal Thought Content: normal Judgment: judgment good Results POC Urinalysis 2 Dip (Clinic) Office Urine Glucose Negative Last Edit by Tiffani Villarreal on 01/22/25 11:26 Office Urine Protein Negative Last Edit by Tiffani Villarreal on 01/22/25 11:26 Coding Level of Care Code OB Routine Diagnoses Hx of maternal laceration, 3rd degree, currently O09.299 Third degree laceration of perineum, type 3a O70.21 Supervision of high-risk O09.90 17 weeks gestation of Z3A.17 Weeks of gestation: 17 weeks Obesity affecting O99.210 Hypothyroidism affecting O99.280; E03.9 Anxiety F41.9 H/O Leighton thyroiditis Z86.39 History of gestational hypertension Z87.59 Palpitations R00.2 Eosinophilic esophagitis K20.0 Hypothyroidism, unspecified type E03.9 Hypothyroidism type: unspecified Assessment and Plan Assessment and Plan (1) Hx of maternal laceration, 3rd degree, currently : Status: Acute Comment: PFPT. may consider 39 week iol (2) Third degree laceration of perineum, type 3a: Status: Acute Comment: pelvic floor pt , referral made. PA approval of 7 visits 08/05-10/03/23 (3) Supervision of high-risk : Status: Acute Comment: , ARTURO 06/22/25, PC Wilfredo, Wayne (4) : Status: Acute Qualifiers: Weeks of gestation: 17 weeks Qualified Code(s): Z3A.17 - 17 weeks gestation of Comment: declined NIPT & Carrier testing (5) Obesity affecting : Status: Acute Comment: HgbA1c (6) Hypothyroidism affecting : Status: Acute Comment: levothyroxine (7) Anxiety: Status: Acute (8) H/O Leighton thyroiditis: Status: Acute Comment: levothyroxine (9) History of gestational hypertension: Status: Acute Comment: @ 38 wks first (10) Palpitations: Status: Acute (11) Eosinophilic esophagitis: Status: Acute (12) Hypothyroidism: Status: Acute Qualifiers: Hypothyroidism type: unspecified Qualified Code(s): E03.9 - Hypothyroidism, unspecified Orders: Orders POC Urinalysis 2 Dip (Clinic) Today Plan Details Additional Comments: ACOG trimester education reviewed and updated. see problem list details for updated plan management information and see below for orders placed at this visit. GA appropriate handout given. 01/22/25 1153 <Electronically signed by Bea rizo CNM> Date _ Bea Montano CNM Cosigner Signature: Date (if applicable) CC: ~ [facility] [place] [place] [facility] Work Phone: Reason for referral (narrative)No reason for referral information availableWMiddletown [facility] Work Phone: Chief Complaint and Reason for Visit Chief Complaint PERSISTENT ABDOMINAL PAIN Chief Complaint PERSISTENT ABDOMINAL PAIN ABD PAIN Reason for Visit Postprandial RUQ rachel n Chief Complaint PERSISTENT ABDOMINAL PAIN ABD PAIN RIGHT UPPER QUAD PAIN Reason for Visit Postprandial RUQ rachel n Chief Complaint RIGHT UPPER QUAD RACHEL N POSSIBLE CHOLECYSTECTOMY RUQ PAIN, ABNORMAL FUNCTION OF ORGANS MEDICATION CHECK 2 WK FU 4 W FU MEDICATION CHECK Reason for Visit Postprandial RUQ rachel n Postprandial RUQ pain Postprandial RUQ pain Epigastric abdominal pain Chief Complaint RUQ PAIN, ABNORMAL F UNCTION OF ORGANS MEDICATION CHECK 2 WK FU 4 W FU MEDICATION CHECK Reason for Visit Postprandial RUQ rachel n Postprandial RUQ pain Epigastric abdominal pain Chief Complaint MEDICATION CHECK 2 WK FU 4 W FU MEDICATION CHECK 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 cramps in preg 15wk ob E ORDER Reason for Visit Hypothyroid in pregn estrellita, antepartum Meniere disease Supervision of high risk , antepartum Hypothyroid in , antepartum Meniere disease Supervision of high risk , antepartum Chief Complaint cramps in preg 15wk ob E ORDER 19 WK OB 23 WK OB 27 WK OB Reason for Visit Hypothyroid in pregn estrellita, antepartum Meniere disease Supervision of high risk , antepartum Hypothyroid in , antepartum Meniere disease Supervision of high risk , antepartum Hypothyroid in , antepartum Meniere disease Supervision of high risk , antepartum Hypothyroid in , antepartum Meniere disease Supervision of high risk , antepartum Chief Complaint 19 WK OB 23 WK OB 27 WK OB 29 WK OB 31 WK OB 33 WK OB 2 ORDERING PHILIP BENSON Urinalysis for UTI sx Reason for Visit Hypothyroid in pregn estrellita, antepartum Meniere disease Supervision of high risk , antepartum Hypothyroid in , antepartum Meniere disease Supervision of high risk , antepartum Hypothyroid in , antepartum Meniere disease Supervision of high risk , antepartum Hypothyroid in , antepartum Meniere disease Supervision of high risk , antepartum Hypothyroid in , antepartum Meniere disease Supervision of high risk , antepartum Hypothyroid in , antepartum Meniere disease Supervision of high risk , antepartum Hypothyroid in , antepartum Meniere disease Supervision of high risk , antepartum Vaginitis Chief Complaint 29 WK OB 31 WK OB 33 WK OB 2 ORDERING PHILIP Acuña EOSHELLEY Urinalysis for UTI sx 35 WK OB pelvic pressure/discharge ROM 37 WK OB 38 WK OB LABOR AND DELIVERY LABOR AND DELIVERY LABOR AND DELIVERY LABOR AND DELIVERY LABOR AND DELIVERY assessment assessment BP CHECK per pt conversation with SM last night visit (obstetrics) E ORDERS Reason for Visit Hypothyroid in pregn estrellita, antepartum Meniere disease Supervision of high risk , antepartum Hypothyroid in , antepartum Meniere disease Supervision of high risk , antepartum Hypothyroid in , antepartum Meniere disease Supervision of high risk , antepartum Hypothyroid in , antepartum Meniere disease Supervision of high risk , antepartum Hypothyroid in , antepartum Meniere disease Supervision of high risk , antepartum Hypothyroid in , antepartum Meniere disease Supervision of high risk , antepartum Hypothyroid in , antepartum Meniere disease Supervision of high risk , antepartum Hypertension affecting Hypothyroid in , antepartum Meniere disease Supervision of high risk , antepartum Gestational hypertension (spontaneous vaginal delivery) Third degree laceration of perineum, type 3a Encounter for induction of labor Hypertension affecting Hypothyroid in , antepartum Meniere disease Rupture of membranes with meconium present Supervision of high risk , antepartum Care and examination of lactating mother Care and examination of lactating mother Gestational hypertension Hypothyroidism Third degree laceration of perineum, type 3a Routine Follow-Up Chief Complaint 37 WK OB 38 WK OB LABOR AND DELIVERY LABOR AND DELIVERY LABOR AND DELIVERY LABOR AND DELIVERY LABOR AND DELIVERY assessment assessment BP CHECK per pt conversation with SM last night visit (obstetrics) E ORDERS EORDER PELVIC FLOOR/RX HERE Reason for Visit Hypothyroid in pregn estrellita, antepartum Meniere disease Supervision of high risk , antepartum Hypertension affecting Hypothyroid in , antepartum Meniere disease Supervision of high risk , antepartum Gestational hypertension (spontaneous vaginal delivery) Third degree laceration of perineum, type 3a Encounter for induction of labor Hypertension affecting Hypothyroid in , antepartum Meniere disease Rupture of membranes with meconium present Supervision of high risk , antepartum Care and examination of lactating mother Care and examination of lactating mother Gestational hypertension Hypothyroidism Third degree laceration of perineum, type 3a Routine Follow-Up Chief Complaint visit (ob stetrics) E ORDERS EORDER PELVIC FLOOR/RX HERE 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 PPW SENT Reason for Visit Hypothyroidism Routine Follow-Up Eosinophilic esophagitis Acquired hypothyroidism Establishing care with new doctor, encounter for Epigastric abdominal pain Chief Complaint Admit Date acute - raised heartrate July 15, 2 025 2:03pm acute - high heart rate persists August 222024 7:29am Reason for Visit Admit Date Hypothyroidism July 15, 2024 2 :03pm Palpitations July 15, 2024 2 :03pm Palpitations September 04, 2024 7:2 9am Chief Complaint Admit Date acute - raised heartrate July 15, 025 2:03pm acute - high heart rate persists August 222024 7:29am DYSPNEA September 15, 2024 10: 49am Chief Complaint Admit Date acute - high heart rate persists August 222024 7:29am DYSPNEA September 15, 2024 10: 49am DYSPNEA September 15, 2024 11: 06am New OB, LMP 09/15, ARTURO 06/22November 20 2:27pm Reason for Visit Admit Date Palpitations September 04, 2024 7:2 9am Anxiety November 20, 2024 2:27p m Eosinophilic esophagitis November 20, 2024 2:27pm H/O Leighton thyroiditis November 20, 2024 2:27pm History of gestational hypertension November 20, 2024 2:27pm Hypothyroidism November 20, 2024 2:27p m Hypothyroidism affecting October 242024 2:27pm Obesity affecting November 20 2:27pm Palpitations November 20, 2024 2:27p m November 20, 2024 2:27p m Supervision of high-risk October 242024 2:27pm Reason for Visit Admit Date Palpitations September 04, 2024 7:2 9am Anxiety November 20, 2024 2:27p m Eosinophilic esophagitis November 20, 2024 2:27pm H/O Leighton thyroiditis November 20, 2024 2:27pm History of gestational hypertension November 20, 2024 2:27pm Hx of maternal laceration, 3rd degree, c urrently November 20, 2024 2:27pm Hypothyroidism November 20, 2024 2:27p m Hypothyroidism affecting October 242024 2:27pm Obesity affecting November 20 2:27pm Palpitations November 20, 2024 2:27p m November 20, 2024 2:27p m Supervision of high-risk October 242024 2:27pm Chief Complaint Admit Date acute - high heart rate persists August 222024 7:29am DYSPNEA September 15, 2024 10: 49am DYSPNEA September 15, 2024 11: 06am New OB, LMP 09/15, ARTURO 06/22November 20 2:27pm 13wk OB December 23, 2024 10:37 am Reason for Visit Admit Date Palpitations September 04, 2024 7:2 9am Anxiety November 20, 2024 2:27p m Eosinophilic esophagitis November 20, 2024 2:27pm H/O Leighton thyroiditis November 20, 2024 2:27pm History of gestational hypertension November 20, 2024 2:27pm Hx of maternal laceration, 3rd degree, c urrently November 20, 2024 2:27pm Hypothyroidism November 20, 2024 2:27p m Hypothyroidism affecting October 242024 2:27pm Obesity affecting November 20 2:27pm Palpitations November 20, 2024 2:27p m November 20, 2024 2:27p m Supervision of high-risk October 242024 2:27pm Anxiety December 23, 2024 10:37 am Eosinophilic esophagitis December 23, 2024 10:37am H/O Leighton thyroiditis December 23, 2024 10:37am History of gestational hypertension December 23, 2024 10:37am Hx of maternal laceration, 3rd degree, c urrently December 23, 2024 10:37am Hypothyroidism December 23, 2024 10:37 am Hypothyroidism affecting December 23, 2024 10:37am Obesity affecting December 23 10:37am Palpitations December 23, 2024 10:37 am December 23, 2024 10:37 am Supervision of high-risk December 23, 2024 10:37am Third degree laceration of perineum, typ e 3a December 23, 2024 10:37am Chief Complaint Admit Date New OB, LMP 09/15, ARTURO 06/22November 20 2:27pm 13wk OB December 23, 2024 10:37 am 17 wk ob January 22, 2025 11: 17am Reason for Visit Admit Date Anxiety November 20, 2024 2:27p m Eosinophilic esophagitis November 20, 2024 2:27pm H/O Leighton thyroiditis November 20, 2024 2:27pm History of gestational hypertension November 20, 2024 2:27pm Hx of maternal laceration, 3rd degree, c urrently November 20, 2024 2:27pm Hypothyroidism November 20, 2024 2:27p m Hypothyroidism affecting October 242024 2:27pm Obesity affecting November 20 2:27pm Palpitations November 20, 2024 2:27p m November 20, 2024 2:27p m Supervision of high-risk October 242024 2:27pm Anxiety December 23, 2024 10:37 am Eosinophilic esophagitis December 23, 2024 10:37am H/O Leighton thyroiditis December 23, 2024 10:37am History of gestational hypertension December 23, 2024 10:37am Hx of maternal laceration, 3rd degree, c urrently December 23, 2024 10:37am Hypothyroidism December 23, 2024 10:37 am Hypothyroidism affecting December 23, 2024 10:37am Obesity affecting December 23 10:37am Palpitations December 23, 2024 10:37 am December 23, 2024 10:37 am Supervision of high-risk December 23, 2024 10:37am Third degree laceration of perineum, typ e 3a December 23, 2024 10:37am Anxiety January 22, 2025 11: 17am Eosinophilic esophagitis January 22 11:17am H/O Leighton thyroiditis January 22 11:17am History of gestational hypertension 2024 11:17am Hx of maternal laceration, 3rd degree, c urrently January 22, 2025 11:17am Hypothyroidism January 22, 2025 11: 17am Hypothyroidism affecting 2025 11:17am Obesity affecting January 22, 2025 11:17am Palpitations January 22, 2025 11: 17am January 22, 2025 11: 17am Supervision of high-risk Augus 2024 11:17am Third degree laceration of perineum, typ e 3a January 22, 2025 11:17am Chief Complaint Admit Date New OB, LMP 09/15, ARTURO 06/22November 20 2:27pm 13wk OB December 23, 2024 10:37 am 17 wk ob January 22, 2025 11: 17am 21 WK OB February 18, 2025 11 :22am Reason for Visit Admit Date Anxiety November 20, 2024 2:27p m Eosinophilic esophagitis November 20, 2024 2:27pm H/O Leighton thyroiditis November 20, 2024 2:27pm History of gestational hypertension November 20, 2024 2:27pm Hx of maternal laceration, 3rd degree, c urrently November 20, 2024 2:27pm Hypothyroidism November 20, 2024 2:27p m Hypothyroidism affecting October 242024 2:27pm Obesity affecting November 20 2:27pm Palpitations November 20, 2024 2:27p m November 20, 2024 2:27p m Supervision of high-risk October 242024 2:27pm Anxiety December 23, 2024 10:37 am Eosinophilic esophagitis December 23, 2024 10:37am H/O Leighton thyroiditis December 23, 2024 10:37am History of gestational hypertension December 23, 2024 10:37am Hx of maternal laceration, 3rd degree, c urrently December 23, 2024 10:37am Hypothyroidism December 23, 2024 10:37 am Hypothyroidism affecting December 23, 2024 10:37am Obesity affecting December 23 10:37am Palpitations December 23, 2024 10:37 am December 23, 2024 10:37 am Supervision of high-risk December 23, 2024 10:37am Third degree laceration of perineum, typ e 3a December 23, 2024 10:37am Anxiety January 22, 2025 11: 17am Eosinophilic esophagitis January 22 11:17am H/O Leighton thyroiditis January 22 11:17am History of gestational hypertension Augu 2024 11:17am Hx of maternal laceration, 3rd degree, c urrently January 22, 2025 11:17am Hypothyroidism January 22, 2025 11: 17am Hypothyroidism affecting Janus 2024 11:17am Obesity affecting January 22, 2025 11:17am Palpitations January 22, 2025 11: 17am January 22, 2025 11: 17am Supervision of high-risk Janus 2024 11:17am Third degree laceration of perineum, typ e 3a January 22, 2025 11:17am Anxiety February 18, 2025 11 :22am Eosinophilic esophagitis February 18 11:22am H/O Leighton thyroiditis February 18, 025 11:22am History of gestational hypertension Augu st 2024 11:22am Hx of maternal laceration, 3rd degree, c urrently February 18, 2025 11:22am Hypothyroidism February 18, 2025 11 :22am Hypothyroidism affecting Augus 2024 11:22am Obesity affecting February 18, 2025 11:22am Palpitations February 18, 2025 11 :22am February 18, 2025 11 :22am Supervision of high-risk Janus 2024 11:22am Third degree laceration of perineum, typ e 3a February 18, 2025 11:22am Advance Directives No Advanced Directives Records Found Advance Directive Response Recorded Date/ Time Advance Directives No April 05, 2016 9:35am Living Will No April 05 9:35am Power of Electronic Equipment Maint Tech No April 05, 2016 9:35am Advance Directive Response Recorded Date/ Time Advance Directives No April 05, 2016 8:35am Living Will No May 08 022 9:12am Power of Electronic Equipment Maint Tech No May 08, 2022 9:12am Advance Directive Response Recorded Date/ Time Advance Directives No April 05, 2016 9:35am Living Will No May 08, 022 10:12am Power of Electronic Equipment Maint Tech No May 08, 2022 10:12am Advance Directive Response Recorded Date/ Time Advance Directives No April 05, 2016 9:35am Living Will No November 15, 2022 9 :27pm Power of Electronic Equipment Maint Tech No November 15, 2022 9:27pm Advance Directive Response Recorded Date/ Time Advance Directives No April 05, 2016 8:35am Living Will No November 15, 2022 8 :27pm Power of Electronic Equipment Maint Tech No November 15, 2022 8:27pm Advance Directive Response Recorded Date/ Time Advance Directives No April 05, 2016 8:35am Living Will No May 24 2:23pm Power of Electronic Equipment Maint Tech No May 24, 2023 2:23pm Advance Directive Response Recorded Date/ Time Advance Directives No April 05, 2016 9:35am Living Will No May 24 3:23pm Power of Electronic Equipment Maint Tech No May 24, 2023 3:23pm Advance Directive Response Recorded Date/ Time Advance Directives No April 05, 2016 9:35am Family History No Family History Records Found Relationship Condition Age at Onset Recorded Date/T antonella mother Hypothyroidism Unknown father Hypertension Unknown Relationship Condition Age at Onset Recorded Date/T antonella mother Hypothyroidism Unknown Prediabetes Unknown father Hypertension Unknown Relationship Condition Age at Onset Recorded Date/T antonella mother Hypothyroidism Unknown father Hypertension Unknown Diabetes mellitus Unknown Summary Purpose Additional Source Comments Goals (unrecognized section and content) Goals may be documented in a n alternate sectionGoals may be documented in an alternate sectionGoals may be documented in an alternate sectionGoals may be documented in an alternate sectionGoals may be documented in an alternate sectionGoals may be documented in an alternate sectionGoals may be documented in an alternate sectionGoals may be documented in an alternate sectionGoals may be documented in an alternate sectionGoals may be documented in an alternate sectionGoals may be documented in an alternate sectionGoals may be documented in an alternate sectionGoals may be documented in an alternate sectionGoals may be documented in an alternate sectionGoals may be documented in an alternate sectionGoals may be documented in an alternate sectionGoals may be documented in an alternate sectionGoals may be documented in an alternate sectionGoals may be documented in an alternate sectionGoals may be documented in an alternate sectionGoals may be documented in an alternate sectionGoals may be documented in an alternate sectionGoals may be documented in an alternate sectionGoals may be documented in an alternate section Care Teams (unrecognized sec tion and content) Team Status: Active Member Role Status Dates Dr. Ramiro Hernandez MD Family Provider Active Dr. Ramiro Ren MD Primary Care Provider Active Team Status: Inactive Member Role Status Dates Dr. Ramiro Ren MD Primary Care Provider, Referr ing Provider Active Dr. Linh Jean-Baptiste DO Attending Provider Activ e Team Status: Inactive Member Role Status Dates Dr. Ramiro Ren MD Primary Care Provider, Referr ing Provider Active Maryjo Fletcher CONVEYOR OPERATOR, CONVEYOR OPERATOR-C Attending Provider Active Team Status: Active Member Role Status Dates Dr. Ramiro Ren MD Primary Care Provider, Referr ing Provider Active Dr. Jonas Simpson DO Attending Provider, Other Prov ider Active Team Status: Active Member Role Status Dates Dr. Ramiro Ren MD Primary Care Provider Active Dr. Jonas Simpson DO Attending Provider Active Team Status: Inactive Member Role Status Dates Dr. Ramiro Ren MD Primary Care Provider, Referr ing Provider Active Dr. Jonas Simpson DO Attending Provider Active Team Status: Inactive Member Role Status Dates Dr. Ramiro Ren MD Primary Care Provider Active Dr. Katie Page MD Attending Provider, Referr ing Provider Active Team Status: Active Member Role Status Dates Dr. Ramiro Ren MD Primary Care Provider Active WILL, TINAJERO Attending Provider, Referring Provid er Active Team Status: Inactive Member Role Status Dates Dr. Ramiro Ren MD Primary Care Provider Active Sujata Campuzano , CONVEYOR OPERATOR-C Attending Provider, Referr ing Provider Active Team Status: Inactive Member Role Status Dates Dr. Ramiro Ren MD Primary Care Provider Active WILL, TINAJERO Referring Provider Active WILL, TINAJERO Attending Provider Active Team Status: Active Member Role Status Dates Dr. Ramiro Ren MD Primary Care Provider Active Ana Rahman CONVEYOR OPERATOR, CONVEYOR OPERATOR-C Attending Provider, Referring Provider Active Team Status: Inactive Member Role Status Dates Dr. Ramiro Ren MD Primary Care Provider Active Ana Rahman CONVEYOR OPERATOR, CONVEYOR OPERATOR-C Attending Provider, Referring Provider Active Team Status: Active Member Role Status Dates Dr. Ramiro Ren MD Primary Care Provider Active Ana Rahman CONVEYOR OPERATOR, CONVEYOR OPERATOR-C Attending Provider Active Team Status: Inactive Member Role Status Dates Dr. Ramiro Ren MD Primary Care Provider Active Ana Rahman NP, CONVEYOR OPERATOR-C Attending Provider Active Team Status: Active Member Role Status Dates Dr. Ramiro Hernandez MD Family Provider Active Katarina Christy DO Primary Care Provider Active Team Status: Inactive Member Role Status Dates Dr. Ramiro Ren MD Primary Care Provider, Referr ing Provider Active Dr. Katie Page MD Attending Provider Active Team Status: Inactive Member Role Status Dates Dr. Ramiro Ren MD Referring Provider Active Dr. Linh Jean-Baptiste DO Attending Provider Activ e Katarina Christy , DO Primary Care Provider Active Team Status: Inactive Member Role Status Dates Dr. Ramiro Ren MD Primary Care Provider Active Dr. Katie Page MD Attending Provider, Referr ing Provider Active Sujata Campuzano CONVEYOR OPERATOR-C Other Provider Active Team Status: Inactive Member Role Status Dates Dr. Savage Bonds MD Attending Provider, Emergency Pr ovider Active Katarina Christy DO Primary Care Provider Active Team Status: Inactive Member Role Status Dates Katarina Christy DO Primary Care Provider Active Dr. Linh Jean-Baptiste DO Attending Provider Activ e Team Status: Inactive Member Role Status Dates Katarina Christy DO Primary Care Provider, Referring Provider Active Dr. Katie Page MD Attending Provider Active Team Status: Inactive Member Role Status Dates Katarina Christy DO Referring Provider Active Dr. Linh Jean-Baptiste DO Attending Provider Activ e Team Status: Inactive Member Role Status Dates Katarina Christy DO Primary Care Provider Active Dr. Katie Page MD Attending Provider, Referr ing Provider Active Team Status: Inactive Member Role Status Dates Bea Montano CNM Attending Provider Active Katarina Christy DO Primary Care Provider, Referring Provider Active Team Status: Inactive Member Role Status Dates Candace Bernal CNM Attending Provider Active Katarina Christy DO Primary Care Provider, Referring Provider Active Team Status: Inactive Member Role Status Dates Katarina Christy DO Primary Care Provider, Referring Provider Active Dr. Linh Jean-Baptiste DO Attending Provider Activ e Team Status: Inactive Member Role Status Dates Katarina Christy DO Primary Care Provider Active Dr. Katie Page MD Attending Provider, Referr ing Provider Active Candace Bernal CNM Other Provider Active Team Status: Active Member Role Status Dates Katarina Christy , Primary Care Provider Active Dr. Linh Jean-Baptiste , DO Attending Provider, Refe rring Provider Active Team Status: Inactive Member Role Status Dates Katarina Christy , DO Primary Care Provider Active Dr. Linh Jean-Baptiste , DO Attending Provider, Refe rring Provider Active Team Status: Inactive Member Role Status Dates Dr. Linh Jean-Baptiste , Attending Provider Activ e Katarina Christy , DO Primary Care Provider, Referring Provider Active Team Status: Inactive Member Role Status Dates Dr. Katie Page MD Attending Provider Active Katarina Christy , DO Primary Care Provider, Referring Provider Active Team Status: Active Member Role Status Dates Katarina Christy , Primary Care Provider Active Candace Bernal CNM Admit Provider, At tending Provider, Referring Provider, Other Provider Active Dr. Linh Jean-Baptiste , Other Provider Active Team Status: Inactive Member Role Status Dates Katarina Christy , DO Primary Care Provider, Referring Provider Active Corina Kern CONVEYOR OPERATOR, CONVEYOR OPERATOR-C Attending Provider Active Team Status: Inactive Member Role Status Dates Katarina Chritsy , DO Primary Care Provider, Referring Provider Active Candace Bernal CNM Attending Provider Active Team Status: Inactive Member Role Status Dates Katarina Christy DO Primary Care Provider Active Candace Bernal CNM Admit Provider, At tending Provider, Referring Provider Active Dr. Linh Jean-Baptiste , DO Other Provider Active Team Status: Inactive Member Role Status Dates Katarina Christy , DO Primary Care Provider Active Candace Bernal CNM Attending Provider, Referring Pr ovider Active Team Status: Active Member Role Status Dates Katarina Christy , DO Primary Care Provi darya, Attending Provider, Referring Provider Active Team Status: Inactive Member Role Status Dates Katarina Christy , DO Primary Care Provi darya, Attending Provider, Referring Provider Active Team Status: Active Member Role Status Dates Dr. Ramiro Hernandez MD Family Provider Active Dr. Angela Allen MD Primary Care Provider Active Team Status: Inactive Member Role Status Dates Katarina Christy , DO Primary Care Provider, Referring Provider Active Dr. Angela Allen MD Attending Provider Active Team Status: Inactive Member Role Status Dates Dr. Angela Allen MD Primary Care Provider, Attendi ng Provider Active Team Status: Inactive Member Role Status Dates Dr. Angela Allen MD Primary Care Provider Active Start: July 02, 2024 End: July 02, 2024 Dr. Angela Allen MD Attending Provider Active Start: July 02, 2024 End: July 02, 2024 Dr. Angela Allen MD Referring Provider Active Start: July 02, 2024 End: July 02, 2024 Team Status: Inactive Member Role Status Dates Dr. Angela Allen MD Primary Care Provider Active Start: July 06, 2024 End: July 06, 2024 Dr. Angela Allen MD Attending Provider Active Start: July 06, 2024 End: July 06, 2024 Dr. Angela Allen MD Referring Provider Active Start: July 06, 2024 End: July 06, 2024 Team Status: Inactive Member Role Status Dates Dr. Angela Allen MD Primary Care Provider Active Start: July 15, 2024 End: July 15, 2024 Dr. Angela Allen MD Referring Provider Active Start: July 15, 2024 End: July 15, 2024 MAGDA Knowles Attending Provider Active St art: July 15, 2024 End: July 15, 2024 Team Status: Inactive Member Role Status Dates Dr. Angela Allen MD Primary Care Provider Active Start: August 24, 2024 End: August 24, 2024 MAGDA Knowles Attending Provider Active St art: August 24, 2024 End: August 24, 2024 Team Status: Inactive Member Role Status Dates Dr. Angela Allen MD Primary Care Provider Active Start: September 04, 2024 End: September 04, 2024 Dr. Angela Allen MD Referring Provider Active Start: September 04, 2024 End: September 04, 2024 MAGDA Knowles Attending Provider Active St art: September 04, 2024 End: September 04, 2024 Team Status: Active Member Role Status Dates Dr. Angela Allen MD Primary Care Provider Active Start: September 04, 2024 Bhavesh Wayt PA, PA Attending Provider Active St art: September 04, 2024 Bhavesh MAN PA Referring Provider Active St art: September 04, 2024 Team Status: Active Member Role Status Dates Dr. Angela Allen MD Primary Care Provider Active Team Status: Inactive Member Role Status Dates Dr. Angela Allen MD Primary Care Provider Active Start: September 04, 2024 End: September 04, 2024 Bhavesh MAN PA Attending Provider Active St art: September 04, 2024 End: September 04, 2024 Bhavesh MAN PA Referring Provider Active St art: September 04, 2024 End: September 04, 2024 Team Status: Inactive Member Role Status Dates Dr. Angela Allen MD Primary Care Provider Active Start: September 15, 2024 End: September 15, 2024 Bhavesh MAN PA Attending Provider Active St art: September 15, 2024 End: September 15, 2024 Bhavesh MAN PA Referring Provider Active St art: September 15, 2024 End: September 15, 2024 Team Status: Active Member Role Status Dates Dr. Angela Allen MD Primary Care Provider Active Start: September 15, 2024 Dr. Kennedy Rushing MD Attending Provider Active S tart: September 15, 2024 Bhavesh MAN PA Referring Provider Active St art: September 15, 2024 Team Status: Inactive Member Role Status Dates Dr. Angela Allen MD Primary Care Provider Active Start: November 20, 2024 End: November 20, 2024 Dr. Angela Allen MD Referring Provider Active Start: November 20, 2024 End: November 20, 2024 Candace Bernal CNM Attending Provider Active Start: November 20, 2024 End: November 20, 2024 Team Status: Active Member Role Status Dates Dr. Angela Allen MD Primary Care Provider Active Start: November 20, 2024 Candace Bernal CNM Attending Provider Active Start: November 20, 2024 Candace Bernal CNM Referring Provider Active Start: November 20, 2024 Team Status: Inactive Member Role Status Dates Dr. Angela Allen MD Primary Care Provider Active Start: November 20, 2024 End: November 20, 2024 Candace Bernal CNM Attending Provider Active Start: November 20, 2024 End: November 20, 2024 Candace Bernal CNM Referring Provider Active Start: November 20, 2024 End: November 20, 2024 Team Status: Active Member Role/Relationship Status Dates Dr. Angela Allen MD Primary Care Provider Active Team Status: Inactive Member Role/Relationship Status Dates Dr. Angela Allen MD Primary Care Provider Active Start: September 04, 2024 End: September 04, 2024 Dr. Angela Allen MD Referring Provider Active Start: September 04, 2024 End: September 04, 2024 Bhavesh MAN PA Attending Provider Active St art: September 04, 2024 End: September 04, 2024 Team Status: Inactive Member Role/Relationship Status Dates Dr. Angela Allen MD Primary Care Provider Active Start: September 04, 2024 End: September 04, 2024 Bhavesh MAN PA Attending Provider Active St art: September 04, 2024 End: September 04, 2024 Bhavesh MAN PA Referring Provider Active St art: September 04, 2024 End: September 04, 2024 Team Status: Inactive Member Role/Relationship Status Dates Dr. Angela Allen MD Primary Care Provider Active Start: September 15, 2024 End: September 15, 2024 Bhavesh MAN PA Attending Provider Active St art: September 15, 2024 End: September 15, 2024 Bhavesh MAN PA Referring Provider Active St art: September 15, 2024 End: September 15, 2024 Team Status: Active Member Role/Relationship Status Dates Dr. Angela Allen MD Primary Care Provider Active Start: September 15, 2024 Dr. Kennedy Rushing MD Attending Provider Active S tart: September 15, 2024 Bhavesh MAN PA Referring Provider Active St art: September 15, 2024 Team Status: Inactive Member Role/Relationship Status Dates Dr. Angela Allen MD Primary Care Provider Active Start: November 20, 2024 End: November 20, 2024 Dr. Angela Allen MD Referring Provider Active Start: November 20, 2024 End: November 20, 2024 Candace Bernal CNM Attending Provider Active Start: November 20, 2024 End: November 20, 2024 Team Status: Inactive Member Role/Relationship Status Dates Dr. Angela Allen MD Primary Care Provider Active Start: November 20, 2024 End: November 20, 2024 Candace Bernal CNM Attending Provider Active Start: November 20, 2024 End: November 20, 2024 Candace Bernal CNM Referring Provider Active Start: November 20, 2024 End: November 20, 2024 Team Status: Inactive Member Role/Relationship Status Dates Dr. Angela Allen MD Primary Care Provider Active Start: December 23, 2024 End: December 23, 2024 Dr. Angela Allen MD Referring Provider Active Start: December 23, 2024 End: December 23, 2024 Dr. Linh Jean-Baptiste DO Attending Provider Activ e Start: December 23, 2024 End: December 23, 2024 Team Status: Active Member Role/Relationship Status Dates Dr. Angela Allen MD Primary Care Provider Active Start: December 23, 2024 Dr. Linh Jean-Baptiste DO Attending Provider Activ e Start: December 23, 2024 Team Status: Inactive Member Role/Relationship Status Dates Dr. Angela Allen MD Primary Care Provider Active Start: December 23, 2024 End: December 23, 2024 Dr. Linh Jean-Baptiste DO Attending Provider Activ e Start: December 23, 2024 End: December 23, 2024 Team Status: Inactive Member Role/Relationship Status Dates Dr. Angela Allen MD Primary Care Provider Active Start: November 20, 2024 End: November 20, 2024 Dr. Angela Allen MD Referring Provider Active Start: November 20, 2024 End: November 20, 2024 Candace Bernal CNM Attending Provider Active Start: November 20, 2024 End: November 20, 2024 Team Status: Inactive Member Role/Relationship Status Dates Dr. Angela Allen MD Primary Care Provider Active Start: November 20, 2024 End: November 20, 2024 Candace Bernal CNM Attending Provider Active Start: November 20, 2024 End: November 20, 2024 Candace Bernal CNM Referring Provider Active Start: November 20, 2024 End: November 20, 2024 Team Status: Inactive Member Role/Relationship Status Dates Dr. Angela Allen MD Primary Care Provider Active Start: December 23, 2024 End: December 23, 2024 Dr. Angela Allen MD Referring Provider Active Start: December 23, 2024 End: December 23, 2024 Dr. Linh Jean-Baptiste , Attending Provider Activ e Start: December 23, 2024 End: December 23, 2024 Team Status: Inactive Member Role/Relationship Status Dates Dr. Angela Allen MD Primary Care Provider Active Start: December 23, 2024 End: December 23, 2024 Dr. Linh Jean-Baptiste , Attending Provider Activ e Start: December 23, 2024 End: December 23, 2024 Team Status: Inactive Member Role/Relationship Status Dates Dr. Angela Allen MD Primary Care Provider Active Start: January 22, 2025 End: January 22, 2025 Dr. Angela Allen MD Referring Provider Active Start: January 22, 2025 End: January 22, 2025 Bea Montano CNM Attending Provider Active S tart: January 22, 2025 End: January 22, 2025 Team Status: Inactive Member Role/Relationship Status Dates Dr. Angela Allen MD Primary Care Provider Active Start: February 18, 2025 End: February 18, 2025 Dr. Angela Allen MD Referring Provider Active Start: February 18, 2025 End: February 18, 2025 Ana Rahman NP, JERE-C Attending Provider Active Start: February 18, 2025 End: February 18, 2025 INFORMATION SOURCE (unrecogn ized section and content) DATE CREATED AUTHOR 01/29/2025 [facility] DATE CREATED AUTHOR AUTHOR'S RHEAIZ ATION 03/13/2025 [facility] FOR RECORDS PERTAINING TO PATIENTS WHO ARE [...] BE BASED ON THE PRIMARY CLINICAL RECORDS. [facility] [facility]. provides no warranty or guarantee of the accuracy or completeness of information in this document.
--- OUTSIDE RECORDS SUMMARY | 2025-03-16 12:17 | XMS RPT_ITS | CCD ---
Author Organization [facility] CliniSyct Care Team Providers Care Slitter And Rewinder Machine Operator Name Role Phone Aundrea Mendez N Unavailable Aundrea Mendez N Unavailable Aundrea Mendez N Unavailable Dr. Ramiro Ren Primary Care Provider [phone] Dr. Ramiro Ren Referring Provider Chance OQUENDO NP-Zainab Teixeira Attending Provider [phone] Dr. Ramiro Ren Primary Care Provider Dr. Ramiro Ren Referring Provider Dr. Altagracia Conroy Attending Provider Chance OQUENDO NP-Zainab Teixeira Attending Provider [phone] Dr. Ramiro Ren Primary Care Provider [phone] Dr. Ramiro Ren Referring Provider Dr. Altagracia Conroy Attending Provider Dr. Ramiro Ren Primary Care Provider Dr. Ramiro Ren Referring Provider Dr. Altagracia Conroy Attending Provider Chance OQUENDO NP-Zainab Teixeira Attending Provider [phone] Dr. Linh Jean-Baptiste Attending Provider [phone] Friend[address] Mcdaniel Attending Provider [phone] FriendDr. Mcdaniel Other Provider [phone] Dr. Ramiro Ren Primary Care Provider Dr. Ramiro Ren Referring Provider Chance DIRECTOR BUSINESS DEVELOPMENT, DIRECTOR BUSINESS DEVELOPMENT-C Maryjo Teixeira Attending Provider [phone] Dr. Ramiro Ren Primary Care Provider Dr. Ramiro Ren Referring Provider Chance DIRECTOR BUSINESS DEVELOPMENT, DIRECTOR BUSINESS DEVELOPMENT-C Maryjo Teixeira Attending Provider [phone] Dr. Ramiro Ren Primary Care Provider Dr. Ramiro Ren Referring Provider Dr. Katie Page Attending Provider [phone] Dr. Linh Jean-Baptiste Attending Provider [phone] Westely, DO Katarina M Primary Care Provider [phone] ELADIA Bernal Admit Provider [phone] ELADIA Bernal Referring Provider [phone] ELADIA Bernal Other Provider [phone] Dr. Linh Jean-Baptiste Other Provider Erlin DIRECTOR BUSINESS DEVELOPMENT, DIRECTOR BUSINESS DEVELOPMENT-Zainab Arriaga Attending Provider Dr. Katie Page Attending Provider Westley, DO Katarina M Primary Care Provider Westley, DO Katarina M Referring Provider Dr. Linh Jean-Baptiste Attending Provider Bernal, BENITOM Candace Admit Provider Bernal, CNM Candace Attending Provider Bernal, CNM Candace Referring Provider Bernal, CNM Candace Other Provider Dr. Linh Jean-Baptiste Other Provider [place] DIRECTOR BUSINESS DEVELOPMENT, JERE-Zainab Arriaga Attending Provider [phone] Westley, [...] Provider Bernal BENITOM, Candace Referring Provider [phone] Tiffany BASSETT, Dr. Miller Primary Care Provider [phone] Bhavesh Gomez Attending Provider [phone] Juve Willis DO, Dr. Melton Attending Provider Tiffany BASSETT, Dr. Miller Primary Care Provider [phone] Tiffany BASSETT, Dr. Miller Referring Provider Dusty MONTILLA, Bea Attending Provider [phone] LEANN SHIN Attending Unavailable LINH MELVIN Referring Unavailab balbina Rahman NP-C, Ana Attending Provider [phone] Katie Page Referring Unavailable Katie Page Attending Unavailable Ferndale, Angela Primary Care Unavailable Ferndale, Angela Primary Care Unavailable Bhavesh Gomez Attending Unavailable Bhavesh Gomez Referring Unavailable Ferndale, Angela Primary Care Unavailable Kennedy Rushing Attending Unavailable Bhavesh Gomez Referring Unavailable Ferndale, Angela Referring Unavailable Linh Jean-Baptiste Attending Unavailabl e Ferndale, Angela Primary Care Unavailable Ferndale, Angela Referring Unavailable Bea Montano Attending Unavailable Ferndale, Angela Primary Care Unavailable Tiffany, Angela Referring Unavailable Ana Rahman NP Attending Unavailable Tiffany, Angela Primary Care Unavailable Tiffany, Angela Primary Care Unavailable Tiffany, Angela Referring Unavailable Bhavesh Gomez Attending Unavailable Tiffany, Angela Primary Care Unavailable Ferndale, Angela Referring Unavailable Bhavesh Gomez Attending Unavailable Tiffany, Angela Primary Care Unavailable Ferndale, Angela Referring Unavailable Candace Bernal Attending Unavailable Ferndale, Angela Referring Unavailable Ferndale, Angela Primary Care Unavailable Linh Jean-Baptiste Attending Unavailabl e Tiffany, Angela Attending Unavailable Ferndale, Angela Primary Care Unavailable Ferndale, Angela Referring Unavailable Ferndale, Angela Primary Care Unavailable Bhavesh Gomez Attending Unavailable Bhavesh Gomez Referring Unavailable Tiffany, Angela Primary Care Unavailable Candace Bernal Referring Unavailable Candace Bernal Attending Unavailable Linh Jean-Baptiste Attending Unavailabl e Tiffany, Angela Primary Care Unavailable Ferndale Angela Attending Unavailable Tiffany, Angela Primary Care Unavailable Tiffany, Angela Referring Unavailable Tiffany, Angela Attending Unavailable Tiffany, Angela Primary Care Unavailable Tiffany, Angela Referring Unavailable Ferndale, Angela Primary Care Unavailable Bhavesh Gomez Attending [...] doses per day (12 inhalations) Start: 09-04-2024 Albuterol-[place] sonide (Airsupra) 90-80 mcg/actuation HFA aerosol inhaler [...] 2024 1:00am November 06, 2024 9:27am Mv-Mins 37-Yxgr-Dcgiz No.1-D egan (Pnv-B[place]creek) 28-1-300 mg capsule (6 sources) Start: 11-06-2024 Mv-Mins 71-Iro n-Folic No.1-Dha (Pnv-[place]) 28-1-300 mg capsule Active NMA PO November [...] Wayne , ARTURO 06/22/25, PC Wilfredo, Wayne [id number], ARTURO 5, PC Wilfredo, Wayne Other complications [...] Test Name Value Interpretation Reference Range Facility Single Pointed Operator Office Visit Reporton 02-18-2025 Single Pointed Operator Office Visit Report [facility]'s [address], [address] [place] [address] OFFICE VISIT Date of Service: 02/18/25 MR#: [id number] Acct: [id number] Name: LILY FOUNTAIN Rep #: [id number] : 2000 Provider: RUSTY engle Age/Sex: 24/F Location: [facility] Status: Signed Intake Vital Signs 12/23/24 10:39 01/22/25 11:20 02/18/25 11:09 02/18/25 11:09 Height 5 ft 7 in 5 ft 7 in 5 ft 7 in 5 ft 7 in Weight: 223 lb 8 oz 223 lb 8 oz BMI 34.9 34.9 BP 132/76 H Intake Visit Reasons: 21 WK OB Liaison Officer Required: No Is patient in pain?: No [...] mg-folate no.1 1 mg-dha 300 mg capsule (PNV-[place]) levothyroxine 112 mcg capsule 112 mcg PO [...] 1 current occupational status: unemployed current occupation: [employer] current occupational exposures/hazards: No pets and animals: [...] 3-4 times per week duration: 30-45 minutes/day joseph/confucianism: Anglican seatbelt use: always do you feel safe [...] live - full term 7#14oz Male epidural [facility] Candace Gabe IOL GHTN 3rd degree laceration [...] ?-???-???-???-???-???-? ?? (more content not included)... Normal [facility] Laboratory - Chemistry and C hemistry - challengeOrdered By: Bea Montano on 01-22-2025 Glucose Ql (U) Negative [facility] Laboratory - UrinalysisOrder ed By: Bea Montano on 01-22-2025 Protein Ql (U) Negative [facility] Single Pointed Operator Office Visit Reporton 01-22-2025 Single Pointed Operator Office Visit Report [facility] [address], [address] [place] [address] OFFICE VISIT Date of Service: 01/22/25 MR#: [id number] Acct: [id number] Name: LILY FOUNTAIN Rep #: [id number] : 2000 Provider: ELADIA Knowles ams Age/Sex: 24/F Location[place] [facility] Status: Signed Intake Vital Signs 11/20/24 14:34 12/23/24 10:39 01/22/25 11:20 Height 5 ft 7 in 5 ft 7 in 5 ft 7 in Weight: 216 lb 5 oz BMI 33.8 BP 137/80 H Intake Visit Reasons: 17 wk ob Chief Complaint: 17wk OB Liaison Officer Required: No Is patient in pain?: No [...] mg-folate no.1 1 mg-dha 300 mg capsule (PNV-[place]) levothyroxine 112 mcg capsule 112 mcg PO [...] 1 current occupational status: unemployed current occupation: [employer] current occupational exposures/hazards: No pets and animals: [...] 3-4 times per week duration: 30-45 minutes/day joseph/confucianism: Anglican seatbelt use: always do you feel safe [...] live - full term 7#14oz Male epidural [facility] Candace Bernal IOL GHTN 3rd degree laceration [...] -???-???-???-???-???-?? ?-???-??? (more content not included)... Normal [facility] Laboratory - Chemistry and C hemistry - challengeOrdered By: Linh Willis on 12-23-2024 Glucose Ql (U) Negative [facility] Laboratory - UrinalysisOrder ed By: Linh Willis on 12-23-2024 Protein Ql (U) Negative [facility] Single Pointed Operator Office Visit Reporton 12-23-2024 Single Pointed Operator Office Visit Report [facility]'s [address], [address] [place] [address] OFFICE VISIT Date of Service: 12/23/24 MR#: [id number] Acct: [id number] Name: LILY FOUNTAIN Rep #: [id number] : 2000 Provider: Dr. Linh Martinez DO Age/Sex: 24/F Location[place] [facility] [place] Status: Signed Intake Vital Signs 09/04/24 07:33 11/20/24 14:34 12/23/24 10:38 12/23/24 10:39 Height 5 ft 7 in 5 ft 7 in 5 ft 7 in 5 ft 7 in Weight: 211 lb 8 oz BMI 33.1 BP 118/75 Intake Visit Reasons: 13wk OB Liaison Officer Required: No Is patient in pain?: No [...] mg-folate no.1 1 mg-dha 300 mg capsule (PNV-[place]) levothyroxine 112 mcg capsule 112 mcg PO [...] 1 current occupational status: unemployed current occupation: [employer] current occupational exposures/hazards: No pets and animals: [...] 3-4 times per week duration: 30-45 minutes/day joseph/confucianism: Anglican seatbelt use: always do you feel safe [...] live - full term 7#14oz Male epidural [facility] Candace Bernal IOL GHTN 3rd degree laceration [...] ?-???-???-???-???-???-? ??- (more content not included)... Normal [facility] T4 Free Directon 12-23-2024 T4 FREE DIRECT 1.20 ng/dL Normal 0.76-1.46 [facility] Comment on above: Performed By: #### L 506.0400, L501.9520 #### [facility] Laboratory [facility] [address] [place], [place], [id number] T4 freeOrdered By: Linh Willis on 12-23-2024 Free T4 [Mass/Vol] 1.20 ng/dL 0.76-1.46 [facility] TSH DL <= 0.005 mIU/L QnOrde red By: Linh Willis on 12-23-2024 TSH Qn 3.350 uIU/mL 0.300-4.200 [facility] Thyroid Stim Hormone (TSH)on 12-23-2024 TSH 3.350 uIU/mL Normal 0.300-4.200 [facility] Comment on above: Performed By: #### L 506.0400, L501.9520 #### [facility] Laboratory [address] [place], [place], [address] L3410.9992on 12-03-2024 [facility]. COMMENT Normal . [facility] Comment on above: Order Comment: [id number] 8TSH R AB Result Comment: Test Ordered: [id number] TSH Receptor Antibody (TBII) TSH Receptor Antibody (TBII) <0.3 U/L Reference Range: . Reference Range: Antibody Titer: <1.0 U/L = Negative 1.1 - 1.5 U/L = Equivocal >1.5 U/L = Positive Performed at: [employer] [address] [place] [id number] Refrigerating Machine Operator: Francois Hastings MD, Phone: [phone] Performed at: [facility] [employer] [id number] Refrigerating Machine Operator: Nicanor Barillas PhD, Phone: [phone] Performed By: #### L 501.9520 #### [facility] [address] [place], [address] PAP I-G w/rfx hrHPV-Aptimaon 11-24-2024 ADEQ Comment Normal . [facility] Comment on above: Order Comment: Speci men Comment: [id number] Comment: Source.............CervixSpecimen Comment: LMP / Prev Treat...[id number] Comment: No. of containers..01 ThinPrep Vial Result Comment: Sati sfactory for evaluation. Endocervical and/or squamous metaplastic cells (endocervical component) are present. Performed By: #### L 3300.7027, L3300.6900 #### [facility] [address] [place], [place], [address] COMM . Normal . [facility] Comment on above: Order Comment: Speci men Comment: [id number] Comment: Source.............CervixSpecimen Comment: LMP / Prev Treat...[id number] Comment: No. of containers..01 ThinPrep Vial Performed By: #### L 3300.7027, L3300.6900 #### [facility] [address] [place], [place], [address] COMMENT Comment Normal . [facility] Comment on above: Order Comment: Speci men Comment: [id number] Comment: Source.............CervixSpecimen Comment: LMP / Prev Treat...[id number] Comment: No. of containers..01 ThinPrep Vial Result Comment: This liquid based ThinPrep(R) pap test was screened with the use of an image guided system. Performed By: #### L 3300.7027, L3300.6900 #### [facility] [address] [place], [place], [address] DIAG Comment Normal . [facility] Comment on above: Order Comment: Speci men Comment: [id number] Comment: Source.............CervixSpecimen Comment: LMP / Prev Treat...[id number] Comment: No. of containers..01 ThinPrep Vial Result Comment: NEGA TIVE FOR INTRAEPITHELIAL LESION OR MALIGNANCY. Performed By: #### L 3300.7027, L3300.6900 #### [facility] [address] [place], [place], [address] HPV RFLX Comment Normal . [facility] Comment on above: Order Comment: Speci men Comment: [id number] Comment: Source.............CervixSpecimen Comment: LMP / Prev Treat...[id number] Comment: No. of containers..01 ThinPrep Vial Result Comment: The HPV DNA reflex criteria were not met with this specimen result therefore, no HPV testing was performed. Performed at: [address] [place] [id number] Refrigerating Machine Operator: Abigail De La Torre MD, Phone: [phone] Performed By: #### L 3300.7027, L3300.6900 #### [facility] [address] [place], [address] PAPSMR Comment Normal . [facility] Comment on above: Order Comment: Speci men Comment: [id number] Comment: Source.............CervixSpecimen Comment: LMP / Prev Treat...[id number] Comment: No. of containers..01 ThinPrep Vial Result Comment: The Pap smear is a screening test designed to aid in the detection of premalignant and malignant conditions of the uterine cervix. It is not a diagnostic procedure and should not be used as the sole means of detecting cervical cancer. Both false-positive and false-negative reports do occur. Performed By: #### L 3300.70, L3300.6900 #### [facility] [address] [place], [address] PERFORM Comment Normal . [facility] Comment on above: Order Comment: Speci men Comment: [id number] Comment: Source.............CervixSpecimen Comment: LMP / Prev Treat...[id number] Comment: No. of containers..01 ThinPrep Vial Result Comment: Reed Wang, Condenser Operator (ASCP) Performed By: #### L 3300.7027, L3300.6900 #### [facility] [address] [place], [place], [address] Chlamydia/GC KASIA aptimaon CHLAMY,NUC ACID Negative Normal Negative [facility] Comment on above: Performed By: #### L 3300.7027, L3300.6900 #### [facility] [address] [place], [place], [id number] GC BY NUC ACID Negative Normal Negative [facility] Comment on above: Result Comment: Perf ormed at: =G - [facility] [address] [place] [id number] Refrigerating Machine Operator: Abigail De La Torre MD, Phone: [phone] Performed By: #### L 3300.7027, L3300.6900 #### [facility] [address] [place], [place], [address] Urine Cultureon 11-23-2024 [facility] Pending Mixed Gram Positive Organisms [place] Count 50,000-80,000 MIXC Mixed contaminants. Submit a new specimen if indicated. Normal [facility] Comment on above: Performed By: #### L 3300.7008, L3300.6900 #### [facility] [address] [place], [place], [address] Absolute lymphocyte countOrd ered By: Candace Bernal on 11-20-2024 Lymphocytes Auto (Unsp spec) [#/Vol] 2.38 10*3/uL 0.83-4.51 [facility] Absolute neutrophil countOrd ered By: Candace Bernal on 11-20-2024 Neutrophils (Bld) [#/Vol] 5.4 10*3/uL 2.0-7.7 [facility] Anion gap in Serum or Plasma Ordered By: Candace Bernal on 11-20-2024 Anion gap [Moles/Vol] 18 mmol/L High 5-15 [facility] Automated lymphocyte count a s percentage of total leukocytesOrdered By: Candace Bernal on 11-20-2024 Lymphocytes/100 WBC Auto (Unsp spec) 28.1 % -41 [facility] BUN/creatinine ratioOrdered By: Candace Bernal on 11-20-2024 Urea nitrogen/Creatinine [Mass ratio] 16.2 mg/mg 10-20 [facility] Basophil percentageOrdered B y: Candace Bernal on 11-20-2024 Basophils/100 WBC (Bld) 0.6 % 0-1 [facility] Bilirubin, totalOrdered By: Candace Bernal on 11-20-2024 Bilirubin [Mass/Vol] 0.23 mg/dL 0.00-1.30 [facility] CBC W/Diff, Automatedon 10-24 Absolute Lymph 2.38 X10 3/uL Normal 0.83-4.51 [facility] Comment on above: Performed By: #### L 506.1001, L501.9985, L500.4050, L501.9520, L509.8002, L3410.9992, L3890.6301, L3890.6006, L100.0100, L3890.6102, BTS, L509.4006, L506.0400 #### [facility] [address] [place], [address] Absolute Neut 5.4 X10 3/uL Normal 2.0-7.7 [facility] Comment on above: Performed By: #### L 506.1001, L501.9985, L500.4050, L501.9520, L509.8002, L3410.9992, L3890.6301, L3890.6006, L100.0100, L3890.6102, BTS, L509.4006, L506.0400 #### [facility] [address] [place], [address] Basophils/100 WBC (Bld) 0.6 % Normal 0-1 [facility] Comment on above: Performed By: #### L 506.1001, L501.9985, L500.4050, L501.9520, L509.8002, L3410.9992, L3890.6301, L3890.6006, L100.0100, L3890.6102, BTS, L509.4006, L506.0400 #### [facility] [address] [place], [address] Eosinophils/100 WBC (Bld) 2.5 % Normal 0-5 [facility] Comment on above: Performed By: #### L 506.1001, L501.9985, L500.4050, L501.9520, L509.8002, L3410.9992, L3890.6301, L3890.6006, L100.0100, L3890.6102, BTS, L509.4006, L506.0400 #### [facility] [address] [place], [address] Erythrocyte distribution width (RBC) [Ratio] 12.6 % Normal 11.6-14.6 [facility] Comment on above: Performed By: #### L 506.1001, L501.9985, L500.4050, L501.9520, L509.8002, L3410.9992, L3890.6301, L3890.6006, L100.0100, L3890.6102, BTS, L509.4006, L506.0400 #### [facility] [address] [place], [address] Hematocrit (Bld) [Volume fraction] 40.5 % Normal 37-47 [facility] Comment on above: Performed By: #### L 506.1001, L501.9985, L500.4050, L501.9520, L509.8002, L3410.9992, L3890.6301, L3890.6006, L100.0100, L3890.6102, BTS, L509.4006, L506.0400 #### [facility] [address] [place], [address] Hemoglobin (Bld) [Mass/Vol] 14.0 g/dL Normal 12.0-15.0 [facility] Comment on above: Performed By: #### L 506.1001, L501.9985, L500.4050, L501.9520, L509.8002, L3410.9992, L3890.6301, L3890.6006, L100.0100, L3890.6102, BTS, L509.4006, L506.0400 #### [facility] [address] [place], [address] IG% 0.200 Normal 0.0-0.9 [facility] Comment on above: Result Comment: IG% - Immature Granulocytes (promyelocytes, myelocytes and metamyelocytes) > 1% indicates that a LEFT SHIFT is Present. Performed By: #### L 506.1001, L501.9985, L500.4050, L501.9520, L509.8002, L3410.9992, L3890.6301, L3890.6006, L100.0100, L3890.6102, BTS, L509.4006, L506.0400 #### [facility] [address] [place], [address] Lymphocytes/100 WBC (Bld) 28.1 % Normal 19-41 [facility] Comment on above: Performed By: #### L 506.1001, L501.9985, L500.4050, L501.9520, L509.8002, L3410.9992, L3890.6301, L3890.6006, L100.0100, L3890.6102, BTS, L509.4006, L506.0400 #### [facility] [address] [place], [address] MCH (RBC) [Entitic mass] 30.1 pg Normal 27.0-32.0 [facility] Comment on above: Performed By: #### L 506.1001, L501.9985, L500.4050, L501.9520, L509.8002, L3410.9992, L3890.6301, L3890.6006, L100.0100, L3890.6102, BTS, L509.4006, L506.0400 #### [facility] [address] [place], [address] MCHC (RBC) [Mass/Vol] 34.6 g/dL Normal 32-36 [facility] Comment on above: Performed By: #### L 506.1001, L501.9985, L500.4050, L501.9520, L509.8002, L3410.9992, L3890.6301, L3890.6006, L100.0100, L3890.6102, BTS, L509.4006, L506.0400 #### [facility] [address] [place], [address] MCV (RBC) [Entitic vol] 87.1 fL Normal 81-99 [facility] Comment on above: Performed By: #### L 506.1001, L501.9985, L500.4050, L501.9520, L509.8002, L3410.9992, L3890.6301, L3890.6006, L100.0100, L3890.6102, BTS, L509.4006, L506.0400 #### [facility] [address] [place], [address] Monocytes/100 WBC (Bld) 5.1 % Normal 0-10 [facility] Comment on above: Performed By: #### L 506.1001, L501.9985, L500.4050, L501.9520, L509.8002, L3410.9992, L3890.6301, L3890.6006, L100.0100, L3890.6102, BTS, L509.4006, L506.0400 #### [facility] [address] [place], [address] Neutrophils/100 WBC (Bld) 63.5 % Normal 47-70 [facility] Comment on above: Performed By: #### L 506.1001, L501.9985, L500.4050, L501.9520, L509.8002, L3410.9992, L3890.6301, L3890.6006, L100.0100, L3890.6102, BTS, L509.4006, L506.0400 #### [facility] [address] [place], [address] Nucleated RBC (Bld) [#/Vol] 0 10*3/uL Normal 0-5 [facility] Comment on above: Performed By: #### L 506.1001, L501.9985, L500.4050, L501.9520, L509.8002, L3410.9992, L3890.6301, L3890.6006, L100.0100, L3890.6102, BTS, L509.4006, L506.0400 #### [facility] [address] [place], [place], [id number] (689) Platelet mean volume (Bld) [Entitic vol] 10.0 fL Normal 6.2-12.0 [facility] Comment on above: Performed By: #### L 506.1001, L501.9985, L500.4050, L501.9520, L509.8002, L3410.9992, L3890.6301, L3890.6006, L100.0100, L3890.6102, BTS, L509.4006, L506.0400 #### [facility] [address] [place], [place], [id number] (659) Platelets (Bld) [#/Vol] 296 10*3/uL Normal 150-450 [facility] Comment on above: Performed By: #### L 506.1001, L501.9985, L500.4050, L501.9520, L509.8002, L3410.9992, L3890.6301, L3890.6006, L100.0100, L3890.6102, BTS, L509.4006, L506.0400 #### [facility] [address] [place], [address] RBC (Bld) [#/Vol] 4.65 10*6/uL Normal 4.2-5.4 [facility] Comment on above: Performed By: #### L 506.1001, L501.9985, L500.4050, L501.9520, L509.8002, L3410.9992, L3890.6301, L3890.6006, L100.0100, L3890.6102, BTS, L509.4006, L506.0400 #### [facility] [address] [place], [address] RDW SD 39.7 fl Normal 35.1-43.9 [facility] Comment on above: Performed By: #### L 506.1001, L501.9985, L500.4050, L501.9520, L509.8002, L3410.9992, L3890.6301, L3890.6006, L100.0100, L3890.6102, BTS, L509.4006, L506.0400 #### [facility] [address] [place], [place], [id number] (436) WBC (Bld) [#/Vol] 8.5 10*3/uL Normal 4.4-11.0 [facility] Comment on above: Performed By: #### L 506.1001, L501.9985, L500.4050, L501.9520, L509.8002, L3410.9992, L3890.6301, L3890.6006, L100.0100, L3890.6102, BTS, L509.4006, L506.0400 #### [facility] [address] [place], [address] Carbon dioxide, total [Moles /volume] in Central venous bloodOrdered By: Candace Bernal on 11-20-2024 CO2 [Moles/Vol] 14.1 mmol/L Low 21.0-32.0 [facility] Cervical or vagninal specime n microscopic examination by cytology stain (reported asOrdered By: Candace Bernal on 11-20-2024 Cytology report Cyto stain Doc (Cvx/Vag) Comment . [facility] Comment on above: The Pap smear is [...] rRNA KASIA+probe Ql (Unsp spec) Negative Negative [facility] Chloride assayOrdered By: Molly Bernal on 11-20-2024 Chloride [Moles/Vol] 103 mmol/L 98-108 [facility] Comprehensive Metabolic Prof ilon 11-20-2024 Albumin [Mass/Vol] 4.1 g/dL Normal 3.5-5.0 [facility] Comment on above: Performed By: #### L 506.1001, L501.9985, L500.4050, L501.9520, L509.8002, L3410.9992, L3890.6301, L3890.6006, L100.0100, L3890.6102, BTS, L509.4006, L506.0400 #### [facility] [address] [place], [place], [id number] Albumin/Globulin [Mass ratio] 1.7 {ratio} Normal 0.9-2.4 [facility] Comment on above: Performed By: #### L 506.1001, L501.9985, L500.4050, L501.9520, L509.8002, L3410.9992, L3890.6301, L3890.6006, L100.0100, L3890.6102, BTS, L509.4006, L506.0400 #### [facility] [address] [place], [address] ALK PHOS 43 U/L Normal 35-104 [facility] Comment on above: Performed By: #### L 506.1001, L501.9985, L500.4050, L501.9520, L509.8002, L3410.9992, L3890.6301, L3890.6006, L100.0100, L3890.6102, BTS, L509.4006, L506.0400 #### [facility] [address] [place], [place], [phone] ALT [Catalytic activity/Vol] 16 U/L Normal <=34 [facility] Comment on above: Performed By: #### L 506.1001, L501.9985, L500.4050, L501.9520, L509.8002, L3410.9992, L3890.6301, L3890.6006, L100.0100, L3890.6102, BTS, L509.4006, L506.0400 #### [facility] [address] [place], [address] AST [Catalytic activity/Vol] 22 U/L Normal <=31 [facility] Comment on above: Performed By: #### L 506.1001, L501.9985, L500.4050, L501.9520, L509.8002, L3410.9992, L3890.6301, L3890.6006, L100.0100, L3890.6102, BTS, L509.4006, L506.0400 #### [facility] [address] [place], [address] Bilirubin [Mass/Vol] 0.23 mg/dL Normal 0.00-1.30 [facility] Comment on above: Performed By: #### L 506.1001, L501.9985, L500.4050, L501.9520, L509.8002, L3410.9992, L3890.6301, L3890.6006, L100.0100, L3890.6102, BTS, L509.4006, L506.0400 #### [facility] [address] [place], [address] BUN/CRE 16.2 RATIO Normal 10-20 [facility] Comment on above: Performed By: #### L 506.1001, L501.9985, L500.4050, L501.9520, L509.8002, L3410.9992, L3890.6301, L3890.6006, L100.0100, L3890.6102, BTS, L509.4006, L506.0400 #### [facility] [address] [place], [address] Calcium [Mass/Vol] 9.0 mg/dL Normal 7.6-11.0 [facility] Comment on above: Performed By: #### L 506.1001, L501.9985, L500.4050, L501.9520, L509.8002, L3410.9992, L3890.6301, L3890.6006, L100.0100, L3890.6102, BTS, L509.4006, L506.0400 #### [facility] [address] [place], [address] Chloride [Moles/Vol] 103 mmol/L Normal 98-108 [facility] Comment on above: Performed By: #### L 506.1001, L501.9985, L500.4050, L501.9520, L509.8002, L3410.9992, L3890.6301, L3890.6006, L100.0100, L3890.6102, BTS, L509.4006, L506.0400 #### [facility] [address] [place], [address] CO2 [Moles/Vol] 14.1 mmol/L Low 21.0-32.0 [facility] Comment on above: Performed By: #### L 506.1001, L501.9985, L500.4050, L501.9520, L509.8002, L3410.9992, L3890.6301, L3890.6006, L100.0100, L3890.6102, BTS, L509.4006, L506.0400 #### [facility] [address] [place], [place], [phone] (184) Creatinine [Mass/Vol] 0.74 mg/dL Normal 0.70-1.20 [facility] Comment on above: Performed By: #### L 506.1001, L501.9985, L500.4050, L501.9520, L509.8002, L3410.9992, L3890.6301, L3890.6006, L100.0100, L3890.6102, BTS, L509.4006, L506.0400 #### [facility] [address] [place], [place], [phone] GAP 18 High 5-15 [facility] Comment on above: Performed By: #### L 506.1001, L501.9985, L500.4050, L501.9520, L509.8002, L3410.9992, L3890.6301, L3890.6006, L100.0100, L3890.6102, BTS, L509.4006, L506.0400 #### [facility] [address] [place], [place], [phone] GFR/1.73 sq M.predicted among non-blacks MDRD (S/P/Bld) [Vol rate/Area] 114 mL/min/{1.73_m2} Normal >60 [facility] Comment on above: Result Comment: mL/m in/1.73m2 CKD-EPI Creatinine Equation (2020) Performed By: #### L 506.1001, L501.9985, L500.4050, L501.9520, L509.8002, L3410.9992, L3890.6301, L3890.6006, L100.0100, L3890.6102, BTS, L509.4006, L506.0400 #### [facility] [address] [place], [address] Globulin (S) [Mass/Vol] 2.5 g/dL Normal 2.2-4.2 [facility] Comment on above: Performed By: #### L 506.1001, L501.9985, L500.4050, L501.9520, L509.8002, L3410.9992, L3890.6301, L3890.6006, L100.0100, L3890.6102, BTS, L509.4006, L506.0400 #### [facility] [address] [place], [address] Glucose [Mass/Vol] 93 mg/dL Normal 70-99 [facility] Comment on above: Performed By: #### L 506.1001, L501.9985, L500.4050, L501.9520, L509.8002, L3410.9992, L3890.6301, L3890.6006, L100.0100, L3890.6102, BTS, L509.4006, L506.0400 #### [facility] [address] [place], [address] Potassium [Moles/Vol] 3.7 mmol/L Normal 3.3-5.1 [facility] Comment on above: Performed By: #### L 506.1001, L501.9985, L500.4050, L501.9520, L509.8002, L3410.9992, L3890.6301, L3890.6006, L100.0100, L3890.6102, BTS, L509.4006, L506.0400 #### [facility] [address] [place], [address] Sodium [Moles/Vol] 135 mmol/L Normal 133-145 [facility] Comment on above: Performed By: #### L 506.1001, L501.9985, L500.4050, L501.9520, L509.8002, L3410.9992, L3890.6301, L3890.6006, L100.0100, L3890.6102, BTS, L509.4006, L506.0400 #### [facility] [address] [place], [address] T PROT 6.6 g/dL Normal 5.9-8.4 [facility] Comment on above: Performed By: #### L 506.1001, L501.9985, L500.4050, L501.9520, L509.8002, L3410.9992, L3890.6301, L3890.6006, L100.0100, L3890.6102, BTS, L509.4006, L506.0400 #### [facility] [address] [place] [place], [address] Urea nitrogen [Mass/Vol] 12 mg/dL Normal 4-19 [facility] Comment on above: Performed By: #### L 506.1001, L501.9985, L500.4050, L501.9520, L509.8002, L3410.9992, L3890.6301, L3890.6006, L100.0100, L3890.6102, BTS, L509.4006, L506.0400 #### [facility] [address] [place], [place], [phone] Eosinophil percentageOrdered By: Candace Bernal on 11-20-2024 Eosinophils/100 WBC (Bld) 2.5 % 0-5 [facility] Erythrocyte distribution wid th ratioOrdered By: Candace Bernal on 11-20-2024 Erythrocyte distribution width (RBC) [Ratio] 12.6 % 11.6-14.6 [facility] Erythrocyte distribution wid th standard deviationOrdered By: Candace Bernal on 11-20-2024 Erythrocyte distribution width (RBC) [Ratio] 39.7 fl 35.1-43.9 [facility] Glomerular filtration rate ( GFR) estimation/1.73 sq m using serum, plasma, or whole bOrdered By: Candace Bernal on 11-20-2024 GFR/1.73 sq M.predicted among non-blacks MDRD (S/P/Bld) [Vol rate/Area] 114 mL/min/{1.73_m2} >60 [facility] Comment on above: mL/min/1.73m2 CKD-EP I Creatinine Equation (2020) HIVon 11-20-2024 HIV Non-Reactive Normal Nonreactive [facility] Comment on above: Result Comment: Non- Reactive Reactive Repeatedly reactive samples must be confirmed according to CDC recommended confirmatory algorithms. The subresults for either HIVAG or AHIV can be used as an aid in the selection of the confirmation algorithm for reactive samples. Send out specimens with Reactive results to [facility] for confirmation. Order the HIV antibody detection and differentiation: #[id number] Performed By: #### L 506.0400, L535.3058 #### [facility] [address] [facility] [place]. [place], [place], [phone] Hematocrit Auto (Bld) [Volum e fraction]Ordered By: Candace Bernal on 11-20-2024 Hematocrit (Bld) [Volume fraction] 40.5 % 37-47 [facility] Hemoglobin A1con 11-20-2024 HbA1c (Bld) [Mass fraction] 5.1 % Normal <=5.6 [facility] Comment on above: Result Comment: Norm al < 5.7 % Prediabetic 5.7 - 6.4 % Diabetic >or= 6.5 % Please note range changes. Performed By: #### L 506.0400, L578.8520 #### [facility] [address] [place], [place], [id number] Hemoglobin A1c percentageOrd ered By: Candace Bernal on 11-20-2024 HbA1c (Bld) [Mass fraction] 5.1 % <5.7 [facility] Comment on above: Normal < 5.7 % Predi abetic 5.7 - 6.4 % Diabetic >or= 6.5 % Please note range changes. Hemoglobin measurementOrdere d By: Candace Bernal on 11-20-2024 Hemoglobin (Bld) [Mass/Vol] 14.0 g/dL 12.0-15.0 [facility] Hepatitis C Antibodyon 11-20 Hepatitis C Ab Non-Reactive Normal Nonreactive [facility] Comment on above: Result Comment: Reac tive: Presumptive evidence of antibodies to HCV. Follow CDC recommendations for supplemental testing. Non-Reactive: Antibodies to HCV were not detected; does not exclude the possibility of exposure to HCV Reactive Results are presumptive evidence of antibodies to HCV. Follow CDC recommendations for supplemental testing. Order confirmation testing: HCV Quant by PCR testing - HCVPCR #[id number] Non Reactive: < 0.8 Equivocal: >/= 0.8 to < 1.0 Reactive: >/= 1.0 The [facility] requires that a reactive/equivocal HCV antibody result be sent out for confirmation. HCV Quant by PCR testing. Performed By: #### L 506.0400, L501.9520 #### [facility] [address] [place], [address] Immature granulocytes/100 WB C Auto (Bld)Ordered By: Candace Bernal on 11-20-2024 Immature granulocytes/100 WBC (Bld) 0.200 % 0.0-0.9 [facility] Comment on above: IG% - Immature Granu locytes (promyelocytes, myelocytes and metamyelocytes) > 1% indicates that a LEFT SHIFT is Present. L3890.6102on 11-20-2024 HEP B Surf Ag Non-Reactive Normal Nonreactive [facility] Comment on above: Result Comment: Reac tive: Presumptive evidence of HBV. Repeatedly reactive samples must be confirmed using a neutralization test ([employer] HBsAg Confirmatory Test) Non-Reactive: HBsAg not detected; does not exclude the possibility of exposure to HBV Performed By: #### L 506.0400, L501.9520 #### [facility] [address] [place], [address] L509.4006on 11-20-2024 Rubella IgG REAC Normal Nonreactive [facility] Comment on above: Result Comment: Anti body Result: Interpretation Non-Reactive: Non-Immune Reactive: Immune The following results were obtained with the [employer] Rubella IgG assay. Results from assays of other manufacturers cannot be used interchangeably. Performed By: #### L 506.0400, L501.9520 #### [facility] [address] [place], [address] Laboratory - Chemistry and C hemistry - challengeOrdered By: Candace Bernal on 11-20-2024 AST [Catalytic activity/Vol] 22 U/L <32 [facility] Laboratory - CytologyOrdered By: Candace Bernal on 11-20-2024 Condenser Operator Cyto stain Nom (Cvx/Vag) [ID] Comment . [facility] Comment on above: [facility]) Laboratory - Microbiology an d Antimicrobial susceptibilityOrdered By: Candace Bernal on 11-20-2024 HBV surface Ag Ql (S) Non-Reactive Nonreactive [facility] Comment on above: Reactive: Presumptiv e evidence of HBV. Repeatedly reactive samples must be confirmed using a neutralization test ([employer] HBsAg Confirmatory Test)Non-Reactive: HBsAg not detected; does not exclude the possibility of exposure to HBV Laboratory - Miscellaneous t estsOrdered By: Candace Bernal on 11-20-2024 Service comment (Unsp spec) [Interp] . . [facility] MCV (mean corpuscular volume ) determinationOrdered By: Candace Bernal on 11-20-2024 MCV (RBC) [Entitic vol] 87.1 fL 81-99 [facility] Mean corpuscular hemoglobin (MCH) determinationOrdered By: Candace Bernal on 11-20-2024 MCH (RBC) [Entitic mass] 30.1 pg 27.0-32.0 [facility] Mean corpuscular hemoglobin concentration (MCHC) determinationOrdered By: Candace Bernal on 11-20-2024 MCHC (RBC) [Mass/Vol] 34.6 g/dL 32-36 [facility] Mean platelet volume determi nationOrdered By: Cnadace Bernal on 11-20-2024 Platelet mean volume (Bld) [Entitic vol] 10.0 fL 6.2-12.0 [facility] Monocyte percentageOrdered B y: Candace Bernal on 11-20-2024 Monocytes/100 WBC (Bld) 5.1 % 0-10 [facility] Neisseria gonorrhoeae nuclei c acid detection by amplified probe techniqueOrdered By: Candace Bernal on 11-20-2024 N. gonorrhoeae DNA KASIA+probe Ql (Unsp spec) Negative Negative [facility] Comment on above: Performed at: =[address] [id number] Director: Abigail De La Torre MD, Phone: [phone] Neutrophil percentageOrdered By: Candace Bernal on 11-20-2024 Neutrophils/100 WBC (Bld) 63.5 % 47-70 [facility] No Panel InformationOrdered By: Candace Bernal on 11-20-2024 Pap Smear Specimen Adequacy Comment . [facility] Comment on above: Satisfactory for suzy luation. Endocervical and/or squamous metaplasticcells (endocervical component) are present. HIV (1&2) Antibody Non-Reactive Nonreactive [facility] Comment on above: Non-ReactiveReactive Repeatedly reactive samples must be confirmed according to CDC recommended confirmatory algorithms. The subresults for either HIVAG or AHIV can be used as an aid in the selection of the confirmation algorithm for reactive samples.Send out specimens with Reactive results to [facility] for confirmation.Order the HIV antibody detection and differentiation: #[id number] Nucleated red blood cell per centageOrdered By: Candace Bernal on 11-20-2024 Nucleated RBC/100 WBC (Bld) [Ratio] 0 % 0-5 [facility] Single Pointed Operator Office Visit Reporton 11-20-2024 Single Pointed Operator Office Visit Report [facility] [address], [address] [place] [address] OFFICE VISIT Date of Service: 11/20/24 MR#: [id number] Acct: [id number] Name: LILY FOUNTAIN Rep #: [id number] : 2000 Provider: ELADIA rodriguez Age/Sex: 24/F Location: [facility] [place] Status: Signed Intake Vital Signs 09/04/24 07:33 11/20/24 14:34 11/20/24 15:10 Height 5 ft 7 in 5 ft 7 in Weight: 210 lb 4 oz BMI 32.9 BP 150/81 H 127/82 H Intake Visit Reasons: New OB, LMP 09/15, ARTURO 06/22 Liaison Officer Required: No Is patient in pain?: No [...] mg-folate no.1 1 mg-dha 300 mg capsule (PNV-[place]) levothyroxine 112 mcg capsule 112 mcg PO [...] 1 current occupational status: unemployed current occupation: [employer] current occupational exposures/hazards: No pets and animals: [...] 3-4 times per week duration: 30-45 minutes/day joseph/confucianism: Anglican seatbelt use: always do you feel safe [...] live - full term 7#14oz Male epidural [facility] Candace Bernal IOL GHTN 3rd degree laceration [...] lb Da (more content not included)... Normal [facility] Platelet countOrdered By: Molly Bernal on 11-20-2024 Platelets (Bld) [#/Vol] 296 10*3/uL 150-450 [facility] Potassium measurement (mass/ volume)Ordered By: Candace Bernal on 11-20-2024 Potassium (Unsp spec) [Mass/Vol] 3.7 mmol/L 3.3-5.1 [facility] Protein+Creatinine Ratio,Uri neon 11-20-2024 PROT:CRE RATIO 78 mg/g CRE Normal 0-200 [facility] Comment on above: Performed By: #### L 3300.7027, L3300.6900 #### [facility] [address] [place], [address] PROTEIN,UR.RAN. < 6.0 Normal 0.0-12.0 [facility] Comment on above: Performed By: #### L 3300.7027, L3300.6900 #### [facility] [address] [place], [address] UR CREAT 57.10 mg/dL Normal 28.00-217.00 [facility] Comment on above: Performed By: #### L 3300.7027, L3300.6900 #### [facility] [address] [place], [address] RBC Auto (Bld) [#/Vol]Ordere d By: Candace Bernal on 11-20-2024 RBC (Bld) [#/Vol] 4.65 10*6/uL 4.2-5.4 [facility] Random urine creatinine cande urement (mass/volume)Ordered By: Candace Bernal on 11-20-2024 Creatinine Unsp time (U) [Mass/Vol] 57.10 mg/dL 28.00-217.00 [facility] Serum creatinine measurement (mass/volume)Ordered By: Candace Bernal on 11-20-2024 Creatinine [Mass/Vol] 0.74 mg/dL 0.70-1.20 [facility] Serum globulin measurementOr dered By: Candace Bernal on 11-20-2024 Globulin (S) [Mass/Vol] 2.5 g/dL 2.2-4.2 [facility] Serum glucose measurement (m ass/volume)Ordered By: Candace Bernal on 11-20-2024 Glucose [Mass/Vol] 93 mg/dL 70-99 [facility] Serum or plasma alanine mast otransferase (ALT) measurementOrdered By: Candace Bernal on 11-20-2024 ALT [Catalytic activity/Vol] 16 U/L <35 [facility] Serum or plasma albumin cande urement (mass/volume)Ordered By: Candace Bernal on 11-20-2024 Albumin [Mass/Vol] 4.1 g/dL 3.5-5.0 [facility] Serum or plasma albumin/glob ulin mass ratioOrdered By: Candace Bernal on 11-20-2024 Albumin/Globulin [Mass ratio] 1.7 {ratio} 0.9-2.4 [facility] Serum or plasma alkaline parvin sphatase measurementOrdered By: Candace Bernal on 11-20-2024 ALP [Catalytic activity/Vol] 43 U/L 35-104 [facility] Serum or plasma calcium cande urement (mass/volume)Ordered By: Candace eBrnal on 11-20-2024 Calcium [Mass/Vol] 9.0 mg/dL 7.6-11.0 [facility] Serum or plasma urea nitroge n measurement (mass/volume)Ordered By: Candace Bernal on 11-20-2024 Urea nitrogen [Mass/Vol] 12 mg/dL 4-19 [facility] Sodium levelOrdered By: Ishan Bernal on 11-20-2024 Sodium [Moles/Vol] 135 mmol/L 133-145 [facility] Syphilis Antibodieson 05-30- 2025 Syphilis Abs Non-Reactive Normal Nonreactive [facility] Comment on above: Performed By: #### L 506.0400, L501.9520 #### [facility] [address] [place], [address] T4 Free Directon 11-20-2024 T4 FREE DIRECT 0.90 ng/dL Normal 0.76-1.46 [facility] Comment on above: Performed By: #### L 506.0400, L501.9520 #### [facility] [address] [place], [address] T4 freeOrdered By: Candace dumont on 11-20-2024 Free T4 [Mass/Vol] 0.90 ng/dL 0.76-1.46 [facility] TSH DL <= 0.005 mIU/L QnOrde red By: Candace Bernal on 11-20-2024 TSH Qn 5.820 uIU/mL High 0.300-4.200 [facility] Thyroid Stim Hormone (TSH)on 11-20-2024 TSH 5.820 uIU/mL High 0.300-4.200 [facility] Comment on above: Performed By: #### L 506.0400, L501.9520 #### [facility] [address] [place], [address] Total proteinOrdered By: Jessa Bernal on 11-20-2024 Protein [Mass/Vol] 6.6 g/dL 5.9-8.4 [facility] Type AND Screenon 11-20-2024 Ab SCREEN GEL Negative Normal [facility] Comment on above: Order Comment: PN Performed By: #### L 506.0400, L501.9520 #### [facility] [address] [facility] [place], [address] Urine cultureOrdered By: Jessa Bernal on 11-20-2024 Bacteria identified Cx Nom (U) Positive Abnormal [facility] Urine protein measurement (m ass/volume)Ordered By: Candace Bernal on 11-20-2024 Protein (U) [Mass/Vol] mg/dL 0.0-12.0 [facility] Urine protein/creatinine mas s ratioOrdered By: Candace Bernal on 11-20-2024 Protein/Creatinine (U) [Mass ratio] 78 mg/g CRE 0-200 [facility] Vitamin D,25 Hydroxyon 11-20 Vitamin D 25-OH 46.6 ng/mL Normal 30-100 [facility] Comment on above: Result Comment: Idalia min D Status Deficiency: <20 ng/mL (50nmol/L) Insufficiency: 20-30 ng/mL (50-75 nmol/L) Sufficiency: 30-100 ng/mL (75-250 nmol/L) Toxicity: >100 ng/mL (>250 nmol/L) Performed By: #### L 506.0400, L501.9520 #### [facility] [address] [place], [place] [address], [address] White blood cell (WBC) count Ordered By: Candace Bernal on 11-20-2024 WBC (Bld) [#/Vol] 8.5 10*3/uL 4.4-11.0 [facility] Absolute lymphocyte countOrd ered By: Bhavesh Saxena on 09-04-2024 Lymphocytes Auto (Unsp spec) [#/Vol] 1.96 10*3/uL 0.83-4.51 [facility] Absolute neutrophil countOrd ered By: Bhavesh Saxena on 09-04-2024 Neutrophils (Bld) [#/Vol] 3.6 10*3/uL 2.0-7.7 [facility] Anion gap in Serum or Plasma Ordered By: Bhavesh Saxena on 09-04-2024 Anion gap [Moles/Vol] 11 mmol/L 5-15 [facility] Automated lymphocyte count a s percentage of total leukocytesOrdered By: Bhavesh Saxena on 09-04-2024 Lymphocytes/100 WBC Auto (Unsp spec) 30.9 % 19-41 [facility] BUN/creatinine ratioOrdered By: Bhavesh Saxena on 09-04-2024 Urea nitrogen/Creatinine [Mass ratio] 20.5 mg/mg High 10-20 [facility] Basophil percentageOrdered B y: Bhavesh Saexna on 09-04-2024 Basophils/100 WBC (Bld) 0.8 % 0-1 [facility] Bilirubin, totalOrdered By: Bhavesh Saxena on 09-04-2024 Bilirubin [Mass/Vol] 0.30 mg/dL 0.00-1.30 [facility] CBC W/Diff, Automatedon 08-22 Absolute Lymph 1.96 X10 3/uL Normal 0.83-4.51 [facility] Comment on above: Performed By: #### L 3300.7027, L3300.6900 #### [facility] [address] [place], [address] Absolute Neut 3.6 X10 3/uL Normal 2.0-7.7 [facility] Comment on above: Performed By: #### L 3300.7027, L3300.6900 #### [facility] [address] [place], [address] Basophils/100 WBC (Bld) 0.8 % Normal 0-1 [facility] Comment on above: Performed By: #### L 3300.7027, L3300.6900 #### [facility] [address] [place], [address] Eosinophils/100 WBC (Bld) 5.2 % High 0-5 [facility] Comment on above: Performed By: #### L 3300.7027, L3300.6900 #### [facility] [address] [place], [address] Erythrocyte distribution width (RBC) [Ratio] 12.2 % Normal 11.6-14.6 [facility] Comment on above: Performed By: #### L 3300.7027, L3300.6900 #### [facility] [address] [place], [address] Hematocrit (Bld) [Volume fraction] 43.5 % Normal 37-47 [facility] Comment on above: Performed By: #### L 3300.7027, L3300.6900 #### [facility] [address] [place], [address] Hemoglobin (Bld) [Mass/Vol] 14.4 g/dL Normal 12.0-15.0 [facility] Comment on above: Performed By: #### L 3300.7027, L3300.6900 #### [facility] [address] [place], [address] IG% 0.200 Normal 0.0-0.9 [facility] Comment on above: Result Comment: IG% - Immature Granulocytes (promyelocytes, myelocytes and metamyelocytes) > 1% indicates that a LEFT SHIFT is Present. Performed By: #### L 3300.7027, L3300.6900 #### [facility] [address] [place], [address] Lymphocytes/100 WBC (Bld) 30.9 % Normal 19-41 [facility] Comment on above: Performed By: #### L 3300.7027, L3300.6900 #### [facility] [address] [place], [address] MCH (RBC) [Entitic mass] 29.3 pg Normal 27.0-32.0 [facility] Comment on above: Performed By: #### L 3300.7027, L3300.6900 #### [facility] [address] [place], [address] MCHC (RBC) [Mass/Vol] 33.1 g/dL Normal 32-36 [facility] Comment on above: Performed By: #### L 3300.7027, L3300.6900 #### [facility] [address] [place], [address] MCV (RBC) [Entitic vol] 88.4 fL Normal 81-99 [facility] Comment on above: Performed By: #### L 3300.7027, L3300.6900 #### [facility] [address] [place], [address] Monocytes/100 WBC (Bld) 6.8 % Normal 0-10 [facility] Comment on above: Performed By: #### L 3300.7027, L3300.6900 #### [facility] [address] [place], [address] Neutrophils/100 WBC (Bld) 56.1 % Normal 47-70 [facility] Comment on above: Performed By: #### L 3300.7027, L3300.6900 #### [facility] [address] [place], [address] Nucleated RBC (Bld) [#/Vol] 0 10*3/uL Normal 0-5 [facility] Comment on above: Performed By: #### L 3300.70, L3300.6900 #### [facility] [address] [place], [address] Platelet mean volume (Bld) [Entitic vol] 9.6 fL Normal 6.2-12.0 [facility] Comment on above: Performed By: #### L 3300.7027, L3300.6900 #### [facility] [address] [place], [address] Platelets (Bld) [#/Vol] 277 10*3/uL Normal 150-450 [facility] Comment on above: Performed By: #### L 3300.7027, L3300.6900 #### [facility] [address] [place], [address] RBC (Bld) [#/Vol] 4.92 10*6/uL Normal 4.2-5.4 [facility] Comment on above: Performed By: #### L 3300.7027, L3300.6900 #### [facility] [address] [place], [address] RDW SD 39.2 fl Normal 35.1-43.9 [facility] Comment on above: Performed By: #### L 3300.7095, L3300.6900 #### [facility] [address] [place], [address] WBC (Bld) [#/Vol] 6.3 10*3/uL Normal 4.4-11.0 [facility] Comment on above: Performed By: #### L 3300.7027, L3300.6900 #### [facility] [address] [place], [address] Carbon dioxide, total [Moles /volume] in Central venous bloodOrdered By: Bhavesh Saxena on 09-04-2024 CO2 [Moles/Vol] 23.1 mmol/L 21.0-32.0 [facility] Chloride assayOrdered By: Camelia Saxena on 09-04-2024 Chloride [Moles/Vol] 105 mmol/L 98-108 [facility] Comprehensive Metabolic Prof ilon 09-04-2024 Albumin [Mass/Vol] 4.4 g/dL Normal 3.5-5.0 [facility] Comment on above: Performed By: #### L 3300.7094, L3300.6900 #### [facility] [address] [place], [address] Albumin/Globulin [Mass ratio] 1.6 {ratio} Normal 0.9-2.4 [facility] Comment on above: Performed By: #### L 3300.7085, L3300.6900 #### [facility] [address] [place], [address] ALK PHOS 60 U/L Normal 35-104 [facility] Comment on above: Performed By: #### L 3300.7027, L3300.6900 #### [facility] [address] [place], [address] ALT [Catalytic activity/Vol] 16 U/L Normal <=34 [facility] Comment on above: Performed By: #### L 3300.7027, L3300.6900 #### [facility] [address] [place], [address] AST [Catalytic activity/Vol] 23 U/L Normal <=31 [facility] Comment on above: Performed By: #### L 3300.7027, L3300.6900 #### [facility] [address] [place], [address] Bilirubin [Mass/Vol] 0.30 mg/dL Normal 0.00-1.30 [facility] Comment on above: Performed By: #### L 3300.7027, L3300.6900 #### [facility] [address] [place], [address] BUN/CRE 20.5 RATIO High 10-20 [facility] Comment on above: Performed By: #### L 3300.7027, L3300.6900 #### [facility] [address] [place], [address] Calcium [Mass/Vol] 9.7 mg/dL Normal 7.6-11.0 [facility] Comment on above: Performed By: #### L 3300.7027, L3300.6900 #### [facility] [address] [place], [address] Chloride [Moles/Vol] 105 mmol/L Normal 98-108 [facility] Comment on above: Performed By: #### L 3300.7027, L3300.6900 #### [facility] [address] [place], [address] CO2 [Moles/Vol] 23.1 mmol/L Normal 21.0-32.0 [facility] Comment on above: Performed By: #### L 3300.7027, L3300.6900 #### [facility] [address] [place], [address] Creatinine [Mass/Vol] 0.71 mg/dL Normal 0.70-1.20 [facility] Comment on above: Performed By: #### L 3300.7027, L3300.6900 #### [facility] [address] [place], [address] GAP 11 Normal 5-15 [facility] Comment on above: Performed By: #### L 3300.7027, L3300.6900 #### [facility] [address] [place], [address] GFR/1.73 sq M.predicted among non-blacks MDRD (S/P/Bld) [Vol rate/Area] 121 mL/min/{1.73_m2} Normal >60 [facility] Comment on above: Result Comment: mL/m in/1.73m2 CKD-EPI Creatinine Equation (2020) Performed By: #### L 3300.7027, L3300.6900 #### [facility] [address] [place], [address] Globulin (S) [Mass/Vol] 2.7 g/dL Normal 2.2-4.2 [facility] Comment on above: Performed By: #### L 3300.7027, L3300.6900 #### [facility] [address] [place], [address] Glucose [Mass/Vol] 87 mg/dL Normal 70-99 [facility] Comment on above: Performed By: #### L 3300.7027, L3300.6900 #### [facility] [address] [place], [address] Potassium [Moles/Vol] 3.9 mmol/L Normal 3.3-5.1 [facility] Comment on above: Performed By: #### L 3300.7027, L3300.6900 #### [facility] [address] [place], [address] Sodium [Moles/Vol] 140 mmol/L Normal 133-145 [facility] Comment on above: Performed By: #### L 3300.7027, L3300.6900 #### [facility] [address] [place], [address] T PROT 7.0 g/dL Normal 5.9-8.4 [facility] Comment on above: Performed By: #### L 3300.7027, L3300.6900 #### [facility] [address] [place], [address] Urea nitrogen [Mass/Vol] 15 mg/dL Normal 4-19 [facility] Comment on above: Performed By: #### L 3300.7027, L3300.6900 #### [facility] [address] [place], [address] D-Dimer Quantitative (DVT/PE )on 09-04-2024 D-DIMER QUANT < 0.27 Low 0.27-0.49 [facility] Comment on above: Result Comment: NORM AL D-Dimer level (<0.50) indicates no DVT or PE. Performed By: #### L 3300.7027, L3300.6900 #### [facility] [address] [place], [address] D-dimer measurement for deep venous thrombosisOrdered By: Bhavesh Saxena on 09-04-2024 D-Dimer Quantitative (PE/DVT) < 0.27 FEU/ug/m Low 0.27-0.49 [facility] Comment on above: NORMAL D-Dimer level (<0.50) indicates no DVT or PE. Eosinophil percentageOrdered By: Bhavesh Saxena on 09-04-2024 Eosinophils/100 WBC (Bld) 5.2 % High 0-5 [facility] Erythrocyte distribution wid th ratioOrdered By: Bhavesh Saxena on 09-04-2024 Erythrocyte distribution width (RBC) [Ratio] 12.2 % 11.6-14.6 [facility] Erythrocyte distribution wid th standard deviationOrdered By: Bhavesh Saxena on 09-04-2024 Erythrocyte distribution width (RBC) [Entitic vol] 39.2 fL 35.1-43.9 [facility] Erythrocyte distribution width (RBC) [Ratio] 39.2 fl 35.1-43.9 [facility] GFR/1.73 sq M.predicted yola g non-blacks MDRD (S/P/Bld) [Vol rate/Area]Ordered By: Bhavesh Saxena on 09-04-2024 Estimated GFR (MDRD) Non-Af Amer 121 >60 [facility] Comment on above: mL/min/1.73m2 CKD-EP I Creatinine Equation (2020) Glomerular filtration rate ( GFR) estimation/1.73 sq m using serum, plasma, or whole bOrdered By: Bhavesh Saxena on 09-04-2024 GFR/1.73 sq M.predicted among non-blacks MDRD (S/P/Bld) [Vol rate/Area] 121 mL/min/{1.73_m2} >60 [facility] Comment on above: mL/min/1.73m2 CKD-EP I Creatinine Equation (2020) Hematocrit Auto (Bld) [Volum e fraction]Ordered By: Bhavesh Saxena on 09-04-2024 Hematocrit (Bld) [Volume fraction] 43.5 % 37-47 [facility] Hemoglobin measurementOrdere d By: Bhavesh Saxena on 09-04-2024 Hemoglobin (Bld) [Mass/Vol] 14.4 g/dL 12.0-15.0 [facility] Immature granulocytes/100 WB C Auto (Bld)Ordered By: Bhavesh Saxena on 09-04-2024 Immature granulocytes/100 WBC (Bld) 0.200 % 0.0-0.9 [facility] Comment on above: IG% - Immature Granu locytes (promyelocytes, myelocytes and metamyelocytes) > 1% indicates that a LEFT SHIFT is Present. Internal Medicine Office Vis denys 09-04-2024 Internal Medicine Office Visit [facility] [place], [place] [address] OFFICE VISIT Date of Service: 09/04/24 MR#: [id number] Acct: [id number] Name: LILY FOUNTAIN Rep #: [id number] : 2000 Provider: MAGDA Granger Age/Sex: 24/F Location: [facility] [place].[facility] Status: Signed Intake Vital Signs 07/15/24 14:13 [...] heart rate persists Chief Complaint: heart rate Liaison Officer Required: No Accompanied by: Self Is patient [...] urination, pa (more content not included)... Normal [facility] L506.1001on 09-04-2024 Vitamin D 25-OH 34.1 ng/mL Normal 30-100 [facility] Comment on above: Result Comment: Idalia min D Status Deficiency: <20 ng/mL (50nmol/L) Insufficiency: 20-30 ng/mL (50-75 nmol/L) Sufficiency: 30-100 ng/mL (75-250 nmol/L) Toxicity: >100 ng/mL (>250 nmol/L) Performed By: #### L 3300.7027, L3300.6900 #### [facility] [address] [place], [place], [address] Laboratory - Chemistry and C hemistry - challengeOrdered By: Bhavesh Saxena on 09-04-2024 AST [Catalytic activity/Vol] 23 U/L <32 [facility] Lymphocytes Auto (Unsp spec) [#/Vol]Ordered By: Bhavesh Saxena on 09-04-2024 Lymphocytes (Bld) [#/Vol] 1.96 10*3/uL 0.83-4.51 [facility] Lymphocytes/100 WBC Auto (Un sp spec)Ordered By: Bhavesh Saxena on 09-04-2024 Lymphocytes/100 WBC (Bld) 30.9 % 19-41 [facility] MCV (mean corpuscular volume ) determinationOrdered By: Bhavesh Saxena on 09-04-2024 MCV (RBC) [Entitic vol] 88.4 fL 81-99 [facility] Magnesiumon 09-04-2024 Magnesium [Mass/Vol] 2.1 mg/dL Normal 1.5-2.2 [facility] Comment on above: Performed By: #### L 3300.7027, L3300.6900 #### [facility] [place], [address] Magnesium (Unsp spec) [Mass/ Vol]Ordered By: Bhavesh Saxena on 09-04-2024 Magnesium [Mass/Vol] 2.1 mg/dL 1.5-2.2 [facility] Magnesium measurement (mass/ volume)Ordered By: Bhavesh Saxena on 09-04-2024 Magnesium (Unsp spec) [Mass/Vol] 2.1 mg/dL 1.5-2.2 [facility] Mean corpuscular hemoglobin (MCH) determinationOrdered By: Bhavesh Saxena on 09-04-2024 MCH (RBC) [Entitic mass] 29.3 pg 27.0-32.0 [facility] Mean corpuscular hemoglobin concentration (MCHC) determinationOrdered By: Bhavesh Saxena on 09-04-2024 MCHC (RBC) [Mass/Vol] 33.1 g/dL 32-36 [facility] Mean platelet volume determi nationOrdered By: Bhavesh Saxena on 09-04-2024 Platelet mean volume (Bld) [Entitic vol] 9.6 fL 6.2-12.0 [facility] Monocyte percentageOrdered B y: Bhavesh Saxena on 09-04-2024 Monocytes/100 WBC (Bld) 6.8 % 0-10 [facility] Neutrophil percentageOrdered By: Bhavesh Saxena on 09-04-2024 Neutrophils/100 WBC (Bld) 56.1 % 47-70 [facility] Nucleated red blood cell per centageOrdered By: Bhavesh Saxena on 09-04-2024 Nucleated RBC/100 WBC (Bld) [Ratio] 0 % 0-5 [facility] Platelet countOrdered By: Camelia Saxena on 09-04-2024 Platelets (Bld) [#/Vol] 277 10*3/uL 150-450 [facility] Potassium (Unsp spec) [Mass/ Vol]Ordered By: Bhavesh Saxena on 09-04-2024 Potassium [Moles/Vol] 3.9 mmol/L 3.3-5.1 [facility] Potassium measurement (mass/ volume)Ordered By: Bhavesh Saxena on 09-04-2024 Potassium (Unsp spec) [Mass/Vol] 3.9 mmol/L 3.3-5.1 [facility] RBC Auto (Bld) [#/Vol]Ordere d By: Bhavesh Saxena on 09-04-2024 RBC (Bld) [#/Vol] 4.92 10*6/uL 4.2-5.4 [facility] Serum creatinine measurement (mass/volume)Ordered By: Bhavesh Saxena on 09-04-2024 Creatinine [Mass/Vol] 0.71 mg/dL 0.70-1.20 [facility] Serum globulin measurementOr dered By: Bhavesh Saxena on 09-04-2024 Globulin (S) [Mass/Vol] 2.7 g/dL 2.2-4.2 [facility] Serum glucose measurement (m ass/volume)Ordered By: Bhavesh Saxena on 09-04-2024 Glucose [Mass/Vol] 87 mg/dL 70-99 [facility] Serum or plasma alanine mast otransferase (ALT) measurementOrdered By: Bhavesh Saxena on 09-04-2024 ALT [Catalytic activity/Vol] 16 U/L <35 [facility] Serum or plasma albumin cande urement (mass/volume)Ordered By: Bhavesh Saxena on 09-04-2024 Albumin [Mass/Vol] 4.4 g/dL 3.5-5.0 [facility] Serum or plasma albumin/glob ulin mass ratioOrdered By: Bhavesh Saxena on 09-04-2024 Albumin/Globulin [Mass ratio] 1.6 {ratio} 0.9-2.4 [facility] Serum or plasma alkaline parvin sphatase measurementOrdered By: Bhavesh Saxena on 09-04-2024 ALP [Catalytic activity/Vol] 60 U/L 35-104 [facility] Serum or plasma calcium cande urement (mass/volume)Ordered By: Bhavesh Saxena on 09-04-2024 Calcium [Mass/Vol] 9.7 mg/dL 7.6-11.0 [facility] Serum or plasma urea nitroge n measurement (mass/volume)Ordered By: Bhavesh Saxena on 09-04-2024 Urea nitrogen [Mass/Vol] 15 mg/dL 4-19 [facility] Sodium levelOrdered By: Jeffrey Saxena on 09-04-2024 Sodium [Moles/Vol] 140 mmol/L 133-145 [facility] Total proteinOrdered By: René Saxena on 09-04-2024 Protein [Mass/Vol] 7.0 g/dL 5.9-8.4 [facility] Vitamin D, 25-hydroxyOrdered By: Bhavesh Saxena on 09-04-2024 Vitamin D 25-Hydroxy 34.1 ng/mL 30-100 [facility] Comment on above: Vitamin D StatusDefi ciency: <20 ng/mL (50nmol/L)Insufficiency: 20-30 ng/mL (50-75 nmol/L)Sufficiency: 30-100 ng/mL (75-250 nmol/L)Toxicity: >100 ng/mL (>250 nmol/L) White blood cell (WBC) count Ordered By: Bhavesh Saxena on 09-04-2024 WBC (Bld) [#/Vol] 6.3 10*3/uL 4.4-11.0 [facility] T4 Free Directon 08-24-2024 T4 FREE DIRECT 1.40 ng/dL Normal 0.76-1.46 [facility] Comment on above: Performed By: #### L 501.9520 #### [facility] [place], [address] T4 freeOrdered By: Bhavesh viveros on 08-24-2024 Free T4 [Mass/Vol] 1.40 ng/dL 0.76-1.46 [facility] TSH DL <= 0.005 mIU/L QnOrde red By: Bhavesh Saxena on 08-24-2024 Thyroid Stimulating Hormone (TSH) 1.670 uIU/mL 0.300-4.200 [facility] TSH Qn 1.670 uIU/mL 0.300-4.200 [facility] Thyroid Stim Hormone (TSH)on 08-24-2024 TSH 1.670 uIU/mL Normal 0.300-4.200 [facility] Comment on above: Performed By: #### L 501.9520 #### [facility] [address] [place], [address] 12 Lead EKG performed by [facility] [place] on 07-15-2024 12 Lead EKG performed by [facility] [address] [place] [address] 12 Lead EKG performed by [facility] [place] [facility] 07/15/24 1417 MR#: [id number] Acct: [id number] Name: LILY FOUNTAIN Rep #: [id number] : 2000 24 From: Bhavesh MAN Attending Dr: MAGDA Granger Status: DEP AMB Ordering Dr: Bhavesh Saxena Date: 07/15/24 Location: [facility] [place] Sex: F C Admitted: BMS/12 Lead EKG performed by [facility] [place] ECG Report Interpretation ---Sinus Rhythm WITHIN NORMAL LIMITSElectronically signed on 07/21/2024 at 09:59 by Kennedy [employer]ushing [employer] Version [id number] 07/21/24 1000 Date Bhavesh MAN CC: Dr. Angela Allen MD Date Dictated: 07/15/241416 Date Transcribed: 07/15/241416 [employer] Apprentice: AUGUSTO Signed Normal [facility] Internal Medicine Office Vis iton 07-15-2024 Internal Medicine Office Visit [facility] [address] [place] [address] OFFICE VISIT Date of Service: 07/15/24 MR#: [id number] Acct: [id number] Name: LILY FOUNTAIN Rep #: [id number] : 2000 Provider: MAGDA Granger Age/Sex: 24/F Location: [facility] [place] Status: Signed Intake Vital Signs 10/23/23 12:54 07/15/24 14:13 Height 5 ft 7 in 5 ft 7 in Weight: 212 lb BMI 33.2 BP 124/64 H Blood Pressure Location Lt brachial Position Sitting Respiration 14 Pulse 88 Pulse Source Monitor Temp 97.8 F Temp Source Temporal Pulse Oximetry (%) 98 Oxygen Delivery Method room air Intake Visit Reasons: acute - raised heartrate Liaison Officer Required: No Accompanied by: Self Is patient [...] vomiting Ge (more content not included)... Normal [facility] T3 IA [Mass/Vol]Ordered By: Angela Allen on 07-06-2024 Total Triiodothyronine 0.85 ng/mL 0.6-1.81 [facility] T3 Total - Triiodothyronineo n 07-06-2024 T3 Total 0.85 ng/mL Normal 0.6-1.81 [facility] Comment on above: Performed By: #### L 501.9186 #### [facility] [address] [place], [place], [address] T4 Free Directon 07-03-2024 T4 FREE DIRECT 0.93 ng/dL Normal 0.76-1.46 [facility] Comment on above: Order Comment: ADD O N COLLECTED 07/02 Performed By: #### L 506.0400 #### [facility] [address] [place], [place], [address] Direct serum free thyroxine (FT4) measurementOrdered By: Angela Allen on 07-02-2024 Free T4 [Mass/Vol] 0.93 ng/dL 0.76-1.46 [facility] TSH QnOrdered By: Angela win on 07-02-2024 Thyroid Stimulating Hormone (TSH) 1.340 uIU/mL 0.358-3.740 [facility] Thyroid Stim Hormone (TSH)on 07-02-2024 TSH 1.340 uIU/mL Normal 0.358-3.740 [facility] Comment on above: Performed By: #### L 501.9520 #### [facility] [address] [place], [place], [address] Thyroglobulin Antibodyon TG AB < 1.0 Normal 0.0-0.9 [facility] Comment on above: Result Comment: Thyr oglobulin Antibody measured by [facility] It should be noted that the presence of thyroglobulin antibodies may not be pathogenic nor diagnostic, especially at very low levels. The assay wheelage clerk has found that four percent of individuals without evidence of thyroid disease or autoimmunity will have positive TgAb levels up to 4 IU/mL. Performed By: #### L 3300.7027, L3300.6900 #### [facility] [address] [place], [place], [address] Thyroid Peroxidase ABon 04-24 THYR PEROX AB 306 IU/mL High 0-34 [facility] Comment on above: Result Comment: Perf ormed at: [facility] [id number] Refrigerating Machine Operator: Nicanor Barillas PhD, Phone: [phone] Performed By: #### L 3300.7027, L3300.1986 #### [facility] [address] [place], [place], [address] Thyroid Stim Hormone (TSH)on 05-06-2024 TSH 6.430 uIU/mL High 0.358-3.740 [facility] Comment on above: Performed By: #### L 501.9520 #### [facility] [address] [place], [place], [address] Absolute lymphocyte countOrd ered By: Angela Allen on 10-23-2023 Lymphocytes Auto (Unsp spec) [#/Vol] 3.10 10*3/uL 0.83-4.51 [facility] Automated lymphocyte count a s percentage of total leukocytesOrdered By: Angela Allen on 10-23-2023 Lymphocytes/100 WBC Auto (Unsp spec) 37.3 % 19-41 [facility] Basophil percentageOrdered B y: Angela Allen on 10-23-2023 Basophils/100 WBC (Bld) 1.3 % 0-1 [facility] Bilirubin [Mass/Vol] 0.30 mg/dL 0.20-1.00 [facility] Comment on above: For patients on eltr ombopag therapy, use of [facility] [place] TBIL is not recommended. Chloride [Moles/Vol] 107 mmol/L 98-107 [facility] [facility] Eosinophils/100 WBC (Bld) 18.2 % 0-5 [facility] Glucose [Mass/Vol] 100 mg/dL 74-106 [facility] Comment on above: Fasting Glucose resu lt from 100 to 125 mg/dL suggests IMPAIRED HOMEOSTASIS per A.D.A. criteria. Hemoglobin (Bld) [Mass/Vol] 14.7 g/dL 12.0-15.0 [facility] Monocytes/100 WBC (Bld) 4.5 % 0-10 [facility] Neutrophils (Bld) [#/Vol] 3.2 10*3/uL 2.0-7.7 [facility] Neutrophils/100 WBC (Bld) 38.5 % 47-70 [facility] Potassium [Moles/Vol] 3.9 mmol/L 3.5-5.1 [facility] Protein [Mass/Vol] 7.4 g/dL 6.4-8.2 [facility] Sodium [Moles/Vol] 138 mmol/L 136-145 [facility] WBC (Bld) [#/Vol] 8.3 10*3/uL 4.4-11.0 [facility] Determination of erythrocyte mean corpuscular volume (MCV)Ordered By: Angela Allen on 10-23-2023 MCV (RBC) [Entitic vol] 85.7 fL 81-99 [facility] Erythrocyte distribution wid th ratioOrdered By: Angela Allen on 10-23-2023 Erythrocyte distribution width (RBC) [Ratio] 12.6 % 11.6-14.6 [facility] Erythrocyte distribution wid th standard deviationOrdered By: Angela Allen on 10-23-2023 Erythrocyte distribution width (RBC) [Entitic vol] 39.5 fL 35.1-43.9 [facility] Hematocrit Auto (Bld) [Volum e fraction]Ordered By: Angela Allen on 10-23-2023 Hematocrit (Bld) [Volume fraction] 44.8 % 37-47 [facility] Immature granulocytes/100 WB C Auto (Bld)Ordered By: Angela Allen on 10-23-2023 Immature granulocytes/100 WBC (Bld) 0.200 % 0.0-0.9 [facility] Comment on above: IG% - Immature Granu locytes (promyelocytes, myelocytes and metamyelocytes) > 1% indicates that a LEFT SHIFT is Present. Laboratory - Chemistry and C hemistry - challengeOrdered By: Angela Allen on 10-23-2023 Albumin/Globulin [Mass ratio] 1.0 {ratio} 0.9-2.4 [facility] ALP [Catalytic activity/Vol] 100 U/L 45-117 [facility] ALT [Catalytic activity/Vol] 23 U/L 13-56 [facility] CO2 [Moles/Vol] 28.0 mmol/L 21.0-32.0 [facility] Globulin (S) [Mass/Vol] 3.7 g/dL 2.2-4.2 [facility] Urea nitrogen/Creatinine [Mass ratio] 22.3 mg/mg 10-20 [facility] Laboratory - Hematology and Cell countsOrdered By: Angela Allen on 10-23-2023 MCH (RBC) [Entitic mass] 28.1 pg 27.0-32.0 [facility] MCHC (RBC) [Mass/Vol] 32.8 g/dL 32-36 [facility] Nucleated RBC/100 WBC (Bld) [Ratio] 0 % 0-5 [facility] Platelet mean volume (Bld) [Entitic vol] 9.7 fL 6.2-12.0 [facility] Platelets (Bld) [#/Vol] 349 10*3/uL 150-450 [facility] No Panel InformationOrdered By: Angela Allne on 10-23-2023 Estimated GFR (MDRD) Amer 98 mL/min >60 [facility] Comment on above: GFR Calc Estimated GFR (MDRD) Non-Af Amer 81 mL/min >60 [facility] Comment on above: Non- GFR Calc RBC Auto (Bld) [#/Vol]Ordere d By: Angela Allen on 10-23-2023 RBC (Bld) [#/Vol] 5.23 10*6/uL 4.2-5.4 [facility] Serum or plasma calcium cande urement (mass/volume)Ordered By: Angela Allen on 10-23-2023 Calcium [Mass/Vol] 9.1 mg/dL 8.5-10.1 [facility] Serum or plasma creatinine m easurement (mass/volume)Ordered By: Angela Allen on 10-23-2023 Creatinine [Mass/Vol] 0.90 mg/dL 0.55-1.02 [facility] Comment on above: The validity of the calculated GFR & GFRAA in patients over 70 years has not been determined. Clinical correlation is essential. Serum or plasma thyroid stim ulating hormone (TSH) measurement (units/volume)Ordered By: Angela Allen on 10-23-2023 TSH Qn 10.70 uIU/mL 0.358-3.74 [facility] Serum or plasma urea nitroge n measurement (mass/volume)Ordered By: Angela Allen on 10-23-2023 Urea nitrogen [Mass/Vol] 20 mg/dL 7-18 [facility] Thin prep Papanicolaou smear with manual screeningOrdered By: Angela Allen on 10-23-2023 Thin prep Papanicolaou smear with manual screening 3.7 g/dL 3.2-5.0 [facility] Thin prep Papanicolaou smear with manual screening 21 U/L 15-37 [facility] Thin prep Papanicolaou smear with manual screening 3 5-15 [facility] Serum or plasma thyroid stim ulating hormone (TSH) measurement (units/volume)Ordered By: Katarina Christy on 09-06-2023 TSH Qn 0.11 uIU/mL 0.358-3.74 [facility] Laboratory - Chemistry and C hemistry - challengeOrdered By: Candace Bernal on 07-08-2023 Free T4 [Mass/Vol] 1.16 ng/dL 0.76-1.46 [facility] No Panel InformationOrdered By: Candace Bernal on 07-08-2023 Free Triiodothyronine (T3) pg/dL 2.9 pg/mL 2.18-3.98 [facility] Thyroid Stimulating Hormone (TSH) 0.08 uIU/mL 0.358-3.74 [facility] Basophil percentageOrdered B y: Candace Bernal on 05-24-2023 WBC (Bld) [#/Vol] 7.9 10*3/uL 4.4-11.0 [facility] Blood erythrocytes count (nu mber/volume)Ordered By: Candace Bernal on 05-24-2023 RBC (Bld) [#/Vol] 4.30 10*6/uL 4.2-5.4 [facility] Blood hemoglobin measurement (mass/volume)Ordered By: Candace Bernal on 05-24-2023 Hemoglobin (Bld) [Mass/Vol] 12.2 g/dL 12.0-15.0 [facility] Blood platelet mean volumeOr dered By: Candace Bernal on 05-24-2023 Platelet mean volume (Bld) [Entitic vol] 10.7 fL 6.2-12.0 [facility] Determination of erythrocyte mean corpuscular volume (MCV)Ordered By: Candace Bernal on 05-24-2023 MCV (RBC) [Entitic vol] 86.3 fL 81-99 [facility] Hematocrit Auto (Bld) [Volum e fraction]Ordered By: Candace Bernal on 05-24-2023 Hematocrit (Bld) [Volume fraction] 37.1 % 37-47 [facility] Laboratory - Chemistry and C hemistry - challengeOrdered By: Candace Bernal on 05-24-2023 ALT [Catalytic activity/Vol] 29 U/L 13-56 [facility] Laboratory - Chemistry and C hemistry - challengeon 05-24-2023 Glucose Ql (U) Negative [facility] Laboratory - Hematology and Cell countsOrdered By: Candace Bernal on 05-24-2023 Erythrocyte distribution width (RBC) [Entitic vol] 41.6 fL 35.1-43.9 [facility] Erythrocyte distribution width (RBC) [Ratio] 13.5 % 11.6-14.6 [facility] MCH (RBC) [Entitic mass] 28.4 pg 27.0-32.0 [facility] Laboratory - Urinalysison Protein Ql (U) Trace [facility] MCHC Auto (RBC) [Mass/Vol]Or dered By: Candace Bernal on 05-24-2023 MCHC (RBC) [Mass/Vol] 32.9 g/dL 32-36 [facility] No Panel InformationOrdered By: Candace Bernal on 05-24-2023 Estimated Creatinine Clearance Calc 148.00 ml/min [facility] Estimated GFR (MDRD) Amer 166 mL/min >60 [facility] Comment on above: GFR Calc Estimated GFR (MDRD) Non-Af Amer 137 mL/min >60 [facility] Comment on above: Non- GFR Calc Platelets bldOrdered By: Jessa Bernal on 05-24-2023 Platelets (Bld) [#/Vol] 232 10*3/uL 150-450 [facility] Serum Treponema species anti body detectionOrdered By: Candace Bernal on 05-24-2023 Treponema sp Ab Ql (S) Non-Reactive [facility] Serum or plasma creatinine m easurement (mass/volume)Ordered By: Candace Bernal on 05-24-2023 Creatinine [Mass/Vol] 0.57 mg/dL 0.55-1.02 [facility] Comment on above: The validity of the calculated GFR & GFRAA in patients over 70 years has not been determined. Clinical correlation is essential. Serum or plasma uric acid me asurement (mass/volume)Ordered By: Candace Bernal on 05-24-2023 Urate [Mass/Vol] 5.4 mg/dL 2.6-6.0 [facility] Comment on above: The drugs N-Acetylcy steine and Metamizole may falsely depress this assay. Thin prep Papanicolaou smear with manual screeningOrdered By: Candace Bernal on 05-24-2023 Thin prep Papanicolaou smear with manual screening 26 U/L 15-37 [facility] Urine creatinine measurement (mass/volume)Ordered By: Linh Willis on 05-24-2023 Creatinine (U) [Mass/Vol] 107.00 mg/dL NO RANGE EST. [facility] Urine protein measurement (m ass/volume)Ordered By: Linh Willis on 05-24-2023 Protein (U) [Mass/Vol] 20.2 mg/dL 0.0-11.8 [facility] Urine protein/creatinine mas s ratioOrdered By: Linh Willis on 05-24-2023 Protein/Creatinine (U) [Mass ratio] 189 mg/g CRE 0-200 [facility] No Panel InformationOrdered By: Katie Page on 05-07-2023 Group B Streptococcus Culture Group B Beta Streptococcus is not isolated. [facility] Vaginal Amniotic Fluid Detection Negative Negative [facility] Comment on above: Amniotic fluid not p resent indicates No Rupture of FetalMembranes at time of specimen collection. Laboratory - Chemistry and C hemistry - challengeon 05-03-2023 Glucose Ql (U) Negative [facility] Laboratory - Urinalysison Protein Ql (U) Negative [facility] Culture, urineOrdered By: Royal Willis on 04-26-2023 Bacteria identified Cx Nom (U) Culture exhibits no growth. [facility] Gram stain for investigation of transfusion reactionOrdered By: Linh Willis on 04-26-2023 Microscopic observation Gram stain Nom (Unsp spec) [facility] Laboratory - Chemistry and C hemistry - challengeon 04-26-2023 Bilirubin Ql (U) Negative [facility] Glucose Ql (U) Negative [facility] Ketones Ql (U) Negative [facility] pH (U) 7.5 [pH] [facility] Specific gravity (U) [Rel density] 1.005 [facility] Urobilinogen (U) [Mass/Vol] Negative [facility] Laboratory - Hematology and Cell countson 04-26-2023 Hemoglobin Ql (U) Negative [facility] Laboratory - Specimen inform ationon 04-26-2023 Clarity (U) Clear [facility] Color (U) YELLOW [facility] Laboratory - Urinalysison Nitrite Ql (U) Negative [facility] Protein Ql (U) Negative [facility] No Panel Informationon 04-26 Urine Leukocytes Negatve [facility] Urine Non-Hemolyzed Blood Negative [facility] Thin prep Papanicolaou smear with manual screeningOrdered By: Linh Willis on 04-26-2023 Thin prep Papanicolaou smear with manual screening Neisseria or beta-hemolytic Streptococcus isolated. [facility] Laboratory - Chemistry and C hemistry - challengeOrdered By: Katie Page on 04-24-2023 Free T4 [Mass/Vol] 0.78 ng/dL 0.76-1.46 [facility] No Panel InformationOrdered By: Candace Bernal on 04-24-2023 Free Triiodothyronine (T3) pg/dL 2.3 pg/mL 2.18-3.98 [facility] No Panel InformationOrdered By: Katiebrent Page on 04-24-2023 Thyroid Stimulating Hormone (TSH) 1.56 uIU/mL 0.358-3.74 [facility] Laboratory - Chemistry and C hemistry - challengeon 04-19-2023 Glucose Ql (U) Negative [facility] Laboratory - Urinalysison Protein Ql (U) Negative [facility] Laboratory - Chemistry and C hemistry - challengeon 03-22-2023 Glucose Ql (U) Negative [facility] Laboratory - Urinalysison Protein Ql (U) Negative [facility] Absolute lymphocyte countOrd ered By: Linh Willis on 03-08-2023 Lymphocytes Auto (Unsp spec) [#/Vol] 1.42 10*3/uL 0.83-4.51 [facility] Basophil percentageOrdered B y: Linh Willis on 03-08-2023 Basophils/100 WBC (Bld) 0.4 % 0-1 [facility] Eosinophils/100 WBC (Bld) 1.2 % 0-5 [facility] Neutrophils (Bld) [#/Vol] 6.2 10*3/uL 2.0-7.7 [facility] Neutrophils/100 WBC (Bld) 75.1 % 47-70 [facility] WBC (Bld) [#/Vol] 8.3 10*3/uL 4.4-11.0 [facility] Blood erythrocytes count (nu mber/volume)Ordered By: Linh Willis on 03-08-2023 RBC (Bld) [#/Vol] 4.27 10*6/uL 4.2-5.4 [facility] Blood hemoglobin measurement (mass/volume)Ordered By: Linh Willis on 03-08-2023 Hemoglobin (Bld) [Mass/Vol] 13.1 g/dL 12.0-15.0 [facility] Blood lymphocytes/100 leukoc ytesOrdered By: Linh Willis on 03-08-2023 Lymphocytes/100 WBC (Bld) 17.1 % 19-41 [facility] Blood monocytes/100 leukocyt esOrdered By: Linh Willis on 03-08-2023 Monocytes/100 WBC (Bld) 5.7 % 0-10 [facility] Blood platelet mean volumeOr dered By: Linh Willis on 03-08-2023 Platelet mean volume (Bld) [Entitic vol] 9.6 fL 6.2-12.0 [facility] Determination of erythrocyte mean corpuscular volume (MCV)Ordered By: Linh Willis on 03-08-2023 MCV (RBC) [Entitic vol] 89.9 fL 81-99 [facility] Gestational diabetes screen 1-hour screen with 50g oral glucose loadOrdered By: Linh Willis on 03-08-2023 Glucose 1 Hr post 50 g glucose PO [Mass/Vol] 129 mg/dL 70-140 [facility] HIV 1 and HIV-2 antibody ass ay with HIV-1 p24 antigen detectionOrdered By: Linh Willis on 03-08-2023 HIV 1+2 Ab+HIV1 p24 Ag IA Ql Non-Reactive Nonreactive [facility] Hematocrit Auto (Bld) [Volum e fraction]Ordered By: Linh Willis on 03-08-2023 Hematocrit (Bld) [Volume fraction] 38.4 % 37-47 [facility] Laboratory - Chemistry and C hemistry - challengeon 03-08-2023 Glucose Ql (U) Negative [facility] Laboratory - Hematology and Cell countsOrdered By: Linh Willis on 03-08-2023 Erythrocyte distribution width (RBC) [Entitic vol] 42.3 fL 35.1-43.9 [facility] Erythrocyte distribution width (RBC) [Ratio] 12.9 % 11.6-14.6 [facility] Immature granulocytes/100 WBC (Bld) 0.500 % 0.0-0.9 [facility] Comment on above: IG% - Immature Granu locytes (promyelocytes, myelocytes and metamyelocytes) > 1% indicates that a LEFT SHIFT is Present. MCH (RBC) [Entitic mass] 30.7 pg 27.0-32.0 [facility] Nucleated RBC/100 WBC (Bld) [Ratio] 0 % 0-5 [facility] Laboratory - Urinalysison Protein Ql (U) Negative [facility] MCHC Auto (RBC) [Mass/Vol]Or dered By: Linh Willis on 03-08-2023 MCHC (RBC) [Mass/Vol] 34.1 g/dL 32-36 [facility] Platelets bldOrdered By: Any Willis on 03-08-2023 Platelets (Bld) [#/Vol] 224 10*3/uL 150-450 [facility] Serum Treponema species anti body detectionOrdered By: Linh Willis on 03-08-2023 Treponema sp Ab Ql (S) Non-Reactive [facility] Laboratory - Chemistry and C hemistry - challengeon 02-08-2023 Glucose Ql (U) Negative [facility] Laboratory - Urinalysison Protein Ql (U) Negative [facility] Laboratory - Chemistry and C hemistry - challengeOrdered By: Katie Page on 01-11-2023 Free T4 [Mass/Vol] 0.90 ng/dL 0.76-1.46 [facility] Laboratory - Chemistry and C hemistry - challengeon 01-11-2023 Glucose Ql (U) Negative [facility] Laboratory - Urinalysison Protein Ql (U) Negative [facility] No Panel InformationOrdered By: Katie Page on 01-11-2023 Thyroid Stimulating Hormone (TSH) 1.85 uIU/mL 0.358-3.74 [facility] Laboratory - Chemistry and C hemistry - challengeon 12-14-2022 Glucose Ql (U) Negative [facility] Laboratory - Urinalysison Protein Ql (U) Negative [facility] No Panel InformationOrdered By: Linh Willis on 12-14-2022 Thyroid Stimulating Hormone (TSH) 3.97 uIU/mL 0.358-3.74 [facility] Absolute lymphocyte countOrd ered By: Savage Bonds on 11-15-2022 Lymphocytes Auto (Unsp spec) [#/Vol] 2.19 10*3/uL 0.83-4.51 [facility] Basophil percentageOrdered B y: Savage Bonds on 11-15-2022 Basophils/100 WBC (Bld) 0.6 % 0-1 [facility] Bilirubin [Mass/Vol] 0.30 mg/dL 0.20-1.00 [facility] Comment on above: For patients on eltr ombopag therapy, use of [employer] [place] TBIL is not recommended. Chloride [Moles/Vol] 107 mmol/L 98-107 [facility] Eosinophils/100 WBC (Bld) 2.4 % 0-5 [facility] Glucose [Mass/Vol] 96 mg/dL 74-106 [facility] Neutrophils (Bld) [#/Vol] 6.3 10*3/uL 2.0-7.7 [facility] Neutrophils/100 WBC (Bld) 67.5 % 47-70 [facility] Potassium [Moles/Vol] 3.3 mmol/L 3.5-5.1 [facility] Protein [Mass/Vol] 6.6 g/dL 6.4-8.2 [facility] Sodium [Moles/Vol] 138 mmol/L 136-145 [facility] WBC (Bld) [#/Vol] 9.4 10*3/uL 4.4-11.0 [facility] Basophil percentage 0-5 SEEN /hpf 0-5 [facility] Bilirubin Test strip Ql (U)O rdered By: Savage Bonds on 11-15-2022 Bilirubin Ql (U) Negative Negative [facility] Blood erythrocytes count (nu mber/volume)Ordered By: Savage Bonds on 11-15-2022 RBC (Bld) [#/Vol] 4.26 10*6/uL 4.2-5.4 [facility] Blood hemoglobin measurement (mass/volume)Ordered By: Savage Bonds on 11-15-2022 Hemoglobin (Bld) [Mass/Vol] 12.7 g/dL 12.0-15.0 [facility] Blood lymphocytes/100 leukoc ytesOrdered By: Savaeg Bonds on 11-15-2022 Lymphocytes/100 WBC (Bld) 23.3 % 19-41 [facility] Blood monocytes/100 leukocyt esOrdered By: Savage Bonds on 11-15-2022 Monocytes/100 WBC (Bld) 6.0 % 0-10 [facility] Blood platelet mean volumeOr dered By: Savage Bonds on 11-15-2022 Platelet mean volume (Bld) [Entitic vol] 9.7 fL 6.2-12.0 [facility] Determination of erythrocyte mean corpuscular volume (MCV)Ordered By: Savage Bonds on 11-15-2022 MCV (RBC) [Entitic vol] 88.3 fL 81-99 [facility] Hematocrit Auto (Bld) [Volum e fraction]Ordered By: Savage Bonds on 11-15-2022 Hematocrit (Bld) [Volume fraction] 37.6 % 37-47 [facility] Ketones Test strip Ql (U)Ord ered By: Savage Bonds on 11-15-2022 Ketones Ql (U) Negative Negative [facility] Laboratory - Chemistry and C hemistry - challengeOrdered By: Savage Bonds on 11-15-2022 ALP [Catalytic activity/Vol] 39 U/L 45-117 [facility] ALT [Catalytic activity/Vol] 20 U/L 13-56 [facility] CO2 [Moles/Vol] 24.0 mmol/L 21.0-32.0 [facility] Globulin (S) [Mass/Vol] 3.4 g/dL 2.2-4.2 [facility] Lipase [Catalytic activity/Vol] 31 U/L - [facility] Comment on above: Please note:LIPASE r evised reference range effective 22. New Lipase methodology. Expected to produce lower values than the previous assay method. NEW Reference Range: 13 - 75 U/L Urea nitrogen/Creatinine [Mass ratio] 16.0 mg/mg 10-20 [facility] Laboratory - Hematology and Cell countsOrdered By: Savage Bonds on 11-15-2022 Erythrocyte distribution width (RBC) [Entitic vol] 39.7 fL 35.1-43.9 [facility] Erythrocyte distribution width (RBC) [Ratio] 12.4 % 11.6-14.6 [facility] Immature granulocytes/100 WBC (Bld) 0.200 % 0.0-0.9 [facility] Comment on above: IG% - Immature Granu locytes (promyelocytes, myelocytes and metamyelocytes) > 1% indicates that a LEFT SHIFT is Present. MCH (RBC) [Entitic mass] 29.8 pg 27.0-32.0 [facility] Nucleated RBC/100 WBC (Bld) [Ratio] 0 % 0-5 [facility] MCHC Auto (RBC) [Mass/Vol]Or dered By: Savage Bonds on 11-15-2022 MCHC (RBC) [Mass/Vol] 33.8 g/dL 32-36 [facility] Mucus LM Ql (Urine sed)Order ed By: Savage Bonds on 11-15-2022 Mucus Ql (Urine sed) 0 SEEN /hpf [facility] Nitrite Test strip Ql (U)Ord ered By: Savage Bonds on 11-15-2022 Nitrite Ql (U) Negative Negative [facility] No Panel InformationOrdered By: Savage Bonds on 11-15-2022 Estimated Creatinine Clearance Calc 133.90 ml/min [facility] Estimated GFR (MDRD) Amer 150 mL/min >60 [facility] Comment on above: GFR Calc Estimated GFR (MDRD) Non-Af Amer 124 mL/min >60 [facility] Comment on above: Non- GFR Calc Platelets bldOrdered By: Lilliam Bonds on 11-15-2022 Platelets (Bld) [#/Vol] 285 10*3/uL 150-450 [facility] Protein Test strip Ql (U)Ord ered By: Savage Bonds on 11-15-2022 Protein Ql (U) Negative Negative [facility] Serum or plasma albumin cande urement (mass/volume)Ordered By: Savage Bonds on 11-15-2022 Albumin [Mass/Vol] 3.2 g/dL 3.2-5.0 [facility] Serum or plasma albumin/glob ulin mass ratioOrdered By: Savage Bonds on 11-15-2022 Albumin/Globulin [Mass ratio] 0.9 {ratio} 0.9-2.4 [facility] Serum or plasma calcium cande urement (mass/volume)Ordered By: Savage Bonds on 11-15-2022 Calcium [Mass/Vol] 9.0 mg/dL 8.5-10.1 [facility] Serum or plasma creatinine m easurement (mass/volume)Ordered By: Savage Bonds on 11-15-2022 Creatinine [Mass/Vol] 0.63 mg/dL 0.55-1.02 [facility] Comment on above: The validity of the calculated GFR & GFRAA in patients over 70 years has not been determined. Clinical correlation is essential. Serum or plasma urea nitroge n measurement (mass/volume)Ordered By: Savage Bonds on 11-15-2022 Urea nitrogen [Mass/Vol] 10 mg/dL 7-18 [facility] Squamous epithelial cells de tection in urine sediment by light microscopyOrdered By: Savage Bonds on 11-15-2022 Epithelial cells.squamous LM Ql (Urine sed) 0-5 SEEN /hpf 5-10 [facility] Thin prep Papanicolaou smear with manual screeningOrdered By: Savage Bonds on 11-15-2022 Thin prep Papanicolaou smear with manual screening 17 U/L 15-37 [facility] Thin prep Papanicolaou smear with manual screening 7 5-15 [facility] Urine blood detectionOrdered By: Savage Bonds on 11-15-2022 RBC Ql (U) Negative Negative [facility] RBC Ql (U) 0 SEEN /hpf 0-5 [facility] Urine clarityOrdered By: Lilliam Bonds on 11-15-2022 Clarity (U) Clear Clear [facility] Urine color determinationOrd ered By: Savage Bonds on 11-15-2022 Color (U) Yellow Yellow [facility] Urine glucose detectionOrder ed By: Savage Bonds on 11-15-2022 Glucose Ql (U) Normal mg/dl Normal [facility] Urine leukocyte esterase det ection by dipstickOrdered By: Savage Bonds on 11-15-2022 Leukocyte esterase Test strip Ql (U) Negative Negative [facility] Urine pHOrdered By: Savage acharya on 11-15-2022 pH (U) 7.0 [pH] 5.0 - 8.0 [facility] [facility] Urine sediment bacteria coun t by microscopy (number/high power field)Ordered By: Savage Bonds on 11-15-2022 Bacteria LM.HPF (Urine sed) [#/Area] 1 /[HPF] None Seen [facility] Urine specific gravity measu rementOrdered By: Savage Bonds on 11-15-2022 Specific gravity (U) [Rel density] 1.010 1.002-1.030 [facility] Urobilinogen Auto test strip Ql (U)Ordered By: Savage Bonds on 11-15-2022 Urobilinogen Ql (U) Normal mg/dl Normal [facility] Absolute lymphocyte countOrd ered By: Katie Page on 11-05-2022 Lymphocytes Auto (Unsp spec) [#/Vol] 2.24 10*3/uL 0.83-4.51 [facility] Basophil percentageOrdered B y: Katie Page on 11-05-2022 Basophils/100 WBC (Bld) 0.5 % 0-1 [facility] Eosinophils/100 WBC (Bld) 3.5 % 0-5 [facility] Neutrophils (Bld) [#/Vol] 6.6 10*3/uL 2.0-7.7 [facility] Neutrophils/100 WBC (Bld) 67.2 % 47-70 [facility] WBC (Bld) [#/Vol] 9.9 10*3/uL 4.4-11.0 [facility] Blood erythrocytes count (nu mber/volume)Ordered By: Katie Page on 11-05-2022 RBC (Bld) [#/Vol] 4.48 10*6/uL 4.2-5.4 [facility] Blood hemoglobin measurement (mass/volume)Ordered By: Katie Page on 11-05-2022 Hemoglobin (Bld) [Mass/Vol] 13.5 g/dL 12.0-15.0 [facility] Blood lymphocytes/100 leukoc ytesOrdered By: Katie Page on 11-05-2022 Lymphocytes/100 WBC (Bld) 22.7 % 19-41 [facility] Blood monocytes/100 leukocyt esOrdered By: Katie Page on 11-05-2022 Monocytes/100 WBC (Bld) 5.9 % 0-10 [facility] Blood platelet mean volumeOr dered By: Katie Page on 11-05-2022 Platelet mean volume (Bld) [Entitic vol] 10.0 fL 6.2-12.0 [facility] Chlamydia trachomatis rRNA d etection by probe and target amplification methodOrdered By: Katie Page on 11-05-2022 C. trachomatis rRNA KASIA+probe Ql (Unsp spec) Negative Negative [facility] Culture, urineOrdered By: Janna kirsten Page on 11-05-2022 Bacteria identified Cx Nom (U) Culture exhibits no growth. [facility] Cystic fibrosis screenOrdere d By: Katie Page on 11-05-2022 Cystic fibrosis NBS panel Comment: . [facility] Comment on above: RESULTS: Negative fo r [...] be a carrier of cysticfibrosis, please contact [facility] [phone] for a revised report.Mutation Detection Detection rates are based on mutationRates among Ethnic frequencies in patients affected withGroups cystic fibrosis. Among individuals with an atypical or mild presentation (e.g. congenital absence of the vas deferens, pancreatitis) detection rates may vary from those provided here: Carrier risk reduction when no family history DetectionEthnicity RateAshkenazi 07/19 to 97%JewishCaucasian 07/18 to 90%(non-)-Tunisian 65 to 69% 46 to 73% to 55%This interpretation is based on the clinical and familyrelationship information provided and the currentunderstanding of the molecular genetics of this condition.MUTATIONS ANALYZED:G85E V520F E3207P 2183AA to MP832L G542X H3764L 0400rbwVB313U S549N 394delTT 2789+5G to AH150U S549R 621+1G to T 3120+1G to XE459T G551D 711+1G to T [id number] R553X 1078delT 3849+10kbC to STjjrzO991 R560T 1717-1G to A [id number] B1446C 1898+1G to A 3905insTMETHODS/LIMITATIONS:DNA is isolated from the sample and tested for the 32 CFmutations on the [employer] ([employer]).Regions of the CFTR gene are amplified enzymatically andsubjected to a solution-phase multiplex allele-specificprimer extension with subsequent hybridization to a beadarray and fluorescence detection. Polymorphisms F508C,I506V and I507V are included in this panel to rule outfalse positive [id number] homozygotes. Reflex testing of5T is included in the panel for R117H interpretation.False positive or negative results may occur for reasonsthat include genetic variants, blood transfusions, bonemarrow transplantation, erroneous representation offamily relationships or contamination of a samplewith maternal cells.REFERENCES:1. Updates on Carrier Screening for Cystic Fibrosis. (2011) Am J Ob Gynecol 117(4):1028-94705. Dandre et al. (2004) Alyssa Med 6:387-913. Kehinde, et al. (2002) Alyssa Med 4:379-3914. Preconception and carrier screening for cystic fibrosis: (2001)ACOG.ACMG publicationResults Released By: Slava Madden, Ph.D., Director [address] [place] [address] [id number] Released By: Slava Madden, Ph.D., Director Determination of erythrocyte mean corpuscular volume (MCV)Ordered By: Katie Page on 11-05-2022 MCV (RBC) [Entitic vol] 88.4 fL 81-99 [facility] HIV 1 and HIV-2 antibody ass ay with HIV-1 p24 antigen detectionOrdered By: Katie Page on 11-05-2022 HIV 1+2 Ab+HIV1 p24 Ag IA Ql Non-Reactive Nonreactive [facility] Hematocrit Auto (Bld) [Volum e fraction]Ordered By: Katie Page on 11-05-2022 Hematocrit (Bld) [Volume fraction] 39.6 % 37-47 [facility] Laboratory - Chemistry and C hemistry - challengeOrdered By: Sujata Campuzano on 11-05-2022 Free T4 [Mass/Vol] 1.11 ng/dL 0.76-1.46 [facility] Laboratory - Hematology and Cell countsOrdered By: Katie Page on 11-05-2022 Erythrocyte distribution width (RBC) [Entitic vol] 39.1 fL 35.1-43.9 [facility] Erythrocyte distribution width (RBC) [Ratio] 12.1 % 11.6-14.6 [facility] Immature granulocytes/100 WBC (Bld) 0.200 % 0.0-0.9 [facility] Comment on above: IG% - Immature Granu locytes (promyelocytes, myelocytes and metamyelocytes) > 1% indicates that a LEFT SHIFT is Present. MCH (RBC) [Entitic mass] 30.1 pg 27.0-32.0 [facility] Nucleated RBC/100 WBC (Bld) [Ratio] 0 % 0-5 [facility] Laboratory - Microbiology an d Antimicrobial susceptibilityOrdered By: Katie Page on 11-05-2022 N. gonorrhoeae DNA KASIA+probe Ql (Unsp spec) Negative Negative [facility] Comment on above: Performed at: [facility] [address] [id number] Director: Abigail De La Torre MD, Phone: [phone] Laboratory - Miscellaneous t estsOrdered By: Katie Page on 11-05-2022 Service comment (Unsp spec) [Interp] Comment . [facility] Comment on above: The assay provides i [...] established diagnostic productor procedure.Performed at: - [facility] [id number] [place], [place] [id number] Director: Mary Atkinson [facility], Phone: [phone] MCHC Auto (RBC) [Mass/Vol]Or dered By: Katie Page on 11-05-2022 MCHC (RBC) [Mass/Vol] 34.1 g/dL 32-36 [facility] No Panel InformationOrdered By: Katie Page on 11-05-2022 Hepatitis B Surface Antigen Non-Reactive Nonreactive [facility] Hepatitis C Antibody Non-Reactive Nonreactive [facility] Comment on above: Non Reactive: < 0.8 Equivocal: >/= 0.8 to < 1.0 Reactive: >/= 1.0The CDC recommends that a reactive/equivocal HCV antibody result be followed up by the HCV Nucleic Acid Amplificationtest (424807) Rubella IgG Antibody Reactive Nonreactive [facility] Comment on above: Antibody Results Int erpretation of Immune Status Non Reactive Presumed Non-Immune Equivocal Equivocal Reactive Presumed Immune No Panel InformationOrdered By: Sujata Campuzano on 11-05-2022 Thyroid Stimulating Hormone (TSH) 5.03 uIU/mL 0.358-3.74 [facility] Platelets bldOrdered By: Jac Page on 11-05-2022 Platelets (Bld) [#/Vol] 317 10*3/uL 150-450 [facility] Serum Treponema species anti body detectionOrdered By: Katie Page on 11-05-2022 Treponema sp Ab Ql (S) Non-Reactive [facility] Serum or plasma choriogonado tropin detectionOrdered By: Ana Rahman on 09-28-2022 HCG ( test) Ql 268 mIU/mL <4 [facility] Comment on above: hCG levels with Gest ational AgeGestational Age hCG mIU/mL (IU/L)0.2 - 1 week 5 - 501-2 weeks 50 - 5002-3 weeks 100 - 24276-6 weeks 500 - 237471-8 weeks 1000 - 323615-3 weeks 84084 - 100,0006-8 weeks 99415 - 200,0002-3 months 94835 - 100,000 Serum or plasma choriogonado tropin detectionOrdered By: Ana Rahman on 09-26-2022 HCG ( test) Ql 81 mIU/mL <4 [facility] Comment on above: hCG levels with Gest ational AgeGestational Age hCG mIU/mL (IU/L)0.2 - 1 week 5 - 501-2 weeks 50 - 5002-3 weeks 100 - 77865-8 weeks 500 - 429869-2 weeks 1000 - 354890-4 weeks 43116 - 100,0006-8 weeks 40082 - 200,0002-3 months 80065 - 100,000 Laboratory - Chemistry and C hemistry - challengeOrdered By: Sujata Campuzano on 09-07-2022 Free T4 [Mass/Vol] 0.95 ng/dL 0.76-1.46 [facility] No Panel InformationOrdered By: Sujata Campuzano on 09-07-2022 Thyroid Stimulating Hormone (TSH) 3.34 uIU/mL 0.358-3.74 [facility] No Panel Informationon 07-24 Miscellaneous Test See comment [facility] Comment on above: TEST RESULT LIMITSCB [...] ( test) Ql < 1 mIU/mL <4 [facility] Comment on above: hCG levels with Gest ational AgeGestational Age hCG mIU/mL (IU/L)0.2 - 1 week 5 - 501-2 weeks 50 - 5002-3 weeks 100 - 69421-5 weeks 500 - 543569-2 weeks 1000 - 854238-7 weeks 80159 - 100,0006-8 weeks 24741 - 200,0002-3 months 96658 - 100,000 Laboratory - Chemistry and C hemistry - challengeOrdered By: Dr. Milligan on 05-09-2022 HCG ( test) Ql (U) Negative [facility] Comment on above: Very dilute urine sp ecimens, as indicated by a low specificgravity, may not contain medical device sales representative levels of hCG. If is still suspected, a first morning urinespecimen should be collected 48 hours later and tested. Laboratory - Chemistry and C hemistry - challengeon 03-13-2022 Free T4 [Mass/Vol] 0.94 ng/dL 0.76-1.46 [facility] Work Phone: No Panel Informationon 03-13 Thyroid Stimulating Hormone (TSH) 1.67 uIU/mL 0.358-3.74 [facility] Work Phone: Stool Helicobacter pylori an tigen detection by immunoassayon 11-16-2021 H. pylori Ag IA Ql (Stl) Negative Negative [facility] Work Phone: Comment on above: Performed at: [address] [id number] Director: Christi Horton MD, Phone: [phone] Absolute lymphocyte counton 11-15-2021 Lymphocytes Auto (Unsp spec) [#/Vol] 1.75 10*3/uL 0.83-4.51 [facility] Work Phone: Basophil percentageon 2021 Basophils/100 WBC (Bld) 0.8 % 0-1 [facility] Work Phone: Bilirubin [Mass/Vol] 0.30 mg/dL 0.20-1.00 [facility] Work Phone: Comment on above: For patients on eltr ombopag therapy, use of [place] TBIL is not recommended. Chloride [Moles/Vol] 106 mmol/L 98-107 [facility] Work Phone: Eosinophils/100 WBC (Bld) 5.6 % 0-5 [facility] Work Phone: Glucose [Mass/Vol] 95 mg/dL 74-106 [facility] Work Phone: Neutrophils (Bld) [#/Vol] 2.4 10*3/uL 2.0-7.7 [facility] Work Phone: Neutrophils/100 WBC (Bld) 50.3 % 47-70 [facility] Work Phone: Potassium [Moles/Vol] 3.9 mmol/L 3.5-5.1 [facility] Work Phone: Protein [Mass/Vol] 7.5 g/dL 6.4-8.2 [facility] Work Phone: Sodium [Moles/Vol] 137 mmol/L 136-145 [facility] Work Phone: WBC (Bld) [#/Vol] 4.9 10*3/uL 4.4-11.0 [facility] Work Phone: [phone] Blood erythrocytes count (nu mber/volume)on 11-15-2021 RBC (Bld) [#/Vol] 4.73 10*6/uL 4.2-5.4 [facility] Work Phone: Blood hemoglobin measurement (mass/volume)on 11-15-2021 Hemoglobin (Bld) [Mass/Vol] 14.0 g/dL 12.0-15.0 [facility] Work Phone: Blood lymphocytes/100 leukoc yteson 11-15-2021 Lymphocytes/100 WBC (Bld) 36.1 % 19-41 [facility] Work Phone: [phone] Blood monocytes/100 leukocyt eson 11-15-2021 Monocytes/100 WBC (Bld) 7.0 % 0-10 [facility] Work Phone: Blood platelet mean volumeon 11-15-2021 Platelet mean volume (Bld) [Entitic vol] 10.1 fL 6.2-12.0 [facility] Work Phone: Determination of erythrocyte mean corpuscular volume (MCV)on 11-15-2021 MCV (RBC) [Entitic vol] 89.0 fL 81-99 [facility] Work Phone: Hematocrit Auto (Bld) [Volum e fraction]on 11-15-2021 Hematocrit (Bld) [Volume fraction] 42.1 % 37-47 [facility] Work Phone: Laboratory - Chemistry and C hemistry - challengeon 11-15-2021 ALP [Catalytic activity/Vol] 41 U/L 45-117 [facility] Work Phone: ALT [Catalytic activity/Vol] 23 U/L 13-56 [facility] Work Phone: CO2 [Moles/Vol] 26.0 mmol/L 21.0-32.0 [facility] Work Phone: [phone] Globulin (S) [Mass/Vol] 3.5 g/dL 2.2-4.2 [facility] Work Phone: Urea nitrogen/Creatinine [Mass ratio] 17.0 mg/mg 10-20 [facility] Work Phone: Laboratory - Hematology and Cell countson 11-15-2021 Erythrocyte distribution width (RBC) [Entitic vol] 37.7 fL 35.1-43.9 [facility] Work Phone: Erythrocyte distribution width (RBC) [Ratio] 11.7 % 11.6-14.6 [facility] Work Phone: Immature granulocytes/100 WBC (Bld) 0.200 % 0.0-0.9 [facility] Work Phone: Comment on above: IG% - Immature Granu locytes (promyelocytes, myelocytes and metamyelocytes) > 1% indicates that a LEFT SHIFT is Present. MCH (RBC) [Entitic mass] 29.6 pg 27.0-32.0 [facility] Work Phone: Nucleated RBC/100 WBC (Bld) [Ratio] 0 % 0-5 [facility] Work Phone: MCHC Auto (RBC) [Mass/Vol]on 11-15-2021 MCHC (RBC) [Mass/Vol] 33.3 g/dL 32-36 [facility] Work Phone: No Panel Informationon 11-15 Thyroid Stimulating Hormone (TSH) 0.83 uIU/mL 0.358-3.74 [facility] Work Phone: Estimated GFR (MDRD) Amer 88 mL/min >60 [facility] Work Phone: Comment on above: GFR Calc Estimated GFR (MDRD) Non-Af Amer 73 mL/min >60 [facility] Work Phone: Comment on above: Non- GFR Calc Platelets bldon 11-15-2021 Platelets (Bld) [#/Vol] 315 10*3/uL 150-450 [facility] Work Phone: Serum or plasma albumin cande urement (mass/volume)on 11-15-2021 Albumin [Mass/Vol] 4.0 g/dL 3.2-5.0 [facility] Work Phone: Serum or plasma albumin/glob ulin mass ratioon 11-15-2021 Albumin/Globulin [Mass ratio] 1.1 {ratio} 0.9-2.4 [facility] Work Phone: Serum or plasma calcium cande urement (mass/volume)on 11-15-2021 Calcium [Mass/Vol] 9.1 mg/dL 8.5-10.1 [facility] Work Phone: Serum or plasma creatinine m easurement (mass/volume)on 11-15-2021 Creatinine [Mass/Vol] 1.00 mg/dL 0.55-1.02 [facility] Work Phone: Comment on above: The validity of the calculated GFR & GFRAA in patients over 70 years has not been determined. Clinical correlation is essential. Serum or plasma urea nitroge n measurement (mass/volume)on 11-15-2021 Urea nitrogen [Mass/Vol] 17 mg/dL 7-18 [facility] Work Phone: Thin prep Papanicolaou smear with manual screeningon 11-15-2021 Thin prep Papanicolaou smear with manual screening 18 U/L 15-37 [facility] Work Phone: Thin prep Papanicolaou smear with manual screening 5 5-15 [facility] Work Phone: Office Visiton 02-20-2017 Documentation of current medications (procedure) Done Invalid Interpretation Code [facility] Work Phone: [phone] Documentation of current medications (procedure) T Invalid Interpretation Code [facility] Work Phone: [phone] Protein mass conc Done [facility] Work Phone: [phone] Protein mass conc T [facility] Work Phone: [phone] Tobacco smoking status NHIS Never [facility] Work Phone: [phone] Tobacco smoking status NHIS Never smoker [facility] Work Phone: [phone] Tobacco use [facility] Never smoker Invalid Interpretation Code [facility] Work Phone: [phone] Office Visiton 07-04-2016 Documentation of current medications (procedure) Done Invalid Interpretation Code [facility] Work Phone: [phone] Documentation of current medications (procedure) T Invalid Interpretation Code [facility] Work Phone: [phone] Tobacco smoking status NHIS Never Invalid Interpretation Code [facility] Work Phone: [phone] Tobacco use [facility] Never smoker Invalid Interpretation Code [facility] Work Phone: [phone] Vital Signs Date Time Vital Sign Value Performing Clinician Facility 02-18-2025 11:09-0400 Body height 170.[address] Angela Allen MD Work Phone: [facility] 02-18-2025 11:09-0400 Body mass index (BMI) [Ratio] 34.9 kg/m2 Dr. Angela Allen MD Work Phone: [facility] 02-18-2025 11:09-0400 Body weight 101.[address] Angela Allen MD Work Phone: [facility] 02-18-2025 11:09-0400 Diastolic blood pressure 76 mm[Hg] Dr. Angela Allen MD Work Phone: [facility] 02-18-2025 11:09-0400 Systolic blood pressure 132 mm[Hg] Dr. Angela Allen MD Work Phone: [facility] 01-22-2025 11:20-0400 Body height 170.[address] Angela Allen MD Work Phone: [facility] 01-22-2025 11:20-0400 Body mass index (BMI) [Ratio] 33.8 kg/m2 Dr. Angela Allen MD Work Phone: [facility] 01-22-2025 11:20-0400 Body weight 98.[address] Angela Allen MD Work Phone: [facility] 01-22-2025 11:20-0400 Diastolic blood pressure 80 mm[Hg] Dr. Angela Allen MD Work Phone: [facility] 01-22-2025 11:20-0400 Systolic blood pressure 137 mm[Hg] Dr. Angela Allen MD Work Phone: [facility] 12-23-2024 10:39-0400 Body height 170.[address] Angela Allen MD Work Phone: [facility] 12-23-2024 10:38-0400 Body mass index (BMI) [Ratio] 33.1 kg/m2 Dr. Angela Allen MD Work Phone: [facility] 12-23-2024 10:38-0400 Body weight 95.[address] Angela Allen MD Work Phone: [facility] 12-23-2024 10:38-0400 Diastolic blood pressure 75 mm[Hg] Dr. Angela Allen MD Work Phone: [facility] 12-23-2024 10:38-0400 Systolic blood pressure 118 mm[Hg] Dr. Angela Allen MD Work Phone: [facility] 11-20-2024 15:10-0400 Diastolic blood pressure 82 mm[Hg] Dr. Angela Allen MD Work Phone: [facility] 11-20-2024 15:10-0400 Systolic blood pressure 127 mm[Hg] Dr. Angela Allen MD Work Phone: [facility] 11-20-2024 14:34-0400 Body height 170.[address] Angela Allen MD Work Phone: [facility] 11-20-2024 14:34-0400 Body mass index (BMI) [Ratio] 32.9 kg/m2 Dr. Angela Allen MD Work Phone: [facility] 11-20-2024 14:34-0400 Body weight 95.[address] Angela Allen MD Work Phone: [facility] 09-04-2024 07:33-0400 Body height 170.[address] Angela Allen MD Work Phone: [facility] 09-04-2024 07:33-0400 Body mass index (BMI) [Ratio] 33 kg/m2 Dr. Angela Allen MD Work Phone: [facility] 09-04-2024 07:33-0400 Body temperature 98.2 [degF] Dr. Angela Allen MD Work Phone: [facility] 09-04-2024 07:33-0400 Body weight 95.[address] Angela Allen MD Work Phone: [facility] 09-04-2024 07:33-0400 Diastolic blood pressure 78 mm[Hg] Dr. Angela Allen MD Work Phone: [facility] 09-04-2024 07:33-0400 Heart rate 83 /min Dr. Angela Allen MD Work Phone: [facility] 09-04-2024 07:33-0400 Respiratory rate 20 /min Dr. Angela Allen MD Work Phone: [facility] 09-04-2024 07:33-0400 SaO2% (BldA) [Mass fraction] 96 % Dr. Angela Allen MD Work Phone: [facility] 09-04-2024 07:33-0400 Systolic blood pressure 122 mm[Hg] Dr. Angela Allen MD Work Phone: [facility] 07-15-2024 14:13-0500 Body mass index (BMI) [Ratio] 33.2 kg/m2 Dr. Angela Allen MD Work Phone: [facility] 07-15-2024 14:13-0500 Body temperature 97.8 [degF] Dr. Angela Allen MD Work Phone: [facility] 07-15-2024 14:13-0500 Body weight 96.[address] Angela Allen MD Work Phone: [facility] 07-15-2024 14:13-0500 Diastolic blood pressure 64 mm[Hg] Dr. Angela Allen MD Work Phone: [facility] 07-15-2024 14:13-0500 Heart rate 88 /min Dr. Angela Allen MD Work Phone: [facility] 07-15-2024 14:13-0500 Respiratory rate 14 /min Dr. Angela Allen MD Work Phone: [facility] 07-15-2024 14:13-0500 SaO2% (BldA) [Mass fraction] 98 % Dr. Angela Allen MD Work Phone: [facility] 07-15-2024 14:13-0500 Systolic blood pressure 124 mm[Hg] Dr. Angela Allen MD Work Phone: [facility] 10-23-2023 12:54-0400 Body height 170.18 cm DO Katarina Westley Work Phone: [facility] 10-23-2023 12:54-0400 Body mass index (BMI) [Ratio] 32.7 kg/m2 DO Katarina Westley Work Phone: [facility] 10-23-2023 12:54-0400 Body temperature 97.2 [degF] DO Katarina Westley Work Phone: [facility] 10-23-2023 12:54-0400 Body weight 94.8 kg DO Katarina Westley Work Phone: [facility] 10-23-2023 12:54-0400 Diastolic blood pressure 76 mm[Hg] DO Katarina Westley Work Phone: [facility] 10-23-2023 12:54-0400 Heart rate 84 /min DO Katarina Westley Work Phone: [facility] 10-23-2023 12:54-0400 Respiratory rate 16 /min DO Katarina Westley Work Phone: [facility] 10-23-2023 12:54-0400 SaO2% (BldA) [Mass fraction] 98 % DO Katarina Westley Work Phone: [facility] 10-23-2023 12:54-0400 Systolic blood pressure 110 mm[Hg] DO Katarina Westley Work Phone: [facility] 07-08-2023 11:12-0500 Body height 170.18 cm DO Katarina Westley Work Phone: [facility] 07-08-2023 11:08-0500 Body mass index (BMI) [Ratio] 33 kg/m2 DO Katarina Westley Work Phone: [facility] 07-08-2023 11:08-0500 Body weight 95.7 kg DO Katarina Westley Work Phone: [facility] 07-08-2023 11:08-0500 Diastolic blood pressure 78 mm[Hg] DO Katarina Westley Work Phone: [facility] 07-08-2023 11:08-0500 Systolic blood pressure 119 mm[Hg] DO Katarina Westley Work Phone: [facility] 05-31-2023 09:45-0500 Body mass index (BMI) [Ratio] 36.3 kg/m2 DO Katarina Westley Work Phone: [facility] 05-31-2023 09:45-0500 Body weight 105.4 kg DO Katarina Westley Work Phone: [facility] 05-31-2023 09:45-0500 Diastolic blood pressure 84 mm[Hg] DO Katarina Westley Work Phone: [facility] 05-31-2023 09:45-0500 Systolic blood pressure 138 mm[Hg] DO Katarina Westley Work Phone: [facility] 05-27-2023 13:21-0500 Body temperature 98.6 [degF] DO Katarina Westley Work Phone: [facility] 05-27-2023 13:21-0500 Diastolic blood pressure 77 mm[Hg] DO Katarina Westley Work Phone: [facility] 05-27-2023 13:21-0500 Heart rate 92 /min DO Katarina Westley Work Phone: [facility] 05-27-2023 13:21-0500 Respiratory rate 14 /min DO Katarina Westley Work Phone: [facility] 05-27-2023 13:21-0500 SaO2% (BldA) [Mass fraction] 97 % DO Katarina Westley Work Phone: [facility] 05-27-2023 13:21-0500 Systolic blood pressure 131 mm[Hg] DO Katarina Westley Work Phone: [facility] 05-24-2023 11:11-0500 Body mass index (BMI) [Ratio] 40.1 kg/m2 DO Katarina Westley Work Phone: [facility] 05-24-2023 11:11-0500 Body weight 116.11 kg DO Katarina Westley Work Phone: [facility] 05-24-2023 09:30-0500 Body mass index (BMI) [Ratio] 40.1 kg/m2 DO Katarina Westley Work Phone: [facility] 05-24-2023 09:30-0500 Body weight 116.11 kg DO Katarina Westley Work Phone: [facility] 05-24-2023 09:30-0500 Diastolic blood pressure 86 mm[Hg] DO Katarina Westley Work Phone: [facility] 05-24-2023 09:30-0500 Systolic blood pressure 147 mm[Hg] DO Katarina Westley Work Phone: [facility] 05-15-2023 09:35-0500 Body mass index (BMI) [Ratio] 38.9 kg/m2 DO Katarina Westley Work Phone: [facility] 05-15-2023 09:35-0500 Body weight 112.71 kg DO Katarina Westley Work Phone: [facility] 05-15-2023 09:35-0500 Diastolic blood pressure 78 mm[Hg] DO Katarina Westley Work Phone: [facility] 05-15-2023 09:35-0500 Systolic blood pressure 128 mm[Hg] DO Katarina Westley Work Phone: [facility] 05-07-2023 14:25-0500 Diastolic blood pressure 82 mm[Hg] DO Katarina Westley Work Phone: [facility] 05-07-2023 14:25-0500 Systolic blood pressure 132 mm[Hg] DO Katarina Westley Work Phone: [facility] 05-07-2023 14:04-0500 Body mass index (BMI) [Ratio] 38.2 kg/m2 DO Katarina Westley Work Phone: [facility] 05-07-2023 14:04-0500 Body weight 110.84 kg DO Katarina Westley Work Phone: [facility] 05-03-2023 09:23-0500 Body mass index (BMI) [Ratio] 37.6 kg/m2 DO Katarina Westley Work Phone: [facility] 05-03-2023 09:23-0500 Body weight 109.08 kg DO Katarina Westley Work Phone: [facility] 05-03-2023 09:23-0500 Diastolic blood pressure 84 mm[Hg] DO Katarina Westley Work Phone: [facility] 05-03-2023 09:23-0500 Systolic blood pressure 139 mm[Hg] DO Katarina Westley Work Phone: [facility] 04-26-2023 13:07-0400 Body height 170.18 cm DO Katarina Westley Work Phone: [facility] 04-26-2023 13:07-0400 Body mass index (BMI) [Ratio] 37.1 kg/m2 DO Katarina Westley Work Phone: [facility] 04-26-2023 13:07-0400 Body weight 107.61 kg DO Katarina Westley Work Phone: [facility] 04-26-2023 13:07-0400 Diastolic blood pressure 83 mm[Hg] DO Katarina Westley Work Phone: [facility] 04-26-2023 13:07-0400 Systolic blood pressure 131 mm[Hg] DO Katarina Westley Work Phone: [facility] 04-19-2023 09:03-0400 Body mass index (BMI) [Ratio] 37 kg/m2 DO Katarina Westley Work Phone: [facility] 04-19-2023 09:03-0400 Body weight 107.5 kg DO Katarina Westley Work Phone: [facility] 04-19-2023 09:03-0400 Diastolic blood pressure 82 mm[Hg] DO Katarina Westley Work Phone: [facility] 04-19-2023 09:03-0400 Systolic blood pressure 132 mm[Hg] DO Katarina Westley Work Phone: [facility] 04-05-2023 14:35-0400 Body mass index (BMI) [Ratio] 36.6 kg/m2 DO Katarina Westley Work Phone: [facility] 04-05-2023 14:35-0400 Body weight 106.19 kg DO Katarina Westley Work Phone: [facility] 04-05-2023 14:35-0400 Diastolic blood pressure 68 mm[Hg] DO Katarina Westley Work Phone: [facility] 04-05-2023 14:35-0400 Systolic blood pressure 124 mm[Hg] DO Katarina Westley Work Phone: [facility] 03-22-2023 09:04-0400 Body mass index (BMI) [Ratio] 35.9 kg/m2 DO Katarina Christy Work Phone: [facility] 03-22-2023 09:04-0400 Body weight 103.92 kg DO Katarina Christy Work Phone: [facility] 03-22-2023 09:04-0400 Diastolic blood pressure 83 mm[Hg] DO Katarina Horneer Work Phone: [facility] 03-22-2023 09:04-0400 Systolic blood pressure 128 mm[Hg] DO Katarina Christy Work Phone: [facility] 03-08-2023 09:32-0400 Body height 170.[address] Ramiro Ren Work Phone: [facility] 03-08-2023 09:30-0400 Body mass index (BMI) [Ratio] 34.8 kg/m2 Dr. Ramiro Ren Work Phone: [facility] 03-08-2023 09:30-0400 Body weight 100.[address] Ramiro Ren Work Phone: [facility] 03-08-2023 09:30-0400 Diastolic blood pressure 78 mm[Hg] Dr. Ramiro Ren Work Phone: [facility] 03-08-2023 09:30-0400 Systolic blood pressure 128 mm[Hg] Dr. Ramiro Ren Work Phone: [facility] 02-08-2023 09:19-0400 Body mass index (BMI) [Ratio] 33.4 kg/m2 Dr. Ramiro Ren Work Phone: [facility] 02-08-2023 09:19-0400 Body weight 96.[address] Ramiro Ren Work Phone: [facility] 02-08-2023 09:19-0400 Diastolic blood pressure 79 mm[Hg] Dr. Ramiro Ren Work Phone: [facility] 02-08-2023 09:19-0400 Systolic blood pressure 124 mm[Hg] Dr. Ramiro Ren Work Phone: [facility] 01-11-2023 09:51-0400 Body mass index (BMI) [Ratio] 31.6 kg/m2 Dr. Ramiro Ren Work Phone: [facility] 01-11-2023 09:51-0400 Body weight 91.[address] Ramiro Ren Work Phone: [facility] 01-11-2023 09:51-0400 Diastolic blood pressure 74 mm[Hg] Dr. Ramiro Ren Work Phone: [facility] 01-11-2023 09:51-0400 Systolic blood pressure 122 mm[Hg] Dr. Ramiro Ren Work Phone: [facility] 12-14-2022 09:53-0400 Body height 170.[address] Ramiro Ren Work Phone: [facility] 12-14-2022 09:53-0400 Body mass index (BMI) [Ratio] 30.6 kg/m2 Dr. Ramiro Ren Work Phone: [facility] 12-14-2022 09:53-0400 Body weight 88.[address] Ramiro Ren Work Phone: [facility] 12-14-2022 09:53-0400 Diastolic blood pressure 74 mm[Hg] Dr. Ramiro Ren Work Phone: [facility] 12-14-2022 09:53-0400 Systolic blood pressure 133 mm[Hg] Dr. Ramiro Ren Work Phone: [facility] 11-15-2022 23:19-0400 Body temperature 18 [degF] Dr. Ramiro Ren Work Phone: [facility] 11-15-2022 21:10-0400 Body mass index (BMI) [Ratio] 29 kg/m2 Dr. Ramiro Ren Work Phone: [facility] 11-15-2022 21:10-0400 Body weight 84.[address] Ramiro Ren Work Phone: [facility] 11-15-2022 21:10-0400 Diastolic blood pressure 91 mm[Hg] Dr. Ramiro Ren Work Phone: [facility] 11-15-2022 21:10-0400 Heart rate 92 /min Dr. Ramiro Ren Work Phone: [facility] 11-15-2022 21:10-0400 Respiratory rate 16 /min Dr. Ramiro Ren Work Phone: [facility] 11-15-2022 21:10-0400 SaO2% (BldA) [Mass fraction] 98 % Dr. Ramiro Ren Work Phone: [facility] 11-15-2022 21:10-0400 Systolic blood pressure 141 mm[Hg] Dr. Ramiro Ren Work Phone: [facility] 11-10-2022 11:16-0400 Diastolic blood pressure 72 mm[Hg] Dr. Ramiro Ren Work Phone: [facility] 11-10-2022 11:16-0400 Systolic blood pressure 120 mm[Hg] Dr. Ramiro Ren Work Phone: [facility] 11-05-2022 13:37-0400 Body mass index (BMI) [Ratio] 29.2 kg/m2 Dr. Ramiro Ren Work Phone: [facility] 11-05-2022 13:37-0400 Body weight 84.[address] Ramiro Ren Work Phone: [facility] 05-23-2022 10:27-0500 Body height 170.[address] Ramiro Ren Work Phone: [facility] 05-23-2022 10:27-0500 Body mass index (BMI) [Ratio] 31.1 kg/m2 Dr. Ramiro Ren Work Phone: [facility] 05-23-2022 10:27-0500 Body weight 90.[address] Ramiro Ren Work Phone: [facility] 05-23-2022 10:27-0500 Diastolic blood pressure 73 mm[Hg] Dr. Ramiro Ren Work Phone: [facility] 05-23-2022 10:27-0500 Heart rate 87 /min Dr. Ramiro Ren Work Phone: [facility] 05-23-2022 10:27-0500 SaO2% (BldA) [Mass fraction] 96 % Dr. Ramiro Ren Work Phone: [facility] 05-23-2022 10:27-0500 Systolic blood pressure 112 mm[Hg] Dr. Ramiro Ren Work Phone: [phone] [place] [address] 05-09-2022 10:30-0500 Body temperature 98.1 [degF] Dr. Ramiro Ren Work Phone: [facility] 05-09-2022 10:30-0500 Diastolic blood pressure 59 mm[Hg] Dr. Ramiro Ren Work Phone: [facility] 05-09-2022 10:30-0500 Heart rate 71 /min Dr. Ramiro Ren Work Phone: [facility] 05-09-2022 10:30-0500 Respiratory rate 16 /min Dr. Ramiro Ren Work Phone: [facility] 05-09-2022 10:30-0500 SaO2% (BldA) [Mass fraction] 99 % Dr. Ramiro Ren Work Phone: [facility] 05-09-2022 10:30-0500 Systolic blood pressure 100 mm[Hg] Dr. Ramiro Ren Work Phone: [facility] 05-09-2022 09:08-0500 Body height 170.[address] Ramiro Ren Work Phone: [facility] Work Phone: 05-09-2022 09:08-0500 Body mass index (BMI) [Ratio] 31.1 kg/m2 Dr. Ramiro Ren Work Phone: [facility] 05-09-2022 09:08-0500 Body weight [address] Ramiro Ren Work Phone: [facility] 04-13-2022 11:00-0400 Body mass index (BMI) [Ratio] 31.1 kg/m2 Dr. Ramiro Ren Work Phone: [facility] 04-13-2022 11:00-0400 Body weight 90.[address] Ramiro Ren Work Phone: [facility] 04-13-2022 11:00-0400 Diastolic blood pressure 71 mm[Hg] Dr. Ramiro Ren Work Phone: [facility] 04-13-2022 11:00-0400 Systolic blood pressure 129 mm[Hg] Dr. Rmairo Ren Work Phone: [facility] 01-19-2022 09:04-0400 Body height 170.[address] Ramiro Ren Work Phone: [facility] Work Phone: 01-19-2022 09:04-0400 Body mass index (BMI) [Ratio] 30.8 kg/m2 Dr. Ramiro Ren Work Phone: [facility] Work Phone: 01-19-2022 09:04-0400 Body weight 89.[address] Ramiro Ren Work Phone: [facility] Work Phone: 01-19-2022 09:04-0400 Diastolic blood pressure 74 mm[Hg] Dr. Ramiro Ren Work Phone: [facility] Work Phone: 01-19-2022 09:04-0400 Heart rate 72 /min Dr. Ramiro Ren Work Phone: [facility] Work Phone: 01-19-2022 09:04-0400 SaO2% (BldA) [Mass fraction] 98 % Dr. Ramiro Ren Work Phone: [facility] Work Phone: 01-19-2022 09:04-0400 Systolic blood pressure 132 mm[Hg] Dr. Ramiro Ren Work Phone: [facility] Work Phone: 12-08-2021 09:01-0400 Body mass index (BMI) [Ratio] 30.5 kg/m2 Dr. Ramiro Ren Work Phone: [facility] Work Phone: 12-08-2021 09:01-0400 Body temperature 97.7 [degF] Dr. Ramiro Ren Work Phone: [facility] Work Phone: 12-08-2021 09:01-0400 Body weight 88.[address] Ramiro Ren Work Phone: [facility] Work Phone: 12-08-2021 09:01-0400 Diastolic blood pressure 83 mm[Hg] Dr. Ramiro Ren Work Phone: [facility] Work Phone: 12-08-2021 09:01-0400 Heart rate 92 /min Dr. Ramiro Ren Work Phone: [facility] Work Phone: 12-08-2021 09:01-0400 Respiratory rate 18 /min Dr. Ramiro Ren Work Phone: [facility] Work Phone: 12-08-2021 09:01-0400 SaO2% (BldA) [Mass fraction] 99 % Dr. Ramiro Ren Work Phone: [facility] Work Phone: 12-08-2021 09:01-0400 Systolic blood pressure 126 mm[Hg] Dr. Ramiro Ren Work Phone: [facility] Work Phone: 11-15-2021 08:54-0400 Body height 170.[address] Ramiro Ren Work Phone: [facility] Work Phone: 11-15-2021 08:54-0400 Body mass index (BMI) [Ratio] 30.4 kg/m2 Dr. Ramiro Ren Work Phone: [facility] Work Phone: 11-15-2021 08:54-0400 Body weight 87.[address] Ramiro Ren Work Phone: [facility] Work Phone: 11-15-2021 08:54-0400 Diastolic blood pressure 75 mm[Hg] Dr. Rmairo Ren Work Phone: [facility] Work Phone: 11-15-2021 08:54-0400 Heart rate 71 /min Dr. Ramiro Ren Work Phone: [facility] Work Phone: 11-15-2021 08:54-0400 SaO2% (BldA) [Mass fraction] 98 % Dr. Ramiro Ren Work Phone: [facility] Work Phone: 11-15-2021 08:54-0400 Systolic blood pressure 120 mm[Hg] Dr. Ramiro Ren Work Phone: [facility] Work Phone: 03-19-2016 08:06-0400 BMI (Body Mass Index) 23.49 kg/m2 [facility] Work Phone: 03-19-2016 08:06-0400 Height 170.18 cm [facility] Work Phone: 03-19-2016 08:06-0400 Weight 68.04 kg Aundrea M[facility] [place] [facility] Work Phone: Encounters Encounter Date Encounter Type Care Provider Facility Start: 03-18-2025 ambulatory Angela Allen Facility :[facility] [place] Start: 03-16-2025 ambulatory Katie Page Jovanny lity:[facility] Start: 02-18-2025 End: 02-18-2025 Patient encounter procedure Ana Rahman DIRECTOR BUSINESS DEVELOPMENT-C -[facility] Work Phone: Start: 02-18-2025 End: 02-18-[address] Angela Allen MD Work Phone: [facility] Start: 01-26-2025 End: 01-26-2025 ambulatory LEANN SHIN [facility] Start: 01-22-2025 End: 01-22-2025 Patient encounter procedure Bea Montano [facility] -[facility] Work Phone: Start: 01-22-2025 End: 01-22-[address] Angela Allen MD Work Phone: [facility] Start: 12-23-2024 End: 12-23-[address] Linh Jean-Baptiste DO -[facility] Work Phone: Start: 12-23-2024 End: 12-23-[address] Angela Allen MD Work Phone: [facility] Start: 12-23-2024 End: 12-23-2024 ambulatory Linh Jean-Baptiste Facility:[facility] Start: 11-20-2024 End: 11-20-2024 Patient encounter procedure Candace Bernal [facility] -[facility] Work Phone: Start: 11-20-2024 End: 11-20-[address] Angela Allen MD Work Phone: [facility] Work Phone: Start: 11-20-2024 End: 11-20-2024 ambulatory Angela Allen Facility:[facility] Start: 09-15-2024 Non-patient / Non-visit Dr. Kennedy Rushing MD -[facility] Work Phone: Start: 09-15-2024 End: 09-15-[address] Angela Allen MD Work Phone: [facility] Work Phone: Start: 09-15-2024 End: 09-15-2024 Patient encounter procedure Bhavesh MAN -Pulmonary Services/Neurology Work Phone: Start: 09-15-2024 End: 09-15-2024 ambulatory Angela Allen Facility:[facility] Start: 09-04-2024 End: 09-04-2024 Patient encounter procedure Bhavesh MAN -[facility] Work Phone: Start: 09-04-2024 End: 09-04-[address] Angela Allen MD Work Phone: [facility] Work Phone: Start: 09-04-2024 End: 09-04-2024 ambulatory Angela Allen Facility:[facility] Start: 08-24-2024 End: 08-24-[address] Angela Allen MD Work Phone: [facility] Work Phone: Start: 08-24-2024 End: 08-24-2024 Patient encounter procedure Bhavesh MAN -[facility] [place] Start: 08-24-2024 End: 08-24-2024 ambulatory Angela Allen Facility:[facility] Start: 07-15-2024 End: 07-15-2024 Patient encounter procedure Bhavesh MAN -[facility] Work Phone: Start: 07-15-2024 End: 07-15-2024 ambulatory Angela Tiffany Facility:[facility] Start: 07-06-2024 End: 07-06-[address] Angela Allen MD -Laboratory, [facility] Start: 07-06-2024 End: 07-06-2024 ambulatory Angela Ferndale Facility:[facility] Start: 07-02-2024 End: 07-02-[address] Angela Allen MD -[facility], [facility] Start: 07-02-2024 End: 07-02-2024 ambulatory Angela Ferndale Facility:[facility] Start: 05-06-2024 End: 05-06-2024 ambulatory Angela Ferndale Facility:[facility] Start: 10-23-2023 End: 10-23-2023 ambulatory DO Katarina M Westley Work Phone: [facility] Work Phone: Start: 10-23-2023 End: 10-23-2023 Patient encounter procedure DO Katarina Espinalnger Work Phone: [facility] Start: 10-23-2023 End: 10-23-2023 Patient encounter procedure DO Katarinachevy Espinalnger Work Phone: [facility] Work Phone: Start: 09-09-2023 End: 09-09-2023 ambulatory DO Katarina M Westley Work Phone: [facility] Work Phone: Start: 09-09-2023 End: 09-09-2023 Discharged Recurring DO Katarina Westley Work Phone: [facility]-Physical Therapy Work Phone: Start: 09-06-2023 End: 09-06-2023 ambulatory DO Katarina M Westley Work Phone: [facility] Work Phone: Start: 09-06-2023 End: 09-06-2023 Patient encounter procedure DO Katarina Christy Work Phone: [facility]atory, [place] Work Phone: Start: 07-08-2023 End: 07-08-2023 ambulatory DO Katarina Christy Work Phone: [facility] Work Phone: Start: 07-08-2023 End: 07-08-2023 Patient encounter procedure DO [facility] Christ[facility] Start: 07-08-2023 End: 07-08-2023 Patient encounter procedure DO Katarina Christy Work Phone: [facility] Work Phone: Start: 05-31-2023 End: 05-31-2023 Patient encounter procedure DO Katarina Christy Work Phone: [facility] Work Phone: Start: 05-30-2023 End: 05-30-2023 Patient encounter procedure DO Katarina Christy Work Phone: [facility] Work Phone: Start: 05-28-2023 End: 05-28-2023 Patient encounter procedure DO Katarina Christy Work Phone: [facility] Work Phone: Start: 05-27-2023 Non-patient / Non-visit DO Katarina Christy Work Phone: [facility] Start: 05-26-2023 Non-patient / Non-visit DO Katarina Christy Work Phone: [facility] Start: 05-25-2023 Non-patient / Non-visit DO Katarina Christy Work Phone: [facility] Start: 05-24-2023 Non-patient / Non-visit DO Katarina Christy Work Phone: [facility] Start: 05-24-2023 End: 05-27-2023 Evaluation and management of inpatient DO Katarina Christy [facility] Work [facility] Start: 05-24-2023 End: 05-24-2023 Patient encounter procedure DO Katarina Christy Work Phone: [facility] Work Phone: Start: 05-15-2023 End: 05-15-2023 Patient encounter procedure DO Katarina Christy Work Phone: [facility] Work Phone: Start: 05-07-2023 End: 05-07-2023 Patient encounter procedure DO Katarina Christy Work Phone: [facility] Work Phone: Start: 05-03-2023 End: 05-03-2023 Patient encounter procedure DO Katarina Christy Work Phone: [facility] Work Phone: Start: 04-26-2023 End: 04-26-2023 ambulatory DO Katarina Christy Work Phone: [facility] Work Phone: Start: 04-26-2023 End: 04-26-2023 Patient encounter procedure DO Katarina Christy Work Phone: [facility]-Laboratory, Specimen Work Phone: Start: 04-26-2023 End: 04-26-2023 Patient encounter procedure DO Katarina Horneer Work Phone: [facility] Work Phone: Start: 04-24-2023 End: 04-24-2023 ambulatory DO Katarina Christy Work Phone: [facility] Work Phone: Start: 04-24-2023 End: 04-24-2023 Patient encounter procedure DO Katarina Christy Work Phone: [facility] Work Phone: Start: 04-19-2023 End: 04-19-2023 Patient encounter procedure DO Katarina Christy Work Phone: [facility] Work Phone: Start: 04-05-2023 End: 04-05-2023 Patient encounter procedure DO Katarina Christy Work Phone: [facility] Work Phone: Start: 03-22-2023 End: 03-22-2023 Patient encounter procedure DO Katarina Christy Work Phone: [facility] Work Phone: Start: 03-08-2023 End: 03-08-[address] Ramiro Ren Work Phone: [facility] Work Phone: Start: 03-08-2023 End: 03-08-[address] Ramiro Ren Work Phone: [facility] Work Phone: Start: 02-08-2023 End: 02-08-[address] Ramiro Ren Work Phone: [facility] Work Phone: Start: 01-11-2023 End: 01-11-[address] Ramiro Ren Work Phone: [facility] Work Phone: Start: 12-14-2022 End: 12-14-[address] Ramiro Ren Work Phone: [facility] Work Phone: Start: 12-14-2022 End: 12-14-[address] Ramiro Ren Work Phone: [facility] Work Phone: Start: 11-15-2022 End: 11-15-2022 Emergency department patient visit [facility] Ramiro Ren [facility]: Start: 11-05-2022 End: 11-05-[address] Ramiro Ren Work Phone: [facility] Work Phone: Start: 09-28-2022 End: 09-28-2022 ambulatory [facility] Work Phone: Start: 09-28-2022 End: 09-28-2022 [facility] Start: 09-26-2022 End: 09-26-2022 ambulatory [facility] Work Phone: Start: 09-26-2022 End: 09-26-2022 [facility] Start: 09-07-2022 End: 09-07-[address] Ramiro Ren Work Phone: [facility] Work Phone: Start: 09-07-2022 End: 09-07-[address] Ramiro Ren Work Phone: [facility] Start: 07-24-2022 End: 07-24-2022 ambulatory [facility] Work Phone: Start: 07-24-2022 End: 07-24-[address] Ramiro Ren Work Phone: [facility] Start: 06-26-2022 End: 06-26-[address] Ramiro Ren Work Phone: [facility] Work Phone: Start: 06-26-2022 End: 06-26-[address] Ramiro Ren Work Phone: [facility] Start: 05-23-2022 End: 05-23-[address] Ramiro Ren Work Phone: [facility] Gastroenterology Start: 05-09-2022 Non-patient / Non-visit Dr. Ramiro Ren Work Phone: [facility] Start: 05-09-2022 End: 05-09-2022 Admission to same day surgery center Dr. Ramiro Ren Work Phone: [facility]-Endoscopy Start: 05-09-2022 End: 05-09-[address] Ramiro Ren Work Phone: [facility] Work Phone: Start: 04-13-2022 End: 04-13-[address] Ramiro Ren Work Phone: [facility]'s [facility] Start: 03-13-2022 End: 03-13-[address] Ramiro Ren Work Phone: [facility] Work Phone: Start: 03-13-2022 End: 03-13-[address] Ramiro Ren Work Phone: [facility] Start: 02-09-2022 End: 02-09-[address] Ramiro Ren Work Phone: [facility] Start: 01-19-2022 End: 01-19-[address] Ramiro Ren Work Phone: [facility] Gastroenter[facility] Start: 01-12-2022 End: 01-12-[address] Ramiro Ren Work Phone: [facility] Start: 12-19-2021 End: 12-19-[address] Ramiro Ren Work Phone: [facility]Ultrasound, [facility] Start: 12-08-2021 End: 12-08-[address] Ramiro Ren Work Phone: [facility] Start: 12-01-2021 End: 12-01-[address] Ramiro Ren Work Phone: [facility]-Nuclear Medicine, [facility] Start: 11-17-2021 End: 11-17-[address] Ramiro Ren Work Phone: [facility]-Laboratory, Specimen Start: 11-15-2021 End: 11-15-[address] Ramiro Ren Work Phone: [facility]-Laboratory, [facility] Start: 11-15-2021 End: 11-15-[address] Ramiro Ren Work Phone: [facility] Gastroenterology Start: 09-26-2021 End: 09-26-2021 Patient encounter procedure [facility]-Cat Scan, [facility] Procedures Date Procedure Procedure Detail Performing Clinician [...] HPV testing was performed.Performed at: [facility] [id number] Director: Abigail De La Torre MD, Phone: [phone] Start: 11-20-2024 Hepatitis C antibody measurement Dr. [...] HCV Quant by PCR testing - HCVPCR #[id number] Non Reactive: < 0.8 Equivocal: >/= 0.8 to < 1.0 Reactive: >/= 1.0The [facility] requires that a reactive/equivocal HCV antibody result be sent out for confirmation. HCV Quant by PCR testing. Start: 11-20-[address] Angela Allen MD Work Phone: Comment on above: Test Ordered: [id number] TSH Receptor Antibo dy (TBII)TSH Receptor Antibody (TBII) <0.3 U/L Reference Range: .Reference Range:Antibody Titer:<1.0 U/L = Negative1.1 - 1.5 U/L = Equivocal>1.5 U/L = PositivePerformed at: [facility] [address] [id number] Director: Francois Hastings MD, Phone: [phone] at: [facility] [id number] [place], [place] [id number] Director: Nicanor Barillas PhD, Phone: [phone] Start: 11-20-[address] Angela [...] Start: 12-19-2021 US scan of gallbladder Dr. Ramiro Ren Work Phone: Start: 12-01-2021 Radionuclide imaging of liver and/or biliary tract using radioactive isotope Dr. Ramiro Ren Work Phone: Start: 09-26-2021 Computed tomography of abdomen and pelvis with contrast Plan of Treatment Date Care Activity Detail Author Start: 12-23-2024 T4 free measurement [facility] Start: 12-23-2024 Thyroid stimulating hormone measurement [facility] Start: 11-20-2024 CBC W Auto Differential panel - Blood [facility] Start: 11-20-2024 Comprehensive metabolic 2000 panel - Serum or Plasma [facility] Start: 11-20-2024 Hemoglobin A1c/Hemoglobin.total in Blood [facility] Start: 11-20-2024 Hepatitis C antibody measurement [facility] Start: 11-20-2024 Procedure [facility] Start: 11-20-2024 Rubella IgG measurement [facility] Start: 11-20-2024 Serologic test for syphilis [facility] Start: 11-20-2024 T4 free measurement [facility] Start: 11-20-2024 Thyroid stimulating hormone measurement [facility] Start: 11-20-2024 Vitamin D, 25-hydroxy measurement [facility] Start: 11-20-2024 [facility] Start: 11-20-2024 Liquid based cervical cytology screening [facility] Start: 09-04-2024 CBC W Auto Differential panel - Blood [facility] Start: 09-04-2024 Comprehensive metabolic 2000 panel - Serum or Plasma [facility] Start: 09-04-2024 D-dimer assay, quantitative [facility] Start: 09-04-2024 Magnesium measurement [facility] Start: 09-04-2024 Vitamin D, 25-hydroxy measurement [facility] Start: 10-23-2023 Patient referral [facility] Work Phone: Start: 07-08-2023 Patient referral [facility] Work Phone: Start: 05-27-2023 Patient discharge [facility] Start: 05-26-2023 Administration of medication [facility] Start: 05-26-2023 Application of ice collar, cap or bag [facility] Start: 05-26-2023 Catheterization of vein [facility] Start: 05-26-2023 Introduction of urinary catheter [facility] Start: 05-26-2023 Measuring intake and output [facility] Start: 05-26-2023 Notification of physician [facility] Start: 05-26-2023 Procedure discontinued [facility] Start: 05-26-2023 Provision of activity privileges [facility] Start: 05-26-2023 Vital signs measurements [facility] Start: 05-26-2023 [facility] Start: 05-24-2023 Admission procedure [facility] Start: 05-09-2022 Egd transoral biopsy single/multiple EGD BIOPSY SINGLE/MULTIPLE [facility] Start: 05-09-2022 Patient discharge [facility] Start: 02-20-2017 End: 02-20-2017 Appointment Appointment [facility] Work Phone: Start: 05-02-2016 End: 05-02-2016 Physical Therapy General Physical Therapy [facility], [address] [place] [address], [id number] [facility] Work Phone: Start: 03-28-2016 End: 03-28-2016 Physical Therapy General Physical Therapy [facility], [address] [place] [address], [id number] [facility] Work Phone: Start: 03-19-2016 End: 03-19-2016 Mri jnt of lwr extre w/o dye MRI Joint Lower Extremity [facility] Work Phone: Start: 03-19-2016 End: 03-19-2016 X-ray exam, knee, 4 or more X-Ray, Knee [facility] Work Phone: Alanine aminotransfe rase [Enzymatic activity/volume] in Serum or Plasma [facility] Alanine aminotransfe rase [Enzymatic activity/volume] in Serum or Plasma [facility] Albumin [Mass/volume ] in Serum or Plasma [facility] Albumin [Mass/volume ] in Serum or Plasma [facility] Alkaline phosphatase [Enzymatic activity/volume] in Serum or Plasma [facility] Alkaline phosphatase [Enzymatic activity/volume] in Serum or Plasma [facility] Ambulatory ECG [facility] Anion gap in Serum o r Plasma [facility] Anion gap in Serum o r Plasma [facility] Bilirubin, total measurement [facility] Bilirubin, total measurement [facility] BUN/Creatinine ratio [facility] BUN/Creatinine ratio [facility] Calcium [Mass/volume ] in Serum or Plasma [facility] Calcium [Mass/volume ] in Serum or Plasma [facility] Carbon dioxide, tota l [Moles/volume] in Central venous blood [facility] Carbon dioxide, tota l [Moles/volume] in Central venous blood [facility] CBC W Auto Different ial panel - Blood [facility] Chlamydia deoxyribon ucleic acid detection [facility] Creatinine [Mass/vol ume] in Serum or Plasma [facility] Creatinine [Mass/vol ume] in Serum or Plasma [facility] Erythrocyte mean corpuscular volume determination [facility] Erythrocyte mean corpuscular volume determination [facility] Glucose [Mass/volume ] in Serum or Plasma [facility] Glucose [Mass/volume ] in Serum or Plasma [facility] Hematocrit [Volume Fraction] of Blood [facility] Hematocrit [Volume Fraction] of Blood [facility] Hemoglobin [Mass/vol ume] in Blood [facility] Hemoglobin [Mass/vol ume] in Blood [facility] Hepatitis B virus rojas rface Ag [Presence] in Serum [facility] Leukocytes [#/volume ] in Blood [facility] Leukocytes [#/volume ] in Blood [facility] Liquid based cervica l cytology screening [facility] Mean corpuscular hemoglobin concentration determination [facility] Mean corpuscular hemoglobin concentration determination [facility] Mean corpuscular hemoglobin determination [facility] Mean corpuscular hemoglobin determination [facility] Measurement of gluco se 2 hours after glucose challenge for glucose tolerance test [facility] Measurement of renal function [facility] Measurement of renal function [facility] Neutrophil count [facility] Neutrophil count [facility] Neutrophil percent differential count [facility] Neutrophil percent differential count [facility] Path report.final Dx Spec [facility] Patient Education [facility] Work Phone: Patient referral [facility] Work Phone: Platelets [#/volume] in Blood [facility] Platelets [#/volume] in Blood [facility] Potassium measurement [facility] Potassium measurement [facility] Protein/Creatinine [ Ratio] in Urine [facility] Red blood cell count [facility] Red blood cell count [facility] Red cell distributio n width determination [facility] Red cell distributio n width determination [facility] Serologic test for syphilis [facility] Serum chloride measurement [facility] Serum chloride measurement [facility] Sodium measurement [facility] Sodium measurement [facility] T4 free measurement [facility] Thyroid stimulating hormone measurement [facility] Total protein measurement [facility] Total protein measurement [facility] Urea nitrogen [Mass/volume] in Serum or Plasma [facility] Urea nitrogen [Mass/volume] in Serum or Plasma [facility] Immunizations Immunization Date Immunization Notes Care Provider Akash munoz 05-10-2022 influenza, injectabl e, quadrivalent, preservative free Dr. Ramiro Ren Work Phone: [facility] 05-10-2022 influenza, seasonal, injectable Dr. Ramiro Ren Work Phone: [facility] 05-04-2021 influenza, injectabl e, quadrivalent, preservative free Dr. Ramiro Ren Work Phone: [facility] 05-04-2021 influenza, seasonal, injectable [facility] 05-04-2021 Seasonal, quadrivale nt, recombinant, injectable influenza vaccine, preservative free DO Katarina Christy Work Phone: [facility] 03-23-2020 influenza, injectabl e, quadrivalent, preservative free Dr. Ramiro Ren Work Phone: [facility] 03-23-2020 influenza, seasonal, injectable [facility] 05-06-2019 influenza, injectabl e, quadrivalent, preservative free Dr. Ramiro Ren Work Phone: [facility] 05-06-2019 influenza, seasonal, injectable [facility] 08-20-2018 hepatitis B vaccine, adult dosage [facility] 03-21-2018 influenza, injectabl e, quadrivalent, preservative free Dr. Ramiro Ren Work Phone: [facility] 03-21-2018 influenza, seasonal, injectable [facility] 02-10-2018 hepatitis B vaccine, adult dosage [facility] 12-14-2015 meningococcal polysaccharide (groups A, C, Y and W-135) diphtheria toxoid conjugate vaccine (MCV4P) DO Katarinachevy Christy Work Phone: [facility] 10-16-2010 meningococcal polysaccharide (groups A, C, Y and W-135) diphtheria toxoid conjugate vaccine (MCV4P) DO Katarinachevy Christy Work Phone: [facility] 10-16-2010 tetanus toxoid, redu reji diphtheria toxoid, and acellular pertussis vaccine, adsorbed DO Katarina Espinalnger Work Phone: [facility] 10-16-2010 varicella virus vaccine DO K paulie Westley Work Phone: [facility] 06-30-2003 diphtheria, tetanus toxoids and acellular pertussis vaccine DO Katarina Westley Work Phone: [facility] 06-30-2003 measles, mumps and rubella virus vaccine DO Katarina Westley Work Phone: [facility] 06-30-2003 poliovirus vaccine, inactivated DO Katarina Westley Work Phone: [facility] 11-27-1999 diphtheria, tetanus toxoids and acellular pertussis vaccine DO Katarina Westley Work Phone: [facility] 11-27-1999 haemophilus influenz ae type b vaccine, PRP-T conjugate DO Katarina Horneer Work Phone: [facility] 11-27-1999 poliovirus vaccine, inactivated DO Katarina Horneer Work Phone: [facility] 11-27-1999 varicella virus vaccine DO Vasile Christy Work Phone: [facility] 08-24-1999 measles, mumps and rubella virus vaccine DO Katarina Espinalnger Work Phone: [facility] 02-23-1999 diphtheria, tetanus toxoids and acellular pertussis vaccine DO Katarina Espinalnger Work Phone: [facility] 02-23-1999 haemophilus influenz ae type b vaccine, PRP-T conjugate DO Katarina Horneer Work Phone: [facility] 02-23-1999 hepatitis B vaccine, pediatric or pediatric/adolescent dosage DO Katarina Espinalnger Work Phone: [facility] 1998 diphtheria, tetanus toxoids and acellular pertussis vaccine DO Katarina Espinalnger Work Phone: [facility] 1998 haemophilus influenz ae type b vaccine, PRP-T conjugate DO Katarina Horneer Work Phone: [facility] 1998 poliovirus vaccine, inactivated DO Katarina Horneer Work Phone: [facility] 1998 diphtheria, tetanus toxoids and acellular pertussis vaccine DO Katarina Espinalnger Work Phone: [facility] 1998 haemophilus influenz ae type b vaccine, PRP-T conjugate DO Katarina Espinalnger Work Phone: [facility] 1998 hepatitis B vaccine, pediatric or pediatric/adolescent dosage DO Katarina Westley Work Phone: [facility] 1998 poliovirus vaccine, inactivated DO Katarina Horneer Work Phone: [facility] 1998 hepatitis B vaccine, pediatric or pediatric/adolescent dosage DO Katarina Westley Work Phone: [facility] Payers Date Payer Category Payer Self-pay [id number] 2024 Unknown [id number] 2015 Unknown [facility] [id number] 1998 Unknown [id number] 2.16. [id number] Unknown [id number] Unknown [id number] 2.16.8 [id number] Unknown [id number] 2.16.8 [id number] Unknown [id number] 2.16.8 [id number] Unknown [id number] 2.16.8 [id number] Unknown [id number] 2.16.8 [id number] Unknown [id number] 2.16.8 [id number] Unknown [id number] 2.16.8 [id number] Unknown [id number] 2.16.8 [id number] Unknown [id number] 2.16.8 [id number] Unknown [id number] 2.16.8 [id number] Unknown [id number] 2.16.8 [id number] Unknown [id number] 2.16.8 [id number] Unknown [id number] 2.16.8 [id number] Unknown [id number] 2.16.8 [id number] Unknown [id number] 2.16.8 [id number] Unknown [id number] 2.16.8 [id number] Unknown [id number] 2.16.8 [id number] Social History Date Type Detail Facility Start: 04-06-2021 End: 10-23-2023 Tobacco smoking status WVIS Unknown if ever smoked [facility] Start: 2000 Sex Assigned At Female [facility] Start: 10-23-2023 End: 11-06-2024 Tobacco smoking status NHIS Never smoked tobacco (finding) [facility] Start: 09-04-2024 End: 09-21-2024 Sex Female (finding) [facility] NEGATED: Highlighted row [facility] Goals Date Patient Goal Desired Activity /State Mental Status Date Assessment Result Facility 05-09-2022 Cognitive function Voice/Name [facility] Work Phone: Clinical Notes 09-09-2023 to 01-22-2025 Note Date & Type Note Facility 01-22-2025 Progress note [facility] 12-23-2024 Progress note [facility] 11-20-2024 Evaluation note Diagnosis Onset Date Resolution [...] type 3a acute January 22, 2025 11:17am [facility] Work Phone: 1(737) 405-819705-30-2025 Evaluation note* Diagnosis Onset Date Resolution Status [...] 3a acute February 18, 2 025 11:22am [facility] Work Phone: 1(653) 739-904703-14-2025 Evaluation note* Diagnosis Onset Date Resolution Status [...] high-risk acute November 20, 2024 2 :27pm [facility] Work Phone: 1(595) 842-506303-14-2025 Evaluation note* Diagnosis Onset Date Resolution Status [...] high-risk acute November 20, 2024 2 :27pm [facility] Work Phone: 1(726) 393-758403-14-2025 Evaluation note* Diagnosis Onset Date Resolution Status [...] type 3a acute December 23, 2024 10:37am [facility] Work Phone: 1(183) 553-600901-22-2025 Evaluation note* Diagnosis Onset Date Resolution Status Admit Date Hypothyroidism acute July 152024 2:03pm Palpitations acute June 2:03pm Palpitations acute September 04, 2024 7:29am [facility] Work Phone: 1(975) 546-489903-18-2024 Discharge summary Author Susy Thompson [facility] September 09, 2023 1:01pm Note Date/Time September 09, 2023 1:0 1pm [facility] Physical Therapy [facility] [address] [place] [address] / REHABILITATION SERVICES DISCHARGE SUMMARY MR#: [id number] Acct: [id number] Name: LILY FOUNTAIN Rep #: [id number] : 2000 23 From: Susy Thompson PT, [...] please feel free to call me at [phone]. Thank you for the referral of thispatient. Sincerely, Susy Thompson, PT, Cert MDT Balance/Gait/Functional tests Improvement % Improvement: 95 <Electronically signed by Travis Dailey PT. MDT> 09/09/23 1301 CC: ELADIA Bernal; Katarina Christy, DO ~ FLAVIA Signed [facility] Work Phone: evaluation noteNo assessment information available [facility] Work Phone: Evaluation note* Diagnosis Onset Date Resolution Status Postprandial RUQ pain acute [facility] Work Phone: Evaluation note* Diagnosis Onset Date Resolution Status Postprandial RUQ pain acute Postprandial RUQ pain acute Postprandial RUQ pain acute Epigastric abdominal pain [facility] Work Phone: Evaluation note* Diagnosis Onset Date Resolution Status Postprandial RUQ pain acute Postprandial RUQ pain acute Epigastric abdominal pain [facility] Work Phone: Evaluation note* Diagnosis Onset Date Resolution Status Postprandial RUQ pain acute Postprandial RUQ pain acute Epigastric abdominal pain [facility] Encounter for routine gynecological examination noneactive [facility] Work Phone: evaluation note* Diagnosis Onset Date Resolution Status Encounter for routine gynecological examination noneactive Bile in stomach acute Eosinophilic esophagitis [facility] Work Phone: evaluation note* Diagnosis Onset Date Resolution Status Bile in stomach acute Eosinophilic esophagitis [facility] Work Phone: Evaluation note* Diagnosis Onset Date Resolution Status Hypothyroid in , antepartum acute Meniere disease acute acute Supervision of high risk , antepartum acute Hypothyroid in , antepartum acute Meniere disease acute acute Supervision of high risk , antepartum acute [facility] Work Phone: evaluation note* Diagnosis Onset Date [...] Supervision of high risk , antepartum acute [facility] Work Phone: Evaluation note* Diagnosis Onset Date [...] high risk , antepartum acute Vaginitis acute [facility] Work Phone: Evaluation note* Diagnosis Onset Date [...] perineum, type 3a acute Routine Follow-Up noneactive [facility] Work Phone: Evaluation note* Diagnosis Onset Date [...] perineum, type 3a acute Routine Follow-Up noneactive [facility] Work Phone: Evaluation note* Diagnosis Onset Date Resolution Status Hypothyroidism acute Routine Follow-Up noneactive Eosinophilic esophagitis acu te Acquired hypothyroidism none active Establishing care with new doctor, encounter for noneactive Epigastric abdominal pain no neactive [facility] Work Phone: Progress note Author Linh Willis [facility] Note Date/Time December 23, 2024 11:03 am [facility] [address] [place] [address], [address] [place] [address] OFFICE VISIT Date of Service: 12/23/24 MR#: [id number] Acct: [id number] Name: LILY FOUNTAIN Rep #: [id number] : 2000 Provider: Dr. Leah Jean-Baptiste DO Age/Sex: 24/F Location: [facility] [place] Status: Signed Intake Vital Signs 09/04/24 07:33 11/20/24 14:34 12/23/24 10:38 12/23/24 10:39 Height 5 ft 7 in 5 ft 7 in 5 ft 7 in 5 ft 7 in Weight: 211 lb 8 oz BMI 33.1 BP 118/75 Intake Visit Reasons: 13wk OB Liaison Officer Required: No Is patient in pain?: No [...] mg-folate no.1 1 mg-dha 300 mg capsule (PNV-[place]) levothyroxine 112 mcg capsule 112 mcg PO [...] 1 current occupational status: unemployed current occupation: [employer] current occupational exposures/hazards: No pets and animals: [...] 3-4 times per week duration: 30-45 minutes/day joseph/confucianism: Anglican seatbelt use: always do you feel safe at home: Yes additional social history: Spouse - Wayne Fountain History 2 Elective abortions Hx Para 1 Spontaneous abortions Hx # Term Pregnancies 1 Ectopic pregnancies Hx # Pregnancies Multiple births # of living children 1 Past Pregnancies Del. Date Name GA/Weeks Outcome Route Bth Weight Infant Gen Labor Lgth Anesthesia Del Locatn Provider FOB 05/26/23 [place] 38 live - full term 7#14oz Male epid ural [facility] Cand[facility] Bernal IOL GHTN 3rd degree laceration [...] Cosigner Signature: Date (if applicable) CC: ~ [facility] Work Phone: Progress note Author Bea Montano [facility] Note Date/Time January 22, 2025 11: 53am [facility] [address], [address] [place] [address] OFFICE VISIT Date of Service: 01/22/25 MR#: [id number] Acct: [id number] Name: LILY FOUNTAIN Rep #: [id number] : 2000 Provider: ELADIA Montano Age/Sex: 24/F Location: [facility] [place] Status: Signed Intake Vital Signs 11/20/24 14:34 12/23/24 10:39 01/22/25 11:20 Height 5 ft 7 in 5 ft 7 in 5 ft 7 in Weight: 216 lb 5 oz BMI 33.8 BP 137/80 H Intake Visit Reasons: 17 wk ob Chief Complaint: 17wk OB Liaison Officer Required: No Is patient in pain?: No [...] mg-folate no.1 1 mg-dha 300 mg capsule (PNV-[place]) levothyroxine 112 mcg capsule 112 mcg PO [...] 1 current occupational status: unemployed current occupation: [employer] current occupational exposures/hazards: No pets and animals: [...] 3-4 times per week duration: 30-45 minutes/day joseph/confucianism: Anglican seatbelt use: always do you feel safe [...] - full term 7#14oz Male epid ural [facility] Cand[facility] Bernal IOL GHTN 3rd degree laceration Wayne Delivery Date: 05/26/23 Last Updated by: aPo Puneet Garcia IOL GHTN @ 38wks 3rd [...] Monitoring, Signs and Symptoms of Preeclampsia and [place] Education ROS Const Reports system reviewed and [...] Cosigner Signature: Date (if applicable) CC: ~ [facility] Work Phone: Reason for referral (narrative)No reason for referral information availableWAC[facility] Work Phone: Chief Complaint and Reason for [...] FU 4 W FU MEDICATION CHECK 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) Reason for Visit Postprandial RUQ rachel n Postprandial RUQ pain Epigastric abdominal pain Encounter for routine gynecological examination Chief Complaint 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) 2 wk f/u Reason for Visit Encounter [...] stetrics) E ORDERS EORDER PELVIC FLOOR/RX HERE DIRECTOR BUSINESS DEVELOPMENT EST CARE PPW SENT Reason for Visit [...] Will No April 05 9:35am Power of Performance Analyst No April 05, 2016 9:35am Advance Directive Response Recorded Date/ Time Advance Directives No April 05, 2016 8:35am Living Will No May 08 022 9:12am Power of Performance Analyst No May 08, 2022 9:12am Advance Directive Response Recorded Date/ Time Advance Directives No April 05, 2016 9:35am Living Will No May 08, 022 10:12am Power of Performance Analyst No May 08, 2022 10:12am Advance Directive Response Recorded Date/ Time Advance Directives No April 05, 2016 9:35am Living Will No November 15, 2022 9 :27pm Power of Performance Analyst No November 15, 2022 9:27pm Advance Directive Response Recorded Date/ Time Advance Directives No April 05, 2016 8:35am Living Will No November 15, 2022 8 :27pm Power of Performance Analyst No November 15, 2022 8:27pm Advance Directive Response Recorded Date/ Time Advance Directives No April 05, 2016 8:35am Living Will No May 24 2:23pm Power of Performance Analyst No May 24, 2023 2:23pm Advance Directive Response Recorded Date/ Time Advance Directives No April 05, 2016 9:35am Living Will No May 24 3:23pm Power of Performance Analyst No May 24, 2023 3:23pm Advance Directive [...] Provider, Referr ing Provider Active Maryjo Fletcher DIRECTOR BUSINESS DEVELOPMENT, DIRECTOR BUSINESS DEVELOPMENT-C Attending Provider Active Team Status: Active Member [...] Primary Care Provider Active Sujata Campuzano , DIRECTOR BUSINESS DEVELOPMENT-C Attending Provider, Referr ing Provider Active Team Status: Inactive Member Role Status Dates Dr. Ramiro Ren MD Primary Care Provider Active WILL, TINAJERO Referring Provider Active WILL, TINAJERO Attending Provider Active Team Status: Active Member Role Status Dates Dr. Ramiro Ren MD Primary Care Provider Active Ana Rahman DIRECTOR BUSINESS DEVELOPMENT, DIRECTOR BUSINESS DEVELOPMENT-C Attending Provider, Referring Provider Active Team Status: Inactive Member Role Status Dates Dr. Ramiro Ren MD Primary Care Provider Active Ana Rahman DIRECTOR BUSINESS DEVELOPMENT, DIRECTOR BUSINESS DEVELOPMENT-C Attending Provider, Referring Provider Active Team Status: Active Member Role Status Dates Dr. Ramiro Ren MD Primary Care Provider Active Ana Rahman DIRECTOR BUSINESS DEVELOPMENT, DIRECTOR BUSINESS DEVELOPMENT-C Attending Provider Active Team Status: Inactive Member Role Status Dates Dr. Ramiro Ren MD Primary Care Provider Active Ana Rahman NP, DIRECTOR BUSINESS DEVELOPMENT-C Attending Provider Active Team Status: Active Member [...] Provider, Referr ing Provider Active Sujata Campuzano DIRECTOR BUSINESS DEVELOPMENT-C Other Provider Active Team Status: Inactive Member Role Status Dates Dr. Savage Bonds MD Attending Provider, Emergency Pr ovider Active Katarina Chirsty DO Primary Care Provider Active Team Status: [...] Care Provider, Referring Provider Active Corina Kern DIRECTOR BUSINESS DEVELOPMENT, DIRECTOR BUSINESS DEVELOPMENT-C Attending Provider Active Team Status: Inactive Member [...] 04, 2024 End: September 04, 2024 MAGDA Knolwes Attending Provider Active St art: September 04, [...] section and content) DATE CREATED AUTHOR 01/29/2025 [facility] DATE CREATED AUTHOR AUTHOR'S RHEAIZ ATION 03/13/2025 [facility] FOR RECORDS PERTAINING TO PATIENTS WHO ARE [...] BE BASED ON THE PRIMARY CLINICAL RECORDS. [facility]. provides no warranty or guarantee of the accuracy or completeness of information in this document.
== END | disposition home or self-care (01) ==
LOC: PSN 10:50
PROVIDERS: PCP Internal Medicine; Referring Provider Obstetrics & Gynecology; Visit Provider Obstetrics & Gynecology
DX: O09.92 Supervision of high risk pregnancy, unspecified, second trimester (principal); R00.2 Palpitations; Z3A.00 Weeks of gestation of pregnancy not specified
CPT/HCPCS: 93005

== ENCOUNTER → 2025-03-18 | Outpatient (CLI) | payer BC, SELFPAY ==
[2025-03-18 10:50] LABS: Hematocrit 40.0 % (37-47); Hemoglobin 14.0 g/dL (12.0-15.0); Immature Granulocytes Count 0.060 X10^3/uL (0.0-0.0); Mean Corp Hgb Conc 35.0 g/dL (32-36); Mean Corpuscular Volume 87.5 fL (81-99); Mean Platelet Vol. 9.6 fl (6.2-12.0); NRBC Flagged by Analyzer 0 % (0-5); Platelet Count 243 K/mm3 (150-450); RBC Distribution Width CV 13.0 % (11.6-14.6); RBC Distribution Width SD 41.0 fl (35.1-43.9); Red Blood Count 4.57 M/mm3 (4.2-5.4); White Blood Count 9.1 K/mm3 (4.4-11.0)
[2025-03-18 11:54] LABS: Free T3 2.7 pg/mL (2.18-3.98)
[2025-03-18 12:07] LABS: Glucose Challenge Gest 1H 50g 101 mg/dL (70-140); HIV Nonreactive (Nonreactive); Syphilis Antibodies Nonreactive (Nonreactive)
== END | disposition home or self-care (01) ==
LOC: LAB 10:16
PROVIDERS: Nurse Practitioner Women's Health; PCP Internal Medicine; Referring Provider Obstetrics & Gynecology; Visit Provider Obstetrics & Gynecology
DX: O99.280 Endocrine, nutritional and metabolic diseases complicating pregnancy, unspecified trimester (principal); O09.90 Supervision of high risk pregnancy, unspecified, unspecified trimester; E03.9 Hypothyroidism, unspecified; Z86.39 Personal history of other endocrine, nutritional and metabolic disease; Z3A.00 Weeks of gestation of pregnancy not specified; Z13.1 Encounter for screening for diabetes mellitus
CPT/HCPCS: 36415; 82950; 84443; 84481; 85025; 86703; 86780

== ENCOUNTER → 2025-04-14 | Outpatient (CLI) | payer BC, SELFPAY | END | disposition home or self-care (01) | PROVIDERS: PCP Internal Medicine; Visit Provider Obstetrics & Gynecology | DX: O99.282 Endocrine, nutritional and metabolic diseases complicating pregnancy, second trimester (principal); E03.9 Hypothyroidism, unspecified; Z3A.00 Weeks of gestation of pregnancy not specified | CPT/HCPCS: 36415; 84439; 84443; 86376 ==

== ENCOUNTER → 2025-05-18 | Outpatient (CLI) | payer BC, SELFPAY ==
--- NOTE | 2025-05-18 12:03 | US_ITS ---
PROCEDURE: OB LIMITED WITH BIOMETRICS 05/18/2025 REASON FOR EXAM: LGA TECHNIQUE: Procedure Code: [id number] Modality: US Procedure: OB LIMITED WITH BIOMETRICS COMPARISON: None FINDINGS LMP: September 15, 2024. Number: 1 Position: Vertex Placental Position: Anterior and not low-lying Placental Abnormalities: No evidence of previa. DIMENSIONS: Biparietal Diameter: 8.6 cm: 34 weeks and 5 days: 46 percentile./ Head Circumference: 31 cm: 34 weeks and 5 days: 12th percentile/ Abdominal Circumference: 32.1 cm: 36 weeks and 0 days: 84 percentile/ Femur Length: 6.5 cm: 33 weeks and 5 days: 14 percentile/ ESTIMATED WEIGHT: 2649 g plus/-397 g ESTIMATED WEIGHT PERCENTILE (24+ weeks): 56 ESTIMATED GESTATIONAL AGE: Baseline: 35 weeks and 0 days By Ultrasound: 34 weeks and 4 days ESTIMATED DATE OF DELIVERY: Baseline: June 22, 2025 By Ultrasound: June 25, 2025 BIOPHYSICAL ASSESSMENT: Amniotic Fluid Volume: 6 cm Amniotic Fluid Index: 15.2 (8-24 cm normal range) Cardiac Motion: 147 beats per minute (average) Trunk and Limb Motion: Present. US/OB Limited With Biometrics IMPRESSION: Single live intrauterine gestation with a mean gestational age of 34 weeks and 4 days. Reading Location: [place] [address]
== END | disposition home or self-care (01) ==
LOC: US 12:03
PROVIDERS: PCP Internal Medicine; Referring Provider Obstetrics & Gynecology; Visit Provider Obstetrics & Gynecology
DX: O36.60X0 Maternal care for excessive fetal growth, unspecified trimester, not applicable or unspecified (principal); Z3A.00 Weeks of gestation of pregnancy not specified
CPT/HCPCS: 76816

== ENCOUNTER → 2025-05-25 | Outpatient (CLI) | payer BC, SELFPAY | END | disposition home or self-care (01) | LOC: LABSPEC 11:13 | PROVIDERS: PCP Internal Medicine; Visit Provider Nurse Practitioner Women's Health | DX: O09.92 Supervision of high risk pregnancy, unspecified, second trimester (principal); Z3A.00 Weeks of gestation of pregnancy not specified | CPT/HCPCS: 87081 ==